=== PATIENT | female | born 1935 | race Caucasian/White ===

== ENCOUNTER 2023-06-21 09:20 | Day surgery (SDC) | payer MEDICARE, SELFPAY ==
[2023-06-21] MEDS: LACTATED RINGERS 1000 ML 1,000 ML 100 ML IV (09:20)
[2023-06-21 09:43] VITALS: BP 99/66; PULSE 61; RESP 18; TEMP 36.8; O2SAT 97; BMI 27.3
[2023-06-21] MEDS: SODIUM CHLORIDE 0.9 % (FLUSH) 10 ML SYRINGE IVF (09:50)
--- NOTE | 2023-06-21 11:53 | W.ANESCHARGE ---
Anesthesia Charges Start Date/Time Anesthesia Start Date: 06/21/23 Anesthesia Start Time: 11:38 Stop Date/Time Anesthesia Stop Date: 06/21/23 Anesthesia Stop Time: 12:18 Summary Extremes of Age - Over 70 or under 1: MDA
[2023-06-21] MEDS: CEFAZOLIN 2 GM INJ IVP (12:00)
[2023-06-21] MEDS: BACITRACIN OINTMENT BULK TUBE 1 APPLIC TOPICAL (12:05)
[2023-06-21] MEDS: LIDOCAINE 1 % PF 30 ML INJECTION (12:05)
[2023-06-21 12:15] VITALS: BP 113/71; PULSE 66; RESP 16; TEMP 37; O2SAT 96
[2023-06-21 12:30] VITALS: BP 110/70; PULSE 67; RESP 16; O2SAT 97
--- NOTE | 2023-06-21 12:45 | P.ANES_ITS ---
Anesthesia Charges Start Date/Time Anesthesia Start Date: 06/21/23 Anesthesia Start Time: 11:38 Stop Date/Time Anesthesia Stop Date: 06/21/23 Anesthesia Stop Time: 12:18 Summary Extremes of Age - Over 70 or under 1: [employer]
--- NOTE | 2023-06-21 16:18 | W.PM.GYNPROC ---
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 Clitoral ortiz is swollen and thickened. Once released, there were two - three small keratin pearls released. No pus. The skin surrounding the clitoral ortiz, which had previously been diffusely erythematous, was normal in color. Normal perineum and anus. Vagina atrophic in appearance. Procedure Description: Patient was taken to OR with IV running. She received cefazolin in pre-op prophylaxis. Monitored anesthesia care was administered. She was prepped and draped in the usual sterile fashion in dorsal lithotomy position. Exam under anesthesia was performed for the above-noted findings. She was initially poorly tolerant of the exam; this improved with injection of small amount of lidocaine into the superficial clitoral ortiz and increase in propofol. Thereafter, the phimosis was opened bluntly with mosquito hemostat in the midline. A small amount of keratinaceous debris was released with presure. The hemostat was used to probe beneath the clitoral ortiz and around the glans, and no further debris or adhesions were encountered. Antibacterial ointment was applied to the glans.
== END 2023-06-21 12:51 | disposition home or self-care (01) ==
PROVIDERS: Visit Provider Obstetrics & Gynecology
PROC: 0UQG0ZZ Repair Vagina, Open Approach (ICD-10-PCS; CPT 56441; principal; 2023-06-21 11:00)
DX: N90.89 Other specified noninflammatory disorders of vulva and perineum (principal); L90.0 Lichen sclerosus et atrophicus
CPT/HCPCS: 56441; 00400; 00940; 36415; 86850; 86900; 86901; 87070; 87075; 87076; 87181; 87186; 87205; 99100; J0690; J2001; J2405; J2704; J3010; J7120

== ENCOUNTER 2024-01-29 13:21 | Outpatient (CLI) | payer MEDICARE, SELFPAY ==
--- OUTSIDE RECORDS SUMMARY | 2024-01-29 13:26 | XMS_ITS | Clinical Summary ---
Author Organization [facility] Address [address] [place] [address] Care Team Providers Care Laborer Vineyard Name Role Phone Ty Elizabeth MD Unavailable [phone] Shu Mayfield MD Unavailable Raeann MaldonadoC Unavailable Shannan Byrne [facility] Unavailable [phone] Shannan Byrne [facility] Unavailable [phone] Shannan Byrne Unavailable Unavailable Mihaela Sylvester MD Unavailable Huong Soto [employer] Unavailable [phone] Karma Donnelly [employer] Unavailable Macrina KhanC Primary Care Provider Sharon Huang DNP Unavailable [phone] Venus Abrams PA-C Unavailable [phone] Mana MelgarSW Unavailable Allergies Active Allergy Reactions Criticality Noted Date Comments Rodney Inhibitors 11/27/2011 Cough Bupropion 03/08/2022 Nausea, constipation Codeine Sulfate Nausea High 08/18/2023 Penicillins Nausea 08/18/2010 Shrimp Itching,Difficulty breathing 08/18/2010 Sulfa Antibiotics Nausea,Nausea and Vomiting,GI Disturbance 04/26/2016 1 hour after taking medication started vomiting, chills, runny nose, diarrhea and stomach upset Medications losartan (COZAAR) 100 MG tablet Take 1 tablet (100 mg) by mouth daily 90 tablet 3 12/22/19 23 Active levothyroxine (SYNTHROID/LEVOTHR OID) 112 MCG tabletIndications: Acquired hypothyroidism TAKE ONE TABLET BY MOUTH ONCE DAILY 90 tablet 1 05/01/19 24 Active sodium chloride (CATHY 128) 5 % ophthalmic solution Place 1 drop into both eyes nightly as needed for dry eyes Active amLODIPine (NORVASC) 5 MG tabletIndications: Essential hypertension, benign Take 1 tablet (5 mg) by mouth daily 90 tablet 1 06/11/19 24 Active apixaban ANTICOAGULANT (ELIQUIS) 5 MG tabletIndications: Afib-non valvular Take 1 tablet (5 mg) by mouth 2 times daily 180 tablet 1 06/28/19 24 Active ondansetron (ZOFRAN) 4 MG tabletIndications: Nausea Take 1 tablet (4 mg) by mouth every 8 hours as needed for nausea 30 tablet 2 07/19/19 24 Active Nebulizers (VIOS AEROSOL DELIVERY SYSTEM) [facility] [place] Inst[place] 08/18/19 24 Active amiodarone (PACERONE) 200 MG tabletIndications: PAF (paroxysmal atrial fibrillation) (H) Take 1 tablet (200 mg) by mouth daily 90 tablet 3 09/21/19 24 Active melatonin 5 MG tablet Take 5-10 mg by mouth nightly as needed for sleep Active VITAMIN D PO Take 1 tablet by mouth daily Active lurasidone (LATUDA) 20 MG TABS tabletIndications: Bipolar 2 disorder (H) Take 1 tablet (20 mg) by mouth daily (with dinner) 90 tablet 10/02/19 24 Active divalproex sodium extended-release (DEPAKOTE ER) 250 MG 24 hr tabletIndications: Bipolar 2 disorder (H) Take 1 tablet (250 mg) by mouth 2 times daily. Managed by PCP 60 tablet 11/08/19 Active LORazepam (ATIVAN) 0.5 MG tabletIndications: Anxiety Take 1 tablet (0.5 mg) by mouth every 8 hours as needed for anxiety. 10 tablet 12/25/19 Active Active Problems Problem Noted Date Diagnosed Date Bipolar 2 disorder 09/03/2023 Major depressive disorder wi th current active episode, unspecified depression episode severity, unspecified whether recurrent 09/03/2023 Prediabetes 08/28/2023 UTI symptoms 08/27/2023 Altered mental status, unspe cified altered mental status type 08/27/2023 Assessment & Plan (08/27/2023 12:48 PM CDT): Son (with whom we are given permission to speak no CTC ) reports that the family is concerned about the possibility of dementia. Formal testing can be done by [facility] or psychiatry. Serologic review at this time. Observe changes with increased Depakote Elevated glucose 08/27/2023 Assessment & Plan (08/27/2023 12:48 PM CDT): Broaden database Paroxysmal atrial fibrillation 05/07/2023 Assessment & Plan (08/27/2023 12:49 PM CDT): She continues on amiodarone with interactions of concern with neuroleptics. She may eventually have EP interventions Assessment & Plan (07/20/2023 7:01 AM CDT): New onset. She has been cardioverted unsuccessfully. Flecainide was started. Changed to amiodarone, strong interaction with Seroquel-prolonged QT.. We will stop Seroquel. Last QTc .411. She has been referred to EP Assessment & Plan (06/06/2023 9:04 AM CDT): She has been cardioverted now a few times. Clinically in sinus rhythm now. Discussed upcoming cardiology potential interventions. Symptom is dyspnea. Defer to cardiology Sebaceous cyst 04/24/2023 Assessment & Plan (04/24/2023 9:44 PM SENIOR SOFTWARE ARCHITECT): Lesion that her right flank posterior axillary line and slightly medial this is a sebaceous cyst with a pore quite superficial. This bothers her. 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 Continue current regimen. Monitor Assessment & Plan (04/24/2023 9:45 PM SENIOR SOFTWARE ARCHITECT): She awakens and cannot fall back asleep. She is tossing and turning in bed discussed sleep over a lifetime into the geriatric population. Recommended sleep hygiene. Sleep referral offered declined Nocturia 12/28/2022 Assessment & Plan (12/31/2022 11:08 AM CDT): Multiple. Discussed options. She will consider, no interventions now. Xerostomia 08/09/2022 Assessment & Plan (08/10/2022 9:03 AM CDT): Attributed to hydrochlorothiazide, no change with cessation Using artificial saliva. Reduce hs seroquel dose to 50. Anserine bursitis 05/22/2022 Assessment & Plan (05/22/2022 8:39 PM CDT): Informed consent discussed, signed. Time out taken. After the verification of the absence of allergies, with betadine prep, in sterile fashion MARCAINE without epinepherine and 2 mg Dexamethasone was instilled into the L anserine bursa with 0 blood loss . Response over time with ambulation to be observed. Arthralgia of left lower leg 05/22/2022 Overview (05/22/2022): Pain Knee Assessment & Plan (05/22/2022 8:38 PM CDT): Pain with walking left leg, resolves with sitting. Starts below knee radiates towards pelvis. Exam shows negative straight leg raise pain at the anserine bursa. Anserine bursa injection. Observe if unresponsive refer for PT Dysgeusia 05/18/2022 Assessment & Plan (08/10/2022 9:04 AM CDT): Since COVID, improved slightly. Discussed lack of therapeutic options, change in taste with aging. Assessment & Plan (05/18/2022 9:28 PM CDT): The appearance of food makes her have anorexia, which she blames on respite all. We will reduce Risperdal, she needs more investigation Sciatica, unspecified laterality 05/18/2022 Assessment & Plan (05/18/2022 9:28 PM CDT): She reports a history of multiple spinal surgeries, left leg discomfort radiating to her foot with ambulation. Investigate in person in the meantime, diclofenac gel, Tylenol Nausea 03/08/2022 Assessment & Plan (07/20/2023 7:03 AM CDT): Prominent anxiety has been recurring since the of her spouse. She is having nausea diarrhea lightheadedness and hot flashes after missing 1 dose of Seroquel. If this is a withdrawal effect, she will have to tolerate it. Symptomatic treatment Assessment & Plan (03/08/2022 11:24 AM SENIOR SOFTWARE ARCHITECT): Dependable nausea following bupropion all morning. We will discontinue Weight loss 01/23/2022 Assessment & Plan (05/22/2022 8:42 PM CDT): Perceived, but not objectively. Discussed reassuring measures today actual caloric needs at this age Assessment & Plan (05/18/2022 9:30 PM CDT): She reports weight loss, of uncertain amount. She describes stuttering weight loss. I recommend evaluation, she believes Risperdal Assessment & Plan (01/23/2022 2:18 PM SENIOR SOFTWARE ARCHITECT): Anorexia, 20 pounds weight loss since the passing of her . No heartburn no dysphagia. Broaden database obtained last spring as part of evaluation for her [facility]. Update a few studies today Atypical chest pain 01/23/2022 Assessment & Plan (01/23/2022 2:17 PM SENIOR SOFTWARE ARCHITECT): Patient awoke with palpitations nausea and diaphoresis. This faded by morning, but a.m. nausea since. She blamed her SSRI and stopped it. EKG today shows development of first-degree AV block since last EKG, otherwise stable with increased baseline wander. On daily famotidine. Broaden database Ascending aorta dilatation 01/23/2022 Assessment & Plan (04/24/2023 9:46 PM SENIOR SOFTWARE ARCHITECT): Periodic echo Assessment & Plan (03/08/2022 11:28 AM SENIOR SOFTWARE ARCHITECT): Borderline. Control blood pressure, repeat echo 2022 Assessment & Plan (01/23/2022 2:16 PM SENIOR SOFTWARE ARCHITECT): Borderline, on last echo. Follow-up cardiology visit was not completed. Assess information from currently ordered cardiac studies Grieving 01/23/2022 Assessment & Plan (05/22/2022 8:41 PM CDT): Risperdal started for panic attacks, effective. Dysgeusia ensued, dose reduced last week. Patient notes more loneliness with Risperdal dose, objective data suggests dysgeusia may be observed. Discussed complications of long-term therapy. Plan 90 days at this homeopathic dose and trial of cessation. Her social support reviewed. She has found the grieving class at her [employer]ism very effective, considers her social support good. She is seeing a counselor, but is not engendering rapport. I suggest that she request a change in counselors but continue for a few months at minimum Assessment & Plan (05/18/2022 9:29 PM CDT): She reports she is doing okay. This is grieving after the loss of her of many decades. Discussed Assessment & Plan (03/22/2022 10:31 AM SENIOR SOFTWARE ARCHITECT): Panic attacks and resolved on Risperdal with cessation of other agents. She is already entering acceptance. She spent many months with her in hospice Assessment & Plan (03/08/2022 11:25 AM SENIOR SOFTWARE ARCHITECT): Associated anxiety improved but incompletely with bupropion. Effect of buspirone unclear. Stop bupropion, increase dose and schedule buspirone. She has an appointment with counseling in a few weeks Assessment & Plan (02/25/2022 3:16 PM SENIOR SOFTWARE ARCHITECT): Patient continues to grieve with panic attacks sometimes waking her at night. Database adequate recent. Paroxetine prescribed earlier was not tolerated with brief exposure discussed counseling trial of Wellbutrin, previously caused hot flashes. May benefit from genetic testing Assessment & Plan (01/23/2022 2:21 PM SENIOR SOFTWARE ARCHITECT): of 65 years is passed. She belongs to a grieving support group. She finds it most of her compatriots has had divorces and remarried and she does not feel that her decades long marriage is a good fit. However she declines additional medicines or referral for counseling today. She does vigorously denies suicidality Papule 04/22/2021 Assessment & Plan (12/31/2022 11:07 AM CDT): Painful induration L labium minus periurethral. She reports History of previous excision of lesion. Rx doxycycline empirically, refer Assessment & Plan (04/22/2021 10:25 AM SENIOR SOFTWARE ARCHITECT): Rapidly growing, no pruritis, occ bleeding (scratched?) unresponsive to Vasoline. Erythematous papule 1X .6 approx.. L forearm refer Peripheral vascular disease 03/21/2021 Assessment & Plan (03/21/2021 10:35 AM SENIOR SOFTWARE ARCHITECT): Patient reports that her insurance sent a nurse out for home visit who did an CLIFFORD. She reports a mild abnormality. She has no symptoms. 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 Progressive over years. No current therapies. Recommend topical diclofenac Tinea cruris 08/12/2020 Assessment & Plan (08/12/2020 12:53 PM CDT): Affected skin occasionally feels scalded. She blames variable toilet papers.. Currently resolving. Discussed future care OTC products Other irritable bowel syndrome 05/12/2020 Assessment & Plan (03/08/2022 11:29 AM SENIOR SOFTWARE ARCHITECT): Bupropion has generated constipation. She has used an enema and digital extraction once. We will stop bupropion, recommend mineral oil enema, brief course of Dulcolax. Anticipate return to baseline Assessment & Plan (04/22/2021 10:26 AM SENIOR SOFTWARE ARCHITECT): Controlled on 20, controlled on 40. Reduce to 20 Assessment & Plan (03/21/2021 10:35 AM SENIOR SOFTWARE ARCHITECT): Better with paroxetine. We will be increasing the dose. Monitor Assessment & Plan (02/07/2021 5:58 PM SENIOR SOFTWARE ARCHITECT): Abdominal discomfort predefecation. Antispasmodics previously poorly tolerated. Trial of therapy Assessment & Plan (08/12/2020 12:52 PM CDT): No current therapies. High Cosamin poorly tolerated. Regardless, almost completely asymptomatic. Discussed additional therapeutic options Assessment & Plan (05/12/2020 5:05 PM SENIOR SOFTWARE ARCHITECT): We have not had this diagnosis before. She reports her sister has this and Levsin is effective. She has fecal frequency without diarrhea or constipation. Colonoscopy is up-to-date. Trial of Levsin Cervical radiculopathy 05/12/2020 Assessment & Plan (05/12/2020 5:04 PM SENIOR SOFTWARE ARCHITECT): Symptoms suggest nerve compression. Only 1 month duration, to short for EMG. Discussed evaluation PT surgery injections. She will pursue her hand first Dysuria 03/09/2020 Trigger finger, acquired 03/09/2020 Assessment & Plan (01/23/2022 2:19 PM SENIOR SOFTWARE ARCHITECT): Left fourth ray. She has had other trigger fingers released, does not want to pursue injections or surgery now. Discussed for her demonstrated directed massage Assessment & Plan (05/12/2020 5:05 PM SENIOR SOFTWARE ARCHITECT): Middle finger. She has been doing directional massage which was effective for a while but not in the last 6 weeks discussed options including surgery and injection. She has had surgery on her thumb before for similar problem. She would like to pursue injection first Assessment & Plan (03/09/2020 3:57 PM SENIOR SOFTWARE ARCHITECT): Right third. She has had a trigger thumb release. Discussed directional massage natural history therapeutic options Skin macule 03/09/2020 Assessment & Plan (03/09/2020 3:59 PM SENIOR SOFTWARE ARCHITECT): She thought this might be an abscess. She warmed packed it. It may have been slightly uncomfortable no drainage exam now reveals a macule with discrete edges no induration. At this juncture monitor until abdominal evaluation is completed Monoclonal gammopathy 02/22/2020 Assessment & Plan (12/31/2022 11:10 AM CDT): Her oncologist has moved on. Broaden data base Assessment & Plan (01/23/2022 2:19 PM SENIOR SOFTWARE ARCHITECT): Future lab as well as last spring's lab reviewed. She reports that her oncologist has moved on Assessment & Plan (02/07/2021 5:59 PM SENIOR SOFTWARE ARCHITECT): Evaluation less than 1 year ago with recommendations to follow yearly otherwise reassuring Assessment & Plan (08/12/2020 12:51 PM CDT): Oncology yearly Assessment & Plan (05/12/2020 5:06 PM SENIOR SOFTWARE ARCHITECT): Oncology evaluation was reassuring. 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 She has been referred to oncology. Discussed Onychomycosis 12/29/2019 Assessment & Plan (12/29/2019 9:38 PM CDT): Left third nail only. Discussed options. Treat Atrophic vaginitis 04/25/2019 Assessment & Plan (02/16/2020 3:43 PM SENIOR SOFTWARE ARCHITECT): Friend of hers was given betamethasone for as needed usage and she would like to try this. Assessment & Plan (08/15/2019 8:02 PM CDT): Alternate topical estrogen due to cost Assessment & Plan (04/25/2019 8:56 PM SENIOR SOFTWARE ARCHITECT): She describes cysts and creams exam today shows atrophic vaginitis with erythema at interlabial margins. Recommend local hormonal therapy. Because of cost, she will try [id number] Vagisil Bilateral ovarian cysts 04/05/2019 Overview (04/05/2019): Repeat 06/2019 Assessment & Plan (04/05/2019 4:35 PM SENIOR SOFTWARE ARCHITECT): Simple, in [place]. They recommend repeating an ultrasound for stability Dyspnea on exertion 04/05/2019 Assessment & Plan (04/25/2019 8:54 PM SENIOR SOFTWARE ARCHITECT): Cardiac evaluation about 1 week hence no change in symptoms Assessment & Plan (04/05/2019 4:34 PM SENIOR SOFTWARE ARCHITECT): Perhaps a few months. No cough no edema. She attributes this to stress Night sweats 04/05/2019 Assessment & Plan (12/31/2022 11:10 AM CDT): Remote evaluation reassuring, attributed to anxiety. Faded, has returned. (Not menopausal). Update data base. Address Grieving/anxiety. Reduce seroquel dose Assessment & Plan (02/07/2021 5:59 PM SENIOR SOFTWARE ARCHITECT): No longer sweats, but hot flashes. Prompted an evaluation previously. Reevaluate slightly. Otherwise, attributed to stress trial of therapy Assessment & Plan (02/22/2020 7:06 AM SENIOR SOFTWARE ARCHITECT): This is a complaint that led to her evaluation. Assessment & Plan (02/16/2020 3:45 PM SENIOR SOFTWARE ARCHITECT): Uncertain duration certainly a few months. Must occasionally change her bed clothes. She attributes this to the menopause decades ago. Discussed differential. Exam unrevealing. [employer] database Assessment & Plan (04/25/2019 8:54 PM SENIOR SOFTWARE ARCHITECT): Son had night sweats which eventually led to cancer. She is worried. Episodes of brief diaphoresis sometimes in bed need not change her sheets. Broaden database Assessment & Plan (04/05/2019 4:35 PM SENIOR SOFTWARE ARCHITECT): Episodes of diaphoresis in her upper chest. One episode prompted her to consider going to the emergency room but it resolved and she decided not to. Frequency, palliative's, provocative is unknown. Lumbar radiculopathy 01/15/2017 Assessment & Plan (05/22/2022 8:42 PM CDT): Longstanding diagnosis, recurrent. Her left leg symptoms may be radicular, although atypical. PT if injection today's inadequate Essential hypertension, benign 01/14/2015 Assessment & Plan (08/02/2023 1:18 PM CDT): Labile. She has an appointment in about a month for recheck. Assessment & Plan (06/06/2023 8:59 AM CDT): Borderline control. Amlodipine was increased at first cardioversion. Anticipate possible adjustment of other medications by cardiology. No changes today Assessment & Plan (01/24/2023 10:06 PM SENIOR SOFTWARE ARCHITECT): Elevated, similar on repeat. Add calcium channel blockade Assessment & Plan (12/31/2022 11:13 AM CDT): Elevated increase beta blockade Assessment & Plan (08/10/2022 9:04 AM CDT): Borderline off hydrochlorothiazide. Observe further Assessment & Plan (05/22/2022 8:42 PM CDT): Controlled. No changes Assessment & Plan (02/07/2021 5:59 PM SENIOR SOFTWARE ARCHITECT): Elevated upon intake, improved upon recheck. Adequate. Monitor Assessment & Plan (08/12/2020 12:51 PM CDT): Controlled continue Assessment & Plan (02/16/2020 3:43 PM SENIOR SOFTWARE ARCHITECT): Controlled. Continue Assessment & Plan (08/15/2019 8:02 PM CDT): High today. BP Readings from Last 6 Encounters: 08/15/19 (!) 162/81 06/08/19 (!) 180/83 04/30/19 126/70 04/25/19 (!) 144/82 04/05/19 (!) 162/83 01/07/19 132/68 Discussed. She blames stress with 's cancer. Do not want diastolics below 60. We shall observe a bit more Assessment & Plan (04/05/2019 4:38 PM SENIOR SOFTWARE ARCHITECT): Elevated today. 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 Update database Assessment & Plan (12/31/2022 11:12 AM CDT): TSH Date Value Ref Range Status 12/28/2022 2.63 0.30 - 4.20 uIU/mL Final 02/07/2021 2.22 0.40 - 4.00 mU/L Final 02/12/2020 4.36 (H) 0.40 - 4.00 mU/L Final Assessment anew euthyroid Assessment & Plan (01/23/2022 2:15 PM SENIOR SOFTWARE ARCHITECT): Yearly TSH due Assessment & Plan (02/07/2021 5:57 PM SENIOR SOFTWARE ARCHITECT): TSH yearly. On repletion Assessment & Plan (11/18/2019 6:53 AM CDT): Periodic TSH Assessment & Plan (08/15/2019 8:03 PM CDT): Periodic TSH GERD (gastroesophageal reflux disease) 1 Assessment & Plan (08/12/2020 12:52 PM CDT): Well-controlled with daily Pepcid Assessment & Plan (04/25/2019 8:53 PM SENIOR SOFTWARE ARCHITECT): Pepcid more effective than ranitidine switch TMJ (temporomandibular joint syndrome) 1 Assessment & Plan (04/22/2021 10:26 AM SENIOR SOFTWARE ARCHITECT): No improvement with increased selective serotonin reuptake inhibitor. Minimal Sx. Reduce to 20 Assessment & Plan (03/21/2021 10:34 AM SENIOR SOFTWARE ARCHITECT): Symptoms have resolved. Attribute this to paroxetine Assessment & Plan (02/07/2021 5:57 PM SENIOR SOFTWARE ARCHITECT): She attributes her facial pain to this older diagnosis Assessment & Plan (02/16/2020 3:43 PM SENIOR SOFTWARE ARCHITECT): Stable, aggravating. Discussed options. Trial of therapy Assessment & Plan (12/29/2019 9:35 PM CDT): Bupropion not tolerated. She is opposed to physical therapy or appliances. Trial of alternate treatment Assessment & Plan (11/18/2019 6:53 AM CDT): Longstanding. Now worse. Previous dental approach not tolerated. SNRI Assessment & Plan (04/25/2019 8:53 PM SENIOR SOFTWARE ARCHITECT): Bothers her nightly. Discussed differential, therapeutic options. She elects to try nonsteroidals at bedtime Resolved Problems Problem Noted Date Diagnosed Date Resolved Date Need for RSV vaccination 01/24/202305/2023 Assessment & Plan (01/24/2023 10:07 PM SENIOR SOFTWARE ARCHITECT): Discussions about the rationale and safety of this vaccine. Discussed. I recommended strongly at the pharmacy Encounter for immunization 12/31/2022 0 06/06/2023 Assessment & Plan (12/31/2022 11:13 AM CDT): Discussed recommended Need for second booster dose of COVID-19 vaccine 08/10/2022 06/20/2023 Assessment & Plan (08/10/2022 9:02 AM CDT): Offered discussed accepted Encounter for Medicare annual wellness exam 08/10/2022 06/06/2023 Bipolar II disorder, severe, depressed, with anxious distress 03/22/2022 11/14/2023 Overview (08/10/2022): Pt does not fulfill criteria for this Dx by DSM , However Adverse response to antidepressants is suggestive. This Dx will remain on Problem list to avoid administration of relatively contraindicated therapies Assessment & Plan (08/27/2023 12:46 PM CDT): Son and patient both agree that Seroquel was the most effective treatment. She is now having insomnia calling her family in the middle of the night. She is disparaging of Depakote, and has only been taking half the prescribed dosage. I recommend we increase Seroquel to 1000 twice daily. She is already seeing [facility]. I recommend that she see psychiatry to help manage and optimize her medications Assessment & Plan (08/02/2023 1:17 PM CDT): Medications have been discontinued and changed because of potential interactions with amiodarone required for cardiac condition. Urgent care increased BuSpar. Medications reconciled Depakote added yesterday. Patient reports that she feels better today and finally got some sleep. Discussed diagnosis medications safety triage. She is frustrated that we cannot address her symptoms while her cardiac meds were being changed. Discussed that cardiac illness tends to be treated first. Discussed Depakote and serologic monitoring. Continue both BuSpar as prescribed at urgent care and Depakote. Consider tapering off of BuSpar in a month or so. Continue Depakote adjust to therapeutic levels Assessment & Plan (07/20/2023 6:55 AM CDT): Patient is skeptical of Seroquel benefit. She has insomnia. Observe as Seroquel is discontinued Assessment & Plan (06/06/2023 9:01 AM CDT): No panic attacks in spite of current medical changes. Continue low-dose quetiapine Assessment & Plan (04/24/2023 9:44 PM SENIOR SOFTWARE ARCHITECT): Current regimen has yielded stable mood no further panic attacks anxiety reduced mood elevated she has had a number of recent losses her more remotely and reports that she feels empty and social isolated. She also feels tired. Discussed additional interventions, which she is not interested in. Her sleep is disturbed. After discussion we elected to reduce nocturnal symptoms, now 25 Assessment & Plan (01/24/2023 10:05 PM SENIOR SOFTWARE ARCHITECT): Now on Seroquel, off SSRI, she feels well. She is sleeping well she no longer has anxiety. Discussed continue. She is scheduled to see psychiatry virtually in the near future. Upon stabilization, she can return to primary care management discussed eventual reduction and possible elimination of Seroquel as the time from her grieving fades. Discussed risk and geriatric population Assessment & Plan (12/31/2022 11:15 AM CDT): I recommend formal Psychiatric assessment. Grieving/ anxiety Sx improved, not euthymic. Decrease seroquel in interim Assessment & Plan (08/10/2022 10:55 AM CDT): On high dose seroquel, MTM/ BHC involved.Pt does not fulfill criteria for this Dx by DSM , However Adverse response to antidepressants is suggestive. This Dx will remain on Problem list to avoid administration of relatively contraindicated therapies Assessment & Plan (05/18/2022 9:29 PM CDT): Respite all has eliminated panic attacks her mood is good. She has concerns about appetite changes, otherwise medicine is tolerated. Diagnosis based upon adverse response to other therapies. Reduce to 1 tablet in the evening Assessment & Plan (03/22/2022 10:30 AM SENIOR SOFTWARE ARCHITECT): Recurrent adverse panic attacks to various antidepressants. Quite suggestive. Excellent response to Risperdal. Continue low-dose. Discussed Encounter for screening mamm ogram for malignant neoplasm of breast 03/22/2022 06/06/2023 Assessment & Plan (03/22/2022 10:29 AM SENIOR SOFTWARE ARCHITECT): She has questions about this test at her age. Discussed current thoughts. She elects to proceed Drug-induced constipation 03/08/2022 Assessment & Plan (03/08/2022 11:29 AM SENIOR SOFTWARE ARCHITECT): Monitor as bupropion is ended. Discussed enema use, discussed fecal impaction Palpitations 01/23/2022 06/06/2023 Assessment & Plan (01/23/2022 2:17 PM SENIOR SOFTWARE ARCHITECT): Patient awoke with palpitations nausea and diaphoresis. This faded by morning, but a.m. nausea since. She blamed her SSRI and stopped it. EKG today shows development of first-degree AV block since last EKG, otherwise stable with increased baseline wander. Broaden database Facial pain 02/07/2021 03/21/2021 Assessment & Plan (02/07/2021 5:58 PM SENIOR SOFTWARE ARCHITECT): Lancinating pain from anterior of the left ear radiates cephalad or distally sometimes last seconds sometimes as long as 20 minutes. Occurs once or twice a month. No findings today. Assess for temporal arteritis Infection due to 2019 novel coronavirus 02/07/2021 03/21/2021 Assessment & Plan (02/07/2021 6:00 PM SENIOR SOFTWARE ARCHITECT): November, well resolved except for residual fatigue. Lost 11 pounds. was hospitalized. Discussed. Immunized Post-menopausal bleeding 08/12/202010/2022 Assessment & Plan (08/12/2020 12:53 PM CDT): She describes blood as well as yellow staining. Urinary incontinence also possible. Broaden database Need for shingles vaccine 05/12/2020 Assessment & Plan (05/12/2020 5:08 PM SENIOR SOFTWARE ARCHITECT): She will pursue after Covid shots Urinary urgency 03/09/2020 06/20/2023 Assessment & Plan (03/09/2020 3:57 PM SENIOR SOFTWARE ARCHITECT): Last night 5 times without dysuria. Improved this morning pyuria present Abdominal pain, generalized 03/09/2020 08/12/2020 Assessment & Plan (03/09/2020 3:57 PM SENIOR SOFTWARE ARCHITECT): Diffuse, no guarding. History of IBS. Broaden database. Treat as diverticulitis in the interim. Warned about avoiding alcohol hold her calcium on this antibiotic regimen Rosacea 11/17/2019 06/20/2023 Assessment & Plan (12/29/2019 9:36 PM CDT): Metronidazole expensive. She is trying local skin measures Assessment & Plan (11/18/2019 6:53 AM CDT): Nasolabial folds, longstanding. Specific therapy Hot flashes 08/15/2019 01/23/2022 Assessment & Plan (04/22/2021 10:26 AM SENIOR SOFTWARE ARCHITECT): No improvement with increased selective serotonin reuptake inhibitor. Minimal Sx. Reduce to 20 Assessment & Plan (03/21/2021 10:36 AM SENIOR SOFTWARE ARCHITECT): Unchanged. Paroxetine tolerated. Increase dose. Assessment & Plan (12/29/2019 9:36 PM CDT): Increase with bupropion to reduce with cessation. Monitor monitor Assessment & Plan (08/15/2019 8:03 PM CDT): Evaluation reassuring. Discussed differential. She blames her 's cancer, which is doing well. Observe Fe deficiency anemia 04/05/2019 024 Assessment & Plan (02/07/2021 5:59 PM SENIOR SOFTWARE ARCHITECT): Reassess iron stores Assessment & Plan (02/16/2020 3:43 PM SENIOR SOFTWARE ARCHITECT): Hemoglobin Date Value Ref Range Status 02/12/2020 13.0 11.7 - 15.7 g/dL Final ] Discussed dietary iron sources Assessment & Plan (08/15/2019 8:01 PM CDT): Evaluated a few years ago, she has been on low-dose iron repletion which she dislikes. Last hemoglobin showed recurrent anemia. Reevaluate Assessment & Plan (04/05/2019 4:33 PM SENIOR SOFTWARE ARCHITECT): Diagnosed in [place]. Upper and lower endoscopy with gastritis but otherwise unrevealing. She does not like taking iron Right knee pain, unspecified chronicity 06/11/2017 06/20/2023 Chronic bilateral low back p ain with bilateral sciatica 10/25/2016 11/27/2016 Trochanteric bursitis of both hips 01/14/2015 06/20/2023 HTN (hypertension) 07/02/2014 5 Hand joint pain 06/09/2014 08/26/2014 Osteoarthritis 06/09/2014 08/26/2014 Left hip pain 03/20/2014 06/20/2023 Advanced directives, counseling/discussion 10/17/2012 04/04/2022 Overview (10/17/2012): Advance Care Planning: Seasonal allergic rhinitis 07/23/2012 0 06/20/2023 Neck pain 05/20/2012 04/25/2019 Assessment & Plan (04/05/2019 4:34 PM SENIOR SOFTWARE ARCHITECT): Both sides of her neck TMJ. She blames stress. Evaluate cardiac first Hypertension goal BP (blood pressure) < 140/90 07/20/2011 02/16/2020 Assessment & Plan (12/29/2019 9:36 PM CDT): Too high today BP Readings from Last 6 Encounters: 12/29/19 (!) 158/80 11/17/19 136/70 11/13/19 115/78 10/13/19 (!) 148/78 08/15/19 (!) 162/81 06/08/19 (!) 180/83 Discussed therapeutic options benefits. At this time, monitor Assessment & Plan (04/25/2019 8:53 PM SENIOR SOFTWARE ARCHITECT): Variable blood pressure. Discussed blood pressure control in the elderly. Current measures are adequate Chronic bronchitis, unspecif ied chronic bronchitis type 03/29/2011 02/23/2022 Assessment & Plan (03/21/2021 10:34 AM SENIOR SOFTWARE ARCHITECT): Asymptomatic no therapies. No change Assessment & Plan (03/09/2020 3:56 PM SENIOR SOFTWARE ARCHITECT): Completely symptom-free Assessment & Plan (04/05/2019 4:36 PM SENIOR SOFTWARE ARCHITECT): Spirometry reassuring today Cervicalgia 08/19/2010 06/20/2023 Assessment & Plan (04/25/2019 8:54 PM SENIOR SOFTWARE ARCHITECT): Pain at the nuchal ridge when she puts her head back. Noted, no radicular symptoms. No further evaluation today Hyperlipidemia LDL goal <130 08/19/2010 02/16/2020 Encounters Date Type Department Care Team Description 01/29/2024 [facility] [address] [place] [address] Sharon Huang DNP Medication Refill 12/20/2023 Ev Medical Advice [facility] [address] [place] [phone] Sharon Huang DNP 12/14/2023 Refill [facility] [address] [place] [phone] Sharon Huang DNP Refill Request (Lorazepam 0.5mg) 12/13/2023 Medical Correspondence [facility] Information Management [address] [facility] [address] [place] [address] Scan, Non-Provider [facility] 12/13/2023 Ev Medical Advice [facility] [address] [place] [place] [phone] Sharon Huang DNP 12/07/2023 Telephone [facility] [address] [place] [phone] Sharon Huang DNP Medication Request 12/06/2023 4:30 PM CDT Virtual Visit [facility] [address] [place] [phone] Sharon Huang DNP Bipolar 2 disorder (H) (Primary Dx) 12/06/2023 4:00 PM CDT Virtual Visit [facility] [address] [place] [phone] Mana Melgar LICSW Cyclothymic disorder (Primary Dx); Generalized anxiety disorder 11/21/2023 [facility] Medical Advice [facility] [address] [place] [phone] Sharon Huang DNP Patient/info Update 11/12/2023 [facility] Medical Advice [facility] [address] [facility] [address] [place] [phone] Yarely Rosenthal 11/08/2023 8:30 AM CDT Virtual Visit [facility] [address] [phone] Ty Elizabeth MD Perry, Rochelle Denise, DNP Bipolar 2 disorder (H) 11/08/2023 8:00 AM CDT Virtual Visit [facility] [address] [place] [phone] Mana Melgar LICSW Cyclothymic disorder (Primary Dx); Generalized anxiety disorder 11/07/2023 MyC Medical Advice [facility] [address] [phone] Mana Melgar LICSW 11/01/2023 12:30 PM CDT Office Visit [facility] [address] [phone] Amanda Yang LICSW Cyclothymic disorder (Primary Dx); Generalized anxiety disorder 11/01/2023 Travel 10/30/2023 3:10 PM CDT Office Visit [facility] [address] [facility] [address] [place] [phone] Mihaela Gill PA-C Stebbing, Haley, PA-C PAF (paroxysmal atrial fibrillation) (H); Essential hypertension, benign 10/30/2023 Travel from Last 3 Months Immunizations Name Administration Dates Next Due COVID-19 12+ (Pfizer) 12/28/2022 COVID-19 Bivalent 12+ (Pfizer) 08/09/2022,2021 COVID-19 MONOVALENT 12+ (Pfizer) 01/28/2021,05/03,04/27/2020 COVID-19 Monovalent 12+ (Pfizer 2021) 07/05/2021 Influenza (High Dose) Trival ent,PF (Fluzone) 11/19/2018,12/04/2016,12/28/2015,2014 Influenza (IIV3) PF 12/07/2011, 1,11/18/2009,2008 Influenza (prior to 2023) 12/07/2011,12/07/2010 Influenza Vaccine 65+ (Fluzone HD) 12/07,01/03/2022,12/24/2020,2019 Influenza Vaccine >6 months,quad, PF 12/08/2013, 12/16/2012 Pneumo Conj 13-V (2010&after) 01/11/2018, 015 Pneumococcal 23 valent 07/29/2008 RSV Vaccine (Abrysvo) 01/26/2023 TD,PF 7+ (Tenivac) 07/29/2008 TDAP (Adacel,Boostrix) 12/20/2022,08/02/2011 TDAP Vaccine (Adacel) 08/07/2011 Tdap (Adult) Unspecified Formulation 08/02/2011 Varicella 03/05/2008 Zoster vaccine, live 10/26/2008,07/29/2008 Family History Medical History Relation Comments Cardiovascular Father Cerebrovascular Disease Mother Diabetes Mother Hypertension Sister 1 Hypertension Sister 2 Unknown/Adopted Sister 3 Cancer Son 2 hodgkins lymphom a Relation Status Comments Father Mother Sister 1 Alive Sister 2 Alive Sister 3 Son 1 Alive Son 2 Alive Son 3 Alive Son 4 Alive Social History Tobacco Use Types Packs/Day Years Used Date Smoking Tobacco: Never Passive Smoke Exposure: Never Smokeless Tobacco: Never Tobacco Cessation:Counseling Given: Not Answered Alcohol Use Standard Drinks/Week Comments Not Currently 0 (1 standard drink = 0.6 oz pur e alcohol) rarely Social Connection and Isolat ion Panel [NHANES] Answer Date Recorded In a typical week, how many times do you talk on the phone with family, friends, or neighbors? More than three times a week 08/17/2023 How often do you get togethe r with friends or relatives? More than three times a week 08/17/2023 How often do you attend chur or rastafari services? More than 4 times per year 08/17/2023 Do you belong to any clubs o r organizations such as mormonism groups, unions, fraternal or athletic groups, or school groups? Yes 08/17/2023 How often do you attend meet ings of the clubs or organizations you belong to? More than 4 times per year 08/17/2023 Are you , , di vorced, , never , or living with a partner? 08/17/2023 AUDIT-C Answer Date Recorded Q1: How often do you have a drink containing alcohol? Never 06/20/2023 Q2: How many drinks containi ng alcohol do you have on a typical day when you are drinking? Patient does not drink Q3: How often do you have si x or more drinks on one occasion? Never 06/20/2023 PHQ-2 Answer Date Recorded PHQ-2 Score 1 12/06/2023 [facility] - Occupational Stress Questionnaire Answer Date Recorded Do you feel stress - tense, restless, nervous, or anxious, or unable to sleep at night because your mind is troubled all the time - these days? Very much 08/17/2023 Exercise Vital Sign Answer Date Recorde d On average, how many days pe r week do you engage in moderate to strenuous exercise (like a brisk walk)? 0 days 08/17/2023 On average, how many minutes do you engage in exercise at this level? 0 min 08/17/2023 Adolescent Education Answer Date Record ed Getting School Help Needed Not on file 11/24 Food Insecurity Answer Date Recorded Within the past 12 months, d id you worry that your food would run out before you got money to buy more? No 08/17/2023 Within the past 12 months, d id the food you bought just not last and you didn t have money to get more? No 08/17/2023 Housing Stability Answer Date Recorded Do you have housing? (Housin g is defined as stable permanent housing and does not include staying ouside in a car, in a tent, in an abandoned building, in an overnight alf, or couch-surfing.) Yes 08/17/2023 Are you worried about losing your housing? No 08/17/2023 Financial Resource Strain Answer Date R ecorded Within the past 12 months, h ave you or your family members you live with been unable to get utilities (heat, electricity) when it was really needed? No 08/17/2023 Transportation Needs Answer Date Record ed Within the past 12 months, h as lack of transportation kept you from medical appointments, getting your medicines, non-medical meetings or appointments, work, or from getting things that you need? No 08/17/2023 Interpersonal Safety Answer Date Record ed Do you feel physically and e motionally safe where you currently live? Yes 08/27/2023 Within the past 12 months, h ave you been hit, slapped, kicked or otherwise physically hurt by someone? No 08/27/2023 Within the past 12 months, h ave you been humiliated or emotionally abused in other ways by your partner or ex-partner? No 08/27/2023 Comments No Sex and Gender Information Value Date Recorded Sex Assigned at Female 04/20/2020 9:52 AM SENIOR SOFTWARE ARCHITECT Legal Sex Female 5:13 AM SENIOR SOFTWARE ARCHITECT Gender Identity Female 04/20/2020 9:52 AM SENIOR SOFTWARE ARCHITECT Sexual Orientation Not on file Last Filed Vital Signs Vital Sign Reading Time Taken Comments Blood Pressure 134/64 10/30/2023 3:20 PM CDT Pulse 63 10/30/2023 3:20 PM CDT Temperature 36.6 C (97.9 F) 09/27/2023 9:03 AM CDT Respiratory Rate 16 10/18/2023 2:40 PM CDT Oxygen Saturation 98% 10/30/2023 3:20 PM CDT Inhaled Oxygen Concentration - - Weight 63.5 kg (140 lb) 11/08/2023 7:42 AM CDT Height 162.6 cm (5' 4) 11/08/2023 7:42 AM CDT Body Mass Index 24.03 11/08/2023 7:42 AM CDT Plan of Treatment Upcoming Encounters Date Type Department Care Team (Late st Contact Info) Description 02/06/2024 3:20 PM SENIOR SOFTWARE ARCHITECT Office Visit [facility] [id number] [place] [address] [address] [place] [address] Venus Abrams PA-C [address] [place] [id number] Health Maintenance Due Date Last Done Comments COVID-19 Vaccine ( season) 2023 12/28/2022, 08/09/2022, 12/14/2021, Additional history exists INFLUENZA VACCINE (#1) 2023 , 01/03/2022, 12/24/2020, Additional history exists BMP 03/05/2024 09/03/2023, 08/04, 06/03/2023, Additional history exists MAMMO SCREENING 03/30/2024 03/30/2022, 080 09/2019, 06/28/2017, Additional history exists ANNUAL REVIEW OF HM ORDERS 07/18/202407/18, 08/09/2022, 01/23/2022, Additional history exists FALL RISK ASSESSMENT 08/19/2024 08/20/2023, 08/09/2022, 12/23/2021, Additional history exists MEDICARE ANNUAL WELLNESS VISIT 08/19/2024 08/20/2023, 08/09/2022, 08/12/2020, Additional history exists A1C 08/26/2024 08/27/2023 TSH W/FREE T4 REFLEX 11/07/2024 11/08/2023, 09/03/2023, 08/27/2023, Additional history exists ADVANCE CARE PLANNING 09/30/2028 10/01/2023 , 09/27/2023, 08/20/2023, Additional history exists DEXA 10/01/2029 10/01/2014, 120 09/2009, 12/09/2007, Additional history exists DTAP/TDAP/TD IMMUNIZATION (5 - Td or Tdap) 12/20/2032 12/20/2022, 08/07/2011, 08/02/2011, Additional history exists Pneumococcal Vaccine: 65+ Years Completed 01/11/2018, 01/05/2015, 07/29/2008 ZOSTER IMMUNIZATION Discontinued 11/18/2019, 10/26/2008, 07/29/2008 RSV VACCINE Completed 01/26/2023 HPV IMMUNIZATION Aged Out No longer e ligible based on patient's age to complete this topic MENINGITIS IMMUNIZATION Aged Out No l onger eligible based on patient's age to complete this topic RSV MONOCLONAL ANTIBODY Aged Out No l onger eligible based on patient's age to complete this topic Medical Devices Implanted Type Area Electronic Equipment Set Up Operator Device Identifier Shelf Expiration Date Model / Serial / Lot Imp Scr Arthrex Bio-Compression 3.0x18mm Ar-5025b-18 Implanted:Qty: 1 on 08/07/2013 by Sukhwinder Moore DPM at [facility] [employer] 07/03/2015 AR-5025B- 18 / / [id number] Imp Scr Arthrex Bio-Compression 3.0x16mm Ar-5025b-16 Implanted:Qty: 1 on 08/07/2013 by Sukhwinder Moore DPM at [facility] Right: Foot [employer] 05/02/2014 AR-5025B-16 / / [id number] 3mm Can Screw [id number] Implanted:Qty: 1 on 08/07/2013 by Sukhwinder Moore DPM at [facility] Right: Foot [employer] AR-8730-22P T / / [id number] 14 2.4mm Lp Titanium Straight Plate 4 Hole Implanted:Qty: 1 on 08/07/2013 by Sukhwinder Moore DPM at [facility] Right: Foot AR-8952-04 / / [id number] 14 2.4mm Nonlocking Screw Implanted:Qty: 4 on 08/07/2013 by Sukhwinder Moore DPM at [facility] Right: Foot [employer] AR-8724-12 / / [id number] 14 Wire Laura 0.045x4 Implanted:Qty: 1 on 08/07/2013 by Sukhwinder Moore DPM at [facility] Right: Foot G SOURCE 78.2020 / / [id number] 2013 Explanted Type Area Electronic Equipment Set Up Operator Device Identifier Shelf Expiration Date Model / Serial / Lot 3mm Can Screw [id number] Explanted:Qty: 1 on 08/07/2013 by Sukhwinder Moore DPM at [facility] Right: Foot [employer] AR-8730-20P T / / [id number] 14 Procedures Procedure Name Priority Date/Time Associated Diagnosis Comments CBC WITH PLATELETS & DIFFERENTIAL Routine 11/08/2023 11:26 AM CDT Hypothyroidism, unspecified Anemia, unspecified Essential (primary) hypertension BASIC METABOLIC PANEL (OUTREACH) Routine 11/08/2023 11:26 AM CDT Hypothyroidism, unspecified Anemia, unspecified Essential (primary) hypertension TRIP CHARGE - LAB ONLY Routine 11/08/2023 11:26 AM CDT Hypothyroidism, unspecified Anemia, unspecified Essential (primary) hypertension CBC WITH PLATELETS AND DIFFERENTIAL Routine 11/08/2023 11:26 AM CDT Hypothyroidism, unspecified Anemia, unspecified Essential (primary) hypertension BASIC METABOLIC PANEL NO GLUCOSE (OUTREACH) Routine 11/08/2023 11:26 AM CDT Hypothyroidism, unspecified Anemia, unspecified Essential (primary) hypertension GLUCOSE (OUTREACH) Routine 11/08/2023 11 :26 AM CDT Hypothyroidism, unspecified Anemia, unspecified Essential (primary) hypertension TSH WITH FREE T4 REFLEX Routine 11/08/2023 11:26 AM CDT Hypothyroidism, unspecified Anemia, unspecified Essential (primary) hypertension N TERMINAL PRO BNP OUTPATIENT Routine 11/08/2023 11:26 AM CDT Hypothyroidism, unspecified Anemia, unspecified Essential (primary) hypertension EKG 12-LEAD COMPLETE W/READ - CLINICS Routine 10/30/2023 Atrial flutter, unspecified type (H) COMPREHENSIVE METABOLIC PANEL STAT 09/03/2023 11:55 PM CDT HEMOGLOBIN A1C Routine 08/27/2023 12:13 PM CDT Elevated glucose MA SCREENING BILATERAL W/ STUART Routine 03/30/2022 11:37 AM SENIOR SOFTWARE ARCHITECT Encounter for screening mammogram for malignant neoplasm of breast DEXA - HIM SCAN 10/01/2014 12:00 AM CDT from Last 3 Months or Most Recently Relevant to Health Maintenance Results * Trip Charge - LAB ONLY (11/08/2023 11:26 AM CDT) Other TOPOGRAPHY UNKNOWN / Unknown Billing only / Unknown 11/08/2023 11:26 AM CDT 11/08/2023 2:12 PM CDT Liudmila Carrier RUG CUTTER HELPER COMMERCIAL ROOFER LAB CHARGE PERFORMABLE S Final Result Performing Organization Address City/State/[facility] Co de Phone Number [facility] [address] [place] [address] * (ABNORMAL) Basic Metabolic Panel No Glucose (OUTREACH) (11/08/2023 11:26 AM CDT) Sodium 141 135 - 145 mmol/L 11/08/2023 7:32 PM CDT [facility] Potassium 4.3 3.4 - 5.3 mmol/L 11/08/2023 7:32 PM CDT [facility] Chloride 104 98 - 107 mmol/L 11/08/2023 7:32 PM CDT [facility] Carbon Dioxide (CO2) 26 22 - 29 mmol/L 11/08/2023 7:32 PM CDT [facility] Anion Gap 11 7 - 15 mmol/L 11/08/2023 7:32 PM CDT [facility] Urea Nitrogen 16.4 8.0 - 23.0 mg/dL 11/08/2023 7:32 PM CDT [facility] Creatinine 1.00(H) 0.51 - 0.95 mg/dL 11/08/2023 7:32 PM CDT [facility] GFR Estimate 55(L) >60 mL/min/1.7 3m2 11/08/2023 7:32 PM CDT [facility] Calcium 9.2 8.8 - 10.4 mg/dL 11/08/2023 7:32 PM CDT [facility] Comment:Reference intervals for this test were updated on 09/18/2023 to reflect our healthy population more accurately. There may be differences in the flagging of prior results with similar values performed with this method. Those prior results can be interpreted in the context of the updated reference intervals. Blood STRUCTURE OF LEFT UPPER LIMB / Unknown Venipuncture / Unknown 11/08/2023 11:26 AM CDT 11/08/2023 2:12 PM CDT Liudmila Carrier RUG CUTTER HELPER COMMERCIAL ROOFER LAB - BLOOD ORDERABLES Final Result [facility] [address] [facility], [address] * Glucose (OUTREACH) (11/08/2023 11:26 AM CDT) Pathologist [facility] Glucose 86 70 - 99 mg/dL 11/08/2023 7:24 PM CDT [facility] Blood STRUCTURE OF LEFT UPPER LIMB / Unknown Venipuncture / Unknown 11/08/2023 11:26 AM CDT 11/08/2023 2:12 PM CDT us Liudmila Zhang RUG CUTTER HELPER COMMERCIAL ROOFER LAB - BLOOD ORDERABLES Final Result Performing Organization Address [facility] Co de Phone Number [facility] [address] [facility], [address] * (ABNORMAL) CBC with platelets and differential (11/08/2023 11:26 AM CDT) [facility] WBC Count 8.9 4.0 - 11.0 10e3/uL 11/08/2023 5:41 PM CDT [facility] RBC Count 4.20 3.80 - 5.20 10e6/uL 11/08/2023 5:41 PM CDT [facility] Hemoglobin 13.3 11.7 - 15.7 g/dL 11/08/2023 5:41 PM CDT [facility] Hematocrit 41.1 35.0 - 47.0 % 11/08/2023 5:41 PM CDT [facility] MCV 98 78 - 100 fL 11/08/2023 5:41 PM CDT [facility] MCH 31.7 26.5 - 33.0 pg 11/08/2023 5:41 PM CDT [facility] MCHC 32.4 31.5 - 36.5 g/dL 11/08/2023 5:41 PM CDT [facility] RDW 17.0(H) 10.0 - 15.0 % 11/08/2023 5:41 PM CDT [facility] Platelet Count 208 150 - 450 10e3/uL 11/08/2023 5:41 PM CDT [facility] % Neutrophils 67 % 11/08/2023 5:41 PM CDT [facility] % Lymphocytes 16 % 11/08/2023 5:41 PM CDT [facility] % Monocytes 16 % 11/08/2023 5:41 PM CDT [facility] % Eosinophils 0 % 11/08/2023 5:41 PM CDT [facility] % Basophils 0 % 11/08/2023 5:41 PM CDT [facility] % Immature Granulocytes 1 % 11/08/2023 5:41 PM CDT [facility] NRBCs per 100 WBC 0 <1 /100 024 5:41 PM CDT [facility] Absolute Neutrophils 6.0 1.6 - 8.3 10e3/uL 11/08/2023 5:41 PM CDT [facility] Absolute Lymphocytes 1.5 0.8 - 5.3 10e3/uL 11/08/2023 5:41 PM CDT [facility] Absolute Monocytes 1.4(H) 0.0 - 1.3 10e3/uL 11/08/2023 5:41 PM CDT [facility] Absolute Eosinophils 0.0 0.0 - 0.7 10e3/uL 11/08/2023 5:41 PM CDT [facility] Absolute Basophils 0.0 0.0 - 0.2 10e3/uL 11/08/2023 5:41 PM CDT [facility] Absolute Immature Granulocytes 0.0 <=0.4 10e3/uL 11/08/2023 5:41 PM CDT [facility] Absolute NRBCs 0.0 10e3/uL 11/08/2023 5:41 PM CDT [facility] Blood STRUCTURE OF LEFT UPPER LIMB / Unknown Venipuncture / Unknown 11/08/2023 11:26 AM CDT 11/08/2023 2:12 PM CDT us Liudmila Carrier RUG CUTTER HELPER COMMERCIAL ROOFER LAB - BLOOD ORDERABLES Final Result [facility] [address] [facility], [address] [place] [address], [facility] * TSH with free T4 reflex (11/08/2023 11:26 AM CDT) TSH 1.17 0.30 - 4.20 uIU/mL 11/08/2023 7:32 PM CDT [facility] Blood STRUCTURE OF LEFT UPPER LIMB / Unknown Venipuncture / Unknown 11/08/2023 11:26 AM CDT 11/08/2023 2:12 PM CDT Liudmila Carrier RUG CUTTER HELPER COMMERCIAL ROOFER LAB - BLOOD ORDERABLES Final Result U [facility] Lab [address] [facility], [address] [id number] * N terminal pro BNP outpatient (11/08/2023 11:26 AM CDT) N Terminal Pro BNP Outpatient 735 0 - 1,800 pg/mL 11/08/2023 7:32 PM CDT [facility] Comment: Reference range shown and results flagged as abnormal are for the outpatient, non acute settings. Establishing a baseline value for each individual patient is useful for follow-up. Suggested inpatient cut points for confirming diagnosis of CHF in an acute setting are: >450 pg/mL (age 18 to less than 50) >900 pg/mL (age 50 to less than 75) >1800 pg/mL (75 yrs and older) An inpatient or emergency department NT-proPBNP <300 pg/mL effectively rules out acute CHF, with 99% negative predictive value. Blood STRUCTURE OF LEFT UPPER LIMB / Unknown Venipuncture / Unknown 11/08/2023 11:26 AM CDT 11/08/2023 2:12 PM CDT Liudmila Carrier RUG CUTTER HELPER COMMERCIAL ROOFER LAB - BLOOD ORDERABLES Final Result [facility] Core Lab [address] [facility], [address] [phone] * EKG 12-lead complete w/read - Clinics (10/30/2023) Faustina Trujillo MD ECG ORDERABLES Ed ited Result - Final * (ABNORMAL) Comprehensive metabolic panel (09/03/2023 11:[address] [facility]) Sodium 139 135 - 145 mmol/L 09/04/2023 12:54 AM [facility] Potassium 4.5 3.4 - 5.3 mmol/L 09/04/2023 12:54 AM [facility] Carbon Dioxide (CO2) 27 22 - 29 mmol/L 09/04/2023 12:54 AM [facility] Anion Gap 8 7 - 15 mmol/L 09/04/2023 12:54 AM [facility] Urea Nitrogen 21.1 8.0 - 23.0 mg/dL 09/04/2023 12:54 AM [facility] Creatinine 0.99(H) 0.51 - 0.95 mg/dL 09/04/2023 12:54 AM [facility] GFR Estimate 56(L) >60 mL/min/1. 73m2 09/04/2023 12:54 AM [facility] Comment:eGFR calculated usin 2020 CKD-EPI equation. Calcium 9.0 8.8 - 10.2 mg/dL 09/04/2023 12:54 AM [facility] Chloride 104 98 - 107 mmol/L 09/04/2023 12:54 AM [facility] Glucose 119(H) 70 - 99 mg/dL 09/04/2023 12:54 AM [facility] Alkaline Phosphatase 46 40 - 150 U/L 09/04/2023 12:54 AM [facility] AST 23 0 - 45 U/L 09/04/2023 12:54 AM [facility] Comment: Specimen is hemolyzed which can falsely elevate AST. Analysis of a non-hemolyzed specimen may result in a lower value. Reference intervals for this test were updated on 08/14/2022 to more accurately reflect our healthy population. There may be differences in the flagging of prior results with similar values performed with this method. Interpretation of those prior results can be made in the context of the updated reference intervals. ALT 17 0 - 50 U/L 09/04/2023 12:54 AM [facility] Comment:Reference intervals for this test were updated on 08/14/2022 to more accurately reflect our healthy population. There may be differences in the flagging of prior results with similar values performed with this method. Interpretation of those prior results can be made in the context of the updated reference intervals. Protein Total 6.3(L) 6.4 - 8.3 g/dL 09/04/2023 12:54 AM [facility]T LABORATORY Albumin 3.8 3.5 - 5.2 g/dL 09/04/2023 12:54 AM CDT LABORATORY Bilirubin Total 0.2 <=1.2 mg/dL 09/04/2023 12:54 AM CDT LABORATORY Blood STRUCTURE OF RIGHT UPPER LIMB / Unknown Venipuncture / Unknown 09/03/2023 11:55 PM CDT 09/04/2023 12:18 AM CDT us Teresa Comer APRN, CNP LAB - BLOOD ORDERABLES Fi nal Result SH LABORATORY [facility] [address] 1[address] floor, [address] [place] [address], [place] [phone] * (ABNORMAL) Hemoglobin A1c (08/27/2023 12:13 PM CDT) [facility] Hemoglobin A1C 6.3(H) 0.0 - 5.6 % 08/27/2023 12:20 PM CDT [facility] Comment: Normal <5.7% Prediabetes 5.7-6.4% Diabetes 6.5% or higher Note: Adopted from ADA consensus guidelines. Blood BLOOD SPECIMEN / Unknown Venipuncture / Unknown 08/27/2023 12:13 PM CDT 08/27/2023 12:15 PM CDT us Ty Elizabeth MD LAB - BLOOD ORDERABLES Final Re sult CR [facility] [address] [facility] [address] [facility] (no room number, 1st floor of clinic) [place] [address], [place] [phone] * [place] Screen Bilateral w/Stuart (03/30/2022 11:37 AM SENIOR SOFTWARE ARCHITECT) Anatomical Region Laterality Modality Breast Bilateral Mammography Impressions 03/31/2022 8:33 AM SENIOR SOFTWARE ARCHITECT IMPRESSION: ACR BI-RADS Category 1: Negative RECOMMENDED FOLLOW-UP: Annual routine screening mammogram The results and recommendations of this examination will be communicated to the patient. Dejah Flanagan MD Narrative 03/31/2022 8:33 AM SENIOR SOFTWARE ARCHITECT BILATERAL FULL FIELD DIGITAL SCREENING MAMMOGRAM WITH TOMOSYNTHESIS Performed on: 03/30/22 Compared to: 10/10/2019, 06/28/2017, and 06/10/2015 Technique: This study was evaluated with the assistance of Computer-Aided Detection. Breast Tomosynthesis was used in interpretation. Findings: The breasts have scattered areas of fibroglandular density. There is no radiographic evidence of malignancy. Ty Elizabeth MD IMG MAMMOGRAPHY ORDERABLES Chiny[place] l Result * DEXA - HIM SCAN (10/01/2014 12:00 AM CDT) Anatomical Region Laterality Modality Other 10/01/2014 Smiley Raymnudo MD IMG DEXA ORDERABLES Fin al Result from Last 3 Months or Most Recently Relevant to Health Maintenance Insurance [facility] MEDICARE ADVANTAGE [facility] MEDICARE ADVANTAGE * Guarantor: Jessica Hannah Account Type Relation to Patient Date of Phone Billing Address Medication Therapy Self [id number] [place] [address] [facility] MEDICARE ADVANTAGE [facility] MEDICARE ADVANTAGE Advance Directives For more information, please contact: [phone] Documents on File Type Date Recorded Patient Die Casting Machine Setter Expl anation Advance Directives and Living Will 10/01/2023 POLST 09-27-2023 Advance Directives and Living Will 05/26/2022 Health Care Directiv e 04/29/2022 * Full Code (Latest Code Status on File) Date Activated Date Inactivated Comments 05/07/2023 3:01 PM 05/08/2023 8:10 PM All basic and advanced life-sustaining interventions are performed as appropriate Question Answer Comments Code status determined by: Discussion with patie nt/ legal decision maker Healthcare Agents on File Name Relationship Healthcare Agent Relationshi p Communication Efren Hannah Son Second Alternate Health Care Agent Jono Hannah Son Third Alternate Health Care Agent Souleymane Hannah Son Health Care Agent Jayjay Hannah Son First Alternate Health Care Agent Care Teams Laborer Vineyard Relationship Specialty Start Date End Date Macrina Khan PA-C [address] [place] [phone] PCP - General Family Medicine 09/13/23 [place] [address] [place], [place] [phone] Assigned PCP 07/14/18 [place] [address] [place], [place] [phone] Medical Oncology 02/19/20 Raeann Maldonado PA-C [address] [place] [address] Physician Digital Technician Dermatology 04/27/21 Shannan Byrne [facility] [place] [address] Pharmacist Pharmacist 06/08/22 Shannan Byrne [facility] [address] [place] [address] Assigned MTM Pharmacist 06/17/22 Shannan Byrne Medical Student 12/27/22 Mihaela Sylvester MD [address] [address] sack sewer 01/01/23 Huong Soto RUG CUTTER HELPER COMMERCIAL ROOFER [address] [phone] Nurse Practitioner Psychiatry 01/08/23 Karma Donnelly, SELINA COMMERCIAL ROOFER [address] [place] [address] Nurse Practitioner Cardiovascular Disease 05/14/23 Sharon Huang DNP [address] [place], [place] [phone] Assigned Neuroscience Provider 11/26/23 Venus Abrams PA-C [address] [place] [address] Assigned Heart and Vascular Provider 11/26/23 Mana Melgar LICSW [facility] [address] [place] [address], [address] [place] [address] Assigned Behavioral Health Provider 01/26/24
--- OUTSIDE RECORDS SUMMARY | 2024-01-29 13:26 | XMS_ITS | Encounter Summary ---
Author Organization [place] Address [address] [place] [address] Care Team Providers Care Plant Operations Vice President Name Role Phone Ty Elizabeth MD Unavailable [phone] Shu [place] MD Unavailable Raeann Maldonado PA-C Unavailable Shannan Byrne [facility] Unavailable Shannan Byrne [facility] Unavailable Shannan Byrne Unavailable Unavailable Mihaela Sylvester MD Unavailable Huong Soto PLANT OPERATIONS VICE PRESIDENT FOOT SETTER Unavailable [phone] Karma Donnelly PLANT OPERATIONS VICE PRESIDENT FOOT SETTER Unavailable Amanda Yang RETORT LOADER Unavailable [phone] Macrina Khan PA-C Primary Care Provider [phone] Sharon Huang DNP Unavailable Venus Abrams PA-C Unavailable Reason for Visit * Reason Onset Date Comments Refill Request 12/14/2023 Lorazepam 0.5mg Encounter Details Date Type Department Care Team (Late st Contact Info) Description 12/14/[address] [facility] Mental Health & Addiction [facility] [address] [place] [address] Sharon Huang, [facility] [address] [place] [address] Refill Request (Lorazepam 0.5mg) Social History Tobacco Use Types Packs/Day Years Used Date Smoking Tobacco: Never Passive Smoke Exposure: Never Smokeless Tobacco: Never Alcohol Use Standard Drinks/Week Comments Not Currently [...] 08/17/2023 How often do you attend chur ch or moravian services? More than 4 times per year 08/17/2023 Do you belong to any clubs o r organizations such as pentecostal groups, unions, fraternal or athletic groups, or [...] Answer Date Recorded PHQ-2 Score 1 12/06/2023 [facility] of Occupat ional Health - Occupational Stress [...] Answer Date Recorded Do you have housing? (Eze g is defined as stable permanent housing and does not include staying ouside in a car, in a tent, in an abandoned building, in an overnight senior care, or couch-surfing.) Yes 08/17/2023 Are you worried [...] Sex Assigned at Female 04/20/2020 9:52 AM ADVERTISING SALES MANAGER Legal Sex Female 5:13 AM ADVERTISING SALES MANAGER Gender Identity Female 04/20/2020 9:52 AM ADVERTISING SALES MANAGER Sexual Orientation Not on file documented as of this encounter Miscellaneous Notes * Telephone Encounter - Nayana Infante RN - 12/14/2023 10:17 AM CDT Received a telephone call from [facility] [place], [place] - [address] The patient needs a refill of Lorazepam 0.5mg Date of Last Office Visit: 12/06/23 Date of Next Office Visit: 01/10/24 No shows since last visit: No More than one patient-initiated cancellation (with reschedule) since last seen in clinic? No []Medication refilled per ???Medication Refill in French Instructor?? policy. [x]Medication unable to be refilled by RN due to criteria not met as indicated below: []Eligibility: has not had a provider visit within last 6 months []Supervision: no future appointment; < 7 days before next appointment []Compliance: no shows; cancellations; lapse in therapy []Verification: order discrepancy; may need modification... [] > 30-day supply request []Advanced refill request: > 7 days before refill date [x]Controlled medication []Medication not included in policy []Review: new med; med adjusted <= 30 days; safety alert; requires lab monitoring... []Scope of Practice: refill request processed by POST HOLE DIGGER/SHASHI []Other: Medication(s) requested: - LORazepam (ATIVAN) 0.5 MG tablet Date last ordered: 08/20/23 Qty: 10 Refills: 0 Any Controlled Substance(s)? Yes [place] MANAGER POWER checked? No. Last prescribed by Macrina Khan PA-C Requested medication(s) verified as identical to current order? Yes Any lapse in adherence to medication(s) greater than 5 days? N/A Additional action taken? routed encounter to provider for review. Last visit treatment plan: Plan is not signed at this time Any medication(s) require lab monitoring? No documented in this encounter Plan of Treatment Upcoming Encounters Date Type Department Care Team (Late st Contact Info) Description 02/06/2024 3:20 PM ADVERTISING SALES MANAGER Office Visit [facility] [address] [address] [place] [phone] Venus Abrams PA-C [address] [place] [address] documented as of this encounter Visit Diagnoses Diagnosis Anxiety Anxiety state, unspecified documented in this encounter Additional Health Concerns Assessment Noted Time PHQ-9 Depression Total Score: 2 11/07/19 24 10:06 AM CDT documented as of this encounter Care Teams Plant Operations Vice President Relationship Specialty Start Date End Date Macrina Khan PA-C [address] [place] [phone] PCP - General Family Medicine 09/13/23 [place] [address] [place], [place] [phone] Assigned PCP 07/14/18 [place] [address] [place], [place] [phone] Medical Oncology 02/19/20 Raeann Maldonado PA-C [address] [place] [address] Physician Newspaper Inserter Dermatology 04/27/21 Shannan Byrne [facility] [address] [place] [address] Pharmacist Pharmacist 06/08/22 hSannan Byrne [facility] [address] [place] [address] Assigned MTM Pharmacist 06/17/22 Shannan Byrne Medical Student 12/27/22 Mihaela Sylvester MD [address] [address] operations manager assistant 01/01/23 Huong Soto, PLANT OPERATIONS VICE PRESIDENT FOOT SETTER [address] [place] [phone] Nurse Practitioner Psychiatry 01/08/23 Karma Donnelly, SELINA FOOT SETTER [address] [place] [address] Nurse Practitioner Cardiovascular Disease 05/14/23 Amanda Yang, [facility] [address] [place] [address] Assigned Behavioral Health Provider 06/26/23 01/25/24 Sharon Huang DNP [address] [place], [place] [address] Assigned Neuroscience Provider 11/26/23 Venus Abrams PA-C [address] [place] [address] Assigned Heart and Vascular Provider 11/26/23 documented as of this encounter
--- OUTSIDE RECORDS SUMMARY | 2024-01-29 13:26 | XMS_ITS | Referral Summary ---
Author Organization [facility] Address [address] [place] [address] Care Team Providers Care Delivery Sales Worker Name Role Phone Ty Elizabeth MD Unavailable [phone] Shu Mayfield MD Unavailable Raeann MaldonadoC Unavailable Shannan Byrne [facility] Unavailable [phone] Shannan Byrne [facility] Unavailable [phone] Shannan Byrne Unavailable Unavailable Mihaela Sylvester MD Unavailable Huong Soto [facility] [employer] Unavailable [phone] Karma Donnelly [employer] [employer] Unavailable Macrina Khan PA-C Primary Care Provider [phone] Sharon Huang DNP Unavailable Venus AbramsC Unavailable Mana MelgarSW Unavailable [phone] Encounters Date Type Department Care Team Description 01/29/2024 Refill [facility] [address] [place] [phone] Sharon Huang DNP Medication Refill 12/20/2023 MyC Medical Advice [facility] & [facility] [address] [place] [address] [address] [place] [phone] Sharon Huang DNP 12/14/2023 Refill [facility] [address] [place] [address] [address] [place] [phone] Sharon Huang DNP Refill Request (Lorazepam 0.5mg) 12/13/2023 Medical Correspondence [facility] Information Management [address] [facility] [address] [place] [address] Scan, Non-Provider [facility] 12/13/2023 MyC Medical Advice [facility] [address] [place] [phone] Sharon Huang DNP 12/07/2023 Telephone [facility] [address] [place] [phone] Sharon Huang DNP Medication Request 12/06/2023 4:30 PM CDT Virtual Visit [facility] [address] [place] [address] [address] [place] [phone] Sharon Huang DNP Bipolar 2 disorder (H) (Primary Dx) 12/06/2023 4:00 PM CDT Virtual Visit [facility] [address] [place] [phone] Mana Melgar LICSW Cyclothymic disorder (Primary Dx); Generalized anxiety disorder 11/21/2023 MyC Medical Advice [facility] [address] [place] [address] [address] [place] [phone] Sharon Huang DNP Patient/info Update 11/12/2023 MyC Medical Advice [facility] [address] [facility] [address] [place] [phone] Yarely Rosenthal 11/08/2023 8:00 AM CDT Virtual Visit [facility] [address] [place] [address] Mana Melgar LICSW Cyclothymic disorder (Primary Dx); Generalized anxiety disorder 11/08/2023 8:30 AM CDT Virtual Visit [facility] [address] [place] [address] Ty Elizabeth MD Perry, Rochelle Denise, THOMAS Bipolar 2 disorder (H) 11/07/2023 MyC Medical Advice [facility] [address] [place] [address] Mana Melgar LICSW 11/01/2023 Travel 11/01/2023 12:30 PM CDT Office Visit [facility] [address] [phone] Amanda Yang LICSW Cyclothymic disorder (Primary Dx); Generalized anxiety disorder 10/30/2023 Travel 10/30/2023 3:10 PM CDT Office Visit [facility] [address] [facility] [address] [place] [phone] Mihaela Gill PA-C Stebbing, Haley, PA-C PAF (paroxysmal atrial fibrillation) (H); Essential hypertension, benign from Last 3 Months Allergies Active Allergy Reactions Criticality Noted Date [...] 24 Active Nebulizers (VIOS AEROSOL DELIVERY SYSTEM) [facility] See Admin Instructions 08/18/19 24 Active amiodarone [...] daily. Managed by PCP 60 tablet 11/08/19 24 Active LORazepam (ATIVAN) 0.5 MG tabletIndications: Anxiety Take 1 tablet (0.5 mg) by mouth every 8 hours as needed for anxiety. 10 tablet 12/25/19 24 Active Active Problems Problem Noted Date Diagnosed [...] dementia. Formal testing can be done by [facility] or psychiatry. Serologic review at this time. [...] 04/24/2023 Assessment & Plan (04/24/2023 9:44 PM IGNITION EXPERT): Lesion that her right flank posterior axillary line and slightly medial this is a sebaceous cyst with a pore quite superficial. This bothers her. Refer for excision to her pharmaceutical salesperson Primary insomnia 04/24/2023 Assessment & Plan (06/06/2023 9:05 AM CDT): Sleep disturbance with new medical issues. Continue current regimen. Monitor Assessment & Plan (04/24/2023 9:45 PM IGNITION EXPERT): She awakens and cannot fall back asleep. [...] treatment Assessment & Plan (03/08/2022 11:24 AM IGNITION EXPERT): Dependable nausea following bupropion all morning. We [...] Risperdal Assessment & Plan (01/23/2022 2:18 PM IGNITION EXPERT): Anorexia, 20 pounds weight loss since the passing of her . No heartburn no dysphagia. Broaden database obtained last spring as part of evaluation for her MGUS. Update a few studies today Atypical chest pain 01/23/2022 Assessment & Plan (01/23/2022 2:17 PM IGNITION EXPERT): Patient awoke with palpitations nausea and diaphoresis. This faded by morning, but a.m. nausea since. She blamed her SSRI and stopped it. EKG today shows development of first-degree AV block since last EKG, otherwise stable with increased baseline wander. On daily famotidine. Broaden database Ascending aorta dilatation 01/23/2022 Assessment & Plan (04/24/2023 9:46 PM IGNITION EXPERT): Periodic echo Assessment & Plan (03/08/2022 11:28 AM IGNITION EXPERT): Borderline. Control blood pressure, repeat echo 2022 Assessment & Plan (01/23/2022 2:16 PM IGNITION EXPERT): Borderline, on last echo. Follow-up cardiology visit [...] has found the grieving class at her latter day very effective, considers her social support good. [...] Discussed Assessment & Plan (03/22/2022 10:31 AM IGNITION EXPERT): Panic attacks and resolved on Risperdal with cessation of other agents. She is already entering acceptance. She spent many months with her in hospice Assessment & Plan (03/08/2022 11:25 AM IGNITION EXPERT): Associated anxiety improved but incompletely with bupropion. Effect of buspirone unclear. Stop bupropion, increase dose and schedule buspirone. She has an appointment with counseling in a few weeks Assessment & Plan (02/25/2022 3:16 PM IGNITION EXPERT): Patient continues to grieve with panic attacks sometimes waking her at night. Database adequate recent. Paroxetine prescribed earlier was not tolerated with brief exposure discussed counseling trial of Wellbutrin, previously caused hot flashes. May benefit from genetic testing Assessment & Plan (01/23/2022 2:21 PM IGNITION EXPERT): of 65 years is passed. She belongs [...] refer Assessment & Plan (04/22/2021 10:25 AM IGNITION EXPERT): Rapidly growing, no pruritis, occ bleeding (scratched?) unresponsive to Vasoline. Erythematous papule 1X .6 approx.. L forearm refer Peripheral vascular disease 03/21/2021 Assessment & Plan (03/21/2021 10:35 AM IGNITION EXPERT): Patient reports that her insurance sent a nurse out for home visit who did an CLIFFORD. She reports a mild abnormality. She has no symptoms. 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 No current therapies. Recommend topical diclofenac Tinea cruris 08/12/2020 Assessment & Plan (08/12/2020 12:53 PM CDT): Affected skin occasionally feels scalded. She blames variable toilet papers.. Currently resolving. Discussed future care OTC products Other irritable bowel syndrome 05/12/2020 Assessment & Plan (03/08/2022 11:29 AM IGNITION EXPERT): Bupropion has generated constipation. She has used an enema and digital extraction once. We will stop bupropion, recommend mineral oil enema, brief course of Dulcolax. Anticipate return to baseline Assessment & Plan (04/22/2021 10:26 AM IGNITION EXPERT): Controlled on 20, controlled on 40. Reduce to 20 Assessment & Plan (03/21/2021 10:35 AM IGNITION EXPERT): Better with paroxetine. We will be increasing the dose. Monitor Assessment & Plan (02/07/2021 5:58 PM IGNITION EXPERT): Abdominal discomfort predefecation. Antispasmodics previously poorly tolerated. Trial of therapy Assessment & Plan (08/12/2020 12:52 PM CDT): No current therapies. High Cosamin poorly tolerated. Regardless, almost completely asymptomatic. Discussed additional therapeutic options Assessment & Plan (05/12/2020 5:05 PM IGNITION EXPERT): We have not had this diagnosis before. She reports her sister has this and Levsin is effective. She has fecal frequency without diarrhea or constipation. Colonoscopy is up-to-date. Trial of Levsin Cervical radiculopathy 05/12/2020 Assessment & Plan (05/12/2020 5:04 PM IGNITION EXPERT): Symptoms suggest nerve compression. Only 1 month duration, to short for EMG. Discussed evaluation PT surgery injections. She will pursue her hand first Dysuria 03/09/2020 Trigger finger, acquired 03/09/2020 Assessment & Plan (01/23/2022 2:19 PM IGNITION EXPERT): Left fourth ray. She has had other trigger fingers released, does not want to pursue injections or surgery now. Discussed for her demonstrated directed massage Assessment & Plan (05/12/2020 5:05 PM IGNITION EXPERT): Middle finger. She has been doing directional massage which was effective for a while but not in the last 6 weeks discussed options including surgery and injection. She has had surgery on her thumb before for similar problem. She would like to pursue injection first Assessment & Plan (03/09/2020 3:57 PM IGNITION EXPERT): Right third. She has had a trigger thumb release. Discussed directional massage natural history therapeutic options Skin macule 03/09/2020 Assessment & Plan (03/09/2020 3:59 PM IGNITION EXPERT): She thought this might be an abscess. She warmed packed it. It may have been slightly uncomfortable no drainage exam now reveals a macule with discrete edges no induration. At this juncture monitor until abdominal evaluation is completed Monoclonal gammopathy 02/22/2020 Assessment & Plan (12/31/2022 11:10 AM CDT): Her oncologist has moved on. Broaden data base Assessment & Plan (01/23/2022 2:19 PM IGNITION EXPERT): Future lab as well as last spring's lab reviewed. She reports that her oncologist has moved on Assessment & Plan (02/07/2021 5:59 PM IGNITION EXPERT): Evaluation less than 1 year ago with recommendations to follow yearly otherwise reassuring Assessment & Plan (08/12/2020 12:51 PM CDT): Oncology yearly Assessment & Plan (05/12/2020 5:06 PM IGNITION EXPERT): Oncology evaluation was reassuring. Discussed natural history potential deterioration Assessment & Plan (02/22/2020 7:06 AM IGNITION EXPERT): Possible monoclonal free immunoglobulin light chain of kappa chain type. She has been referred to oncology. Discussed Onychomycosis 12/29/2019 Assessment & Plan (12/29/2019 9:38 PM CDT): Left third nail only. Discussed options. Treat Atrophic vaginitis 04/25/2019 Assessment & Plan (02/16/2020 3:43 PM IGNITION EXPERT): Friend of hers was given betamethasone for as needed usage and she would like to try this. Assessment & Plan (08/15/2019 8:02 PM CDT): Alternate topical estrogen due to cost Assessment & Plan (04/25/2019 8:56 PM IGNITION EXPERT): She describes cysts and creams exam today shows atrophic vaginitis with erythema at interlabial margins. Recommend local hormonal therapy. Because of cost, she will try [id number] Vagisil Bilateral ovarian cysts 04/05/2019 Overview (04/05/2019): Repeat US 06/2019 Assessment & Plan (04/05/2019 4:35 PM IGNITION EXPERT): Simple, in [place]. They recommend repeating an ultrasound for stability Dyspnea on exertion 04/05/2019 Assessment & Plan (04/25/2019 8:54 PM IGNITION EXPERT): Cardiac evaluation about 1 week hence no change in symptoms Assessment & Plan (04/05/2019 4:34 PM IGNITION EXPERT): Perhaps a few months. No cough no edema. She attributes this to stress Night sweats 04/05/2019 Assessment & Plan (12/31/2022 11:10 AM CDT): Remote evaluation reassuring, attributed to anxiety. Faded, has returned. (Not menopausal). Update data base. Address Grieving/anxiety. Reduce seroquel dose Assessment & Plan (02/07/2021 5:59 PM IGNITION EXPERT): No longer sweats, but hot flashes. Prompted an evaluation previously. Reevaluate slightly. Otherwise, attributed to stress trial of therapy Assessment & Plan (02/22/2020 7:06 AM IGNITION EXPERT): This is a complaint that led to her evaluation. Assessment & Plan (02/16/2020 3:45 PM IGNITION EXPERT): Uncertain duration certainly a few months. Must occasionally change her bed clothes. She attributes this to the menopause decades ago. Discussed differential. Exam unrevealing. [facility] database Assessment & Plan (04/25/2019 8:54 PM IGNITION EXPERT): Son had night sweats which eventually led to cancer. She is worried. Episodes of brief diaphoresis sometimes in bed need not change her sheets. QPID [facility] database Assessment & Plan (04/05/2019 4:35 PM IGNITION EXPERT): Episodes of diaphoresis in her upper chest. [...] today Assessment & Plan (01/24/2023 10:06 PM IGNITION EXPERT): Elevated, similar on repeat. Add calcium channel blockade Assessment & Plan (12/31/2022 11:13 AM CDT): Elevated increase beta blockade Assessment & Plan (08/10/2022 9:04 AM CDT): Borderline off hydrochlorothiazide. Observe further Assessment & Plan (05/22/2022 8:42 PM CDT): Controlled. No changes Assessment & Plan (02/07/2021 5:59 PM IGNITION EXPERT): Elevated upon intake, improved upon recheck. Adequate. Monitor Assessment & Plan (08/12/2020 12:51 PM CDT): Controlled continue Assessment & Plan (02/16/2020 3:43 PM IGNITION EXPERT): Controlled. Continue Assessment & Plan (08/15/2019 8:02 PM CDT): High today. BP Readings from Last 6 Encounters: 08/15/19 (!) 162/81 06/08/19 (!) 180/83 04/30/19 126/70 04/25/19 (!) 144/82 04/05/19 (!) 162/83 01/07/19 132/68 Discussed. She blames stress with 's cancer. Do not want diastolics below 60. We shall observe a bit more Assessment & Plan (04/05/2019 4:38 PM IGNITION EXPERT): Elevated today. No changes pending evaluation Swelling [...] euthyroid Assessment & Plan (01/23/2022 2:15 PM IGNITION EXPERT): Yearly TSH due Assessment & Plan (02/07/2021 5:57 PM IGNITION EXPERT): TSH yearly. On repletion Assessment & Plan (11/18/2019 6:53 AM CDT): Periodic TSH Assessment & Plan (08/15/2019 8:03 PM CDT): Periodic TSH GERD (gastroesophageal reflux disease) 1 Assessment & Plan (08/12/2020 12:52 PM CDT): Well-controlled with daily Pepcid Assessment & Plan (04/25/2019 8:53 PM IGNITION EXPERT): Pepcid more effective than ranitidine switch TMJ (temporomandibular joint syndrome) 1 Assessment & Plan (04/22/2021 10:26 AM IGNITION EXPERT): No improvement with increased selective serotonin reuptake inhibitor. Minimal Sx. Reduce to 20 Assessment & Plan (03/21/2021 10:34 AM IGNITION EXPERT): Symptoms have resolved. Attribute this to paroxetine Assessment & Plan (02/07/2021 5:57 PM IGNITION EXPERT): She attributes her facial pain to this older diagnosis Assessment & Plan (02/16/2020 3:43 PM IGNITION EXPERT): Stable, aggravating. Discussed options. Trial of therapy Assessment & Plan (12/29/2019 9:35 PM CDT): Bupropion not tolerated. She is opposed to physical therapy or appliances. Trial of alternate treatment Assessment & Plan (11/18/2019 6:53 AM CDT): Longstanding. Now worse. Previous dental approach not tolerated. SNRI Assessment & Plan (04/25/2019 8:53 PM IGNITION EXPERT): Bothers her nightly. Discussed differential, therapeutic options. She elects to try nonsteroidals at bedtime Resolved Problems Problem Noted Date Diagnosed Date Resolved Date Need for RSV vaccination 01/24/202305/2023 Assessment & Plan (01/24/2023 10:07 PM IGNITION EXPERT): Discussions about the rationale and safety of [...] 1000 twice daily. She is already seeing [facility]. I recommend that she see psychiatry to [...] quetiapine Assessment & Plan (04/24/2023 9:44 PM IGNITION EXPERT): Current regimen has yielded stable mood no [...] 25 Assessment & Plan (01/24/2023 10:05 PM IGNITION EXPERT): Now on Seroquel, off SSRI, she feels [...] evening Assessment & Plan (03/22/2022 10:30 AM IGNITION EXPERT): Recurrent adverse panic attacks to various antidepressants. Quite suggestive. Excellent response to Risperdal. Continue low-dose. Discussed Encounter for screening mamm ogram for malignant neoplasm of breast 03/22/2022 06/06/2023 Assessment & Plan (03/22/2022 10:29 AM IGNITION EXPERT): She has questions about this test at her age. Discussed current thoughts. She elects to proceed Drug-induced constipation 03/08/2022 Assessment & Plan (03/08/2022 11:29 AM IGNITION EXPERT): Monitor as bupropion is ended. Discussed enema use, discussed fecal impaction Palpitations 01/23/2022 06/06/2023 Assessment & Plan (01/23/2022 2:17 PM IGNITION EXPERT): Patient awoke with palpitations nausea and diaphoresis. This faded by morning, but a.m. nausea since. She blamed her SSRI and stopped it. EKG today shows development of first-degree AV block since last EKG, otherwise stable with increased baseline wander. Broaden database Facial pain 02/07/2021 03/21/2021 Assessment & Plan (02/07/2021 5:58 PM IGNITION EXPERT): Lancinating pain from anterior of the left ear radiates cephalad or distally sometimes last seconds sometimes as long as 20 minutes. Occurs once or twice a month. No findings today. Assess for temporal arteritis Infection due to 2019 novel coronavirus 02/07/2021 03/21/2021 Assessment & Plan (02/07/2021 6:00 PM IGNITION EXPERT): November, well resolved except for residual fatigue. Lost 11 pounds. was hospitalized. Discussed. Immunized Post-menopausal bleeding 08/12/202010/2022 Assessment & Plan (08/12/2020 12:53 PM CDT): She describes blood as well as yellow staining. Urinary incontinence also possible. [facility] database Need for shingles vaccine 05/12/2020 Assessment & Plan (05/12/2020 5:08 PM IGNITION EXPERT): She will pursue after Covid shots Urinary urgency 03/09/2020 06/20/2023 Assessment & Plan (03/09/2020 3:57 PM IGNITION EXPERT): Last night 5 times without dysuria. Improved this morning pyuria present Abdominal pain, generalized 03/09/2020 08/12/2020 Assessment & Plan (03/09/2020 3:57 PM IGNITION EXPERT): Diffuse, no guarding. History of IBS. [facility] database. Treat as diverticulitis in the interim. Warned about avoiding alcohol hold her calcium on this antibiotic regimen Rosacea 11/17/2019 06/20/2023 Assessment & Plan (12/29/2019 9:36 PM CDT): Metronidazole expensive. She is trying local skin measures Assessment & Plan (11/18/2019 6:53 AM CDT): Nasolabial folds, longstanding. Specific therapy Hot flashes 08/15/2019 01/23/2022 Assessment & Plan (04/22/2021 10:26 AM IGNITION EXPERT): No improvement with increased selective serotonin reuptake inhibitor. Minimal Sx. Reduce to 20 Assessment & Plan (03/21/2021 10:36 AM IGNITION EXPERT): Unchanged. Paroxetine tolerated. Increase dose. Assessment & Plan (12/29/2019 9:36 PM CDT): Increase with bupropion to reduce with cessation. Monitor monitor Assessment & Plan (08/15/2019 8:03 PM CDT): Evaluation reassuring. Discussed differential. She blames her 's cancer, which is doing well. Observe Fe deficiency anemia 04/05/2019 024 Assessment & Plan (02/07/2021 5:59 PM IGNITION EXPERT): Reassess iron stores Assessment & Plan (02/16/2020 3:43 PM IGNITION EXPERT): Hemoglobin Date Value Ref Range Status 02/12/2020 13.0 11.7 - 15.7 g/dL Final ] Discussed dietary iron sources Assessment & Plan (08/15/2019 8:01 PM CDT): Evaluated a few years ago, she has been on low-dose iron repletion which she dislikes. Last hemoglobin showed recurrent anemia. Reevaluate Assessment & Plan (04/05/2019 4:33 PM IGNITION EXPERT): Diagnosed in [place]. Upper and lower endoscopy with gastritis but [...] 04/25/2019 Assessment & Plan (04/05/2019 4:34 PM IGNITION EXPERT): Both sides of her neck TMJ. She [...] monitor Assessment & Plan (04/25/2019 8:53 PM IGNITION EXPERT): Variable blood pressure. Discussed blood pressure control in the elderly. Current measures are adequate Chronic bronchitis, unspecif ied chronic bronchitis type 03/29/2011 02/23/2022 Assessment & Plan (03/21/2021 10:34 AM IGNITION EXPERT): Asymptomatic no therapies. No change Assessment & Plan (03/09/2020 3:56 PM IGNITION EXPERT): Completely symptom-free Assessment & Plan (04/05/2019 4:36 PM IGNITION EXPERT): Spirometry reassuring today Cervicalgia 08/19/2010 06/20/2023 Assessment & Plan (04/25/2019 8:54 PM IGNITION EXPERT): Pain at the nuchal ridge when she puts her head back. Noted, no radicular symptoms. No further evaluation today Hyperlipidemia LDL goal <130 08/19/2010 02/16/2020 Immunizations Name Administration Dates Next Due COVID-19 [...] 08/02/2011 Varicella 03/05/2008 Zoster vaccine, live 10/26/2008,07/29/2008 Social History Tobacco Use Types Packs/Day Years [...] How often do you attend chur or moravian services? More than 4 times per year 08/17/2023 Do you belong to any clubs o r organizations such as latter day groups, unions, fraternal or athletic groups, or [...] Answer Date Recorded PHQ-2 Score 1 12/06/2023 [facility] - Occupational Stress Questionnaire Answer Date Recorded [...] in an abandoned building, in an overnight retirement, or couch-surfing.) Yes 08/17/2023 Are you worried [...] Sex Assigned at Female 04/20/2020 9:52 AM IGNITION EXPERT Legal Sex Female 5:13 AM IGNITION EXPERT Gender Identity Female 04/20/2020 9:52 AM IGNITION EXPERT Sexual Orientation Not on file Last Filed [...] st Contact Info) Description 02/06/2024 3:20 PM IGNITION EXPERT Office Visit [address] [place] [address] Venus Abrams PA-C [address] [place] [id number] Medical Devices Implanted Type Area Newspaper Subscription Solicitor Device Identifier Shelf Expiration Date Model / Serial / Lot Imp Scr Arthrex Bio-Compression 3.0x18mm Ar-5025b-18 Implanted:Qty: 1 on 08/07/2013 by Sukhwinder Moore DPM at [facility] AR[employer] 07/03/2015 AR-5025B- 18 / / [id number] Imp Scr Arthrex Bio-Compression 3.0x16mm Ar-5025b-16 Implanted:Qty: 1 on 08/07/2013 by Sukhwinder Moore DPM at [facility] Right: Foot [employer] 05/02/2014 AR-5025B-16 / / [id number] 3mm Can Screw [id number] Implanted:Qty: 1 on 08/07/2013 by Sukhwinder Moore DPM at [facility] Right: Foot [employer] AR-8730-22P T / / [id number] 14 2.4mm Lp Titanium Straight Plate 4 Hole Implanted:Qty: 1 on 08/07/2013 by Sukhwinder Moore DPM at [facility] Right: Foot AR-8952-04 / / [id number] 14 2.4mm Nonlocking Screw Implanted:Qty: 4 on 08/07/2013 by Sukhwinder Moore DPM at [facility] Right: Foot [employer] AR-8724-12 / / [id number] Wire Laura 0.045x4 Implanted:Qty: 1 on 08/07/2013 by Sukhwinder Moore DPM at [facility] Right: Foot G SOURCE 78.2020 / / [id number] 2013 Explanted Type Area Newspaper Subscription Solicitor Device Identifier Shelf Expiration Date Model / Serial / Lot 3mm Can Screw [id number] Explanted:Qty: 1 on 08/07/2013 by Sukhwinder Moore DPM at [facility] Right: Foot [employer] AR-8730-20P T / / [id number] Procedures Procedure Name Priority Date/Time Associated [...] BILATERAL W/ STUART Routine 03/30/2022 11:37 AM IGNITION EXPERT Encounter for screening mammogram for malignant neoplasm of breast DEXA - HIM SCAN 10/01/2014 12:00 AM CDT from Last 3 Months or Most Recently Relevant to Health Maintenance Results * Trip Charge - LAB ONLY (11/08/2023 11:26 AM CDT) Other TOPOGRAPHY UNKNOWN / Unknown Billing only / Unknown 11/08/2023 11:26 AM CDT 11/08/2023 2:12 PM CDT us Liudmila Carrier CENTRAL AISLE CASHIER SINGE MACHINE OPERATOR LAB CHARGE PERFORMABLE S Final Result [facility] [address] * (ABNORMAL) Basic Metabolic Panel No Glucose [...] 11/08/2023 2:12 PM CDT us Liudmila Carrier CENTRAL AISLE CASHIER SINGE MACHINE OPERATOR LAB - BLOOD ORDERABLES Final Result [facility] 500 [facility], [address] [place] [address], [facility] * Glucose (OUTREACH) (11/08/2023 11:26 AM CDT) Glucose 86 70 - 99 mg/dL 11/08/2023 7:24 PM CDT [facility] Blood STRUCTURE OF LEFT UPPER LIMB / Unknown Venipuncture / Unknown 11/08/2023 11:26 AM CDT 11/08/2023 2:12 PM CDT us Liudmila Carrier CENTRAL AISLE CASHIER SINGE MACHINE OPERATOR LAB - BLOOD ORDERABLES Final Result [facility] 500 [facility], [address] [place] [address] * (ABNORMAL) CBC with platelets and differential (11/08/2023 11:26 AM CDT) WBC Count 8.9 4.0 - 11.0 10e3/uL [...] 11/08/2023 2:12 PM CDT us Liudmila Carrier CENTRAL AISLE CASHIER SINGE MACHINE OPERATOR LAB - BLOOD ORDERABLES Final Result [facility] 500 [facility], [address] [place] [address], [facility] * TSH with free T4 reflex (11/08/2023 11:26 AM CDT) TSH 1.17 0.30 - 4.20 uIU/mL 11/08/2023 7:32 PM CDT [facility] Blood STRUCTURE OF LEFT UPPER LIMB / Unknown Venipuncture / Unknown 11/08/2023 11:26 AM CDT 11/08/2023 2:12 PM CDT Liudmila Zhang APRN, CNP LAB - BLOOD ORDERABLES Final Result Performing Organization Address City/[facility]/ZIP Co de Phone Number LABORATORY [facility] 500 [facility], Room [address] [place] [phone] * N terminal pro BNP outpatient (11/08/2023 11:26 AM CDT) N Terminal Pro BNP Outpatient 735 0 - 1,800 pg/mL 11/08/2023 7:32 PM CDT LABORATORY Comment: Reference range shown and results [...] 11/08/2023 2:12 PM CDT us Liudmila Zhang APRN, CNP LAB - BLOOD ORDERABLES Final Result Performing Organization Address City/[facility]/ZIP Co de Phone Number LABORATORY [facility] 500 [facility], [address] [phone] * EKG 12-lead complete w/read - Clinics (10/30/2023) us Faustina Trujillo MD ECG ORDERABLES Ed ited Result - Final * (ABNORMAL) Comprehensive metabolic panel (09/03/2023 11:55 PM CDT) Sodium 139 135 - 145 mmol/L 09/04/2023 12:54 AM CDT LABORATORY Potassium 4.5 3.4 - 5.3 mmol/L 09/04/2023 12:[address] [facility] Carbon Dioxide (CO2) 27 22 - 29 mmol/L 09/04/2023 12:[address] [facility] Anion Gap 8 7 - 15 mmol/L 09/04/2023 12:[address] [facility] Urea Nitrogen 21.1 8.0 - 23.0 mg/dL 09/04/2023 12:[address] [facility] Creatinine 0.99(H) 0.51 - 0.95 mg/dL 09/04/2023 12:[address] [facility] GFR Estimate 56(L) >60 mL/min/1. 73m2 09/04/2023 12:[address] [facility] Comment:eGFR calculated usco 2020 CKD-EPI equation. Calcium 9.0 8.8 - 10.2 mg/dL 09/04/2023 12:[address] [facility] Chloride 104 98 - 107 mmol/L 09/04/2023 12:[address] [facility] Glucose 119(H) 70 - 99 mg/dL 09/04/2023 12:[address] [facility] Alkaline Phosphatase 46 40 - 150 U/L 09/04/2023 12:[address] [facility] AST 23 0 - 45 U/L 09/04/2023 12:[address] [facility] Comment: Specimen is hemolyzed which [...] 0 - 50 U/L 09/04/2023 12:[address] [facility] Comment:Reference intervals for this test [...] 09/04/2023 12:18 AM CDT us Teresa Comer APRN SINGE MACHINE OPERATOR LAB - BLOOD ORDERABLES Fi nal Result SH [facility]AT[facility] [address] 1[address] floor, [address] [place] [address], [place] [phone] * (ABNORMAL) Hemoglobin A1c (08/27/2023 12:13 PM CDT) Hemoglobin A1C 6.3(H) 0.0 - 5.6 % 08/27/2023 12:20 PM CDT CR LABORATORY Comment: Normal <5.7% Prediabetes 5.7-6.4% Diabetes 6.5% or higher Note: Adopted from ADA consensus guidelines. Blood BLOOD SPECIMEN / Unknown Venipuncture / Unknown 08/27/2023 12:13 PM CDT 08/27/2023 12:15 PM CDT us Ty Elizabeth MD LAB - BLOOD ORDERABLES Final Re sult CR LABORATORY [facility] [address] [facility] (no room number, 1st floor of clinic) [place] [address], [place] [phone] * MA Screen Bilateral w/Stuart (03/30/2022 11:37 AM IGNITION EXPERT) Anatomical Region Laterality Modality Breast Bilateral Mammography Impressions 03/31/2022 8:33 AM IGNITION EXPERT IMPRESSION: ACR BI-RADS Category 1: Negative RECOMMENDED FOLLOW-UP: Annual routine screening mammogram The results and recommendations of this examination will be communicated to the patient. Dejah Flanagan MD Narrative 03/31/2022 8:33 AM IGNITION EXPERT BILATERAL FULL FIELD DIGITAL SCREENING MAMMOGRAM WITH [...] Anatomical Region Laterality Modality Other 10/01/2014 Smiley Raymundo MD IMG DEXA ORDERABLES Fin al Result from Last 3 Months or Most Recently Relevant to Health Maintenance Insurance [facility] MEDICARE ADVANTAGE BCBS MEDICARE ADVANTAGE * Guarantor: Jessica Hannah Account Type Relation to Patient Date of Phone Billing Address Medication Therapy Self [id number] [place] [address] [facility] MEDICARE ADVANTAGE [facility] MEDICARE ADVANTAGE Advance Directives For more information, please contact: [phone] Documents on File Type Date Recorded Patient Guard Supervisor Expl anation Advance Directives and Living Will 10/01/2023 [facility] 09-27-2023 Advance Directives and Living Will 05/26/2022 Health Care Directiv e 04/29/2022 * Full Code (Latest Code Status on File) Date Activated Date Inactivated Comments 05/07/2023 3:01 PM 05/08/2023 8:10 PM All basic and advanced life-sustaining interventions are performed as appropriate Question Answer Comments Code status determined by: Discussion with [place] nt/ legal decision maker Healthcare Agents on File Name Relationship Healthcare Agent Relationshi p Communication Efren Hannah Son Second Alternate Health Care Agent Jono Hannah Son Third Alternate Health Care Agent Souleymane Hannah Son Health Care Agent Jayjay Hannah Son First Alternate Health Care Agent Care Teams Delivery Sales Worker Relationship Specialty Start Date End Date Macrina Khan PA-C [address] [place] [address] PCP - General Family Medicine 09/13/23 [place] [address] [place] [address] Assigned PCP 07/14/18 [place] [address] [place] [address] Medical Oncology 02/19/20 Raeann Maldonado PA-C [address] [place] [address] Physician Liberal Arts Teacher Dermatology 04/27/21 Shannan Byrne [facility] [address] [id number] Pharmacist Pharmacist 06/08/22 Shannan Byrne [facility] [address] [id number] Assigned MTM Pharmacist 06/17/22 Shannan Byrne Medical Student 12/27/22 Mihaela Sylvester MD [address] [place] [address] network support manager 01/01/23 Huong Soto, CENTRAL AISLE CASHIER SINGE MACHINE OPERATOR [facility] [address] [place] [address] [address] [place] [phone] Nurse Practitioner Psychiatry 01/08/23 Karma Donnelly APRN SINGE MACHINE OPERATOR [address] [facility] [address] [place] [address] Nurse Practitioner Cardiovascular Disease 05/14/23 Sharon Huang DNP [address] [place], [place] [phone] Assigned Neuroscience Provider 11/26/23 Venus Abrams PA-C [address] [place] [address] Assigned Heart and Vascular Provider 11/26/23 Mana Melgar ALCOHOLIC COUNSELOR [facility] [address] [place] [address], [address] [place], [place] [address] Assigned Behavioral Health Provider 01/26/24
--- OUTSIDE RECORDS SUMMARY | 2024-01-29 13:26 | XMS_ITS | Encounter Summary ---
Author Organization [facility] Address [address] [place] [address] Care Team Providers Care Package Yarns Drying Machine Operator Name Role Phone Ty Elizabeth MD Unavailable Shu [place] MD Unavailable Raeann MaldonadoC Unavailable Shannan Byrne [facility] Unavailable [phone] Shannan Byrne [facility] Unavailable [phone] Shannan Byrne Unavailable Unavailable Mihaela Sylvester MD Unavailable Houng Soto INSTRUCTOR WARPER MUSEUM EXHIBIT DESIGNER Unavailable [phone] Karma Donnelly INSTRUCTOR WARPER MUSEUM EXHIBIT DESIGNER Unavailable Macrina KhanC Primary Care Provider [phone] Sharon Huang DNP Unavailable Venus Abrams [facility] Unavailable Mana MelgarSW Unavailable Reason for Visit * Reason Comments Medication Refill Encounter Details Date Type Department Care Team (Late st Contact Info) Description 01/29/2024 Refill [facility] Mental Health & Addiction [facility] [address] [place] [address] Sharon Huang, [facility] [address] [place] [address] Medication Refill Social History Tobacco Use Types Packs/Day Years [...] often do you attend chur ch or buddhist services? More than 4 times per year 08/17/2023 Do you belong to any clubs o r organizations such as orthodox groups, unions, fraternal or athletic groups, or [...] Answer Date Recorded PHQ-2 Score 1 12/06/2023 [facility] - [...] in an abandoned building, in an overnight residential, or couch-surfing.) Yes 08/17/2023 Are you worried [...] Sex Assigned at Female 04/20/2020 9:52 AM CAUSTIC ROOM OPERATOR Legal Sex Female 5:13 AM CAUSTIC ROOM OPERATOR Gender Identity Female 04/20/2020 9:52 AM CAUSTIC ROOM OPERATOR Sexual Orientation Not on file documented as of this encounter Plan of Treatment Upcoming Encounters Date Type Department Care Team (Late st Contact Info) Description 02/06/2024 3:20 PM CAUSTIC ROOM OPERATOR Office Visit [facility] [address] [facility] [address] [place] [address] Venus Abrams PA-C [address] [facility] [place] [address] documented as of this encounter Visit Diagnoses Diagnosis Anxiety Anxiety state, unspecified documented in this encounter Additional Health Concerns Assessment Noted Time PHQ-9 Depression Total Score: 2 11/07/19 24 10:06 AM CDT documented as of this encounter Care Teams Package Yarns Drying Machine Operator Relationship Specialty Start Date End Date Macrina Khan PA-C [address] [place] [address] PCP - General Family Medicine 09/13/23 [place] [address] [place] [address] Assigned PCP 07/14/18 [place] [address] [place] [address] Medical Oncology 02/19/20 Raeann Maldonado PA-C [address] [place] [address] Physician Sales Property Manager Dermatology 04/27/21 Shannan Byrne [facility] [address] [id number] Pharmacist Pharmacist 06/08/22 Shannan Byrne [facility] [address] [id number] Assigned MTM Pharmacist 06/17/22 Shannan Byrne Medical Student 12/27/22 Mihaela Sylvester MD [address] [address] big data lead 01/01/23 Huong Soto, INSTRUCTOR WARPER MUSEUM EXHIBIT DESIGNER [facility] [address] [facility] [address] [place] [phone] Nurse Practitioner Psychiatry 01/08/23 Karma Donnelly APRN MUSEUM EXHIBIT DESIGNER [address] [facility] [address] [place] [address] Nurse Practitioner Cardiovascular Disease 05/14/23 Sharon Huang DNP [address] [place], [place] [address] Assigned Neuroscience Provider 11/26/23 Venus Abrams PA-C [address] [place] [address] Assigned Heart and Vascular Provider 11/26/23 Mana Melgar LICSW [facility] [address] [place] [address], [address] [place] [address] Assigned Behavioral Health Provider 01/26/24 documented as of this encounter
--- OUTSIDE RECORDS SUMMARY | 2024-01-29 13:26 | XMS_ITS | Encounter Summary ---
Author Organization [facility] Address [address] [place] [address] Care Team Providers Care Automotive Design Layout Drafter Name Role Phone Ty Elizabeth MD Unavailable [phone] Shu [place] MD Unavailable [phone] Raeann Maldonado PA-C Unavailable Shannan Byrne [facility] Unavailable [phone] Shannan Byrne [facility] Unavailable Shannan Byrne Unavailable Unavailable Mihaela Sylvester MD Unavailable [phone] Huong Soto LAUNDRY WASHER STRAW HAT PLUNGER OPERATOR Unavailable [phone] Karma Donnelly LAUNDRY WASHER STRAW HAT PLUNGER OPERATOR Unavailable Amanda Yang PLUMBING DESIGNER Unavailable Macrina Khan PA-C Primary Care Provider Sharon Huang DNP Unavailable Venus Abrams PA-C Unavailable [phone] Encounter Details Date Type Department Care Team (Late st Contact Info) Description 12/20/2023 MyC Medical Advice [facility] Mental Health & Addiction [facility] [address] [place] [address] Sharon Huang, [facility] [address] [place] [address] Social History Tobacco Use Types Packs/Day Years [...] week 08/17/2023 How often do you attend [facility] or hinduism services? More than 4 times per year 08/17/2023 Do you belong to any clubs o r organizations such as moravian groups, unions, fraternal or athletic groups, or [...] Answer Date Recorded PHQ-2 Score 1 12/06/2023 [facility] Occupat ional Health - Occupational Stress [...] in an abandoned building, in an overnight nursing home, or couch-surfing.) Yes 08/17/2023 Are you worried [...] Sex Assigned at Female 04/20/2020 9:52 AM FELT CHECKER Legal Sex Female 5:13 AM FELT CHECKER Gender Identity Female 04/20/2020 9:52 AM FELT CHECKER Sexual Orientation Not on file documented as of this encounter Miscellaneous Notes * Telephone Encounter - Radha Ngo RN - 12/21/2023 10:56 AM CDT Patient was having some shaking/akathisia. Depakote decreased from 500 mg twice a day to 250 mg twice a day. She is still experiencing the shaking/twitching and is getting discouraged. They want to know how long to give it until they see some improvement? Last visit: In looking at the trajectory of the medications, the Depakote or the Latuda may be causing shaking/akathisia. Will decrease the depakote to 250 mg twice a day and continue the Latuda and reassess. She will monitor her mood and if the decrease in Depakote evolves into reemergence of significant symptoms. Will consider looking at the Latuda to taper off. Follow-up in six weeks Radha Ngo RN on 12/21/2023 at 11:02 AM documented in this encounter Plan of Treatment Upcoming Encounters Date Type Department Care Team (Late st Contact Info) Description 02/06/2024 3:20 PM FELT CHECKER Office Visit [facility] [address] [facility] [address] [place] [phone] Venus Abrams PA-C [address] [facility] [place] [address] documented as of this encounter Visit Diagnoses Not on filedocumented in this encounter Additional Health Concerns Assessment Noted Time PHQ-9 Depression Total Score: 2 11/07/19 24 10:06 AM CDT documented as of this encounter Care Teams Automotive Design Layout Drafter Relationship Specialty Start Date End Date Macrina Khan PA-C [address] [place] [phone] PCP - General Family Medicine 09/13/23 [place] [address] [place] [address] Assigned PCP 07/14/18 [place] [address] [place], [place] [phone] Medical Oncology 02/19/20 Raeann Maldonado PA-C [address] [employer], [place] [phone] Physician Data Entry Analyst Dermatology 04/27/21 Shannan Byrne, [facility] [address] [place] [phone] Pharmacist Pharmacist 06/08/22 Shannan Byrne, [facility] [address] [place] [phone] Assigned MTM Pharmacist 06/17/22 Shannan Byrne Medical Student 12/27/22 Mihaela Sylvester MD [address] [place] [address] oil dipper 01/01/23 Huong Soto, LAUNDRY WASHER STRAW HAT PLUNGER OPERATOR [address] [place] [phone] Nurse Practitioner Psychiatry 01/08/23 Karma Donnelly, LAUNDRY WASHER STRAW HAT PLUNGER OPERATOR [address] [place] [address] Nurse Practitioner Cardiovascular Disease 05/14/23 Amanda Yang, PLUMBING DESIGNER [address] [place] [address] Assigned Behavioral Health Provider 06/26/23 01/25/24 Sharon Huang DNP [address] [place] [address] Assigned Neuroscience Provider 11/26/23 Venus Abrams PA-C [address] [place] [address] Assigned Heart and Vascular Provider 11/26/23 documented as of this encounter
--- OUTSIDE RECORDS SUMMARY | 2024-01-29 13:27 | XMS_ITS | Encounter Summary ---
Author Organization [place] Address [address] [place] [address] Care Team Providers Care Private Eye Name Role Phone Ty Elizabeth MD Unavailable [phone] Shu Mayfield MD Unavailable Raeann Maldonado PA-C Unavailable Shannan Byrne [facility] Unavailable Shannan Byrne [facility] Unavailable Shannan Byrne Unavailable Unavailable Mihaela Sylvester MD Unavailable Huong Soto FUR BLOWING MACHINE ATTENDANT DESIGN MANAGER Unavailable [phone] Karma Donnelly FUR BLOWING MACHINE ATTENDANT DESIGN MANAGER Unavailable Amanda Yang SEAT PACK INSPECTOR Unavailable Macrina Khan PA-C Primary Care Provider [phone] Sharon Huang DNP Unavailable Venus Abrams PA-C Unavailable Encounter Details Date Type Department Care Team (Late st Contact Info) Description 12/06/2023 4:00 PM CDT Virtual Visit [facility] Mental Health & Addiction [facility] [address] [place] [address] [facility] [address], [address] [place] [address] Cyclothymic disorder (Primary Dx); Generalized anxiety disorder Social History Tobacco Use Types Packs/Day Years [...] How often do you attend chur or jain services? More than 4 times per year 08/17/2023 Do you belong to any clubs o r organizations such as pentecostalism groups, unions, fraternal or athletic groups, or [...] Answer Date Recorded PHQ-2 Score 1 12/06/2023 [facility] [place] of Occupat ional Health - Occupational Stress [...] Date Recorded Do you have housing? (Eze jama is defined as stable permanent housing and [...] Sex Assigned at Female 04/20/2020 9:52 AM FARM EQUIPMENT TECHNICIAN Legal Sex Female 5:13 AM FARM EQUIPMENT TECHNICIAN Gender Identity Female 04/20/2020 9:52 AM FARM EQUIPMENT TECHNICIAN Sexual Orientation Not on file documented as of this encounter Progress Notes * Mana Melgar, [facility] - 12/06/2023 4:00 PM CDT [facility] Psychiatry Services [facility] Dec 06, 2023 Behavioral Health Clinician Progress Note Patient Name: Jessica Hannah Service Type: Individual Service Location: [facility] / Email (patient reached) Session Start Time: 400 pm Session End Time: 411 pm Session Length: 11 min Attendees: Patient Service Modality: Video Visit: Provider verified identity through the following two step process. Patient provided: Patient photo and Patient Telemedicine Visit: The patient's condition can be safely assessed and treated via synchronous audio and visual telemedicine encounter. Reason for Telemedicine Visit: Patient convenience (e.g. access to timely appointments / distance to available provider) Originating Site (Patient Location): Patient's home Distant Site (Provider Location): Provider Remote Setting- Home Office Consent: The patient/guardian has verbally consented to: the potential risks and benefits of telemedicine (video visit) versus in person care; bill my insurance or make self-payment for services provided; and responsibility for payment of non-covered services. Patient would like the video invitation sent by: My Chart Mode of Communication: Video Conference via Amwell Distant Location (Provider): Off-site As the provider I attest to compliance with applicable laws and regulations related to telemedicine. Visit Activities (Refresh list every visit): [facility] Only Diagnostic Assessment Date: 09/13/2023 by Amanda Yang [facility] Treatment Plan Review Date: 02/07/2024 See Flowsheets for today's PHQ-9 and MESFIN-7 results Previous PHQ-9: 09/26/2023 11:39 AM 11/01/2023 11:13 AM 11/07/2023 10:06 AM PHQ-9 SCORE PHQ-9 Total Score MyChart 4 (Minimal depression) 5 (Mild depression) 2 (Minimal depression) PHQ-9 Total Score 4 5 2 2 Previous MESFIN-7: 08/27/2023 11:10 AM 08/31/2023 12:34 PM 09/26/2023 11:37 AM MESFIN-7 SCORE Total Score 19 (severe anxiety) 6 (mild anxiety) Total Score 12 19 6 DANITZA LEVEL: 03/15/2011 2:00 PM 04/05/2019 10:11 AM DANITZA Score (Last Two) DANITZA Raw Score 49 32 Activation Score 82.8 62.6 DANITZA Level 4 3 DATA Extended Session (60+ minutes): No Interactive Complexity: No Crisis: No [facility] Patient: No Treatment Objective(s) Addressed in This Session: Target Behavior(s): improve adjustment to new living environment Depressed Mood: Increase interest, engagement, and pleasure in doing things Current Stressors / Issues: MH update: Pt reports little change since our last appointment. [facility] explored how she's adjusting toliving in assisted living. She's trying to accept it. She has found some benefits. She's more social (bingo, exercise classes, crafts, coffee times), she doesn't have to cook as much, assistance withgetting her medication. [facility] empathized with challenges and reinforced the importance of making the most of her situation. [facility] provided pscyho-education on the effects of socialization for good mental, and cognitive health. She is making some new friends. She has a car but realizes that she will have to sell it soon because she doesn't feel she can safely drive. The facility offers some transportation to stores etc. Stresses: adjusting to living in assisted living Appetite: unremarkable Sleep: waking up around 4AM with anxiety Therapy: No [place]: No Preg: NA Interventions: [facility] provided psycho-education on the importance of socialization on cognitive and mental health Most important: medication update, her pulse has been low, been using lorazepam for her anxiety, annurse at the facility has suggested she take it at night for sleep. Progress on Treatment Objective(s) / Homework: Satisfactory progress - ACTION (Actively working towards change); Intervened by reinforcing change plan / affirming steps taken Motivational Interviewing [place] Intervention: Co-Developed Goal: improve adjustment to new living environment, Expressed Empathy/Understanding, Open-ended questions, Reflections: simple and complex, Change talk (evoked), and Reframe Change Talk Expressed by the Patient: Desire to change Ability to change Reasons to change Need to change Committment to change Activation Taking steps Provider Response to Change Talk: E - Evoked more info from patient about behavior change, A - Affirmed patient's thoughts, decisions, or attempts at behavior change, R - Reflected patient's change talk, and S - Summarized patient's change talk statements Also provided psychoeducation about behavioral health condition, symptoms, and treatment options Assessments completed prior to visit: The following assessments were completed by patient for this visit: PROMIS 10-Global Health (all questions and answers displayed): 08/02/2022 12:53 PM 08/31/2023 12:35 PM 11/07/2023 10:07 AM 12/06/2023 3:45 PM PROMIS 10 In general, would you say your health is: Good Poor Fair Good In general, would you say your quality of life is: Very good Fair Good Very good In general, how would you rate your physical health? Very good Fair Good Very good In general, how would you rate your mental health, including your mood and your ability to think? Good Poor Fair Fair In general, how would you rate your satisfaction with your social activities and relationships? Good Poor Good Very good In general, please rate how well you carry out your usual social activities and roles Very good Fair Very good Very good To what extent are you able to carry out your everyday physical activities such as walking, climbing stairs, carrying groceries, or moving a chair? Mostly Moderately Moderately Moderately In the past 7 days, how often have you been bothered by emotional problems such as feeling anxious,depressed, or irritable? Sometimes Always Rarely Sometimes In the past 7 days, how would you rate your fatigue on average? Mild Very severe Moderate Moderate In the past 7 days, how would you rate your pain on average, where 0 means no pain, and 10 means worst imaginable pain? 1 8 1 1 In general, would you say your health is: 3 1 2 3 In general, would you say your quality of life is: 4 2 3 4 In general, how would you rate your physical health? 4 2 3 4 In general, how would you rate your mental health, including your mood and your ability to think? 31 2 2 In general, how would you rate your satisfaction with your social activities and relationships? 3 13 4 In general, please rate how well you carry out your usual social activities and roles. (This includes activities at home, at work and in your community, and responsibilities as a parent, child, spouse, employee, friend, etc.) 4 2 4 4 To what extent are you able to carry out your everyday physical activities such as walking, climbing stairs, carrying groceries, or moving a chair? 4 3 3 3 In the past 7 days, how often have you been bothered by emotional problems such as feeling anxious,depressed, or irritable? 3 5 2 3 In the past 7 days, how would you rate your fatigue on average? 2 5 3 3 In the past 7 days, how would you rate your pain on average, where 0 means no pain, and 10 means worst imaginable pain? 1 8 1 1 Global Mental Health Score 13 5 12 12 13 Global Physical Health Score 16 8 13 13 14 PROMIS TOTAL - SUBSCORES 29 13 25 25 27 PROMIS 10-Global Health (only subscores and total score): 08/02/2022 12:53 PM 08/31/2023 12:35 PM 11/07/2023 10:07 AM 12/06/2023 3:45 PM PROMIS-10 Scores Only Global Mental Health Score 13 5 12 12 13 Global Physical Health Score 16 8 13 13 14 PROMIS TOTAL - SUBSCORES 29 13 25 25 27 Care Plan review completed: Yes Medication Review: No changes to current psychiatric medication(s) Medication Compliance: Yes Changes in Health Issues: None reported Chemical Use Review: Substance Use: Chemical use reviewed, no active concerns identified Tobacco Use: No current tobacco use. Assessment: Current Emotional / Mental Status (status of significant symptoms): Risk status (Self / Other harm or suicidal ideation) Patient denies a history of suicidal ideation, suicide attempts, self-injurious behavior, homicidalideation, homicidal behavior, and and other safety concerns Patient denies current fears or concerns for personal safety. Patient denies current or recent suicidal ideation or behaviors. Patient denies current or recent homicidal ideation or behaviors. Patient denies current or recent self injurious behavior or ideation. Patient denies other safety concerns. A safety and risk management plan has not been developed at this time, however patient was encouraged to call [facility] should there be a change in any of these risk factors. Appearance: Appropriate Eye Contact: Good Psychomotor Behavior: Normal Attitude: Cooperative Orientation: All Speech Rate / Production: Normal Volume: Normal Mood: Normal Affect: Appropriate Thought Content: Clear Thought Form: Coherent Logical Insight: Good Diagnoses: 1. Cyclothymic disorder 2. Generalized anxiety disorder Collateral Reports Completed: Collaborated with [facility] team Plan: (Homework, other): Patient was given information about behavioral services and encouraged to schedule a follow up appointment with the clinic [facility] in 1 month. She was also given information about mental health symptoms and treatment options . CD Recommendations: No indications of CD issues. 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 Very good Fair Good Very good In general, how would you rate your mental health, including your mood and your ability to think? Good Poor Fair Fair In general, how would you rate your satisfaction with your social activities and relationships? Good Poor Good Very good In general, please rate how well you carry out your usual social activities and roles Very good Fair Very good Very good To what extent are you able to carry out your everyday physical activities such as walking, climbing stairs, carrying groceries, or moving a chair? Mostly Moderately Moderately Moderately In the past 7 days, how often have you been bothered by emotional problems such as feeling anxious,depressed, or irritable? Sometimes Always Rarely Sometimes In the past 7 days, how would you rate your fatigue on average? Mild Very severe Moderate Moderate In the past 7 days, how would you rate your pain on average, where 0 means no pain, and 10 means worst imaginable pain? 1 8 1 1 In general, would you say your health is: 3 1 2 3 In general, would you say your quality of life is: 4 2 3 4 In general, how would you rate your physical health? 4 2 3 4 In general, how would you rate your mental health, including your mood and your ability to think? 31 2 2 In general, how would you rate your satisfaction with your social activities and relationships? 3 13 4 In general, please rate how well you carry out your usual social activities and roles. (This includes activities at home, at work and in your community, and responsibilities as a parent, child, spouse, employee, friend, etc.) 4 2 4 4 To what extent are you able to carry out your everyday physical activities such as walking, climbing stairs, carrying groceries, or moving a chair? 4 3 3 3 In the past 7 days, how often have you been bothered by emotional problems such as feeling anxious,depressed, or irritable? 3 5 2 3 In the past 7 days, how would you rate your fatigue on average? 2 5 3 3 In the past 7 days, how would you rate your pain on average, where 0 means no pain, and 10 means worst imaginable pain? 1 8 1 1 Global Mental Health Score 13 5 12 12 13 Global Physical Health Score 16 8 13 13 14 PROMIS TOTAL - SUBSCORES 29 13 25 25 27 PROMIS 10-Global Health (only subscores and total score): 08/02/2022 12:53 PM 08/31/2023 12:35 PM 11/07/2023 10:07 AM 12/06/2023 3:45 PM PROMIS-10 Scores Only Global Mental Health Score 13 5 12 12 13 Global Physical Health Score 16 8 13 13 14 PROMIS TOTAL - SUBSCORES 29 13 25 25 27 Referral / Collaboration: Collaborated with [facility] team . Anticipated number of session for this episode of care: 6-9 sessions Anticipation frequency of session: Monthly Anticipated Duration of each session: 16-37 minutes Treatment plan will be reviewed in 90 days or when goals have been changed. MeasurableTreatment Goal(s) related to diagnosis / functional impairment(s) Goal 1: Patient will experience improved depression Pt will have met her goal when she spends more time socializing Objective #A (Patient Action) Patient will Increase interest, engagement, and pleasure in doing things Status: New - Date: 11/08/2023 Intervention(s) [facility] provided psycho-education for symptom management including the following: [facility] provided psycho-education on DBT skills -mindfulness -mood regulation techniques -5 things exercise -somatic regulation skills (taste of something sweet or sour, notice smells, touch/feel of things in the environment, physical activity such as dancing, walking) [facility] provided psycho-education of CBT skills including the following: -challenging destructive thinking -re-framing -behavioral activation -journaling -mood/behavioral tracking -exposure response -mood regulation (deep breathing, somatic skills) Solution focused skills: -[facility] assisted pt with creating a plan to reduce isolation Patient has reviewed and agreed to the above plan. Written by CHAD Aaron [facility] documented in this encounter Plan of Treatment Upcoming Encounters Date Type Department Care Team (Late st Contact Info) Description 02/06/2024 3:20 PM FARM EQUIPMENT TECHNICIAN Office Visit [address] [place] [phone] Venus Abrams PA-C [address] [place] [address] documented as of this encounter Visit Diagnoses Diagnosis Cyclothymic disorder- Primary Generalized anxiety disorder documented in this encounter Additional Health Concerns Assessment Noted Time PHQ-9 Depression Total Score: 2 11/07/19 24 10:06 AM CDT documented as of this encounter Care Teams Private Eye Relationship Specialty Start Date End Date Macrina Khan PA-C [address] [place] [phone] PCP - General Family Medicine 09/13/23 [place] [address] [place] [address] Assigned PCP 07/14/18 [place] [address] [place] [address] Medical Oncology 02/19/20 Raeann Maldonado PA-C [address] [place] [address] Physician Baby Stroller Rental Clerk Dermatology 04/27/21 Shannan Byrne [facility] [address] [place] [address] Pharmacist Pharmacist 06/08/22 Shannan Byrne [facility] [address] [place] [address] Assigned MTM Pharmacist 06/17/22 Shannan Byrne Medical Student 12/27/22 Mihaela Sylvester MD [address] [place] [address] varnisher apprentice 01/01/23 Huong Soto, FUR BLOWING MACHINE ATTENDANT DESIGN MANAGER [facility], [facility] [address] [facility] [address] [place] [phone] Nurse Practitioner Psychiatry 01/08/23 Karma Donnelly, SELINA DESIGN MANAGER [address] [facility] [address] [place], [place] [address] Nurse Practitioner Cardiovascular Disease 05/14/23 Amanda Yang, [facility] [address] [place] [address] Assigned Behavioral Health Provider 06/26/23 01/25/24 Sharon Huang, THOMAS [address] [place] [address] Assigned Neuroscience Provider 11/26/23 Venus Abrams PA-C [address] [address] Assigned Heart and Vascular Provider 11/26/23 documented as of this encounter
--- OUTSIDE RECORDS SUMMARY | 2024-01-29 13:27 | XMS_ITS | Encounter Summary ---
Author Organization [place] Address [address] [place] [address] Care Team Providers Care Sales Representative Jewelry Name Role Phone Ty Elizabeth MD Unavailable [phone] Shu Mayfield MD Unavailable [phone] Raeann Maldonado PA-C Unavailable Shannan Byrne [facility] Unavailable Shannan Byrne [facility] Unavailable Shannan Byrne Unavailable Unavailable Mihaela Sylvester MD Unavailable Huong Soto GEOGRAPHIC INFORMATION SYSTEMS ANALYST OPHTHALMIC LENS INSPECTOR Unavailable [phone] Karma Donnelly GEOGRAPHIC INFORMATION SYSTEMS ANALYST OPHTHALMIC LENS INSPECTOR Unavailable Amanda Yang WOOD ROUTER HAND Unavailable Macrina Khan PA-C Primary Care Provider Sharon Huang DNP Unavailable Venus Abrams PA-C Unavailable Encounter Details Date Type Department Care Team (Latest Contact Info) Description 12/13/2023 Medical Correspondence [facility] Information Management [address] [facility] [address] [place] [address] Scan, Non-Provider [facility] Social History Tobacco Use Types Packs/Day Years [...] often do you attend chur ch or yarsani services? More than 4 times per year 08/17/2023 Do you belong to any clubs o r organizations such as temple groups, unions, fraternal or athletic groups, or [...] Answer Date Recorded PHQ-2 Score 1 12/06/2023 [facility] of Occupat ional Health - Occupational Stress [...] in an abandoned building, in an overnight [place] [facility] [place], or couch-surfing.) Yes 08/17/2023 Are you worried [...] Sex Assigned at Female 04/20/2020 9:52 AM PARCEL POST WEIGHER Legal Sex Female 5:13 AM PARCEL POST WEIGHER Gender Identity Female 04/20/2020 9:52 AM PARCEL POST WEIGHER Sexual Orientation Not on file documented as of this encounter Plan of Treatment Upcoming Encounters Date Type Department Care Team (Late st Contact Info) Description 02/06/2024 3:20 PM PARCEL POST WEIGHER Office Visit [address] [phone] Venus Abrams PA-C [address] [place] [address] documented as of this encounter Visit Diagnoses Not on filedocumented in this encounter Additional Health Concerns Assessment Noted Time PHQ-9 Depression Total Score: 2 11/07/19 24 10:06 AM CDT documented as of this encounter Care Teams Sales Representative Jewelry Relationship Specialty Start Date End Date Macrina Khan PA-C [address] [place] [phone] PCP - General Family Medicine 09/13/23 [place] [address] [place] [address] Assigned PCP 07/14/18 [place] [address] [place] [address] Medical Oncology 02/19/20 Raeann Maldonado PA-C [address] [place] [address] Physician Fitness Centre Manager Dermatology 04/27/21 Shannan Byrne [facility] [address] [id number] Pharmacist Pharmacist 06/08/22 Shannan Byrne [facility] [address] [place] [address] Assigned MTM Pharmacist 06/17/22 Shannan Byrne Medical Student 12/27/22 Mihaela Sylvester MD [address] [place] [address] [place] [address] bottling machine operator 01/01/23 Huong Soto, GEOGRAPHIC INFORMATION SYSTEMS ANALYST OPHTHALMIC LENS INSPECTOR [facility] [address] [facility] [address] [place] [phone] Nurse Practitioner Psychiatry 01/08/23 Karma Donnelly, GEOGRAPHIC INFORMATION SYSTEMS ANALYST OPHTHALMIC LENS INSPECTOR [address] [place] [address] Nurse Practitioner Cardiovascular Disease 05/14/23 Amanda Yang, [facility] [address] [place] [address] Assigned Behavioral Health Provider 06/26/23 01/25/24 Sharon Huang DNP [address] [place] [address] Assigned Neuroscience Provider 11/26/23 Venus Abrams PA-C [address] [place] [address] Assigned Heart and Vascular Provider 11/26/23 documented as of this encounter
--- OUTSIDE RECORDS SUMMARY | 2024-01-29 13:27 | XMS_ITS | Encounter Summary ---
Author Organization [facility] Address [address] [place] [place] [address] Care Team Providers Care Busher Helper Name Role Phone Ty Elizabeth MD Unavailable [phone] Shu Mayfield MD Unavailable Raeann Maldonado PA-C Unavailable Shannan Byrne [facility] Unavailable Shannan Byrne [facility] Unavailable [phone] Shannan Byrne Unavailable Unavailable Mihaela Sylvester MD Unavailable [phone] Huong Soto [employer] Unavailable [phone] Karma Donnelly [employer] Unavailable Amanda Yang GROUNDS KEEPER Unavailable Macrina Khan PA-C Primary Care Provider [phone] Sharon Huang DNP Unavailable Venus Abrams PA-C Unavailable [phone] Reason for Visit * Reason Comments RECHECK Encounter Details Date Type Department Care Team (Late st Contact Info) Description 12/06/2023 4:30 PM CDT Virtual Visit [facility] Mental Health & Addiction [facility] [address] [place] [address] Sharon Huang, DNP [address], [place] [address] Bipolar 2 disorder (H) (Primary Dx) Social History Tobacco Use Types Packs/Day Years [...] often do you attend chur ch or jainism services? More than 4 times per year 08/17/2023 Do you belong to any clubs o r organizations such as confucianist groups, unions, fraternal or athletic groups, or [...] Answer Date Recorded PHQ-2 Score 1 12/06/2023 [facility] - Occupational Stress [...] in an abandoned building, in an overnight group home, or couch-surfing.) Yes 08/17/2023 Are you [...] Sex Assigned at Female 04/20/2020 9:52 AM DIETETIC TECH Legal Sex Female 5:13 AM DIETETIC TECH Gender Identity Female 04/20/2020 9:52 AM DIETETIC TECH Sexual Orientation Not on file documented as of this encounter Patient Instructions * Patient Instructions* Sharon Huang, DNP - 12/06/2023 4:30 PM CDT For crisis resources, please see the information at the end of this document Thank you for coming to the [facility]. TREATMENT PLAN: MEDICATIONS: - Stop the AM dose of Depakote and continue the evening dose for one week. Then discontinue the evening dose of Depakote. Continue Latuda 20 mg Can continue the lorazepam as needed, ok to give at bedtime to evaluate if helps with sleep. Monitor for increase in anxiety with the discontinuation of the Depakote Follow-up January 10, 2024 at 0900 to reevaluate -PSYCHOEDUCATION: The [place] [employer] has updated the Beers Criteria list based on evidence-based recommendations. The updated report was published in the Journal of the [place] [employer]. CONSULTS/REFERRALS: None at this time LABS/PROCEDURES: Please call your [facility] clinic and ask for a lab only appointment at your earliest convenience. If your results are reassuring or normal they will be mailed to you or sent through [employer] within 7 days. If the lab tests need quick action we will call you with the results. The phone number we willcall with results is # [phone]. FOLLOW UP: Schedule an appointment with me in four weeks or sooner as needed. The intake team should be calling you to schedule. If you dont hear from them, or they were unable to reach you, please call [phone] to schedule. Follow up with primary care provider as planned or for acute medical concerns. Call the psychiatric nurse line with medication questions or concerns at [phone]. Medication Refills: If you need any refills please call your pharmacy and they will contact us. Our fax number for refills is [phone]. Please allow three business for refill processing. If you need to cone picker your refill at a new pharmacy, please contact the new pharmacy directly. The new pharmacy will help you get your medications transferred. [employer] Assistance Financial Assistance [phone] [facility] Billing [phone] Central Billing Office, [facility]: [phone] [facility]illing [phone] Medical Records [phone] [facility] Patient Bill of Rights [email or web address] MENTAL HEALTH CRISIS RESOURCES: For a emergency help, please call 911 or go to the nearest Emergency Department. Emergency Walk-In Options: EmPATH Unit @ [facility] ([place]): [phone] - Specialized mental health emergency area designed to be calming [facility] ([place]): [phone] [facility] Acute Psychiatry Services ([place]): [phone] [facility]): [phone] National Crisis Information: Call 988 Suicide and Crisis Lifeline Crisis Text Line (free 25/09): call CRISIS (427427) Crisis or use the texting option by texting 942373. National Suicide Prevention Lifeline: Call 988 Poison Control Center: Trans Lifeline: - Hotline for transgender people of all ages The Wes Project: - Hotline for LGBT youth List of all [facility] resources: https://mt.gov/dhs/eimzyl-bq-qsfah/adults/health-care/mental-health/resources/cr herman-contacts.jsp For Non-Emergency Support: Fast Tracker: Mental Health & Substance Use Disorder Resources - https://www.fasttrackermn.org/ Again thank you for choosing [facility] and please let us know how we can best partner with you to improve you and your family's health. You may be receiving a survey regarding this appointment. We would love to have your feedback, bothpositive and negative. The survey is done by an external company, so your answers are anonymous. Patient Education Collaborative Care Psychiatry Service What to Expect Here's what to expect from your Collaborative Care Psychiatry Service (CCPS). About CCPS CCPS means 2 people work together to help you get better. You'll meet with a behavioral health clinician and a psychiatric doctor. A behavioral health clinician helps people with mental health problems by talking with them. A psychiatric doctor helps people by giving them medicine. How it works At every visit, you'll see the behavioral health clinician (BHC) first. They'll talk with you abouthow you're doing and teach you how to feel better. Then you'll see the psychiatric doctor. This doctor can help you deal with troubling thoughts and feelings by giving you medicine. They'll make sure you know the plan for your care. CCPS usually takes 3 to 6 visits. If you need more visits, we may have you start seeing a differentpsychiatric doctor for ongoing care. If you have any questions or concerns, we'll be glad to talk with you. About visits Be open At your visits, please talk openly about your problems. It may feel hard, but it's the best way forus to help you. Cancelling visits If you can't come to your visit, please call us right away at . If you don't cancel at least 24 hours (1 full day) before your visit, that's late cancellation. Being late to visits Being very late is the same as not showing up. You will be a no show if: Your appointment starts with a BHC, and you're more than 15 minutes late for a 30-minute (half hour) visit. This will also cancel your appointment with the psychiatric doctor. Your appointment is with a psychiatric doctor only, and you're more than 15 minutes late for a 30-minute (half hour) visit. Your appointment is with a psychiatric doctor only, and you're more than 30 minutes late for a 60-minute (full hour) visit. If you cancel late or don't show up 2 times within 6 months, we may end your care. Getting help between visits If you need help between visits, you can call us Sunday to Sunday from 8 a.m. to 4:30 p.m. at . Emergency care Call 911 or go to the nearest emergency department if your life or someone else's life is in danger. Call 948 anytime to reach the national Suicide and Crisis hotline. Medicine refills To refill your medicine, call your pharmacy. You can also call [facility]'s Behavioral Access at , Sunday to Sunday, 8 a.m. to 4:30 p.m. It can take 1 to 3 business days to get arefill. Forms, letters, and tests You may have papers to fill out, like FMLA, short-term disability, and workability. We can help youwith these forms at your visits, but you must have an appointment. You may need more than 1 visit for this, to be in an intensive therapy program, or both. Before we can give you medicine for ADHD, we may refer you to get tested for it or confirm it another way. We may not be able to give you an emotional support animal letter. We don't do mental health checks ordered by the court. We don't do mental health testing, but we can refer you to get tested. Thank you for choosing us for your care. For informational purposes only. Not to replace the advice of your health care provider. Copyright ?? 2021 [facility]. All rights reserved. [employer] [id number] - 02/23. documented in this encounter Progress Notes * Sharon Huang DNP - 12/06/2023 4:30 PM CDT Images from the original note were not included. Virtual Visit Details Type of service: Video Visit Video Start Time: 1623 Video End Time: 1647 Originating Location (pt. Location): Home Distant Location (provider location): Off-site Platform used for Video Visit: [employer] PSYCHIATRIC MEDICATION FOLLOW UP APPT Name: Jessica Hannah : 1935 Referred by: Patient Care Team: Macrina Khan PA-C as PCP - General (Family Medicine) Ty Elizabeth MD as Assigned PCP Shu Mayfield MD as MD (Medical Oncology) Raeann Maldonado PA-C as Physician [employer] (Dermatology) Shannan Byrne RP as Pharmacist (Pharmacist) Shannan Byrne RPH as Assigned MTM Pharmacist Shannan Byrne as Medical Student Mihaela Sylvester MD as MD (motor vehicle parts interpreter) Huong Soto APRN CNP as Nurse Practitioner (Psychiatry) Karma Donnelly APRN CNP as Nurse Practitioner (Cardiovascular Disease) Amanda Yang, [facility] as Assigned Behavioral Health Provider Shu Pratt PA-C as Assigned Heart and Vascular Provider Therapist: Amanda Yang, the [facility] in [place] Patient attended the phone/video session with son Jayjay . Last seen for outpatient psychiatry Consultation on 11/08/2023. FOLLOWING PLAN PUT INTO PLACE: In looking at the trajectory of the medications, the Depakote or theLatuda may be causing shaking/akathisia. Will decrease the depakote to 250 mg twice a day and continue the Latuda and reassess. She will monitor her mood and if the decrease in Depakote evolves into reemergence of significant symptoms. Will consider looking at the Latuda to taper off. Follow- up in six weeks INTERIM HISTORY COMMUNICATIONS FROM PATIENT VIA: see message from son regarding ongoing tremors. Had attempted to return call on multiple occasions. RECORDS AVAILABLE FOR REVIEW: EHR records through [facility] and previous psychiatric progress note. HISTORY OF PRESENT ILLNESS CCPS referral for psychiatric medication consult in November 2023. Reports history of depression and mood instability. Denies prior psychiatric hospitalizations. No history of suicidal thoughts or attempts. No history of self-injurious behaviors. No identified genetic load for psychiatric illnesses. Grew up in an essentially intact home with all basic needs being met. FAMILY, MEDICAL, SURGICAL HISTORY REVIEWED. MEDICATION HAVE BEEN REVIEWED AND ARE CURRENT TO THE BEST OF MY KNOWLEDGE AND ABILITY. Retired. Living in assisted living MEDICATIONS Current Outpatient Medications Medication Sig Dispense Refill amiodarone (PACERONE) 200 MG tablet Take 1 tablet (200 mg) by mouth daily 90 tablet 3 amLODIPine (NORVASC) 5 MG tablet Take 1 tablet (5 mg) by mouth daily 90 tablet 1 apixaban ANTICOAGULANT (ELIQUIS) 5 MG tablet Take 1 tablet (5 mg) by mouth 2 times daily 180 tablet1 divalproex sodium extended-release (DEPAKOTE ER) 250 MG 24 hr tablet Take 1 tablet (250 mg) by mouth 2 times daily. Managed by PCP 60 tablet 0 levothyroxine (SYNTHROID/LEVOTHROID) 112 MCG tablet TAKE ONE TABLET BY MOUTH ONCE DAILY 90 tablet 1 LORazepam (ATIVAN) 0.5 MG tablet Take 1 tablet (0.5 mg) by mouth every 8 hours as needed for anxiety 10 tablet 0 losartan (COZAAR) 100 MG tablet Take 1 tablet (100 mg) by mouth daily 90 tablet 3 lurasidone (LATUDA) 20 MG TABS tablet Take 1 tablet (20 mg) by mouth daily (with dinner) 90 tablet 0 melatonin 5 MG tablet Take 5-10 mg by mouth nightly as needed for sleep Nebulizers (VIOS AEROSOL DELIVERY SYSTEM) MISC See Admin Instructions ondansetron (ZOFRAN) 4 MG tablet Take 1 tablet (4 mg) by mouth every 8 hours as needed for nausea 30 tablet 2 sodium chloride (CATHY 128) 5 % ophthalmic solution Place 1 drop into both eyes nightly as needed for dry eyes VITAMIN D PO Take 1 tablet by mouth daily No current facility-administered medications for this visit. NOTES ABOUT CURRENT PSYCHOTROPIC MEDICATIONS: Latuda 20 mg since early September 2023, possible increase in shaking. Now getting better. Depakote 250 mg twice a day was on 500 mg twice a day Lorazepam 0.5 mg as needed anxiety, not needing for awhile. melatonin PAST PSYCHOTROPIC MEDICATIONS: Quetiapine TODAY PATIENT REPORTS THE FOLLOWING PSYCHIATRIC ROS: Per [facility], Mana Melgar, during today's team-based visit: MH update: Pt reports little change since our last appointment. [facility] explored how she's adjusting to living in assisted living. She's trying to accept it. She has found some benefits. She's more social (bingo, exercise classes, crafts, coffee times), she doesn't have to cook as much, assistance with getting her medication. [facility] empathized with challenges and reinforced the importance of making themost of her situation. [facility] provided pscyho-education on the effects of socialization [...] Therapy: No [place]: No Preg: NA Interventions: [facility] provided psycho-education on the importance of socialization on cognitive and mental health Most important: medication update, her pulse has been low, been using lorazepam for her anxiety, annurse at the facility has suggested she take it at night for sleep. EXERCISE: Minimal exercise SIDE EFFECTS: see above COMPLIANCE: states Adherent to medication regimen REPORTS THE FOLLOWING NEW MEDICAL ISSUES: none PROBLEM: DEPRESSION: Stable 11/07/2023 10:06 AM Last PHQ-9 1. Little interest or pleasure in doing things 0 2. Feeling down, depressed, or hopeless 0 3. Trouble falling or staying asleep, or sleeping too much 1 4. Feeling tired or having little energy 1 5. Poor appetite or overeating 0 6. Feeling bad about yourself 0 7. Trouble concentrating 0 8. Moving slowly or restless 0 Q9: Thoughts of better off /self-harm past 2 weeks 0 PHQ-9 Total Score 2 2 09/26/2023 11:39 AM 11/01/2023 11:13 AM 11/07/2023 10:06 AM PHQ-9 SCORE PHQ-9 Total Score MyChart 4 (Minimal depression) 5 (Mild depression) 2 (Minimal depression) PHQ-9 Total Score 4 5 2 2 PHQ9 score is 2 indicating minimal depression. Suicidal ideation: No PROBLEM: ANXIETY: Improving. But continues with tremors/ mouth tremors GAD7 score is Not completed today 08/27/2023 11:10 AM 08/31/2023 12:34 PM 09/26/2023 11:37 AM MESFIN-7 SCORE Total Score 19 (severe anxiety) 6 (mild anxiety) Total Score 12 19 6 PERTINENT PAST MEDICAL AND SURGICAL HISTORY Past Medical History: Diagnosis Date AK (actinic keratosis) 10/16/2012 Ascending aorta dilatation (H) 01/23/2022 BCC (basal cell carcinoma of skin) 10/16/2012 R leg. 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 Osteoarthritis Other irritable bowel syndrome 05/12/2020 Palpitations 01/23/2022 Paroxysmal atrial fibrillation (H) 05/07/2023 Peripheral vascular disease (H) 03/21/2021 Post-nasal drip Prediabetes 08/28/2023 Right knee pain, unspecified chronicity 06/11/2017 Rosacea 11/17/2019 Sciatica, unspecified laterality 05/18/2022 Seasonal allergic rhinitis 07/23/2012 Skin macule 03/09/2020 Tinea cruris 08/12/2020 TMJ (temporomandibular joint syndrome) 08/19/2010 Trigger finger, acquired 03/09/2020 Xerostomia 08/09/2022 VITALS BP Readings from Last 1 Encounters: 10/30/23 134/64 Pulse Readings from Last 1 Encounters: 10/30/23 63 Wt Readings from Last 1 Encounters: 11/08/23 63.5 kg (140 lb) Ht Readings from Last 1 Encounters: 11/08/23 1.626 m (5' 4) Estimated body mass index is 24.03 kg/m?? as calculated from the following: Height as of 11/08/23: 1.626 m (5' 4). Weight as of 11/08/23: 63.5 kg (140 lb). LABS & IMAGING Recent Labs Lab Test 11/08/23 1126 04/27/21 1021 04/27/20 1203 WBC 8.9 < > 6.8 HGB 13.3 < > 12.9 HCT 41.1 < > 41.7 MCV 98 < > 99 PLT 208 < > 274 ANEU -- -- 4.5 < > = values in this interval not displayed. Recent Labs Lab Test 11/08/23 1126 10/18/23 1240 09/03/23 2355 NA 141 -- 139 POTASSIUM 4.3 3.8 4.5 CHLORIDE 104 -- 104 CO2 26 -- 27 GLC 86 -- 119* ADAM 9.2 -- 9.0 MAG -- 1.9 -- BUN 16.4 -- 21.1 CR 1.00* -- 0.99* GFRESTIMATED 55* -- 56* ALBUMIN -- -- 3.8 PROTTOTAL -- -- 6.3* AST -- -- 23 ALT -- -- 17 ALKPHOS -- -- 46 BILITOTAL -- -- 0.2 Recent Labs Lab Test 08/27/23 1213 05/08/23 0746 CHOL -- 177 LDL -- 106* HDL -- 57 TRIG -- 72 A1C 6.3* -- Recent Labs Lab Test 11/08/23 1126 05/07/23 1144 05/07/23 0945 TSH 1.17 < > 4.46* T4 -- -- 1.37 < > = values in this interval not displayed. ALLERGY & IMMUNIZATIONS Allergies Allergen Reactions Codeine Sulfate Nausea Rodney Inhibitors Cough Bupropion Nausea, constipation Pcn [Penicillins] Nausea Shrimp Itching and Difficulty breathing Sulfa Antibiotics Nausea, Nausea and Vomiting and GI Disturbance 1 hour after taking medication started vomiting, chills, runny nose, diarrhea and stomach upset MEDICAL REVIEW OF SYSTEMS: Ten system review was completed with pertinent positives noted MENTAL STATUS EXAM: General/Constitutional: Appearance: awake, alert, adequately groomed, appeared stated age and no apparent distress Attitude: cooperative Eye Contact: good Musculoskeletal: Psychomotor Behavior: no evidence of tardive dyskinesia, dystonia, or tics from the head up Psychiatric: Speech: clear, coherent, regular rate, rhythm, and volume, No pressure speech noted. Associations: no loose associations Thought Process: logical, linear and goal oriented Thought Content: No evidence of suicidal ideation or homicidal ideation, no evidence of psychotic thought, no auditory hallucinations present and no visual hallucinations present Mood: anxious Affect: full range/stable (normal variation of emotions during exam) and was congruent to speech content. Insight: fair Judgment: intact, adequate for safety Impulse Control: intact Neurological: Oriented to: person, place, time, and situation Attention Span and Concentration: Able to attend to the interview Language: intact Recent and Remote Memory: Intact to interview. Not formally assessed. No amnesia. Fund of Knowledge: appropriate SAFETY Feels safe in home: YES Suicidal ideation: Denies and No SI currently History of suicide attempts: No Hx of impulsivity: No Hope for the future: present Hx of Command hallucinations or current psychosis: None endorsed History of Self-injurious behaviors: denies Family member by suicide: not discussed SAFETY ASSESSMENT: Based on all available evidence including the factors cited above, overall Risk for harm is low andis appropriate for outpatient level of care. Recommended that patient call 911 or go to the local ED should there be a change in any of these risk factors. DSM 5 DIAGNOSIS: 296.89 Bipolar II Disorder moderate MEDICAL COMORBIDITY IMPACTING CLINICAL PICTURE: The [place] [employer] has updated the Beers Criteria list based on evidence-based recommendations. The updated report was published in the Journal of the [place] [employer]. Known issue that I take into account for their medical decisions ASSESSMENT AND PLAN Problem List as of 12/06/2023 Reviewed: 11/15/2023 11:42 AM by Sharon Huang DNP None CONSULTS/REFERRALS: None at this time Coordinate care with therapist as needed MEDICAL: None at this time Coordinate care with PCP (Macrina Khan) as needed Follow up with primary care provider as planned or for acute medical concerns. PSYCHOEDUCATION: Medication side effects and alternatives reviewed. Health promotion activities recommended and reviewed today. All questions addressed. Education and counseling completed regarding risks and benefitsof medications and psychotherapy options. Consent provided by patient/guardian Call the psychiatric nurse line with medication questions or concerns at [phone]. [employer] may be used to communicate with your provider, but this is not intended to be used for emergencies. MedlineEnvironmentIQ.gov is information for patients. It is run by the National Library of Medicine and it contains information about all disorders, diseases and all medications. COMMUNITY RESOURCES: CRISIS NUMBERS: Provided in AVS 11/08/2023 National Suicide Prevention Lifeline: 9-579-130-TALK (076-416-4942) Retellity/resources for a list of additional resources (SOS) [facility] - [phone] Urgent Care Adult Mental Fatcgp-[phone] mobile unit/ 25/09 crisis line [facility] -[phone] COPE 25/09 [place] Mobile Team -[phone] (adults)/ [phone] (child) Poison Control Center - OR 911 OR go to nearest ER Crisis Text Line for any crisis 25/09 send this- To: 675693 [facility] ([facility] [phone] National Suicide Prevention Lifeline: 840.478.1631 (TTY: 892.570.2703). Call anytime for help. (www.suicidepreventionlifeline.org) National [place] on Mental Illness (www.billie.org): 969.151.1313 or 685-756-1001. Mental Health Association (www.mentalhealth.org): 438.278.2337 or 561-177-3886. [place] Crisis Text Line: Text [place] to 689122 Suicide LifeLine Chat: suicideAccuSilicon.org/chat ADMINISTRATIVE BILLING: Level of Medical Decision Making: - At least 1 chronic problem that is not stable - Engaged in prescription drug management during visit (discussed any medication benefits, side effects, alternatives, etc.) The longitudinal plan of care for the diagnosis(es)/condition(s) as documented were addressed during this visit. Due to the added complexity in care, I will continue to support Jessica in the subsequent management and with ongoing continuity of care. Patient Status: Patient will continue to be seen for ongoing consultation and stabilization. Signed: Sharon Huang, MSN, ESCROW MANAGER, FMHNP-[facility] Collaborative Care Psychiatry Service (CCPS) Chart documentation done in part with [employer] Voice Recognition software. Although reviewed after completion, some word and grammatical errors may remain. documented in this encounter Nursing Notes * EDWIGE FOWLER - 12/06/2023 4:30 PM CDT Is the patient currently in the state of [place]? YES Current patient location: [address] [place] [phone] Visit mode:VIDEO If the visit is dropped, the patient can be reconnected by: VIDEO VISIT: Text to cell phone: Telephone Information: Will anyone else be joining the visit? No (If patient encounters technical issues they should call [phone]) Are changes needed to the allergy or medication list? No Are refills needed on medications prescribed by this physician? No Rooming Documentation: Questionnaire(s) completed. Reason for visit: RECHECK TEJA Cruz documented in this encounter Miscellaneous Notes * Assessment & Plan Note - Sharon Huang DNP - 12/06/2023 5:02 PM CDT Associated Problem(s): Behavioral Stop the AM dose of Depakote and continue the evening dose for one week. Then discontinue the evening dose of Depakote. Continue Latuda 20 mg Can continue the lorazepam as needed, ok to give at bedtime to evaluate if helps with sleep. Monitor for increase in anxiety with the discontinuation of the Depakote Follow-up January 10, 2024 at 0900 to reevaluate documented in this encounter Plan of Treatment Upcoming Encounters Date Type Department Care Team (Late st Contact Info) Description 02/06/2024 3:20 PM DIETETIC TECH Office Visit [facility] [id number] [place] [address] [address] [place] [phone] Venus Abrams PA-C [address] [place] [address] documented as of this encounter Visit Diagnoses Diagnosis Bipolar 2 disorder (H)- Primary Other bipolar disorders documented in this encounter Additional Health Concerns Assessment Noted Time PHQ-9 Depression Total Score: 2 11/07/19 24 10:06 AM CDT documented as of this encounter Care Teams Busher Helper Relationship Specialty Start Date End Date Macrina Khan PA-C [address] [place] [id number] PCP - General Family Medicine 09/13/23 [place] [address] [place], [place] [id number] Assigned PCP 07/14/18 [place] [address] [place] [address] Medical Oncology 02/19/20 Raeann Maldonado PA-C [address] [place] [address] Physician Human Intelligence Dermatology 04/27/21 Shannan Byrne, [facility] [address] [place] [id number] Pharmacist Pharmacist 06/08/22 Shannan Byrne, [facility] [address] [place] [id number] Assigned MTM Pharmacist 06/17/22 Shannan Byrne Medical Student 12/27/22 Mihaela Sylvester MD [address] [place] [phone] motor vehicle parts interpreter 01/01/23 Huong Soto APRN [employer] [facility] [address] [place] [address] [address] [place] [phone] Nurse Practitioner Psychiatry 01/08/23 Karma Donnelly, SELINA [employer] [address] [facility] [address] [place] [address] Nurse Practitioner Cardiovascular Disease 05/14/23 Amanda Yang, [facility] [address] [place] [address] Assigned Behavioral Health Provider 06/26/23 01/25/24 Sharon Huang DNP [address] [place] [address] Assigned Neuroscience Provider 11/26/23 Venus Abrams PA-C [address] [address] Assigned Heart and Vascular Provider 11/26/23 documented as of this encounter
--- OUTSIDE RECORDS SUMMARY | 2024-01-29 13:27 | XMS_ITS | Encounter Summary ---
Author Organization [place] Address [address] [place] [address] Care Team Providers Care Retaining Room Cutter Name Role Phone Ty Elizabeth MD Unavailable [phone] Shu Mayfield MD Unavailable Raeann Maldonado PA-C Unavailable Shannan Byrne [facility] Unavailable Shannan Byrne [facility] Unavailable Shannan Byrne Unavailable Unavailable Mihaela Sylvester MD Unavailable Huong Soto [employer] LEAD PIPE FITTER HELPER Unavailable [phone] Karma Donnelly [employer] LEAD PIPE FITTER HELPER Unavailable Amanda Yang AWNING ASSEMBLER Unavailable Macrina Khan PA-C Primary Care Provider Shu Pratt PA-C Unavailable [phone] Encounter Details Date Type Department Care Team (Late st Contact Info) Description 11/08/2023 8:00 AM CDT Virtual Visit [facility] Mental Health & Addiction [facility] [address] [place] [address] Mana Melgar LICSW [facility] [address], [address] [place] [address] Cyclothymic disorder (Primary Dx); Generalized anxiety disorder [...] week 08/17/2023 How often do you attend [facility] or anabaptist services? More than 4 times per year 08/17/2023 Do you belong to any clubs o r organizations such as muslim groups, unions, fraternal or athletic groups, or [...] 06/20/2023 PHQ-2 Answer Date Recorded PHQ-2 Score 0 11/08/2023 [facility] of Occupat ional Health - Occupational Stress [...] Answer Date Recorded Do you have housing? (Yolandein g is defined as stable permanent housing [...] Sex Assigned at Female 04/20/2020 9:52 AM PUTTY TINTER MAKER Legal Sex Female 5:13 AM PUTTY TINTER MAKER Gender Identity Female 04/20/2020 9:52 AM PUTTY TINTER MAKER Sexual Orientation Not on file documented as of this encounter Progress Notes * Mana Melgar, [facility] - 11/08/2023 8:00 AM CDT [facility] Psychiatry [facility] November 08, 2023 Behavioral Health Clinician Progress Note Patient Name: Jessica Hannah Service Type: Individual Service Location: [facility] / Email (patient reached) Session Start Time: 800 am Session End Time: 817 am Session Length: 16 - 37 Attendees: Patient Service Modality: Video Visit: Provider [...] Chart Mode of Communication: Video Conference via [facility] Distant Location (Provider): Off-site As the provider I attest to compliance with applicable laws and regulations related to telemedicine. Visit Activities (Refresh list every visit): [facility] Only Diagnostic Assessment Date: 09/13/2023 by Amanda Yang [facility] Treatment Plan Review Date: 02/07/2024 See Flowsheets for today's PHQ-9 and MESFIN-7 results Previous PHQ-9: 08/27/2023 11:10 AM 09/26/2023 11:39 AM 11/01/2023 11:13 AM PHQ-9 SCORE PHQ-9 Total Score MyChart 4 (Minimal depression) 5 (Mild depression) PHQ-9 Total Score 20 4 5 Previous MESFIN-7: 08/27/2023 11:10 AM 08/31/2023 12:34 PM 09/26/2023 11:37 AM MESFIN-7 SCORE Total Score 19 (severe anxiety) 6 (mild anxiety) Total Score 12 19 6 DANITZA LEVEL: 03/15/2011 2:00 PM 04/05/2019 10:11 AM DANITZA Score (Last Two) DANITZA Raw Score 49 32 Activation Score 82.8 62.6 DANITZA Level 4 3 DATA Extended Session (60+ minutes): No Interactive Complexity: No Crisis: No [facility] Patient: No Treatment Objective(s) Addressed in This Session: Target Behavior(s): improve adjustment to new living environment Depressed Mood: Increase interest, engagement, and pleasure in doing things Current Stressors / Issues: update: [facility] reviewed current stress. She recently moved to a assisted living. Her sons helped with the move. Pt reports that she's struggling with adjustment, meeting new people, new routine. [facility] explored ways to enhance her adjustment. She enjoys the cafeteria style eating because it offers an o pportunity for socialization and proper nutrition, she participates some wellness activities, 500, pub night. [facility] positively encouraged. She's reasonably good at making new friends. She reports that her mood is better during the day but tends to worsen in the evening. [facility] normalized. She uses distraction such as reading or TV. [facility] explored grief around husbands 2 years ago. [facility] empathized and provided support. The nursing staff is helping with medication, monitoring O2, she's on fall precautions (alarm button). Stresses: of 2 years ago, just moved in to assisted living, recent tx of a-fib, had been in 40's for heart rate Appetite: unremarkable Sleep: trouble staying asleep Therapy: Amanda Yang [facility] [place]: No Preg: NA Interventions: [facility] provided psycho-education on importance of socialization, grief, updated emergency contact to samm Schwartz at [phone] Most important: medication consult, pt has been having tremors (ASE from depakote)? Progress on Treatment Objective(s) / Homework: Unable to assess-first appointment Motivational Interviewing [place] Intervention: Co-Developed Goal: improve adjustment to new [...] displayed): 08/02/2022 12:53 PM 08/31/2023 12:35 PM PROMIS 10 In general, would you say your health is: Good Poor In general, would you say your quality of life is: Very good Fair In general, how would you rate your physical health? Very good Fair In general, how would you rate your mental health, including your mood and your ability to think? Good Poor In general, how would you rate your satisfaction with your social activities and relationships? Good Poor In general, please rate how well you carry out your usual social activities and roles Very good Fair To what extent are you able to carry out your everyday physical activities such as walking, climbing stairs, carrying groceries, or moving a chair? Mostly Moderately In the past 7 days, how often have you been bothered by emotional problems such as feeling anxious,depressed, or irritable? Sometimes Always In the past 7 days, how would you rate your fatigue on average? Mild Very severe In the past 7 days, how would you rate your pain on average, where 0 means no pain, and 10 means worst imaginable pain? 1 8 In general, would you say your health is: 3 1 In general, would you say your quality of life is: 4 2 In general, how would you rate your physical health? 4 2 In general, how would you rate your mental health, including your mood and your ability to think? 31 In general, how would you rate your satisfaction with your social activities and relationships? 3 1 In general, please rate how well you carry out your usual social activities and roles. (This includes activities at home, at work and in your community, and responsibilities as a parent, child, spouse, employee, friend, etc.) 4 2 To what extent are you able to carry out your everyday physical activities such as walking, climbing stairs, carrying groceries, or moving a chair? 4 3 In the past 7 days, how often have you been bothered by emotional problems such as feeling anxious,depressed, or irritable? 3 5 In the past 7 days, how would you rate your fatigue on average? 2 5 In the past 7 days, how would you rate your pain on average, where 0 means no pain, and 10 means worst imaginable pain? 1 8 Global Mental Health Score 13 5 Global Physical Health Score 16 8 PROMIS TOTAL - SUBSCORES 29 13 PROMIS 10-Global Health (only subscores and total score): 08/02/2022 12:53 PM 08/31/2023 12:35 PM PROMIS-10 Scores Only Global Mental Health Score 13 5 Global Physical Health Score 16 8 PROMIS TOTAL - SUBSCORES 29 13 Care Plan review completed: Yes Medication Review: [...] time, however patient was encouraged to call [place] [address] should there be a change in any of these risk factors. Appearance: Appropriate Eye Contact: Good Psychomotor Behavior: Normal Attitude: Cooperative Orientation: All Speech Rate / Production: Normal Volume: Normal Mood: Depressed Affect: Appropriate Thought Content: Clear Thought Form: Coherent Logical Insight: Good Diagnoses: No diagnosis found. Collateral Reports Completed: Collaborated with [facility] team Plan: (Homework, other): Patient was given information about behavioral services and encouraged to schedule a follow up appointment with the clinic [facility] in 1 month. She was also given information about mental health symptoms and treatment options . CD Recommendations: No indications of CD issues. [facility] Treatment Plan [...] displayed): 08/02/2022 12:53 PM 08/31/2023 12:35 PM PROMIS 10 In general, would you say your health is: Good Poor In general, would you say your quality of life is: Very good Fair In general, how would you rate your physical health? Very good Fair In general, how would you rate your mental health, including your mood and your ability to think? Good Poor In general, how would you rate your satisfaction with your social activities and relationships? Good Poor In general, please rate how well you carry out your usual social activities and roles Very good Fair To what extent are you able to carry out your everyday physical activities such as walking, climbing stairs, carrying groceries, or moving a chair? Mostly Moderately In the past 7 days, how often have you been bothered by emotional problems such as feeling anxious,depressed, or irritable? Sometimes Always In the past 7 days, how would you rate your fatigue on average? Mild Very severe In the past 7 days, how would you rate your pain on average, where 0 means no pain, and 10 means worst imaginable pain? 1 8 In general, would you say your health is: 3 1 In general, would you say your quality of life is: 4 2 In general, how would you rate your physical health? 4 2 In general, how would you rate your mental health, including your mood and your ability to think? 31 In general, how would you rate your satisfaction with your social activities and relationships? 3 1 In general, please rate how well you carry out your usual social activities and roles. (This includes activities at home, at work and in your community, and responsibilities as a parent, child, spouse, employee, friend, etc.) 4 2 To what extent are you able to carry out your everyday physical activities such as walking, climbing stairs, carrying groceries, or moving a chair? 4 3 In the past 7 days, how often have you been bothered by emotional problems such as feeling anxious,depressed, or irritable? 3 5 In the past 7 days, how would you rate your fatigue on average? 2 5 In the past 7 days, how would you rate your pain on average, where 0 means no pain, and 10 means worst imaginable pain? 1 8 Global Mental Health Score 13 5 Global Physical Health Score 16 8 PROMIS TOTAL - SUBSCORES 29 13 PROMIS 10-Global Health (only subscores and total score): 08/02/2022 12:53 PM 08/31/2023 12:35 PM PROMIS-10 Scores Only Global Mental Health Score 13 5 Global Physical Health Score 16 8 PROMIS TOTAL - SUBSCORES 29 13 Referral / Collaboration: Collaborated with [facility] team [...] things Status: New - Date: 11/08/2023 Intervention(s) [facility] provided psycho-education for symptom management including the following: https://www.OpenTextube.com/watch?v=Lb2glRxWjR1 https://www.OpenTextube.com/watch?v=7-9A4CvLmsD https://[facility]/for-community/mindfulness-programs/uqutmkhfmnn-cpmgy-itsfmk- reduction Slow breathing. When you're anxious, your breathing becomes faster and shallower. Try deliberately slowing down your breathing. Count to three as you breathe in slowly - then count to three as you breathe out slowly. Progressive muscle relaxation. Find a quiet location. Close your eyes and slowly tense and then relax each of your muscle groups from your toes to your head. Hold the tension for three seconds and then release quickly. This can help reduce the feelings of muscle tension that often comes with anxiety. Stay in the present moment. Anxiety can make your thoughts live in a terrible future that hasn't happened yet. Try to bring yourself back to where you are. Practising meditation can help. Healthy lifestyle. Keeping active, eating well, going out into nature, spending time with family and friends, reducing stress and doing the activities you enjoy are all effective in reducing anxiety and improving your wellbeing. Take small acts of bravery. Avoiding what makes you anxious provides some relief in the short term,but can make you more anxious in the terminologist. Try approaching something that makes you anxious - even in a small way. The way through anxiety is by learning that what you fear isn't likely to happen - and if it does, you'll be able to cope with it. Challenge your self-talk. How you think affects how you feel. Anxiety can make you overestimate thedanger in a situation and underestimate your ability to handle it. Try to think of different interpretations to a situation that's making you anxious, rather than jumping to the worst-case scenario. Look at the facts for and against your thought being true. Plan worry time. It's hard to stop worrying entirely so set aside some time to indulge your worries. Even 10 minutes each evening to write them down or go over them in your head can help stop your worries from taking over at other times. Get to know your anxiety. Keep a diary of when it's at it's best - and worst. Find the patterns andplan your week - or day - to proactively manage your anxiety. Learn from others. Talking with others who also experience anxiety - or are going through somethingsimilar - can help you feel less alone. Visit our Online Forums to connect with others. Be kind to yourself. Remember that you are not your anxiety. You are not weak. You are not inferior. You have a mental health condition. It's called anxiety. Body based skills: Change body temperature by holding ice cube, running hands under cold water, drinking cold water. Eat an altoid mint or other strongly flavored mint candy or sour candy like Warheads or lemon drops. The sour taste will quickly distract from the anxiety and the sweet flavor at theend is rewarding to the brain. Box Breathing: Step 1: Breathe in, counting to four slowly. Feel the air enter your lungs. Step 2: Hold your breath for 4 seconds. Try to avoid inhaling or exhaling for 4 seconds. Step 3: Slowly exhale through your mouth for 4 seconds. Step 4: Repeat steps 1 to 3 until you feel re-centered. 5 Things exercise: find 5 things in the environment that are the same color, 4 that are a same shape, 3 that are the same size, 2 smells, 1 sound [facility] provided psycho-education on Acceptance and Commitment skills including: -values clarification -behavioral activation planning including overcoming barriers -mindfulness -cognitive diffusion skill -facilitate self acceptance [facility] provided psycho-education on sleep skills including: -sleep hygiene -tracking sleep schedule -creating sleep routine [facility] provided psycho-education on DBT skills -mindfulness -mood regulation techniques -5 things exercise -somatic regulation skills (taste of something sweet or sour, notice smells, touch/feel of things in the environment, physical activity such as dancing, walking) [facility] provided psycho-education of CBT skills including the following: -challenging destructive thinking -re-framing -behavioral activation -journaling -mood/behavioral tracking -exposure response -mood regulation (deep breathing, somatic skills) Solution focused skills: -[facility] assisted pt with creating a plan to reduce isolation Patient has reviewed and agreed to the above plan. Written by CHAD Aaron, [facility] documented in this encounter Plan of Treatment Upcoming Encounters Date Type Department Care Team (Late st Contact Info) Description 02/06/2024 3:20 PM PUTTY TINTER MAKER Office Visit [facility] [id number] [place] [address] [address] [place] [phone] Venus Abrams PA-C [address] [place] [id number] documented as of this encounter Visit Diagnoses Diagnosis Cyclothymic disorder- Primary Generalized anxiety disorder documented in this encounter Additional Health Concerns Assessment Noted Time PHQ-9 Depression Total Score: 2 11/07/19 24 10:06 AM CDT documented as of this encounter Care Teams Retaining Room Cutter Relationship Specialty Start Date End Date Macrina Khan PA-C [address] [place] [phone] PCP - General Family Medicine 09/13/23 [place] [address] [place] [address] Assigned PCP 07/14/18 [place] [address] [place] [address] Medical Oncology 02/19/20 Raeann Maldonado PA-C [address] [place] [address] Physician Chemistry Teacher Dermatology 04/27/21 Shannan Byrne [facility] [address] [place] [id number] Pharmacist Pharmacist 06/08/22 Shannan Byrne [facility] [address] [place] [address] Assigned MTM Pharmacist 06/17/22 Shannan Byrne Medical Student 12/27/22 Mihaela Sylvester MD [address] [facility] [address] [facility] [address] [place] [address] outside sales 01/01/23 Huong Soto APRN PIPE FITTER HELPER [facility] [address] [facility] [address] [place] [phone] Nurse Practitioner Psychiatry 01/08/23 Karma Donnelly APRN PIPE FITTER HELPER [address] [place] [place] [address] Nurse Practitioner Cardiovascular Disease 05/14/23 Amanda Yang, [facility] [address] [place] [address] Assigned Behavioral Health Provider 06/26/23 01/25/24 Shu Pratt PA-C [address] [place] [address] Assigned Heart and Vascular Provider 10/26/23 11/25/23 documented as of this encounter
--- OUTSIDE RECORDS SUMMARY | 2024-01-29 13:27 | XMS_ITS | Encounter Summary ---
Author Organization [place] Address [address] [place] [address] Care Team Providers Care Side Gluer Name Role Phone Ty Elizabeth MD Unavailable [phone] Shu Mayfield MD Unavailable Raeann MaldonadoC Unavailable Shannan Byrne [facility] Unavailable [phone] Shannan Byrne [facility] Unavailable [phone] Shannan Byrne Unavailable Unavailable Mihaela Sylvester MD Unavailable Huong Soto CAGER OPERATOR SWITCHING CLERK Unavailable [phone] Karma Donnelly CAGER OPERATOR SWITCHING CLERK Unavailable Amanda Yang AUTOMATIC DEVELOPER Unavailable [phone] Macrina Khan PA-C Primary Care Provider [phone] Shu PrattC Unavailable [phone] Reason for Referral * Consultation (Routine: Next available opening) - Pending Review Specialty Diagnoses / Procedures Referred By Contac t Referred To Contact Cardiovascular Disease Diagnoses PAF (paroxysmal atrial fibrillation) (H) Venus Abrams PA-C [address] [address] Phone: tel: fax: Referral ID Status Reason Start Date Expiration Date V isits Requested Visits Authorized [id number] Pending Review 10/30/2023 10/29/2024 1 1 Question Answer Follow-up with: Self Reason for follow-up: EP Scheduling Instructions: [facility] will call you to coordinate your care as prescribed by your provider. If you have concerns about scheduling, please call [phone]. Comments [facility] will call you to coordinate your care as prescribed by your provider. If you have concerns about scheduling, please call [phone]. Reason for Visit * Reason Comments Heart Problem S/p DCCV * Consultation (Routine) - Pending Review Specialty Diagnoses / Procedures Referred By Contac t Referred To Contact Cardiovascular Disease Diagnoses PAF (paroxysmal atrial fibrillation) (H) Mihaela Gill PA-C [address] [place] [address] Phone: tel: fax: Referral ID Status Reason Start Date Expiration Date V isits Requested Visits Authorized [id number] Pending Review 10/04/2023 10/03/2024 1 1 Encounter Details Date Type Department Care Team (Late st Contact Info) Description 10/30/2023 3:10 PM CDT Office Visit [facility] [place] [id number] [place] [address] [address] [place] [phone] Mihaela Gill PA-C [address] [id number] Venus Abrams PA-C [address] [address] PAF (paroxysmal atrial fibrillation) (H); Essential hypertension, benign Social History Tobacco Use Types Packs/Day Years [...] How often do you attend chur or restorationism services? More than 4 times per year 08/17/2023 Do you belong to any clubs o r organizations such as samaritan groups, unions, fraternal or athletic groups, or [...] PHQ-2 Answer Date Recorded PHQ-2 Score 1 09/27/2023 [facility] - Occupational [...] in an abandoned building, in an overnight longterm, or couch-surfing.) Yes 08/17/2023 Are you worried [...] Sex Assigned at Female 04/20/2020 9:52 AM GUILLOTINE OPERATOR Legal Sex Female 5:13 AM GUILLOTINE OPERATOR Gender Identity Female 04/20/2020 9:52 AM GUILLOTINE OPERATOR Sexual Orientation Not on file documented as of this encounter Last Filed Vital Signs Vital Sign Reading Time Taken Comments Blood Pressure 134/64 10/30/2023 3:20 PM CDT Pulse 63 10/30/2023 3:20 PM CDT Temperature - - Respiratory Rate - - Oxygen Saturation 98% 10/30/2023 3:20 PM CDT Inhaled Oxygen Concentration - - Weight 67.2 kg (148 lb 3.2 oz) 10/30/2023 3:20 P M CDT Height 162.6 cm (5' 4) 10/30/2023 3:20 PM CDT Body Mass Index 25.44 10/30/2023 3:20 PM CDT documented in this encounter Patient Instructions * Patient Instructions* Venus Abrams PA-C - 10/30/2023 3:10 PM CDT Call the nurse for any questions or concerns at [phone]. Plan: 1. Medication changes: Decrease atenolol to 25 mg once daily. 2. Follow up in 3 months, sooner if needed -Scheduling phone number: [phone] It was great seeing you today! Venus Abrams PA-C Physician Health Education Teacher [facility] documented in this encounter Progress Notes * Venus Abrams PA-C - 10/30/2023 3:10 PM CDT Cardiology Clinic Progress Note Jessica Hannah Date of : 1935 Age: [age] year old Primary Pension Agent: Dr. Nino, Dr. Trujillo () Reason for visit: post cardioversion follow-up Assessment and Plan: Jessica Hannah is a very pleasant 87 year old female who is here today for post cardioversion follow-up. 1. Persistent atrial fibrillation, diagnosed 05/2023. Symptomatic with palpitations and chest discomfort. Required cardioversion 05/08/2023, 06/03/2023, and most recently 10/18/2023. Initially on flecainide for rhythm control, did not tolerate. Now on amiodarone 200 mg once daily. On Eliquis 5 mg twice daily for cardioembolic risk reduction in the setting of elevated [id number] score of 4 (female, age x 2, HTN) 2. Resting tremor of bilateral hands, new since up titration of Depakote and amiodarone. 3. Hypertension, BP well-controlled on current regimen 4. Hyperlipidemia 5. Hypothyroidism 6. Generalized anxiety disorder, on Depakote, lorazepam, and Latuda. Follows with psychiatry. Changes today: Decrease atenolol to 25 mg once daily. ECG completed in clinic today reveals sinus bradycardia with first-degree AV block; VR 59, AK 232, QRS 92, QT/QTc 433 ms. Decrease atenolol to 25 mg once daily to allow her HR to increase. Hopefully this will help with her fatigue. By review of medication side effects, resting tremor could be secondary to increased dose of Depakote versus amiodarone. After discussing with patient and her family, they prefer to continue amiodarone at current dose and trial a decrease in Depakote which they will discuss with her primary care pro vider/psychiatry team. If resting tremor does not resolve after decrease or discontinuation of Depakote, we discussed the potential need for amiodarone cessation. Follow-up in 3 months, sooner if needed. Amiodarone testing: CXR - 05/2023 LFT's - 09/2023 TSH - 09/2023 PFT's - 2019 Venus Abrams PA-C [facility] Pager: [phone] History of Presenting Illness: Jessica Hannah is a very pleasant 87 year old female with a history of hypertension, hyperlipidemia, hypothyroidism, and atrial fibrillation. Patient presented to [facility] 05/07/2023 with palpitations and chest discomfort. ECG was interpreted as atrial flutter but in fact reveals atrial fibrillation. Patient was admitted to the hospital, started on chronic anticoagulation and underwent successful BENY guided cardioversion during her admission. She returned to the ED 06/03/2023 with palpitations, nausea and diaphoresis. ECG at that time revealed atrial fibrillation with controlled ventricular rate. She was cardioverted anddischarged home. She was seen in consultation 06/11/[address] Trujillo at which time she was started on flecainide for rhythm control. Unfortunately, due to side effects, this was transition to amiodarone 07/2023. She presented to the ED 09/04/2023 under the direction of her outpatient therapist for evaluation of depressed mood and heightened anxiety. She was determined to be medically stable and then transferred to the emPATH unit for psychiatric assessment. During this visit, she was found to be in asymptomatic atrial fibrillation with SVR despite amiodarone 100 mg once daily. She was seen a few weeks later in EP clinic at which time her amiodarone was increased from 100 mg to 200 mg once daily with planfor repeat cardioversion should she remain in atrial fibrillation on follow-up ECG. Additionally, given complaints of intermittent chest discomfort, nuclear stress test was arranged (this has not yetbeen completed). Ms. Hannah underwent cardioversion 10/18/2023 with successful moravian of normal sinus rhythm. She presents to clinic today for routine postprocedure follow-up. Her son is with her. She has overall been feeling well since her procedure. Denies chest pain, palpitations, lightheadedness, dizziness, near-syncope or syncope. No shortness of breath, orthopnea or PND. No bleeding concerns. She will at times feel fatigued and tired, with weak legs. Additionally, she notes a new resting tremor of both of her hands. This started around the time her Depakote was increased from 500 mg once daily to 500 mg twice daily. Additionally, amiodarone was increased around this time from 100 mg once daily to 200 mg once daily. Recently moved into an [facility]. Social History Social History Socioeconomic History Marital status: Spouse name: Not on file Number of children: Not on file Years of education: Not on file Highest education level: Not on file Occupational History Not on file Tobacco Use Smoking status: Never Passive exposure: Never Smokeless tobacco: Never Vaping Use Vaping status: Never Used Substance and Sexual Activity Alcohol use: Not Currently Comment: rarely Drug use: No Sexual activity: Not Currently Partners: Male Other Topics Concern Parent/sibling w/ CABG, [place] or angioplasty before 65F 55M? No Social History Narrative Not on file Social Determinants of Health Financial Resource Strain: Low Risk (08/17/2023) Financial Resource Strain Within the past 12 months, have you or your family members you live with been unable to get utilities (heat, electricity) when it was really needed?: No Food Insecurity: Low Risk (08/17/2023) Food Insecurity Within the past 12 months, did you worry that your food would run out before you got money to buy more?: No Within the past 12 months, did the food you bought just not last and you didn???t have money to getmore?: No Transportation Needs: Low Risk (08/17/2023) Transportation Needs Within the past 12 months, has lack of transportation kept you from medical appointments, getting your medicines, non-medical meetings or appointments, work, or from getting things that you need?: No Physical Activity: Inactive (08/17/2023) Exercise Vital Sign Days of Exercise per Week: 0 days Minutes of Exercise per Session: 0 min Stress: Stress Concern Present (08/17/2023) [employer] [facility] - Occupational Stress Questionnaire Feeling of Stress : Very much Social Connections: Moderately Integrated (08/17/2023) Social Connection and Isolation Panel [NHANES] Frequency of Communication with Friends and Family: More than three times a week Frequency of Social Gatherings with Friends and Family: More than three times a week Attends Sikh Services: More than 4 times per year Active Member of Clubs or Organizations: Yes Attends Club or Organization Meetings: More than 4 times per year Marital Status: Interpersonal Safety: Low Risk (08/27/2023) Interpersonal Safety Do you feel physically and emotionally safe where you currently live?: Yes Within the past 12 months, have you been hit, slapped, kicked or otherwise physically hurt by someone?: No Within the past 12 months, have you been humiliated or emotionally abused in other ways by your partner or ex-partner?: No Housing Stability: Low Risk (08/17/2023) Housing Stability Do you have housing? : Yes Are you worried about losing your housing?: No Review of Systems: Please see HPI Physical Exam: Vitals: BP 134/64 (BP Location: Right arm, Patient Position: Sitting, Cuff Size: Adult Regular) Pulse 63 Ht 1.626 m (5' 4) Wt 67.2 kg (148 lb 3.2 oz) SpO2 98% BMI 25.44 kg/m?? Wt Readings from Last 4 Encounters: 10/18/23 67.6 kg (149 lb 1.6 oz) 10/11/23 68 kg (150 lb) 09/27/23 69.8 kg (153 lb 14.4 oz) 09/21/23 69.6 kg (153 lb 8 oz) GEN: well nourished, in no acute distress. HEENT: Pupils equal, round. Sclerae nonicteric. NECK: Supple, no masses appreciated. No JVD C/V: Regular rhythm, bradycardic. No murmur appreciated RESP: Respirations are unlabored. Clear to auscultation bilaterally without wheezing, rales, or rhonchi. GI: Abdomen soft, nontender. EXTREM: Trace bilateral LE edema. Resting tremor of bilateral hands noted NEURO: Alert and oriented, cooperative. SKIN: Warm and dry. Data: LIPID RESULTS: Lab Results Component Value Date CHOL 177 05/08/2023 CHOL 218 (H) 07/25/2018 HDL 57 05/08/2023 HDL 69 07/25/2018 LDL 106 (H) 05/08/2023 LDL 128 (H) 07/25/2018 TRIG 72 05/08/2023 TRIG 107 07/25/2018 CHOLHDLRATIO 3.3 07/23/2012 LIVER ENZYME RESULTS: Lab Results Component Value Date AST 23 09/03/2023 AST 12 04/27/2020 ALT 17 09/03/2023 ALT 17 04/27/2020 CBC RESULTS: Lab Results Component Value Date WBC 6.4 09/03/2023 WBC 6.8 04/27/2020 RBC 4.35 09/03/2023 RBC 4.23 04/27/2020 HGB 13.6 09/03/2023 HGB 12.9 04/27/2020 HCT 40.9 09/03/2023 HCT 41.7 04/27/2020 MCV 94 09/03/2023 MCV 99 04/27/2020 MCH 31.3 09/03/2023 MCH 30.5 04/27/2020 MCHC 33.3 09/03/2023 MCHC 30.9 (L) 04/27/2020 RDW 14.6 09/03/2023 RDW 13.0 04/27/2020 PLT 231 09/03/2023 PLT 274 04/27/2020 BMP RESULTS: Lab Results Component Value Date NA 139 09/03/2023 NA 141 04/27/2020 POTASSIUM 3.8 10/18/2023 POTASSIUM 4.2 04/27/2021 POTASSIUM 3.5 04/27/2020 CHLORIDE 104 09/03/2023 CHLORIDE 107 04/27/2021 CHLORIDE 107 04/27/2020 CO2 27 09/03/2023 CO2 26 04/27/2021 CO2 30 04/27/2020 ANIONGAP 8 09/03/2023 ANIONGAP 7 04/27/2021 ANIONGAP 4 04/27/2020 GLC 119 (H) 09/03/2023 GLC 98 04/27/2021 GLC 92 04/27/2020 BUN 21.1 09/03/2023 BUN 13 04/27/2021 BUN 14 04/27/2020 CR 0.99 (H) 09/03/2023 CR 0.68 04/27/2020 GFRESTIMATED 56 (L) 09/03/2023 GFRESTIMATED 81 04/27/2020 GFRESTBLACK >90 04/27/2020 ADAM 9.0 09/03/2023 ADAM 9.4 04/27/2020 A1C RESULTS: Lab Results Component Value Date A1C 6.3 (H) 08/27/2023 INR RESULTS: Lab Results Component Value Date INR 1.19 (H) 05/08/2023 INR 1.11 05/07/2023 Medications Current Outpatient Medications Medication Sig Dispense Refill amiodarone (PACERONE) 200 MG tablet Take 1 tablet (200 mg) by mouth daily 90 tablet 3 amLODIPine (NORVASC) 5 MG tablet Take 1 tablet (5 mg) by mouth daily 90 tablet 1 apixaban ANTICOAGULANT (ELIQUIS) 5 MG tablet Take 1 tablet (5 mg) by mouth 2 times daily 180 tablet1 atenolol (TENORMIN) 50 MG tablet Take 1 tablet (50 mg) by mouth daily 90 tablet 2 divalproex sodium extended-release (DEPAKOTE ER) 500 MG 24 hr tablet Take 1 tablet (500 mg) by mouth 2 times daily levothyroxine (SYNTHROID/LEVOTHROID) 112 MCG tablet TAKE ONE [...] PO Take 1 tablet by mouth daily Past Medical History Past Medical History: Diagnosis Date AK (actinic keratosis) 10/16/2012 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 BCC (basal cell carcinoma of skin) [...] atrial fibrillation (H) 05/07/2023 Peripheral vascular disease (H24) 03/21/2021 Post-nasal drip Prediabetes 08/28/2023 Right knee pain, unspecified chronicity 06/11/2017 Rosacea 11/17/2019 Sciatica, unspecified laterality 05/18/2022 Seasonal allergic rhinitis 07/23/2012 Skin macule 03/09/2020 Tinea cruris 08/12/2020 TMJ (temporomandibular joint syndrome) 08/19/2010 Trigger finger, acquired 03/09/2020 Xerostomia 08/09/2022 Past Surgical History: Procedure Laterality Date ANESTHESIA CARDIOVERSION N/A 05/08/2023 Procedure: Anesthesia cardioversion; Surgeon: GENERIC ANESTHESIA PROVIDER; Location: OR ANESTHESIA CARDIOVERSION N/A 10/18/2023 Procedure: cardioversion; Surgeon: GENERIC ANESTHESIA PROVIDER; Location: [facility] OR BACK SURGERY 75,80,90 two low lumbar, one in neck BUNIONECTOMY 08/07/2013 Procedure: BUNIONECTOMY; Surgeon: Sukhwinder Moore DPM; Location: [facility] OR ESOPHAGOSCOPY, GASTROSCOPY, DUODENOSCOPY (EGD), COMBINED 03/27/2012 Procedure: COMBINED ESOPHAGOSCOPY, GASTROSCOPY, DUODENOSCOPY (EGD); ESOPHAGOSCOPY, GASTROSCOPY, DUODENOSCOPY (EGD) ; Surgeon: Jono Dunn DO; Location: [facility] GI EXTRACAPSULAR CATARACT EXTRATION WITH INTRAOCULAR LENS IMPLANT EYE SURGERY retinal ORTHOPEDIC SURGERY shoulders RELEASE CARPAL TUNNEL Right RELEASE TRIGGER FINGER Right RELEASE TRIGGER FINGER Right 06/02/2020 Right long finger trigger finger release, Dr. Dmitriy Tavarez, [facility] REPAIR HAMMER TOE 08/07/2013 Procedure: REPAIR HAMMER TOE; Surgeon: Sukhwinder Moore DPM; Location: [facility] OR Family History Problem Relation Age of Onset Diabetes Mother Cerebrovascular Disease Mother Cardiovascular Father Hypertension Sister Hypertension Sister Unknown/Adopted Sister Cancer Son hodgkins lymphoma Allergies Codeine sulfate, Rodney inhibitors, Bupropion, Pcn [penicillins], Shrimp, and Sulfa antibiotics The longitudinal plan of care for the diagnosis(es)/condition(s) as documented were addressed during this visit. Due to the added complexity in care, I will continue to support Jessica in the subsequent management and with ongoing continuity of care. 30 minutes spent on the date of the encounter doing chart review, history and exam, documentation and further activities as noted above Venus Abrams PA-C [facility] Pager: [phone] documented in this encounter Plan of Treatment Upcoming Encounters Date Type Department Care Team (Late st Contact Info) Description 02/06/2024 3:20 PM GUILLOTINE OPERATOR Office Visit [facility] [id number] [place] [address] [address] [place] [address] Venus Abrams PA-C [address] [place] [address] Scheduled Referrals Name Type Priority Associated Diagnoses Orde r Schedule Follow-Up with Cardiology [facility] Referral Routine: Next available opening PAF (paroxysmal atrial fibrillation) (H) Expected: 01/30/2024 (Approximate), Expires: 10/29/2024 documented as of this encounter Visit Diagnoses Diagnosis PAF (paroxysmal atrial fibrillation) (H) Atrial fibrillation Essential hypertension, benign documented in this encounter Additional Health Concerns Assessment Noted Time PHQ-9 Depression Total Score: 4 09/26/19 24 11:39 AM CDT documented as of this encounter Care Teams Side Gluer Relationship Specialty Start Date End Date Macrina [place] [address] [place] [address] PCP - General Family Medicine 09/13/23 [place] [address] [place] [address] Assigned PCP 07/14/18 [place] [address] [place] [address] Medical Oncology 02/19/20 Raeann Maldonado PA-C [address] [place] [address] Physician Health Education Teacher Dermatology 04/27/21 Shannan Byrne [facility] [address] [place] [address] Pharmacist Pharmacist 06/08/22 Shannan Byrne [facility] [address] [place] [address] Assigned MTM Pharmacist 06/17/22 Shannan Byrne Medical Student 12/27/22 Mihaela Sylvester MD [address] [place] [address] supervisor industrial garment 01/01/23 Huong Soto, CAGER OPERATOR SWITCHING CLERK [address] [place] [address] Nurse Practitioner Psychiatry 01/08/23 Karma Donnelly APRN SWITCHING CLERK [address] [place] [address] Nurse Practitioner Cardiovascular Disease 05/14/23 Amanda Yang, [facility] [address] [place] [address] Assigned Behavioral Health Provider 06/26/23 01/25/24 Shu Pratt PA-C [address] [place] [address] Assigned Heart and Vascular Provider 10/26/23 11/25/23 documented as of this encounter
--- OUTSIDE RECORDS SUMMARY | 2024-01-29 13:27 | XMS_ITS | Encounter Summary ---
Author Organization [facility] Address [address] [place] [address] Care Team Providers Care Bread Distributor Name Role Phone Ty Elizabeth MD Unavailable [phone] Shu Mayfield MD Unavailable Raeann Maldonado-C Unavailable Shannan Byrne [facility] Unavailable [phone] Shannan Byrne [facility] Unavailable [phone] Shannan Byrne Unavailable Unavailable Mihaela Sylvester MD Unavailable Huong Soto SECRETARY SPECIALIST REGRINDER OPERATOR Unavailable [phone] Karma Donnelly SECRETARY SPECIALIST REGRINDER OPERATOR Unavailable Amanda Yang ASSISTANT PRODUCT MANAGER Unavailable Macrina KhanC Primary Care Provider [phone] Shu PrattC Unavailable [phone] Sharon Huang [facility] Unavailable Venus Abrams PA-C Unavailable Talia Mana [facility] Unavailable [phone] Reason for Visit * Reason Onset Date Comments Patient/info Update 11/21/2023 Encounter Details Date Type Department Care Team (Late st Contact Info) Description 11/21/[address] [facility] Mental Health & Addiction [facility] [address] [place] [address] Sharon Huang, [facility] [address] [place], [place] [address] Patient/info Update Social History Tobacco Use Types Packs/Day Years [...] often do you attend chur ch or baptism services? More than 4 times per year 08/17/2023 Do you belong to any clubs o r organizations such as mosque groups, unions, fraternal or athletic groups, or [...] Answer Date Recorded PHQ-2 Score 0 11/08/2023 [facility] of Occupat ional Health - [...] Sex Assigned at Female 04/20/2020 9:52 AM AGILE JAVA DEVELOPER Legal Sex Female 5:13 AM AGILE JAVA DEVELOPER Gender Identity Female 04/20/2020 9:52 AM AGILE JAVA DEVELOPER Sexual Orientation Not on file documented as of this encounter Miscellaneous Notes * Telephone Encounter - Sharon Huang DNP - 11/23/2023 3:44 PM CDT Called patient who directed me to call son Jono. Called x2 and left message Last plan discussed discontinue the latuda versus decrease the depakote and ultimately decreased the depakote to 250 mg twice a day Will try calling again Sharon Huang DNP, SECRETARY SPECIALIST, FMHNP-BC, * Telephone Encounter - Chuyita Lugo RN - 11/21/2023 8:30 AM CDT 11/08/2023 treatment plan - NOTES ABOUT CURRENT PSYCHOTROPIC MEDICATIONS: Latuda 20 mg since early September 2023, possible increase in shaking. Now getting better. Depakote 500 mg twice a day Lorazepam 0.5 mg as needed anxiety, not needing for awhile. Supplements: None endorsed PAST PSYCHOTROPIC MEDICATIONS: Quetiapine ASSESSMENT AND PLAN Jessica Hannah is a 88 year old White Not or female presenting for psychiatric evaluation and medication management through the [facility]. Information isobtained from patient and available records. Reports history of depression and mood instability. Denies prior psychiatric hospitalizations. No history of suicidal thoughts or attempts. No history of self-injurious behaviors. No identified genetic load for psychiatric illnesses. Grew up in an essentially intact home with all basic needs being met. Problem List Items Addressed This Visit Behavioral In looking at the trajectory of the medications, Latuda may be causing akathisia. Will discontinue and reassess. Continue valproic acid at current dosing. She will monitor her mood and if the discontinuation of the Latuda evolves into reemergence of significant symptoms. Will consider other options. Follow-up in six weeks Bipolar 2 disorder (H) Relevant Medications divalproex sodium extended-release (DEPAKOTE ER) 250 MG 24 hr tablet documented in this encounter Plan of Treatment Upcoming Encounters Date Type Department Care Team (Late st Contact Info) Description 02/06/2024 3:20 PM AGILE JAVA DEVELOPER Office Visit [facility] [address] [facility] [address] [place] [phone] Venus Abrams PA-C [address] [place] [address] documented as of this encounter Visit Diagnoses Not on filedocumented in this encounter Additional Health Concerns Assessment Noted Time PHQ-9 Depression Total Score: 2 11/07/19 24 10:06 AM CDT documented as of this encounter Care Teams Bread Distributor Relationship Specialty Start Date End Date Macrina Khan PA-C [address] [place] [address] PCP - General Family Medicine 09/13/23 [place] [address] [place], [place] [phone] Assigned PCP 07/14/18 [place] [address] [place], [place] [phone] Medical Oncology 02/19/20 Raeann Maldonado PA-C [address] [place] [address] Physician Retail Management Trainee Dermatology 04/27/21 Shannan Byrne [facility] [address] [place] [address] Pharmacist Pharmacist 06/08/22 Shannan Byrne [facility] [address] [place] [address] Assigned MTM Pharmacist 06/17/22 Shannan Byrne Medical Student 12/27/22 Mihaela Sylvester MD [address] [address] plastics production machine operator 01/01/23 Huong Soto, SECRETARY SPECIALIST REGRINDER OPERATOR [address] [phone] Nurse Practitioner Psychiatry 01/08/23 Karma Donnelly, SECRETARY SPECIALIST REGRINDER OPERATOR [address] [facility] [address] [place] [address] Nurse Practitioner Cardiovascular Disease 05/14/23 Amanda Yang, [facility] [address] [place], [place] [phone] Assigned Behavioral Health Provider 06/26/23 01/25/24 Shu Pratt PA-C [address] [place] [address] Assigned Heart and Vascular Provider 10/26/23 11/25/23 Sharon Huang, THOM[facility] [address] [place], [place] [address] Assigned Neuroscience Provider 11/26/23 Venus Abrams PA-C [address] [place] [address] Assigned Heart and Vascular Provider 11/26/23 Mana Melgar, ASSISTANT PRODUCT MANAGER [address], [address] [place], [place] [address] Assigned Behavioral Health Provider 01/26/24 documented as of this encounter
--- OUTSIDE RECORDS SUMMARY | 2024-01-29 13:27 | XMS_ITS | Encounter Summary ---
Author Organization [facility] Address [address] [place] [address] Care Team Providers Care Dam Worker Name Role Phone Ty Elizabeth MD Unavailable [phone] Shu Mayfield MD Unavailable Raeann Maldonado-C Unavailable Shannan Byrne [facility] Unavailable [phone] Shannan Byrne [facility] Unavailable [phone] Shannan Byrne Unavailable Unavailable Mihaela Sylvester MD Unavailable [phone] Huong Soto FIBER OPTICS TECHNICIAN EMG TECHNICIAN Unavailable [phone] Karma Donnelly FIBER OPTICS TECHNICIAN EMG TECHNICIAN Unavailable Amanda Yang LAMINATING MACHINE TENDER Unavailable Macrina KhanC Primary Care Provider [phone] Shu PrattC Unavailable [phone] Sharon Huang [facility] Unavailable Venus Abrams PA-C Unavailable [phone] Mana Melgar Unavailable [phone] Encounter Details Date Type Department Care Team (Late st Contact Info) Description 11/07/2023 MyC Medical Advice [facility] Mental Health & Addiction [facility] [address] [place] [address] Mana Melgar LICSW [facility] [address] [place] [address] [address] [place] [address] Social History Tobacco Use Types Packs/Day Years [...] often do you attend chur ch or mandaeism services? More than 4 times per year [...] Answer Date Recorded PHQ-2 Score 0 11/08/2023 [facility] [place] of Occupat ional Health - Occupational Stress [...] in an abandoned building, in an overnight halfway, or couch-surfing.) Yes 08/17/2023 Are you worried [...] Sex Assigned at Female 04/20/2020 9:52 AM CLINICAL NURSE SPECIALIST Legal Sex Female 5:13 AM CLINICAL NURSE SPECIALIST Gender Identity Female 04/20/2020 9:52 AM CLINICAL NURSE SPECIALIST Sexual Orientation Not on file documented as of this encounter Plan of Treatment Upcoming Encounters Date Type Department Care Team (Late st Contact Info) Description 02/06/2024 3:20 PM CLINICAL NURSE SPECIALIST Office Visit [facility] [address] [facility] [address] [place] [phone] Venus Abrams PA-C [address] [facility] [place] [address] documented as of this encounter Visit Diagnoses Not on filedocumented in this encounter Additional Health Concerns Assessment Noted Time PHQ-9 Depression Total Score: 2 11/07/19 24 10:06 AM CDT documented as of this encounter Care Teams Dam Worker Relationship Specialty Start Date End Date Macrina Khan PA-C [address] [place] [phone] PCP - General Family Medicine 09/13/23 [place] [address] [place], [place] [phone] Assigned PCP 07/14/18 [place] [address] [place], [place] [phone] Medical Oncology 02/19/20 Raeann Maldonado PA-C [address] [place] [address] Physician Yeast Supervisor Dermatology 04/27/21 Shannan Byrne [facility] [address] [place] [address] Pharmacist Pharmacist 06/08/22 Shannan Byrne [facility] [address] [place] [address] Assigned MTM Pharmacist 06/17/22 Shannan Byrne Medical Student 12/27/22 Mihaela Sylvester MD [address] [address] outsole tacker 01/01/23 Huong Soto, FIBER OPTICS TECHNICIAN EMG TECHNICIAN [address] [phone] Nurse Practitioner Psychiatry 01/08/23 Karma Donnelly, FIBER OPTICS TECHNICIAN EMG TECHNICIAN [address] [facility] [address] [place], [place] [address] Nurse Practitioner Cardiovascular Disease 05/14/23 Amanda Yang, [facility] [address] [place], [place] [phone] Assigned Behavioral Health Provider 06/26/23 01/25/24 Shu Pratt PA-C [address] [place] [address] Assigned Heart and Vascular Provider 10/26/23 11/25/23 Sharon Huang, [facility] [address] [place], [place] [address] Assigned Neuroscience Provider 11/26/23 Venus Abrams PA-C [address] [place] [address] Assigned Heart and Vascular Provider 11/26/23 Mana Melgar, LAMINATING MACHINE TENDER [address], [address] [place] [address] Assigned Behavioral Health Provider 01/26/24 documented as of this encounter
--- OUTSIDE RECORDS SUMMARY | 2024-01-29 13:27 | XMS_ITS | Encounter Summary ---
Author Organization [facility] Address [address] [place] [address] Care Team Providers Care Area Manager Name Role Phone Ty Elizabeth MD Unavailable [phone] Shu Mayfield MD Unavailable Raeann Maldonado PA-C Unavailable Shannan Byrne [facility] Unavailable Shannan Byrne [facility] Unavailable Shannan Byrne Unavailable Unavailable Mihaela Sylvester MD Unavailable [phone] Huong Soto ASSEMBLER WATCH TRAIN TRUCK DRIVER FLATBED Unavailable [phone] Karma Donnelly ASSEMBLER WATCH TRAIN TRUCK DRIVER FLATBED Unavailable Amanda Yang MEDICAL DOCTOR NUCLEAR MEDICINE Unavailable Macrina Khan PA-C Primary Care Provider Sharon Huang DNP Unavailable Venus Abrams PA-C Unavailable Reason for Visit * Reason Onset Date Comments Medication Request 12/07/2023 Encounter Details Date Type Department Care Team (Late st Contact Info) Description 12/07/2023 Telephone [facility] Mental Health & Addiction [facility] [address] [place] [address] Sharon Huang, DNP [address] [place], [place] [address] Medication Request Social History Tobacco Use Types Packs/Day Years [...] often do you attend chur ch or religion services? More than 4 times per year [...] Answer Date Recorded PHQ-2 Score 1 12/06/2023 [facility] [place] of Occupat ional Health - Occupational Stress [...] in an abandoned building, in an overnight snf, or couch-surfing.) Yes 08/17/2023 Are you worried [...] Sex Assigned at Female 04/20/2020 9:52 AM CAMPUS INTERVIEWS INTERN Legal Sex Female 5:13 AM CAMPUS INTERVIEWS INTERN Gender Identity Female 04/20/2020 9:52 AM CAMPUS INTERVIEWS INTERN Sexual Orientation Not on file documented as of this encounter Miscellaneous Notes * Telephone Encounter - Ashley Ren - 12/07/2023 4:40 PM CDT 12/07/23: Reason for call: Medication If this is a refill request, has the caller requested the refill from the pharmacy already? N/A Will the patient be using a [facility]? [place] of the pharmacy and phone number for the current request: [facility], Name of the medication requested: LORazepam (ATIVAN) Other request: Pharmacist stated that Sharon Perry sent over Lorazepam rx without a written quantity. Legally they require this to dispense. She requested new, signed rx that includes quantity information. Phone number to reach patient: Other phone number: See above for pharmacy phone. Best Time: N/A Can we leave a detailed message on this number? Not Applicable Travel screening: Not Applicable documented in this encounter Plan of Treatment Upcoming Encounters Date Type Department Care Team (Late st Contact Info) Description 02/06/2024 3:20 PM CAMPUS INTERVIEWS INTERN Office Visit [facility] [address] [place] [address] [address] [place] [phone] Venus Abrams PA-C [address] [place] [address] documented as of this encounter Visit Diagnoses Not on filedocumented in this encounter Additional Health Concerns Assessment Noted Time PHQ-9 Depression Total Score: 2 11/07/19 24 10:06 AM CDT documented as of this encounter Care Teams Area Manager Relationship Specialty Start Date End Date Macrina Khan PA-C [address] [place] [address] PCP - General Family Medicine 09/13/23 [place] [address] [place] [address] Assigned PCP 07/14/18 [place] [address] [place], [place] [phone] Medical Oncology 02/19/20 Raeann Maldonado PA-C [address] [place], [place] [address] Physician Top Stop Attacher Dermatology 04/27/21 Shannan Byrne, [facility] [address] [place] [place] [id number] Pharmacist Pharmacist 06/08/22 Shannan Byrne, [facility] [address] [place] [address] Assigned MTM Pharmacist 06/17/22 Shannan Byrne Medical Student 12/27/22 Mihaela Sylvester MD [address] [place] [address] tv host 01/01/23 Huong Soto, ASSEMBLER WATCH TRAIN TRUCK DRIVER FLATBED [address] [place] [phone] Nurse Practitioner Psychiatry 01/08/23 Karma Donnelly, ASSEMBLER WATCH TRAIN TRUCK DRIVER FLATBED [address] [place] [address] Nurse Practitioner Cardiovascular Disease 05/14/23 Amanda Yang, MEDICAL DOCTOR NUCLEAR MEDICINE [address] [place] [address] Assigned Behavioral Health Provider 06/26/23 01/25/24 Sharon Huang DNP [address] [place], [place] [address] Assigned Neuroscience Provider 11/26/23 Venus Abrams PA-C [address] [place] [address] Assigned Heart and Vascular Provider 11/26/23 documented as of this encounter
--- OUTSIDE RECORDS SUMMARY | 2024-01-29 13:27 | XMS_ITS | Encounter Summary ---
Author Organization [facility] Address [address] [place] [address] Care Team Providers Care Sounding Device Operator Name Role Phone Ty Elizabeth MD Unavailable [phone] Shu Mayfield MD Unavailable Raeann Maldonado-C Unavailable Shannan Byrne [facility] Unavailable [phone] Shannan Byrne [facility] Unavailable [phone] Shannan Byrne Unavailable Unavailable Mihaela Sylvester MD Unavailable Huong Soto SPECIAL EDUCATION PROFESSIONAL GROUNDWATER CONSULTANT Unavailable [phone] Karma Donnelly SPECIAL EDUCATION PROFESSIONAL GROUNDWATER CONSULTANT Unavailable Amanda Yang BULLET SLUG CASTING MACHINE OPERATOR Unavailable Macrina KhanC Primary Care Provider [phone] Shu PrattC Unavailable [phone] Sharon Huang [facility] Unavailable Venus Abrams PA-C Unavailable TaliaSurjitMana [facility] Unavailable Encounter Details Date Type Department Care Team (Late st Contact Info) Description 11/12/2023 MyC Medical Advice [facility] [address] [facility] [address] [place] [address] Yarely Rosenthal Social History Tobacco Use Types Packs/Day Years [...] How often do you attend chur or sabianism services? More than 4 times per year 08/17/2023 Do you belong to any clubs o r organizations such as mu-ism groups, unions, fraternal or athletic groups, or [...] Answer Date Recorded PHQ-2 Score 0 11/08/2023 [facility] of Occupat ional Health - [...] in an abandoned building, in an overnight prison, or couch-surfing.) Yes 08/17/2023 Are you worried [...] Sex Assigned at Female 04/20/2020 9:52 AM MOVING WORKER Legal Sex Female 5:13 AM MOVING WORKER Gender Identity Female 04/20/2020 9:52 AM MOVING WORKER Sexual Orientation Not on file documented as of this encounter Plan of Treatment Upcoming Encounters Date Type Department Care Team (Late st Contact Info) Description 02/06/2024 3:20 PM MOVING WORKER Office Visit [facility] [address] [facility] [address] [place] [address] Venus Abrams PA-C [address] [place] [address] documented as of this encounter Visit Diagnoses Not on filedocumented in this encounter Additional Health Concerns Assessment Noted Time PHQ-9 Depression Total Score: 2 11/07/19 24 10:06 AM CDT documented as of this encounter Care Teams Sounding Device Operator Relationship Specialty Start Date End Date Macrina Khan PA-C [address] [place] [address] PCP - General Family Medicine 09/13/23 [place] [address] [place] [address] Assigned PCP 07/14/18 [place] [address] [place] [address] Medical Oncology 02/19/20 Raeann Maldonado PA-C [address] [place] [address] Physician Manager Transportation Planning Dermatology 04/27/21 Shannan Byrne [facility] [address] [id number] Pharmacist Pharmacist 06/08/22 Shannan Byrne [facility] [address] [place] [place] [id number] Assigned MTM Pharmacist 06/17/22 Chavez Shannan Medical Student 12/27/22 Mihaela Sylvester MD [address] [facility] [address] [address] senior resident care director 01/01/23 Huong Soto, SPECIAL EDUCATION PROFESSIONAL GROUNDWATER CONSULTANT [address] [phone] Nurse Practitioner Psychiatry 01/08/23 Karma Donnelly, SELINA GROUNDWATER CONSULTANT [address] [address] Nurse Practitioner Cardiovascular Disease 05/14/23 Amanda Yang [facility] [address] [place] [address] Assigned Behavioral Health Provider 06/26/23 01/25/24 Shu Pratt PA-C [address] [address] Assigned Heart and Vascular Provider 10/26/23 11/25/23 Sharon Huang DNP [address] [place] [address] Assigned Neuroscience Provider 11/26/23 Venus Abrams PA-C [address] [place] [address] Assigned Heart and Vascular Provider 11/26/23 Mana Melgar [facility] [place] [address] [place] [address] Assigned Behavioral Health Provider 01/26/24 documented as of this encounter
--- OUTSIDE RECORDS SUMMARY | 2024-01-29 13:27 | XMS_ITS | Encounter Summary ---
Author Organization [facility] Address [address] [place] [address] Care Team Providers Care Sql Ssrs Developer Name Role Phone Ty Elizabeth MD Unavailable [phone] Shu Mayfield MD Unavailable Raeann MaldonadoC Unavailable Shannan Byrne [facility] Unavailable [phone] Shannan Byrne [facility] Unavailable [phone] Shannan Byrne Unavailable Unavailable Mihaela Sylvester MD Unavailable Huong Soto COUNTER CLERK TRACTOR PARTS MAINTENANCE MECHANIC Unavailable [phone] Karma Donnelly COUNTER CLERK TRACTOR PARTS MAINTENANCE MECHANIC Unavailable [phone] Amanda Yang ROLLER PNEUMATIC Unavailable [phone] Macrina Khan PA-C Primary Care Provider Mihaela Gill PA-C Unavailable Shu Pratt PA-C Unavailable [phone] Encounter Details Date Type Department Care Team (Late st Contact Info) Description 10/11/[address] [facility] Information Management [address] [facility] [address] [place] [address] Scan, Non-Provider Social History Tobacco Use Types Packs/Day Years [...] often do you attend chur ch or hinduism services? More than 4 times [...] Answer Date Recorded PHQ-2 Score 0 11/08/2023 [facility] of Occupat ional Health - Occupational Stress [...] in an abandoned building, in an overnight half-way, or couch-surfing.) Yes 08/17/2023 Are you worried [...] Sex Assigned at Female 04/20/2020 9:52 AM ENGINE LATHE SET UP OPERATOR Legal Sex Female 5:13 AM ENGINE LATHE SET UP OPERATOR Gender Identity Female 04/20/2020 9:52 AM ENGINE LATHE SET UP OPERATOR Sexual Orientation Not on file documented as of this encounter Plan of Treatment Upcoming Encounters Date Type Department Care Team (Late st Contact Info) Description 02/06/2024 3:20 PM ENGINE LATHE SET UP OPERATOR Office Visit [address] [address] Venus Abrams PA-C [address] [place] [address] documented as of this encounter Visit Diagnoses Not on filedocumented in this encounter Additional Health Concerns Assessment Noted Time PHQ-9 Depression Total Score: 4 09/26/19 24 11:39 AM CDT documented as of this encounter Care Teams Sql Ssrs Developer Relationship Specialty Start Date End Date Macrina Khan PA-C [address] [place] [address] PCP - General Family Medicine 09/13/23 [place] [address] [place] [address] Assigned PCP 07/14/18 [place] [address] [place] [address] Medical Oncology 02/19/20 Raeann Maldonado PA-C [address] [place] [address] Physician Hog Feeder Dermatology 04/27/21 Shannan Byrne [facility] [address] [place] [address] Pharmacist Pharmacist 06/08/22 Shannan Byrne [facility] [address] [place] [address] Assigned MTM Pharmacist 06/17/22 Shannan Byrne Medical Student 12/27/22 Mihaela Sylvester MD [address] [place] [address] MD block trader 01/01/23 Huong Soto, COUNTER CLERK TRACTOR PARTS MAINTENANCE MECHANIC [facility] [address] [facility] [address] [place] [phone] Nurse Practitioner Psychiatry 01/08/23 Karma Donnelly, COUNTER CLERK TRACTOR PARTS MAINTENANCE MECHANIC [address] [place] [address] Nurse Practitioner Cardiovascular Disease 05/14/23 Amanda Yang, [facility] [address] [place] [address] Assigned Behavioral Health Provider 06/26/23 01/25/24 Mihaela Gill PA-C [address] [facility] [address] [place] [address] Assigned Heart and Vascular Provider 09/25/23 10/25/23 Shu Pratt PA-C [address] [place] [address] Assigned Heart and Vascular Provider 10/26/23 11/25/23 documented as of this encounter
--- OUTSIDE RECORDS SUMMARY | 2024-01-29 13:27 | XMS_ITS | Encounter Summary ---
Author Organization [place] Address [address] [place] [address] Care Team Providers Care Custom Clothier Name Role Phone Ty Elizabeth MD Unavailable [phone] Shu Mayfield MD Unavailable [phone] Raeann MaldonadoC Unavailable hSannan Byrne [facility] Unavailable [phone] Shannan Byrne [facility] Unavailable Shannan Byrne Unavailable Unavailable Mihaela Sylvester MD Unavailable Huong Soto DIGITAL ACCOUNT COORDINATOR MANAGER PACKAGE Unavailable [phone] Karma Donnelly DIGITAL ACCOUNT COORDINATOR MANAGER PACKAGE Unavailable Amanda Yang RELATIONS DIRECTOR Unavailable Macrina Khan PA-C Primary Care Provider [phone] Shu Pratt PA-C Unavailable [phone] Reason for Visit * Reason Comments Consult * Mental Health Outpatient (Priority: 1-2 Weeks) - Pending Review Specialty Diagnoses / Procedures Referred By Behzad chávez Referred To Contact Behavioral Health Diagnoses Bipolar 2 disorder (H[place] [address] [place] [address] Phone: tel: fax: Sharon Huang DNP [address] [place] [address] Phone: tel: fax: Referral ID Status Reason Start Date Expiration Date V isits Requested Visits Authorized [id number] Pending Review 08/27/2023 08/26/2024 1 1 Encounter Details Date Type Department Care Team (Late st Contact Info) Description 11/08/2023 8:30 AM CDT Virtual Visit [facility] [address] [place] [address] [place] [address] [place], [place] [id number] Sharon Huang DNP [address] [place] [address] Bipolar 2 disorder (H) Social History Tobacco Use Types Packs/Day Years [...] any clubs o r organizations such as yarsani groups, unions, fraternal or athletic groups, or [...] Answer Date Recorded PHQ-2 Score 0 11/08/2023 [facility] - [...] Sex Assigned at Female 04/20/2020 9:52 AM EAR NOSE THROAT SURGEON Legal Sex Female 5:13 AM EAR NOSE THROAT SURGEON Gender Identity Female 04/20/2020 9:52 AM EAR NOSE THROAT SURGEON Sexual Orientation Not on file documented as of this encounter Last Filed Vital Signs Vital Sign Reading Time Taken Comments Blood Pressure - - Pulse - - Temperature - - Respiratory Rate - - Oxygen Saturation - - Inhaled Oxygen Concentration - - Weight 63.5 kg (140 lb) 11/08/2023 7:42 AM CDT Height 162.6 cm (5' 4) 11/08/2023 7:42 AM CDT Body Mass Index 24.03 11/08/2023 7:42 AM CDT documented in this encounter Patient Instructions * Patient Instructions* Sharon Huang, THOMAS - 11/08/2023 8:30 AM CDT For crisis resources, please see the information at the end of this document Thank you for coming to the [facility]. TREATMENT PLAN: MEDICATIONS: - discontinue the Latuda. Monitor mood and if akathisia resolves. Continue remaining medications atcurrent dosages -PSYCHOEDUCATION: CONSULTS/REFERRALS: Continue therapy LABS/PROCEDURES: Please call your [place] clinic and ask for a lab only appointment at your earliest convenience. If your results are reassuring or normal they will be mailed to you or sent through [employer] within 7 days. If the lab tests need quick action we will call you with the results. The phone number we willcall with results is # [phone]. FOLLOW UP: Schedule an appointment with me in six weeks or sooner as needed. The intake team shouldbe calling you to schedule. If you dont hear from them, or they were unable to reach you, please call [phone] to schedule. Follow up with primary care provider as planned or for acute medical concerns. Call the psychiatric nurse line with medication questions or concerns at [phone]. Medication Refills: If you need any refills please call your pharmacy and they will contact us. Our fax number for refills is [phone]. Please allow three business for refill processing. If you need to hand picker your refill at a new pharmacy, please contact the new pharmacy directly. The new pharmacy will help you get your medications transferred. [employer] Assistance Financial Assistance [phone] [facility] Billing [phone] Central Billing Office, [facility]: [phone] [facility] [phone] Medical Records [phone] [facility] Patient Bill of Rights [email or web address] MENTAL HEALTH CRISIS RESOURCES: For a emergency help, please call 911 or go to the nearest Emergency Department. Emergency Walk-In Options: EmPATH Unit @ [facility] ([place]): [phone] - Specialized mental health emergency area designed to [facility] ([place]): [phone] [facility] Acute Psychiatry Services ([place]): [phone] [facility]): [phone] National Crisis Information: Call 988 Suicide and Crisis Lifeline Crisis Text Line (free 25/09): call CRISIS (347279) Crisis or use the texting option by texting 893101. National Suicide Prevention Lifeline: Call 988 Poison Control Center: Trans Lifeline: - Hotline for transgender people of all ages The Wes Project: - Hotline for LGBT youth List of all [facility] resources: https://nm.gov/dhs/conjpp-ly-tjakz/adults/health-care/mental-health/resources/cr herman-contacts.jsp For Non-Emergency Support: Fast Tracker: Mental Health & Substance Use Disorder Resources - https://www.Shineontrackermn.org/ Again thank you for choosing [facility] and please let us know how we [...] someone else's life is in danger. Call 978 anytime to reach the national Suicide and Crisis hotline. Medicine refills To refill your medicine, call your pharmacy. You can also call [facility]'s [employer] at , Sunday to Sunday, 8 a.m. [...] your health care provider. Copyright ?? 2021 [facility]. All rights reserved. [employer] (Chapter 11) [id number] - 02/23. documented in this encounter Progress Notes * Sharon Huang, DNP - 11/08/2023 8:30 AM CDT Images from the original note were not included. Virtual Visit Details Type of service: Video Visit Video Start Time: 8:20 AM Video End Time: 921 Originating Location (pt. Location): Home Distant Location (provider location): Off-site Platform used for Video Visit: [facility] PSYCHIATRIC DIAGNOSTIC ASSESSMENT Name: Jessica Hannah : 1935 Referred by: Patient Care Team: Macrina Khan PA-C as PCP - General (Family Medicine) Ty Elizabeth MD as Assigned PCP Shu Mayfield MD as MD (Medical Oncology) Raeann Maldonado PA-C as Physician Nurses Director (Dermatology) Shannan Byrne [facility] as Pharmacist (Pharmacist) Shannan Byrne [facility] as Assigned [facility] Pharmacist Shannan Byrne as Medical Student Mihaela Sylvester MD as MD (sap developer) Huong Soto APRN MANAGER PACKAGE as Nurse Practitioner (Psychiatry) Karma Donnelly APRN CNP as Nurse Practitioner (Cardiovascular Disease) Amanda Yang LICSW as Assigned Behavioral Health Provider Shu Pratt PA-C as Assigned Heart and Vascular Provider Therapist: Amanda Yang, the [facility] in [place] History was provided by patient who were good historian(s). Patient attended the session alone RECORDS AVAILABLE FOR REVIEW: EHR records through [employer] . In addition, reviewed the assessment todaycompleted by CHAD Aaron, Behavioral Health Manager Lvn 2 CHIEF COMPLAINT Patient is a 87 year old, White Not or female who presents for initial psychiatric evaluation. Referred by their Primary Care Provider: Macrina Khan PA-C to the [facility] ([facility]) for evaluation of bipolar disorder. Our psychiatry providers act as aspecialty service for Primary Care Providers in the [facility] who seek to optimize medications for unstable patients. Once medications have been optimized, our providers discharge the patient back to the referring Primary Care Provider for ongoing medication management. This type of system allows our providers to serve a high volume of patients. Note by PCP day of referral: History notable for bipolar disorder HISTORY OF PRESENT ILLNESS Per [facility], Mana Melgar, during today's team-based visit: The reason for seeking services at this time is: PCP had reached out to scientific writer that patient needs psychiatry/medication change and also possibly some testing to ascertain whether she is suffering from neurodegenerative disorder in addition to mental illness. Son, Efren, joins visit; sons are all very concerned about pt whose mental wellness apparently in decline over the past months. Pt gets confused but also very lonely and isolated. Patient has attempted to resolve these concerns in the past through medications. MH update: [facility] reviewed current stress. She recently moved to a assisted living. Her sons helped with the move. Pt reports that she's struggling with adjustment, meeting new people, new routine. [facility] explored ways to enhance her adjustment. She enjoys the cafeteria style eating because it offers an o pportunity for socialization and proper nutrition, she participates some wellness activities, 500, pub night. [facility] positively encouraged. She's reasonably good at making new friends. She reports that her mood is better during the day but tends to worsen in the evening. [facility] normalized. She uses distraction such as reading or TV. [facility] explored grief around husbands 2 years ago. [facility] empathized and provided support. The nursing staff is helping with medication, monitoring O2, she's on fall precautions (alarm button). Stresses: of 2 years ago, just moved in to assisted living, recent tx of a-fib, had been in 40's for heart rate Appetite: unremarkable Sleep: trouble staying asleep Therapy: Amanda Yang [facility]: No Preg: NA Interventions: [facility] provided psycho-education on importance of socialization, grief, updated emergency contact to son Efren at [phone] Most important: medication consult, pt has been having tremors (ASE from depakote)? PSYCHIATRIC HISTORY: Previous psychiatry: denies Previous therapist: denies History of Psychiatric Hospitalizations: - Inpatient: denies - IOP/PHP/Day treatment: denies History of Suicidal Ideation: denies History of Suicide Attempts: denies History of Self-injurious Behavior: denies History of Violence/Aggression: denies History of Commitment? Denies Electroconvulsive Therapy (ECT) or Transcranial Magnetic Stimulation (TMS): denies PharmacogenomicTesting (such as GeneSight): denies PSYCHIATRIC REVIEW OF SYSTEMS: Review of Symptoms per patient report: Depression:No symptoms, Change in sleep, Lack of interest, Change in energy level, Psychomotor slowing or agitation, and Feeling sad, down, or depressed Mildred: Irritability, Racing thoughts, Pressured speech, Restlessness, and Distractibility Psychosis:No Symptoms Anxiety: Excessive worry, Nervousness, Physical complaints, such as headaches, stomachaches, muscletension, Sleep disturbance, Psychomotor agitation, Ruminations, and Irritability-- small parts of each day, but then Panic: No symptoms Post Traumatic Stress Disorder: No Symptoms Eating Disorder:No Symptoms ADD / ADHD: No symptoms Conduct Disorder:No symptoms Autism Spectrum Disorder:No symptoms Obsessive Compulsive Disorder:No Symptoms Patient reports the following compulsive behaviors and treatment history: none. ASSESSMENT SCALES: PHQ-9: 09/26/2023 11:39 AM 11/01/2023 11:13 AM 11/07/2023 10:06 AM PHQ-9 SCORE PHQ-9 Total Score MyChart 4 (Minimal depression) 5 (Mild depression) 2 (Minimal depression) PHQ-9 Total Score 4 5 2 2 PHQ9 score is Not completed today. Denies vegetative symptoms of depression. PHQ9 score is minimal. Suicidal ideation: Denies GAD7: 08/27/2023 11:10 AM 08/31/2023 12:34 PM 09/26/2023 11:37 AM MESFIN-7 SCORE Total Score 19 (severe anxiety) 6 (mild anxiety) Total Score 12 19 6 GAD7 score is Not completed today 08/17/2022 12:16 PM 01/26/2023 9:43 AM 04/22/2023 6:12 PM 07/31/2023 7:46 PM 08/27/2023 11:10 AM 08/31/2023 12:34 PM 09/26/2023 11:37 AM MESFIN-7 ??[employer], 2002; Used with Permission) 1. Feeling nervous, anxious, or on edge Not at all Not at all More than half the days Nearly every day Several days 2. Not being able to stop or control worrying Not at all Not at all Not at all Nearly every day Several days 3. Worrying too much about different things Several days Not at all Not at all Nearly every day Several days 4. Trouble relaxing Not at all Not at all Several days Nearly every day Several days 5. Being so restless that it is hard to sit still Not at all Not at all Not at all More than half the days Several days 6. Becoming easily annoyed or irritable Not at all Not at all Not at all More than half the days Not at all 7. Feeling afraid, as if something awful might happen Not at all Not at all Not at all Nearly everyday Several days MESFIN 7 TOTAL SCORE 1 (minimal anxiety) 0 (minimal anxiety) 3 (minimal anxiety) 19 (severe anxiety) 6(mild anxiety) 1. Feeling nervous, anxious, or on edge 0 1 0 2 3 3 1 2. Not being able to stop or control worrying 0 0 0 0 2 3 1 3. Worrying too much about different things 1 1 0 0 3 3 1 4. Trouble relaxing 0 0 0 1 1 3 1 5. Being so restless that it is hard to sit still 0 0 0 0 0 2 1 6. Becoming easily annoyed or irritable 0 0 0 0 2 2 0 7. Feeling afraid, as if something awful might happen 0 0 0 0 1 3 1 MESFIN-7 Total Score 1 2 0 3 12 19 6 If you checked any problems, how difficult have they made it for you to do your work, take care of things at home, or get along with other people? Not difficult at all Not difficult at all Not difficult at all Somewhat difficult Very difficult Extremely difficult Somewhat difficult 08/17/2022 12:16 PM 01/26/2023 9:43 AM 04/22/2023 6:12 PM 07/31/2023 7:46 PM 08/27/2023 11:10 AM 08/31/2023 12:34 PM 09/26/2023 11:37 AM MESFIN-7 ??[employer], 2002; Used with Permission) 1. Feeling nervous, anxious, or on edge Not at all Not at all More than half the days Nearly every day Several days 2. Not being able to stop or control worrying Not at all Not at all Not at all Nearly every day Several days 3. Worrying too much about different things Several days Not at all Not at all Nearly every day Several days 4. Trouble relaxing Not at all Not at all Several days Nearly every day Several days 5. Being so restless that it is hard to sit still Not at all Not at all Not at all More than half the days Several days 6. Becoming easily annoyed or irritable Not at all Not at all Not at all More than half the days Not at all 7. Feeling afraid, as if something awful might happen Not at all Not at all Not at all Nearly everyday Several days MESFIN 7 TOTAL SCORE 1 (minimal anxiety) 0 (minimal anxiety) 3 (minimal anxiety) 19 (severe anxiety) 6(mild anxiety) 1. Feeling nervous, anxious, or on edge 0 1 0 2 3 3 1 2. Not being able to stop or control worrying 0 0 0 0 2 3 1 3. Worrying too much about different things 1 1 0 0 3 3 1 4. Trouble relaxing 0 0 0 1 1 3 1 5. Being so restless that it is hard to sit still 0 0 0 0 0 2 1 6. Becoming easily annoyed or irritable 0 0 0 0 2 2 0 7. Feeling afraid, as if something awful might happen 0 0 0 0 1 3 1 MESFIN-7 Total Score 1 2 0 3 12 19 6 If you checked any problems, how difficult have they made it for you to do your work, take care of things at home, or get along with other people? Not difficult at all Not difficult at all Not difficult at all Somewhat difficult Very difficult Extremely difficult Somewhat difficult FAMILY, MEDICAL, SURGICAL HISTORY REVIEWED. MEDICATION HAVE BEEN REVIEWED AND ARE CURRENT TO THE BEST OF MY KNOWLEDGE AND ABILITY. Retired. Living in assisted living MEDICATIONS Current Outpatient Medications Medication Sig Dispense Refill divalproex sodium extended-release (DEPAKOTE ER) 250 MG 24 hr tablet Take 1 tablet (250 mg) by mouth 2 times daily. Managed by PCP 60 tablet 0 amiodarone (PACERONE) 200 MG tablet Take 1 tablet (200 mg) by mouth daily 90 tablet 3 amLODIPine (NORVASC) 5 MG tablet Take 1 tablet (5 mg) by mouth daily 90 tablet 1 apixaban ANTICOAGULANT (ELIQUIS) 5 MG tablet Take 1 tablet (5 mg) by mouth 2 times daily 180 tablet1 atenolol (TENORMIN) 25 MG tablet Take 1 tablet (25 mg) by mouth daily. 90 tablet 3 levothyroxine (SYNTHROID/LEVOTHROID) 112 MCG tablet TAKE ONE [...] for sleep Nebulizers (VIOS AEROSOL DELIVERY SYSTEM) [place] See Admin Instructions ondansetron (ZOFRAN) 4 MG tablet Take 1 tablet (4 mg) by mouth every 8 hours as needed for nausea 30 tablet 2 sodium chloride (CATHY 128) 5 % ophthalmic solution Place 1 drop into both eyes nightly as needed for dry eyes VITAMIN D PO Take 1 tablet by mouth daily No current facility-administered medications for this visit. [place] Prescription Monitoring Program evaluating controlled substances in the last year in [place]: NONE NOTED NOTES ABOUT CURRENT PSYCHOTROPIC MEDICATIONS: Latuda 20 mg since early September 2023, possible increase in shaking. Now getting better. Depakote 500 mg twice a day Lorazepam 0.5 mg as needed anxiety, not needing for awhile. Supplements: None endorsed PAST PSYCHOTROPIC MEDICATIONS: Quetiapine VITALS Ht 1.626 m (5' 4) Wt 63.5 kg (140 lb) BMI 24.03 kg/m?? BP Readings from Last 1 Encounters: 10/30/23 134/64 Pulse Readings from Last 1 Encounters: 10/30/23 63 Wt Readings from Last 1 Encounters: 11/08/23 63.5 kg (140 lb) Ht Readings from Last 1 Encounters: 11/08/23 1.626 m (5' 4) Estimated body mass index is 24.03 kg/m?? as calculated from the following: Height as of this encounter: 1.626 m (5' 4). Weight as of this encounter: 63.5 kg (140 lb). PERTINENT HISTORY Patient Active Problem List Diagnosis Hypothyroidism GERD (gastroesophageal reflux disease) TMJ (temporomandibular joint syndrome) Non-occlusive thrombus Swelling of joint of left knee Essential hypertension, benign Lumbar radiculopathy Bilateral ovarian cysts Dyspnea on exertion Night sweats Atrophic vaginitis Onychomycosis Monoclonal gammopathy Dysuria Trigger finger, acquired Skin macule Other irritable bowel syndrome Cervical radiculopathy Tinea cruris Left knee pain, unspecified chronicity Peripheral vascular disease (H24) Papule Weight loss Atypical chest pain Ascending aorta dilatation (H24) Grieving Nausea Dysgeusia Sciatica, unspecified laterality Anserine bursitis Arthralgia of left lower leg Xerostomia Nocturia Sebaceous cyst Primary insomnia Paroxysmal atrial fibrillation (H) UTI symptoms Altered mental status, unspecified altered mental status type Elevated glucose Prediabetes Bipolar 2 disorder (H) Major depressive disorder with current active episode, unspecified depression episode severity, unspecified whether recurrent Seizures or Head Injury: Denies history of head injury. Denies history of seizures. Past Surgical History: Procedure Laterality Date ANESTHESIA CARDIOVERSION N/A 05/08/2023 Procedure: Anesthesia cardioversion; Surgeon: GENERIC ANESTHESIA PROVIDER; Location: OR ANESTHESIA CARDIOVERSION N/A 10/18/2023 Procedure: cardioversion; Surgeon: GENERIC ANESTHESIA PROVIDER; Location: OR BACK SURGERY 75,80,90 two low lumbar, one in neck BUNIONECTOMY 08/07/2013 Procedure: BUNIONECTOMY; Surgeon: Sukhwinder Moore DPM; Location: OR ESOPHAGOSCOPY, GASTROSCOPY, DUODENOSCOPY (EGD), COMBINED 03/27/2012 Procedure: COMBINED ESOPHAGOSCOPY, GASTROSCOPY, DUODENOSCOPY (EGD); ESOPHAGOSCOPY, GASTROSCOPY, DUODENOSCOPY (EGD) ; Surgeon: Jono Dunn DO; Location: GI EXTRACAPSULAR CATARACT EXTRATION WITH INTRAOCULAR LENS IMPLANT EYE SURGERY retinal ORTHOPEDIC SURGERY shoulders RELEASE CARPAL TUNNEL Right RELEASE TRIGGER FINGER Right RELEASE TRIGGER FINGER Right 06/02/2020 Right long finger trigger finger release, Dr. Dmitriy Tavarez, [facility] REPAIR HAMMER TOE 08/07/2013 Procedure: REPAIR HAMMER TOE; Surgeon: Sukhwinder Moore DPM; Location: OR SOCIAL HISTORY Patient reported [place] [facility], [place] They were raised by biological parents. Parents were always together. Parents are both ; pt has three sisters, one who has also passed. Pt is third born. Anne-Marie's was difficult for pt; there was never a diagnosis, and sister when she was in her 60's. Patient reported that their childhood was good. Good friends, neighbors, cousins. Patient described their current relationships with family of origin as good. One lives in [place] so hardly sees her. growing up she was a brat but we do get along now. Other sister is 6 miles away from pt and they are very close. LEGAL: Denies SUBSTANCE USE HISTORY Social History Tobacco Use Smoking status: Never Passive exposure: Never Smokeless tobacco: Never Substance Use Topics Alcohol use: Not Currently Comment: rarely CAGE: 08/02/2022 12:54 PM CAGE-AID Flowsheet Have you ever felt you should Cut down on your drinking or drug use? 0 Have people Annoyed you by criticizing your drinking or drug use? 0 Have you ever felt bad or Guilty about your drinking or drug use? 0 Have you ever had a drink or used drugs first thing in the morning to steady your nerves or to get rid of a hangover? (Eye career developer) 0 CAGE-AID SCORE 0 Have you ever felt you should Cut down on your drinking or drug use? No Have people Annoyed you by criticizing your drinking or drug use? No Have you ever felt bad or Guilty about your drinking or drug use? No Have you ever had a drink or used drugs first thing in the morning to steady your nerves or to get rid of a hangover? (Eye career developer) No CAGE-AID SCORE 0 (A total score of 2 or greater is considered clinically significant) Caffeine: unremarkable Alcohol: denies Other substance use: denies Past use alcohol/substance use: denies Chemical dependency history: Patient has not received chemical dependency treatment in the past Family History Problem Relation Age of Onset Diabetes Mother Cerebrovascular Disease Mother Cardiovascular Father Hypertension Sister Hypertension Sister Unknown/Adopted Sister Cancer Son hodgkins lymphoma PERTINENT FAMILY PSYCHIATRIC HISTORY NOTES Negative family history of diagnosed psychiatric illness. Based on the clinical interview, there are not indications of risky substance use. LABS & IMAGING Recent Labs Lab Test [...] review was completed with pertinent positives noted above MENTAL STATUS EXAM: General/Constitutional: Appearance: awake, alert, [...] change in any of these risk factors. LANGUAGE OR COMMUNICATION BARRIERS Are there language or communication issues or need for modification in treatment? NO Are there ethnic, cultural or jain factors that may be relevant for therapy? NO Client identified their preferred language to be fluent Montserratian in conversational context Does the client need the assistance of an spanish interpreter or other support involved in therapy? NO DSM 5 DIAGNOSIS: 296.89 Bipolar II Disorder moderate MEDICAL COMORBIDITY IMPACTING CLINICAL PICTURE: The [place] [employer] has updated the Beers Criteria list based on evidence-based recommendations. The updated report was published in the Journal of the [place] [employer]. Known issue that I take into account for their medical decisions ASSESSMENT AND PLAN Jessica Hannah is a 88 year old White Not or female presenting for psychiatric evaluation and medication management through the [facility]. Information isobtained from patient and [...] to taper off. Follow-up in six weeks Bipolar 2 disorder (H) Relevant Medications divalproex sodium extended-release (DEPAKOTE ER) 250 MG 24 hr tablet CONSULTS/REFERRALS: None at this time Coordinate care [...] line with medication questions or concerns at [phone]. [employer] may be used to communicate with your provider, but this is not intended to be used for emergencies. ServiceTrade.gov is information for patients. It is run by the [employer] and it contains information about all disorders, diseases and all medications. COMMUNITY RESOURCES: CRISIS NUMBERS: Provided in AVS 11/08/2023 National Suicide Prevention Lifeline: 9-258-126-TALK (312-403-7395) Enevate/resources for a list of additional resources (SOS) [facility] - [phone] Urgent Care Adult Mental Bhqkvl-[phone] mobile unit/ 25/09 crisis line [facility] -[phone] COPE 25/09 [place] Mobile Team -[phone] (adults)/ [phone] (child) Poison Control Center - OR 576 OR go to nearest ER Crisis Text Line for any crisis 25/09 send this- To: [id number] [facility] ([facility] [phone] National Suicide Prevention Lifeline: 306.310.6811 (TTY: 657.483.4570). Call anytime for help. (www.suicidepreventionlifeline.org) National [place] on Mental Illness (www.billie.org): 155.618.6912 or 504-267-3336. Mental Health Association (www.mentalhealth.org): 521.732.5941 or 626-518-2030. [place] Crisis Text Line: Text [place] to 052563 Suicide LifeLine Chat: suicideReclutec.org/chat ADMINISTRATIVE BILLING: Level of Medical Decision Making: [...] with ongoing continuity of care. Patient Status: Our psychiatry providers act as a specialty service for Primary Care Providers in the [facility] that seek to optimize medications for unstable patients. Once medications have been optimized, our providers discharge the patient back to the referring Primary Care Provider for ongoing medication management. This type of system allows our providers to serve a high volume of patients. At this time Patient will continue to be seen for ongoing consultation and stabilization. Signed: Sharon Huang DNP, DIGITAL ACCOUNT COORDINATOR, FMHNP-[facility] Psychiatry Service ([facility]) Chart documentation done in part with Soonr Voice Recognition software. Although reviewed after completion, some word and grammatical errors may remain. documented in this encounter Nursing Notes * Sasha Deutsch - 11/08/2023 8:30 AM CDT Current patient location: [address] [place] [address] [address] [place] [phone] Is the patient currently in the state of [place]? YES Visit mode:VIDEO If the visit is dropped, the patient can be reconnected by: VIDEO VISIT: Text to cell phone: Telephone Information: Will anyone else be joining the visit? NO (If patient encounters technical issues they should call [phone] :[phone]) How would you like to obtain your AVS? MyChart Are changes needed to the allergy or medication list? NO Are refills needed on medications prescribed by this physician? NO Rooming Documentation: Questionnaire(s) completed Reason for visit: Consult Care team has reviewed attendance agreement with patient. Patient advised that two failed appointments within 6 months may lead to termination of current episode of care. Sasha Deutsch VVF documented in this encounter Miscellaneous Notes * Assessment & Plan Note - Sharon Huang DNP - 11/14/2023 8:04 PM CDT Associated Problem(s): Behavioral In looking at the trajectory of [...] to taper off. Follow-up in six weeks documented in this encounter Plan of Treatment Upcoming Encounters Date Type Department Care Team (Late st Contact Info) Description 02/06/2024 3:20 PM EAR NOSE THROAT SURGEON Office Visit [facility] [address] [place] [phone] Venus Abrams PA-C [address] [place] [address] documented as of this encounter Visit Diagnoses Diagnosis Bipolar 2 disorder (H) Other bipolar disorders documented in this encounter Additional Health Concerns Assessment Noted Time PHQ-9 Depression Total Score: 2 11/07/19 24 10:06 AM CDT documented as of this encounter Care Teams Custom Clothier Relationship Specialty Start Date End Date Macrina Khan PA-C [address] [place] [phone] PCP - General Family Medicine 09/13/23 [place] [address] [place] [address] Assigned PCP 07/14/18 [place] [address] [place], [place] [phone] Medical Oncology 02/19/20 Raeann Maldonado PA-C [address] [place] [address] Physician Nurses Director Dermatology 04/27/21 Shannan Byrne, [facility] [address] [place] [id number] Pharmacist Pharmacist 06/08/22 Shannan Byrne, [facility] [address] [place] [address] Assigned MTM Pharmacist 06/17/22 Shannan Byrne Medical Student 12/27/22 Mihaela Sylvester MD [address] [facility] [address] [place], [place] [address] sap developer 01/01/23 Huong Soto, DIGITAL ACCOUNT COORDINATOR MANA[employer] [address] [place] [phone] Nurse Practitioner Psychiatry 01/08/23 Karma Donnelly, SELINA MANAGER PACKAGE [address] [place], [place] [address] Nurse Practitioner Cardiovascular Disease 05/14/23 Amanda Yang, RELATIONS DIRECTOR [address] [place], [place] [phone] Assigned Behavioral Health Provider 06/26/23 01/25/24 Shu Pratt PA-C [address] [id number] Assigned Heart and Vascular Provider 10/26/23 11/25/23 documented as of this encounter
--- OUTSIDE RECORDS SUMMARY | 2024-01-29 13:27 | XMS_ITS | Encounter Summary ---
Author Organization [place] Address [address] [place] [address] Care Team Providers Care Senior Manufacturing Engineer Name Role Phone Ty Elizabeth MD Unavailable [phone] Shu Mayfield MD Unavailable Raeann Maldonado PA-C Unavailable Shannan Byrne [facility] Unavailable Shannan Byrne [facility] Unavailable Shannan Byrne Unavailable Unavailable Mihaela Sylvester MD Unavailable Huong Soto CLINIC SUPERVISOR MEDICAL RECORDS ANALYST Unavailable [phone] Karma Donnelly CLINIC SUPERVISOR MEDICAL RECORDS ANALYST Unavailable [phone] Amanda Yang CLOTH BOIL OFF MACHINE OPERATOR Unavailable [phone] Macrina Khan PA-C Primary Care Provider Shu Pratt PA-C Unavailable [phone] Encounter Details Date Type Department Care Team (Late st Contact Info) Description 11/01/2023 12:30 PM CDT Office Visit [facility] Mental Health & Addiction [facility] [address] [place] [address] [facility] [address] [place] [address] Cyclothymic disorder (Primary Dx); Generalized anxiety disorder [...] week 08/17/2023 How often do you attend [facility] or episcopalian services? More than 4 times per year [...] PHQ-2 Answer Date Recorded PHQ-2 Score 0 11/01/2023 [facility] [place] of Occupat ional Health - Occupational Stress [...] in an abandoned building, in an overnight detention, or couch-surfing.) Yes 08/17/2023 Are you worried [...] Sex Assigned at Female 04/20/2020 9:52 AM BREAKFAST HOST Legal Sex Female 5:13 AM BREAKFAST HOST Gender Identity Female 04/20/2020 9:52 AM BREAKFAST HOST Sexual Orientation Not on file documented as of this encounter Progress Notes * Amanda Yang, CLOTH BOIL OFF MACHINE OPERATOR - 11/01/2023 12:30 PM CDT [facility] Primary Care: Integrated Behavioral Health 09/27/2023 Behavioral Health Clinician Progress Note Patient Name: Jessica Hannah Service Type: Individual Service Location: Face to Face in Clinic Session Start Time: 10:31 a.m. Session End Time: 11:00 a.m. Session Length: 16 - 37 Attendees: Client Service Modality: In-person Visit Activities (Refresh list every visit): [facility] Only Diagnostic Assessment Date: 08/02/22 Treatment Plan Review Date: fourth visit See Flowsheets for today's PHQ-9 and MESFIN-7 [...] minutes): No Interactive Complexity: No Crisis: No [facility] Patient: No Treatment Objective(s) Addressed in This Session: Target Behavior(s): anxiety Depressed Mood: Increase interest, engagement, and pleasure in doing things Improve quantity and quality of night time sleep / decrease daytime naps Feel less tired and more energy during the day Anxiety: will experience a reduction in anxiety and will develop more effective coping skills to manage anxiety symptoms Current Stressors / Issues: Moved into [place] Oct.11. Getting adjusted. Anxiety decreased. Son, Souleymane, who lives in [place] is here in session with her. Pt is consuming Depakote and is shaking and [facility] PA has expressed concern thatthe Depakote is potentially causing her shakiness. Pt would like this reviewed, as cardiology doesn't want to adjust psychotropics. In reviewing [facility] notes, appears Depakote was to be discontinued-pt is now taking 500 mgs (half the dosage she had been on previous to [facility]). Pt does have [facility] appt in about one week and will discuss there with [facility] and Dr. Huang. Discussed one or two more visits with pt and then potentially obtain community therapist to work on coping skills for anxiety management. Progress on Treatment Objective(s) / Homework: Achieved / completed to satisfaction - ACTION (Actively working towards change); Intervened by reinforcing change plan / affirming steps taken Also provided psychoeducation about behavioral health condition, symptoms, and treatment options Care Plan review completed: No Medication Review: Changes to psychiatric medications, see updated Medication List in EPIC. Medication Compliance: Yes Changes in Health Issues: None reported Chemical Use Review: Substance Use: Chemical use reviewed, no active concerns identified Tobacco Use: No current tobacco use. Assessment: Current Emotional / Mental Status (status of significant symptoms): Risk status (Self / Other harm or suicidal ideation) Patient denies a history of suicidal ideation, suicide attempts, self-injurious behavior, homicidalideation, homicidal behavior and and other safety concerns Patient denies [...] time, however patient was encouraged to call [place] [address] should there be a change in any of these risk factors. Appearance: Appropriate Eye Contact: Good Psychomotor Behavior: Normal Attitude: Cooperative Interested Orientation: All Speech Rate / Production: Normal/ Responsive Volume: Normal Mood: Normal Affect: Appropriate Thought Content: Clear Thought Form: Coherent Goal Directed Logical Insight: Diagnoses: 1. Cyclothymic disorder 2. Generalized anxiety disorder Collateral Reports Completed: Communicated with: Mana Moran, PCP Plan: (Homework, other): Patient was given information about behavioral services and encouraged to schedule a follow up appointment with the clinic [facility] in 2 weeks She was also given information about mental health symptoms and treatment options . CD Recommendations: No indications of CD issues. WILD Guzman, CHAD Behavioral Health Clinician documented in this encounter Plan of Treatment Upcoming Encounters Date Type Department Care Team (Late st Contact Info) Description 02/06/2024 3:20 PM BREAKFAST HOST Office Visit [facility] [address] [facility] [address] [place] [phone] Venus Abrams PA-C [address] [place] [address] documented as of this encounter Visit Diagnoses Diagnosis Cyclothymic disorder- Primary Generalized anxiety disorder documented in this encounter Additional Health Concerns Assessment Noted Time PHQ-9 Depression Total Score: 5 11/01/19 24 11:13 AM CDT documented as of this encounter Care Teams Senior Manufacturing Engineer Relationship Specialty Start Date End Date Macrina Khan PA-C [address] [place] [address] PCP - General Family Medicine 09/13/23 [place] [address] [place] [address] Assigned PCP 07/14/18 [place] [address] [place] [address] Medical Oncology 02/19/20 Raeann Maldonado PA-C [address] [place] [address] Physician Pairer Substandard Dermatology 04/27/21 Shannan Byrne [facility] [address] [id number] Pharmacist Pharmacist 06/08/22 Shannan Byrne [facility] [address] [place] [id number] Assigned MTM Pharmacist 06/17/22 Shannan Byrne Medical Student 12/27/22 Mihaela Sylvester MD [address] [place] [address] steel fixer 01/01/23 Huong Soto, CLINIC SUPERVISOR MEDICAL RECORDS ANALYST [facility] [address] [facility] [address] [place] [phone] Nurse Practitioner Psychiatry 01/08/23 Karma Donnelly, CLINIC SUPERVISOR MEDICAL RECORDS ANALYST [address] [place] [address] Nurse Practitioner Cardiovascular Disease 05/14/23 Amanda Yang, [facility] [address] [place], [place] [phone] Assigned Behavioral Health Provider 06/26/23 01/25/24 Shu Pratt PA-C [address] [place] [address] Assigned Heart and Vascular Provider 10/26/23 11/25/23 documented as of this encounter
--- OUTSIDE RECORDS SUMMARY | 2024-01-29 13:27 | XMS_ITS | Encounter Summary ---
Author Organization [place] Address [address] [place] [address] Care Team Providers Care Front End Drupal Developer Name Role Phone Ty Elizabeth MD Unavailable [phone] Shu Mayfield MD Unavailable Raeann Maldonado PA-C Unavailable Shannan Byrne [facility] Unavailable Shannan Byrne [facility] Unavailable Shannan Byrne Unavailable Unavailable Mihaela Sylvester MD Unavailable Huong Soto SUPERINTENDENT TRANSMISSION LOAN INSPECTOR Unavailable [phone] Karma Donnelly SUPERINTENDENT TRANSMISSION LOAN INSPECTOR Unavailable Amanda Yang SILK WINDING MACHINE OPERATOR Unavailable Macrina Khan PA-C Primary Care Provider Sharon Huang DNP Unavailable Venus Abrams PA-C Unavailable [phone] Encounter Details Date Type Department Care Team (Late st Contact Info) Description 12/13/2023 MyC Medical Advice [facility] Mental Health & Addiction [facility] [address] [place] [address] Sharon Huang, [facility] [address] [place] [address] Social History Tobacco Use Types Packs/Day Years [...] week 08/17/2023 How often do you attend [facility] or rastafari services? More than 4 times per year 08/17/2023 Do you belong to any clubs o r organizations such as anglican groups, unions, fraternal or athletic groups, or [...] Answer Date Recorded PHQ-2 Score 1 12/06/2023 [facility] of Occupat ional Health - Occupational Stress [...] Sex Assigned at Female 04/20/2020 9:52 AM INSURANCE LOSS ASSESSOR Legal Sex Female 5:13 AM INSURANCE LOSS ASSESSOR Gender Identity Female 04/20/2020 9:52 AM INSURANCE LOSS ASSESSOR Sexual Orientation Not on file documented as of this encounter Miscellaneous Notes * Telephone Encounter - Radha Ngo RN - 12/13/2023 12:24 PM CDT Patient is wondering if she can take biotin with the other medications she is on. Radha Ngo RN on 12/13/2023 at 12:29 PM documented in this encounter Plan of Treatment Upcoming Encounters Date Type Department Care Team (Late st Contact Info) Description 02/06/2024 3:20 PM INSURANCE LOSS ASSESSOR Office Visit [facility] [address] [facility] [address] [place] [phone] Vneus Abrams PA-C [address] [place] [address] documented as of this encounter Visit Diagnoses Not on filedocumented in this encounter Additional Health Concerns Assessment Noted Time PHQ-9 Depression Total Score: 2 11/07/19 24 10:06 AM CDT documented as of this encounter Care Teams Front End Drupal Developer Relationship Specialty Start Date End Date Macrina Khan PA-C [address] [place] [address] PCP - General Family Medicine 09/13/23 [place] [address] [place], [place] [phone] Assigned PCP 07/14/18 [place] [address] [place], [place] [phone] Medical Oncology 02/19/20 Raeann Maldonado PA-C [address] [place] [address] Physician Salesforce Specialist Dermatology 2/23/22 Shannan Byrne, [facility] [address] [place] [id number] Pharmacist Pharmacist 06/08/22 [facility] [address] [place] [address] Assigned MTM Pharmacist 06/17/22 Shannan Byrne Medical Student 12/27/22 Mihaela Sylvester MD [address] [id number] burning supervisor 01/01/23 Huong Soto, SUPERINTENDENT TRANSMISSION LOAN INSPECTOR [address] [phone] Nurse Practitioner Psychiatry 01/08/23 Karma Donnelly, SELINA LOAN INSPECTOR [address] [place] [address] Nurse Practitioner Cardiovascular Disease 05/14/23 Amanda Yang, [facility] [address] [place] [address] Assigned Behavioral Health Provider 06/26/23 01/25/24 Sharon Huang, [facility] [address] [place] [address] Assigned Neuroscience Provider 11/26/23 Venus Abrams PA-C [address] [address] Assigned Heart and Vascular Provider 11/26/23 documented as of this encounter
--- OUTSIDE RECORDS SUMMARY | 2024-01-29 13:27 | XMS_ITS | Encounter Summary ---
Author Organization [place] Address [address] [place] [address] Care Team Providers Care Hassock Maker Name Role Phone Ty Elizabeth MD Unavailable [phone] Shu Mayfield MD Unavailable Raeann MaldonadoC Unavailable Shannan Byrne [facility] Unavailable [phone] Shannan Byrne [facility] Unavailable Shannan Byrne Unavailable Unavailable Mihaela Sylvester MD Unavailable Huong Soto HIGH LIFT MULE OPERATOR STERILE PREPARATION TECHNICIAN Unavailable [phone] Karma Donnelly HIGH LIFT MULE OPERATOR STERILE PREPARATION TECHNICIAN Unavailable Amanda Yang ICING AND GLAZE MAKER Unavailable Macrina Khan PA-C Primary Care Provider Shu Pratt PA-C Unavailable [phone] Encounter Details Date Type Department Care Team (Latest Contact Info) Description 10/30/2023 Travel Social History Tobacco Use Types Packs/Day Years [...] How often do you attend chur or mu-ism services? More than 4 times per year 08/17/2023 Do you belong to any clubs o r organizations such as restorationist groups, unions, fraternal or athletic groups, or [...] Answer Date Recorded PHQ-2 Score 1 09/27/2023 [facility] Answer Date Recorded [...] Sex Assigned at Female 04/20/2020 9:52 AM LIVESTOCK HANDLER Legal Sex Female 5:13 AM LIVESTOCK HANDLER Gender Identity Female 04/20/2020 9:52 AM LIVESTOCK HANDLER Sexual Orientation Not on file documented as of this encounter Plan of Treatment Upcoming Encounters Date Type Department Care Team (Late st Contact Info) Description 02/06/2024 3:20 PM LIVESTOCK HANDLER Office Visit [address] [place] [address] Venus Abrams PA-C [address] [address] documented as of this encounter Visit Diagnoses Not on filedocumented in this encounter Additional Health Concerns Assessment Noted Time PHQ-9 Depression Total Score: 4 09/26/19 24 11:39 AM CDT documented as of this encounter Care Teams Hassock Maker Relationship Specialty Start Date End Date Macrina Khan PA-C [address] [place] [address] PCP - General Family Medicine 09/13/23 [place] [address] [place] [address] Assigned PCP 07/14/18 [place] [address] [place], [place] [phone] Medical Oncology 02/19/20 Raeann Maldonado PA-C [address] [place] [address] Physician Liquor Establishment Manager Dermatology 04/27/21 Shannan Byrne [facility] [address] [place] [id number] Pharmacist Pharmacist 06/08/22 Shannan Byrne [facility] [address] [place] [address] Assigned MTM Pharmacist 06/17/22 Shannan Byrne Medical Student 12/27/22 Mihaela Sylvester MD [address] [address] security vehicle patrol officer 01/01/23 Huong Soto, HIGH LIFT MULE OPERATOR STERILE PREPARATION TECHNICIAN [facility] [address] [facility] [address] [place] [phone] Nurse Practitioner Psychiatry 01/08/23 Karma Donnelly APRN STERILE PREPARATION TECHNICIAN [address] [place] [address] Nurse Practitioner Cardiovascular Disease 05/14/23 Amanda Yang, [facility] [address] [place] [address] Assigned Behavioral Health Provider 06/26/23 01/25/24 Shu Pratt PA-C [address] [place] [address] Assigned Heart and Vascular Provider 10/26/23 11/25/23 documented as of this encounter
--- OUTSIDE RECORDS SUMMARY | 2024-01-29 13:27 | XMS_ITS | Encounter Summary ---
Author Organization [place] Address [address] [place] [address] Care Team Providers Care Cycle Consultant Name Role Phone Ty Elizabeth MD Unavailable [phone] Shu Mayfield MD Unavailable Raeann MaldonadoC Unavailable Shannan Byrne [facility] Unavailable Shannan Byrne [facility] Unavailable Shannan Byrne Unavailable Unavailable Mihaela Sylvester MD Unavailable Huong Soto BRIDGE WORKER APPRENTICE MACHINE WIPER Unavailable [phone] Karma Donnelly BRIDGE WORKER APPRENTICE MACHINE WIPER Unavailable Amanda aYng ROBOTICS ENGINEER Unavailable Macrina Khan PA-C Primary Care Provider Shu Pratt PA-C Unavailable [phone] Encounter Details Date Type Department Care Team (Latest Contact Info) Description 11/01/2023 Travel Social History Tobacco Use Types Packs/Day [...] How often do you attend chur or bahai services? More than 4 times per year 08/17/2023 Do you belong to any clubs o r organizations such as congregational groups, unions, fraternal or athletic groups, or [...] Answer Date Recorded PHQ-2 Score 0 11/01/2023 [facility] Questionnaire Answer Date [...] in an abandoned building, in an overnight fdc, or couch-surfing.) Yes 08/17/2023 Are you worried [...] Sex Assigned at Female 04/20/2020 9:52 AM HALFWAY HOUSE COUNSELOR Legal Sex Female 5:13 AM HALFWAY HOUSE COUNSELOR Gender Identity Female 04/20/2020 9:52 AM HALFWAY HOUSE COUNSELOR Sexual Orientation Not on file documented as of this encounter Plan of Treatment Upcoming Encounters Date Type Department Care Team (Late st Contact Info) Description 02/06/2024 3:20 PM HALFWAY HOUSE COUNSELOR Office Visit [address] [place] [address] Venus Abrams PA-C [address] [address] documented as of this encounter Visit Diagnoses Not on filedocumented in this encounter Additional Health Concerns Assessment Noted Time PHQ-9 Depression Total Score: 5 11/01/19 24 11:13 AM CDT documented as of this encounter Care Teams Cycle Consultant Relationship Specialty Start Date End Date Macrina Khan PA-C [address] [place] [phone] PCP - General Family Medicine 09/13/23 [place] [address] [place] [address] Assigned PCP 07/14/18 [place] [address] [place], [place] [phone] Medical Oncology 02/19/20 Raeann Maldonado PA-C [address] [place] [address] Physician Industrial Specialist Dermatology 04/27/21 Shannan Byrne [facility] [address] [place] [phone] Pharmacist Pharmacist 06/08/22 Shannan Byrne [facility] [address] [place] [address] Assigned MTM Pharmacist 06/17/22 Shannan Byrne Medical Student 12/27/22 Mihaela Sylvester MD [address] [address] ground operations crew member 01/01/23 Huong Soto APRN MACHINE WIPER [facility] [address] [facility] [address] [place] [phone] Nurse Practitioner Psychiatry 01/08/23 Karma Donnelly APRN MACHINE WIPER [address] [place] [address] Nurse Practitioner Cardiovascular Disease 05/14/23 Amanda Yang, [facility] [address] [place] [address] Assigned Behavioral Health Provider 06/26/23 01/25/24 Shu Pratt PA-C [address] [place] [address] Assigned Heart and Vascular Provider 10/26/23 11/25/23 documented as of this encounter
--- OUTSIDE RECORDS SUMMARY | 2024-01-29 13:28 | XMS_ITS | Encounter Summary ---
Author Organization [place] Address [address] [place] [address] Care Team Providers Care Orchestra Musician Name Role Phone Ty Elizabeth MD Unavailable [phone] Shu Mayfield MD Unavailable [phone] Raeann Maldonado PA-C Unavailable Shannan Byrne [facility] Unavailable Shannan Byrne [facility] Unavailable Shannan Byrne Unavailable Unavailable Mihaela Sylvester MD Unavailable [phone] Huong Soto SHIP ERECTOR PRIMARY EDUCATION PROFESSOR Unavailable [phone] Karma Donnelly SHIP ERECTOR PRIMARY EDUCATION PROFESSOR Unavailable Amanda Yang STAMP ANALYST Unavailable Macrina Khan PA-C Primary Care Provider Mihaela Gill PA-C Unavailable [phone] Encounter Details Date Type Department Care Team (Late st Contact Info) Description 10/05/2023 Medical Correspondence [facility] Info Mgmt Srv[facility] [address] [facility] [place] [address] Scan, Non-Provider Social History Tobacco Use Types [...] How often do you attend chur or judaism services? More than 4 times per year 08/17/2023 Do you belong to any clubs o r organizations such as hinduism groups, unions, fraternal or athletic groups, or [...] Answer Date Recorded PHQ-2 Score 1 09/27/2023 [facility] - Occupational [...] Sex Assigned at Female 04/20/2020 9:52 AM NUT PACKER Legal Sex Female 5:13 AM NUT PACKER Gender Identity Female 04/20/2020 9:52 AM NUT PACKER Sexual Orientation Not on file documented as of this encounter Plan of Treatment Upcoming Encounters Date Type Department Care Team (Late st Contact Info) Description 02/06/2024 3:20 PM NUT PACKER Office Visit [address] [address] Venus Abrams PA-C [address] [place] [address] documented as of this encounter Visit Diagnoses Not on filedocumented in this encounter Additional Health Concerns Assessment Noted Time PHQ-9 Depression Total Score: 4 09/26/19 24 11:39 AM CDT documented as of this encounter Care Teams Orchestra Musician Relationship Specialty Start Date End Date Macrina Khan PA-C [address] [place] [address] PCP - General Family Medicine 09/13/23 [place] [address] [place] [address] Assigned PCP 07/14/18 [place] [address] [place] [address] Medical Oncology 02/19/20 Raeann Maldonado PA-C [address] [place] [address] Physician Fountain Dispenser Dermatology 04/27/21 Shannan Byrne [facility] [address] [id number] Pharmacist Pharmacist 06/08/22 Shannan Byrne [facility] [address] [id number] Assigned MTM Pharmacist 06/17/22 Shannan Byrne Medical Student 12/27/22 Mihaela Sylvester MD [address] [place], [place] [address] [address] [address] industrial sewer 01/01/23 Huong Soto, SHIP ERECTOR PRIMARY EDUCATION PROFESSOR [address] [place] [address] Nurse Practitioner Psychiatry 01/08/23 Karma Donnelly, SELINA PRIMARY EDUCATION PROFESSOR [address] [place] [address] Nurse Practitioner Cardiovascular Disease 05/14/23 Amanda Yang, [facility] [address] [place] [address] Assigned Behavioral Health Provider 06/26/23 01/25/24 Mihaela Gill PA-C [address] [facility] [address] [place], [place] [address] Assigned Heart and Vascular Provider 09/25/23 10/25/23 documented as of this encounter
--- OUTSIDE RECORDS SUMMARY | 2024-01-29 13:28 | XMS_ITS | Encounter Summary ---
Author Organization [place] Address [address] [place] [address] Care Team Providers Care Chemist Steroids Name Role Phone Ty Elizabeth MD Primary Care Provider Ty Elizabeth MD Unavailable [phone] Shu Mayfield MD Unavailable Shu Mayfield MD Unavailable [phone] Raeann Maldonado PA-C Unavailable Aliya Winn DO Unavailable Lindy Barlow RN Unavailable Unavailable Shannan Byrne [facility] Unavailable [phone] Shannan Byrne [facility] Unavailable Shannan Byrne Unavailable Unavailable Mihaela Sylvester MD Unavailable Huong Soto TAILINGS DAM PUMPER CUTTER HOT KNIFE Unavailable [phone] Karma Donnelly TAILINGS DAM PUMPER CUTTER HOT KNIFE Unavailable Amanda Yang SEAM TAPER MACHINE Unavailable Faustina Trujillo MD Unavailable + Macrina Khan PA-C Primary Care Provider Mihaela Gill PA-C Unavailable Shu Pratt PA-C Unavailable [phone] Sal Sharonjose a Mack [facility] Unavailable Venus Abrams PA-C Unavailable TaliaMana SEAM TAPER MACHINE Unavailable [phone] Encounter Details Date Type Department Care Team (Late st Contact Info) Description 07/20/2022 [facility] [place] [address] [address] Shannan Byrne, [facility] [address] [facility] [place] [address] Social History Tobacco Use Types Packs/Day Years Used Date Smoking Tobacco: Never Smokeless Tobacco: Never Alcohol Use Standard Drinks/Week Comments Yes 0 (1 standard drink = 0.6 oz pur e alcohol) occas Social Connection and Isolation Panel [NHANES] A nswer Date Recorded Frequency of Communication with Friends and Fami ly Not on file 07/25/2018 Frequency of Social Gatherings with Friends and Family Twice a week 07/25/2018 Attends Taoist Services Not on file 07/25 Active Member of Clubs or Organizations Yes 07/25/2018 Attends Club or Organization Meetings Not on sukhi e 07/25/2018 Marital Status Not on file 07/25/2018 AUDIT-C Answer Date Recorded Frequency of Alcohol Consumption 2-4 times a mon 07/25/2018 Average Number of Drinks Not on file 019 Frequency of Binge Drinking Not on file 07/04 Overall Financial Resource Strain (CARDIA) Answe r Date Recorded Difficulty of Paying Living Expenses Somewhat charles rd 07/25/2018 PHQ-2 Answer Date Recorded PHQ-2 Score 4 05/18/2022 Exercise Vital Sign Answer Date Recorde d Days of Exercise per Week 1 day 2018 Minutes of Exercise per Session Not on file 07/25/2018 Hunger Vital Sign Answer Date Recorded Worried About Running Out of Food in the Last Ye ar Never true 07/25/2018 Ran Out of Food in the Last Year Not on file 07/25/2018 PRAPARE - Transportation Answer Date Re corded Lack of Transportation (Medical) No 07/25/2018 Lack of Transportation (Non-Medical) Not on file 07/25/2018 Comments No Sex and Gender Information Value Date Recorded Sex Assigned at Female 04/20/2020 9:52 AM FABRIC MACHINE OPERATOR Legal Sex Female 5:13 AM FABRIC MACHINE OPERATOR Gender Identity Female 04/20/2020 9:52 AM FABRIC MACHINE OPERATOR Sexual Orientation Not on file COVID-19 Exposure Response Date Recorded In the last 10 days, have yo u been in contact with someone who was confirmed or suspected to have Coronavirus/COVID-19? No / Unsure 07/12/2022 12:19 PM CDT documented as of this encounter Plan of Treatment Upcoming Encounters Date Type Department Care Team (Late st Contact Info) Description 02/06/2024 3:20 PM FABRIC MACHINE OPERATOR Office Visit [facility] [address] [place] [address] [address] [place] [address] Venus Abrams PA-C [address] [place] [address] documented as of this encounter Visit Diagnoses Not on filedocumented in this encounter Additional Health Concerns Assessment Noted Time PHQ-9 Depression Total Score: 10 023 11:40 AM CDT documented as of this encounter Care Teams Chemist Steroids Relationship Specialty [place] [address] [place] [address] PCP - General Family Practice 08/10/17 09/12/23 Macrina Khan PA-C [address] [place] [address] PCP - General Family Medicine 09/13/23 [place] [address] [place] [address] Assigned PCP 07/14/18 [place] [address] [place] [address] Medical Oncology 02/19/20 [place] [address] [facility] [address] [place] [address] Assigned Cancer Care Provider 04/04/20 11/03/22 Raeann Maldonado PA-C [address] [place] [address] Physician Examiner Rating Clerk Dermatology 04/27/21 Aliya Winn DO [address] [place], [place] [address] Assigned Heart and Vascular Provider 02/18/22 06/25/23 Lindy Barlow, RN Personal Advocate & Liaison (PAL) Family Medicine 06/05/22 07/04/23 Shannan Byrne [facility] [address] [place] [address] Pharmacist Pharmacist 06/08/22 Shannan Byrne [facility] [address] [place] [address] Assigned MTM Pharmacist 06/17/22 Shannan Byrne Medical Student 12/27/22 Mihaela Sylvester MD [address] [place] [address] hang gliding instructor 01/01/23 Huong Soto, TAILINGS DAM PUMPER CUTTER HOT KNIFE [facility] [address] [facility] [address] [place] [address] Nurse Practitioner Psychiatry 01/08/23 Karma Donnelly, TAILINGS DAM PUMPER CUTTER HOT KNIFE [address] [place], [place] [address] Nurse Practitioner Cardiovascular Disease 05/14/23 Amanda Yang, [facility] [address] [place] [address] Assigned Behavioral Health Provider 06/26/23 01/25/24 Faustina Trujillo MD [address] [place] [address] Assigned Heart and Vascular Provider 06/26/23 09/24/23 Mihaela Gill PA-C [address] [place], [place] [address] Assigned Heart and Vascular Provider 09/25/23 10/25/23 Shu Pratt PA-C [address] [place], [place] [address] Assigned Heart and Vascular Provider 10/26/23 11/25/23 Sharon Huang DNP [address] [place] [address] Assigned Neuroscience Provider 11/26/23 Venus Abrams PA-C [address] [address] Assigned Heart and Vascular Provider 11/26/23 Mana Melgar LICSW [address], [address] [place] [address] Assigned Behavioral Health Provider 01/26/24 documented as of this encounter
--- OUTSIDE RECORDS SUMMARY | 2024-01-29 13:28 | XMS_ITS | Encounter Summary ---
Author Organization [place] Address [address] [place] [address] Care Team Providers Care Chemical Process Operator Name Role Phone Ty Elizabeth MD Primary Care Provider Ty Elizabeth MD Unavailable Shu Mayfield MD Unavailable Shu Mayfield MD Unavailable [phone] Raeann Maldonado PA-C Unavailable Aliya Winn DO Unavailable Lindy Barlow RN Unavailable Unavailable Shannan Byrne [facility] Unavailable Shannan Byrne [facility] Unavailable Shannan Byrne Unavailable Unavailable Mihaela Sylvester MD Unavailable [phone] Huong Soto BOOK STORE ASSOCIATE RUBBER STAMP ASSEMBLER Unavailable [phone] Karma Donnelly BOOK STORE ASSOCIATE RUBBER STAMP ASSEMBLER Unavailable Amanda Yang SUPERVISOR SPEECH Unavailable [phone] Faustina Trujillo MD Unavailable + Macrina Khan PA-C Primary Care Provider Mihaela Gill PA-C Unavailable Shu Pratt PA-C Unavailable [phone] Sharon Huang [facility] Unavailable Venus Abrams PA-C Unavailable TaliaMana [facility] Unavailable [phone] Reason for Visit * Reason Onset Date Comments MyChart Communication 03/07/2022 Encounter Details Date Type Department Care Team (Latest Contact Info) Description 03/07/2022 MyC Medical Advice [facility] [address] [place] [address] [place] [id number] [place] [address] MyChart Communication Social History Tobacco Use Types Packs/Day Years [...] and Family Twice a week 07/25/2018 Attends Mormon Services Not on file 07/25 Active Member of Clubs or Organizations Yes 07/25/2018 Attends Club or Organization Meetings Not on sukhi e 07/25/2018 Marital Status Not on file 07/25/2018 AUDIT-C Answer Date Recorded Frequency of Alcohol Consumption 2-4 times a sun07/25/2018 Average Number of Drinks Not on file 019 Frequency of Binge Drinking Not on file 07/04 Overall Financial Resource Strain (CARDIA) Answe r Date Recorded Difficulty of Paying Living Expenses Somewhat charles rd 07/25/2018 PHQ-2 Answer Date Recorded PHQ-2 Score 1 02/23/2022 Exercise Vital Sign Answer Date Recorde d [...] Sex Assigned at Female 04/20/2020 9:52 AM RETAIL ADMINISTRATIVE ASSISTANT Legal Sex Female 5:13 AM RETAIL ADMINISTRATIVE ASSISTANT Gender Identity Female 04/20/2020 9:52 AM RETAIL ADMINISTRATIVE ASSISTANT Sexual Orientation Not on file COVID-19 Exposure Response Date Recorded In the last 10 days, have yo u been in contact with someone who was confirmed or suspected to have Coronavirus/COVID-19? No / Unsure 02/21/2022 11:00 AM RETAIL ADMINISTRATIVE ASSISTANT documented as of this encounter Miscellaneous Notes * Telephone Encounter - Mihaela Roblero RN - 03/07/2022 1:03 PM CST See pt's [employer] message. Dr. Elizabeth- Scheduled pt with a Virtual Visit on 03/08/22 to discuss tolerance to Bupropion. Called pt at [phone] for further clarification. Spoke to pt and recommended pt to schedule a virtual visit to discuss tolerance to Bupropion. Spoke to pt and she reports that anxiety has improved, however has been experiencing nausea, constipation, and some dizziness after taking the medication. She reports not feeling well until the afternoon. She is wondering if there are other alternatives. Recommended pt to schedule a virtual visit to discuss tolerance to Bupropion. Assisted pt to schedule a virtual visit f/u on 03/08/22 at 10:[address] Elizabeth. Mihaela Roblero RN PAL (Patient Advocate Liason) [facility] [place] ADMINISTRATIVE ASSISTANT documented in this encounter Plan of Treatment Upcoming Encounters Date Type Department Care Team (Late st Contact Info) Description 02/06/2024 3:20 PM RETAIL ADMINISTRATIVE ASSISTANT Office Visit [facility] [address] [facility] [address] [place] [address] Venus Abrams PA-C [address] [place] [address] documented as of this encounter Visit Diagnoses Not on filedocumented in this encounter Additional Health Concerns Assessment Noted Time PHQ-9 Depression Total Score: 3 02/24/20 22 1:56 PM RETAIL ADMINISTRATIVE ASSISTANT documented as of this encounter Care Teams Chemical Process Operator Relationship Specialty [place] [address] [place], [place] [id number] PCP - General Family Practice 08/10/17 09/12/23 Macrina Khan PA-C [address] [place] [address] PCP - General Family Medicine 09/13/23 [place] [address] [place], [place] [address] Assigned PCP 07/14/18 [place] [address] [place] [address] Medical Oncology 02/19/20 [place] [address] [address] Assigned Cancer Care Provider 04/04/20 11/03/22 Raeann Maldonado PA-C [address] [place] [address] Physician Otolaryngology Teacher Dermatology 04/27/21 Aliya Winn DO [address] [place] [address] Assigned Heart and Vascular Provider 02/18/22 06/25/23 Lindy Barlow, RN Personal Advocate & Liaison (PAL) Family Medicine 06/05/22 07/04/23 Shannan Byrne, [facility] [address] [place] [id number] Pharmacist Pharmacist 06/08/22 Shannan Byrne, [facility] [address] [place] [address] Assigned MTM Pharmacist 06/17/22 Shannan Byrne Medical Student 12/27/22 Mihaela Sylvester MD [address] [place] [address] ribbon blockmaker 01/01/23 Huong Soto, BOOK STORE ASSOCIATE RUBBER STAMP ASSEMBLER [place] [id number] [address] [phone] Nurse Practitioner Psychiatry 01/08/23 Karma Donnelly, BOOK STORE ASSOCIATE RUBBER STAMP ASSEMBLER [address] [place] [address] Nurse Practitioner Cardiovascular Disease 05/14/23 Amanda Yang, [facility] [address] [place] [address] Assigned Behavioral Health Provider 06/26/23 01/25/24 Faustina Trujillo MD [address] [place] [address] Assigned Heart and Vascular Provider 06/26/23 09/24/23 Mihaela Gill PA-C [address] [place] [address] Assigned Heart and Vascular Provider 09/25/23 10/25/23 Shu Pratt PA-C [address] [place] [address] Assigned Heart and Vascular Provider 10/26/23 11/25/23 Sharon Huang DNP [address] [place] [address] Assigned Neuroscience Provider 11/26/23 Venus Abrams PA-C [address] [place] [address] Assigned Heart and Vascular Provider 11/26/23 Mana Melgar LICSW [address], [address] [place] [address] Assigned Behavioral Health Provider 01/26/24 documented as of this encounter
--- OUTSIDE RECORDS SUMMARY | 2024-01-29 13:28 | XMS_ITS | Encounter Summary ---
Author Organization [place] Address [address] [place] [address] Care Team Providers Care Customer Service Officer Name Role Phone Ty Elizabeth MD Primary Care Provider Ty Elizabeth MD Unavailable [phone] Shu Mayfield MD Unavailable Shu Mayfield MD Unavailable [phone] Raeann Maldonado PA-C Unavailable Aliya Winn DO Unavailable Lindy Barlow RN Unavailable Unavailable Shannan Byrne [facility] Unavailable Shannan Byrne [facility] Unavailable Shannan Byrne Unavailable Unavailable Mihaela Sylvester MD Unavailable [phone] Huong Soto CRANKSHAFT STRAIGHTENER BLACK TOP SPREADER MACHINE OPERATOR Unavailable [phone] Karma Donnelly CRANKSHAFT STRAIGHTENER BLACK TOP SPREADER MACHINE OPERATOR Unavailable Amanda Yang MAIL MESSENGER CONTRACTOR Unavailable Faustina Trujillo MD Unavailable + Macrina Khan PA-C Primary Care Provider Mihaela Gill PA-C Unavailable [phone] Shu Pratt PA-C Unavailable Sal Sharonjose a Mack [facility] Unavailable [phone] Venus Abrams PA-C Unavailable Talia Mana MAIL MESSENGER CONTRACTOR Unavailable Encounter Details Date Type Department Care Team (Late st Contact Info) Description 07/12/2022 MyC Medical Advice [facility] Mental Health & Addiction [facility] [address] [place] [address] Amanda Yang, MAIL MESSENGER CONTRACTOR [id number] [place] [address] Social History Tobacco Use Types Packs/Day Years [...] and Family Twice a week 07/25/2018 Attends Scientology Services Not on file 07/25 Active Member of Clubs or Organizations Yes 07/25/2018 Attends Club or Organization Meetings Not on sukhi e 07/25/2018 Marital Status Not on file 07/25/2018 AUDIT-C Answer Date Recorded Frequency of Alcohol Consumption 2-4 times a mon th 07/25/2018 Average Number of Drinks Not on [...] Sex Assigned at Female 04/20/2020 9:52 AM ETIQUETTE TEACHER Legal Sex Female 5:13 AM ETIQUETTE TEACHER Gender Identity Female 04/20/2020 9:52 AM ETIQUETTE TEACHER Sexual Orientation Not on file COVID-19 Exposure Response Date Recorded In the last 10 days, have yo u been in contact with someone who was confirmed or suspected to have Coronavirus/COVID-19? No / Unsure 07/12/2022 12:19 PM CDT documented as of this encounter Plan of Treatment Upcoming Encounters Date Type Department Care Team (Late st Contact Info) Description 02/06/2024 3:20 PM ETIQUETTE TEACHER Office Visit [address] [phone] Venus Abrams PA-C [address] [place] [address] documented as of this encounter Visit Diagnoses Not on filedocumented in this encounter Additional Health Concerns Assessment Noted Time PHQ-9 Depression Total Score: 10 023 11:40 AM CDT documented as of this encounter Care Teams Customer Service Officer Relationship Specialty [place] [address] [place] [address] PCP - General Family Practice 08/10/17 09/12/23 Macrina Khan PA-C [address] [place] [address] PCP - General Family Medicine 09/13/23 [place] [address] [place] [address] Assigned PCP 07/14/18 [place] [address] [place] [address] Medical Oncology 02/19/20 [place] [address] [place] [address] [facility] [address]93 [place] [address] Assigned Cancer Care Provider 04/04/20 11/03/22 Raeann Maldonado PA-C [address] [place] [address] Physician Neurodiagnostic Technologist Dermatology 04/27/21 Aliya Winn DO [address] [facility] [address] [place], [place] [address] Assigned Heart and Vascular Provider 02/18/22 06/25/23 CainLindy dey, RN Personal Advocate & Liaison (PAL) Family Medicine 06/05/22 07/04/23 Shannan Byrne [facility] [address] [place] [address] Pharmacist Pharmacist 06/08/22 Shannan Byrne [facility] [address] [id number] Assigned MTM Pharmacist 06/17/22 Shannan Byrne Medical Student 12/27/22 Mihaela Sylvester MD [address] [facility] [address] [place] [address] lead driver 01/01/23 Huong Soto, CRANKSHAFT STRAIGHTENER BLACK TOP SPREADER MACHINE OPERATOR [facility] [address] [facility] [address] [place] [phone] Nurse Practitioner Psychiatry 01/08/23 Karma Donnelly, CRANKSHAFT STRAIGHTENER BLACK TOP SPREADER MACHINE OPERATOR [address] [place] [address] Nurse Practitioner Cardiovascular Disease 05/14/23 Amanda Yang, [facility] [address] [place] [address] Assigned Behavioral Health Provider 06/26/23 01/25/24 Faustina Trujillo MD [address] [place] [address] Assigned Heart and Vascular Provider 06/26/23 09/24/23 Mihaela Gill PA-C [address] [place] [address] Assigned Heart and Vascular Provider 09/25/23 10/25/23 Shu Pratt PA-C [address] [place], [place] [address] Assigned Heart and Vascular Provider 10/26/23 11/25/23 Sharon Huang, [address] [place] [address] Assigned Neuroscience Provider 11/26/23 Venus Abrams PA-C [address] [address] Assigned Heart and Vascular Provider 11/26/23 Mana Melgar LICSW [address], [address] [place] [address] Assigned Behavioral Health Provider 01/26/24 documented as of this encounter
--- OUTSIDE RECORDS SUMMARY | 2024-01-29 13:28 | XMS_ITS | Encounter Summary ---
Author Organization [facility] Address [address] [place] [address] Care Team Providers Care Is Analyst Name Role Phone Ty Elizabeth MD Primary Care Provider Ty Elizabeth MD Unavailable [phone] Shu Mayfield MD Unavailable Shu Mayfield MD Unavailable [phone] Raeann Maldonado PA-C Unavailable Aliya Winn DO Unavailable Lindy Barlow RN Unavailable Unavailable Shannan Byrne [facility] Unavailable [phone] Shannan Byrne [facility] Unavailable Shannan Byrne Unavailable Unavailable Mihaela Sylvester MD Unavailable Huong Soto RF DESIGN ENGINEER MERRY GO ROUND ATTENDANT Unavailable [phone] Karma Donnelly RF DESIGN ENGINEER MERRY GO ROUND ATTENDANT Unavailable Amanda Yang PEAT SHREDDER TENDER Unavailable Faustina Trujillo MD Unavailable + Macrina Khan PA-C Primary Care Provider [phone] Mihaela Gill PA-C Unavailable Shu Pratt PA-C Unavailable [phone] Sal Sharonjose a Mack [facility] Unavailable Venus Abrams PA-C Unavailable [phone] TaliaMana PEAT SHREDDER TENDER Unavailable Encounter Details Date Type Department Care Team (Late st Contact Info) Description 06/22/2022 [facility] [place] [address] [address] Shannan Byrne, [facility] [address] [place] [address] Social History Tobacco Use Types [...] and Family Twice a week 07/25/2018 Attends Yarsani Services Not on file 07/25 Active Member [...] Sex Assigned at Female 04/20/2020 9:52 AM HIDE CLEANER Legal Sex Female 5:13 AM HIDE CLEANER Gender Identity Female 04/20/2020 9:52 AM HIDE CLEANER Sexual Orientation Not on file COVID-19 Exposure Response Date Recorded In the last 10 days, have yo u been in contact with someone who was confirmed or suspected to have Coronavirus/COVID-19? Unable to assess 06/08/2022 10:03 AM CDT documented as of this encounter Plan of Treatment Upcoming Encounters Date Type Department Care Team (Late st Contact Info) Description 02/06/2024 3:20 PM HIDE CLEANER Office Visit [address] [place] [address] Venus Abrams PA-C [address] [place] [address] documented as of this encounter Visit Diagnoses Not on filedocumented in this encounter Additional Health Concerns Assessment Noted Time PHQ-9 Depression Total Score: 10 023 11:40 AM CDT documented as of this encounter Care Teams Is Analyst Relationship Specialty [place] [address] [place] [address] PCP - General Family Practice 08/10/17 09/12/23 Macrina Khan PA-C [address] [place] [address] PCP - General Family Medicine 09/13/23 [place] [address] [place] [address] Assigned PCP 07/14/18 [place] [address] [place] [address] Medical Oncology 02/19/20 [place] [address] [address] [facility] [address] [place] [address] Assigned Cancer Care Provider 04/04/20 11/03/22 Raeann Maldonado PA-C [address] [place] [address] Physician Cancer Researcher Dermatology 04/27/21 Aliya Winn DO [address] [facility] [address] [place] [address] Assigned Heart and Vascular Provider 02/18/22 06/25/23 Lindy Barlow, RN Personal Advocate & Liaison (PAL) Family Medicine 06/05/22 07/04/23 Shannan Byrne [facility] [address] [place] [address] Pharmacist Pharmacist 06/08/22 Shannan Byrne [facility] [address] [id number] Assigned MTM Pharmacist 06/17/22 Shannan Byrne Medical Student 12/27/22 Mihaela Sylvester MD [address] [place] [address] lie detector operator 01/01/23 Huong Soto, RF DESIGN ENGINEER MERRY GO ROUND ATTENDANT [facility] [address] [facility] [address] [place] [address] Nurse Practitioner Psychiatry 01/08/23 Karma Donnelly, RF DESIGN ENGINEER MERRY GO ROUND ATTENDANT [address] [place], [place] [address] Nurse Practitioner Cardiovascular Disease 05/14/23 Amanda Yang, [facility] [address] [place] [address] Assigned Behavioral Health Provider 06/26/23 01/25/24 Faustina Trujillo MD [address] [place] [address] Assigned Heart and Vascular Provider 06/26/23 09/24/23 Mihaela Gill PA-C [address] [place], [place] [address] Assigned Heart and Vascular Provider 09/25/23 10/25/23 Shu Pratt PA-C [address] [place], [place] [address] Assigned Heart and Vascular Provider 10/26/23 11/25/23 Sharon Huang, THOMAS [address] [place] [id number] Assigned Neuroscience Provider 11/26/23 Venus Abrams PA-C [address] [address] Assigned Heart and Vascular Provider 11/26/23 Mana Melgar LICSW [address], [address] [place] [address] Assigned Behavioral Health Provider 01/26/24 documented as of this encounter
--- OUTSIDE RECORDS SUMMARY | 2024-01-29 13:28 | XMS_ITS | Encounter Summary ---
Author Organization [facility] Address [address] [place] [address] Care Team Providers Care Soakers Supervisor Name Role Phone Ty Elizabeth MD Primary Care Provider Ty Elizabeth MD Unavailable [phone] Shu Mayfield MD Unavailable Shu Mayfield MD Unavailable [phone] Raeann Maldonado PA-C Unavailable Aliya Winn DO Unavailable Lindy Barlow RN Unavailable Unavailable Shannan Byrne [facility] Unavailable Shannan Byrne [facility] Unavailable Shannan Byrne Unavailable Unavailable Mihaela Sylvester MD Unavailable Huong Soto STATE SUPERINTENDENT OF SCHOOLS OUTDOOR ADVERTISING LEASING AGENT Unavailable [phone] Karma Donnelly STATE SUPERINTENDENT OF SCHOOLS OUTDOOR ADVERTISING LEASING AGENT Unavailable Amanda Yang HEAD OF MERCHANDISE BUYING Unavailable Faustina Trujillo MD Unavailable + Macrina Khan PA-C Primary Care Provider [phone] Mihaela iGll PA-C Unavailable Shu Pratt PA-C Unavailable [phone] Sharon Huang [facility] Unavailable Venus Abrams PA-C Unavailable TaliaMaan [facility] Unavailable Reason for Visit * Reason Onset Date Comments Refill Request 03/04/2022 Encounter Details Date Type Department Care Team (Late st Contact Info) Description 03/04/2022 MyC Refill [facility] [address] [place] [address] [place] [id number] [place] [id number] Refill Request Social History Tobacco Use Types Packs/Day [...] and Family Twice a week 07/25/2018 Attends Mandaeism Services Not on file 07/25 Active Member [...] Sex Assigned at Female 04/20/2020 9:52 AM CHAIN LINK FENCE INSTALLER Legal Sex Female 5:13 AM CHAIN LINK FENCE INSTALLER Gender Identity Female 04/20/2020 9:52 AM CHAIN LINK FENCE INSTALLER Sexual Orientation Not on file COVID-19 Exposure Response Date Recorded In the last 10 days, have yo u been in contact with someone who was confirmed or suspected to have Coronavirus/COVID-19? No / Unsure 02/21/2022 11:00 AM CHAIN LINK FENCE INSTALLER documented as of this encounter Miscellaneous Notes * Telephone Encounter - Hany Hill RN - 03/06/2022 2:35 PM CST Routing refill request to provider for review/approval because: Medication is reported/historical Hany Fu RN 03/06/2022 at 2:35 PM N LINK FENCE INSTALLER documented in this encounter Plan of Treatment Upcoming Encounters Date Type Department Care Team (Late st Contact Info) Description 02/06/2024 3:20 PM CHAIN LINK FENCE INSTALLER Office Visit [address] [place] [address] Venus Abrams PA-C [address] [place] [address] documented as of this encounter Visit Diagnoses Diagnosis Nausea- Primary Nausea alone documented in this encounter Additional Health Concerns Assessment Noted Time PHQ-9 Depression Total Score: 3 02/24/20 22 1:56 PM CHAIN LINK FENCE INSTALLER documented as of this encounter Care Teams Soakers Supervisor Relationship Specialty [place] [address] [place] [address] PCP - General Family Practice 08/10/17 09/12/23 Macrina Khan PA-C [address] [place] [address] PCP - General Family Medicine 09/13/23 [place] [address] [place] [address] Assigned PCP 07/14/18 [place] [address] [place], [place] [id number] Medical Oncology 02/19/20 [place] [address] [place] [id number] [place] [address] Assigned Cancer Care Provider 04/04/20 11/03/22 Raeann Maldonado PA-C [address] [place], [place] [address] Physician Regulatory Affairs Specialist Dermatology 04/27/21 Aliya Winn DO [address] [place] [address] Assigned Heart and Vascular Provider 02/18/22 06/25/23 Lindy Barlow, RN Personal Advocate & Liaison (PAL) Family Medicine 06/05/22 07/04/23 Shannan Byrne, [facility] [address] [place], [place] [phone] Pharmacist Pharmacist 06/08/22 Shannan Byrne [facility] [address] [place] [id number] Assigned MTM Pharmacist 06/17/22 Shannan Byrne Medical Student 12/27/22 Mihaela Sylvester MD [address] [place] [address] desizing machine back tender 01/01/23 Huong Soto, STATE SUPERINTENDENT OF SCHOOLS OUTDOOR ADVERTISING LEASING AGENT [address] [place] [address] Nurse Practitioner Psychiatry 01/08/23 Karma Donnelly, STATE SUPERINTENDENT OF SCHOOLS OUTDOOR ADVERTISING LEASING AGENT [address] [place], [place] [address] Nurse Practitioner Cardiovascular Disease 05/14/23 Amanda Yang, [facility] [address] [place] [address] Assigned Behavioral Health Provider 06/26/23 01/25/24 Faustina Trujillo MD [address] [place] [address] Assigned Heart and Vascular Provider 06/26/23 09/24/23 Mihaela Gill PA-C [address] [place], [place] [address] Assigned Heart and Vascular Provider 09/25/23 10/25/23 Shu Pratt PA-C [address] [place] [address] Assigned Heart and Vascular Provider 10/26/23 11/25/23 Sharon Huang DNP [address] [place], [place] [address] Assigned Neuroscience Provider 11/26/23 Venus Abrams PA-C [address] [address] Assigned Heart and Vascular Provider 11/26/23 Mana Melgar LICSW [address], [address] [place] [address] Assigned Behavioral Health Provider 01/26/24 documented as of this encounter
--- OUTSIDE RECORDS SUMMARY | 2024-01-29 13:28 | XMS_ITS | Encounter Summary ---
Author Organization [facility] Address [address] [place] [address] Care Team Providers Care Grades 7 And 8 Teacher Name Role Phone Ty Elizabeth MD Primary Care Provider Ty Elizabeth MD Unavailable [phone] Shu [place]field MD Unavailable [phone] Raeann Maldonado PA-C Unavailable Shannan Byrne [facility] Unavailable Shannan Byrne [facility] Unavailable Shannan Byrne Unavailable Unavailable Mihaela Sylvester MD Unavailable [phone] Huong Soto MASTER COASTWISE YACHT ONLINE ADVERTISING DIRECTOR Unavailable [phone] Karma Donnelly MASTER COASTWISE YACHT ONLINE ADVERTISING DIRECTOR Unavailable Amanda Yang CUPROUS CHLORIDE HELPER Unavailable Faustina Trujillo MD Unavailable + Macrina KhanC Primary Care Provider Mihaela Gill PA-C Unavailable [phone] Shu PrattC Unavailable [phone] Sharon Huang DNP Unavailable [phone] Renatecarmina Venusadam LOUISC Unavailable Mana Melgar CUPROUS CHLORIDE HELPER Unavailable Reason for Visit * Reason Onset Date Comments Anxiety 07/27/2023 Encounter Details Date Type Department Care Team (Late st Contact Info) Description 07/27/2023 MyC Medical Advice [facility] [address] [place] [address] [place] [id number] [place] [address] Anxiety Social History Tobacco Use Types Packs/Day Years [...] neighbors? More than three times a week 06/20/2023 How often do you get togethe r with friends or relatives? More than three times a week 06/20/2023 How often do you attend [facility] or adventist services? More than 4 times per year 06/20/2023 Do you belong to any clubs o r organizations such as advent groups, unions, fraternal or athletic groups, or school groups? Yes 06/20/2023 How often do you attend meet ings of the clubs or organizations you belong to? More than 4 times per year 06/20/2023 Are you , , di vorced, , never , or living with a partner? 06/20/2023 AUDIT-C Answer Date Recorded Q1: How often do you have a drink containing alcohol? Never 06/20/2023 Q2: How many drinks containi ng alcohol do you have on a typical day when you are drinking? Patient does not drink Q3: How often do you have si x or more drinks on one occasion? Never 06/20/2023 PHQ-2 Answer Date Recorded PHQ-2 Score 0 04/24/2023 [facility] - Occupational Stress Questionnaire Answer Date Recorded Do you feel stress - tense, restless, nervous, or anxious, or unable to sleep at night because your mind is troubled all the time - these days? Only a little 06/20/2023 Exercise Vital Sign Answer Date Recorde d On average, how many days pe r week do you engage in moderate to strenuous exercise (like a brisk walk)? 5 days 06/20/2023 On average, how many minutes do you engage in exercise at this level? 30 min 06/20/2023 Adolescent Education Answer Date Record ed Getting School Help Needed Not on file 11/24 Food Insecurity Answer Date Recorded Within the past 12 months, d id you worry that your food would run out before you got money to buy more? No 06/20/2023 Within the past 12 months, d id the food you bought just not last and you didn t have money to get more? No 06/20/2023 Housing Stability Answer Date Recorded Do you have housing? (Eze jama is defined as stable permanent housing and does not include staying ouside in a car, in a tent, in an abandoned building, in an overnight half-way, or couch-surfing.) Yes 06/20/2023 Are you worried about losing your housing? No 06/20/2023 Financial Resource Strain Answer Date R ecorded Within the past 12 months, h ave you or your family members you live with been unable to get utilities (heat, electricity) when it was really needed? No 06/20/2023 Transportation Needs Answer Date Record ed Within the past 12 months, h as lack of transportation kept you from medical appointments, getting your medicines, non-medical meetings or appointments, work, or from getting things that you need? No 06/20/2023 Interpersonal Safety Answer Date Record ed Do you feel physically and e motionally safe where you currently live? Yes 12/28/2022 Within the past 12 months, h ave you been hit, slapped, kicked or otherwise physically hurt by someone? No 12/28/2022 Within the past 12 months, h ave you been humiliated or emotionally abused in other ways by your partner or ex-partner? No 12/28/2022 Comments No Sex and Gender Information Value Date Recorded Sex Assigned at Female 04/20/2020 9:52 AM LARRY CAR OPERATOR Legal Sex Female 5:13 AM LARRY CAR OPERATOR Gender Identity Female 04/20/2020 9:52 AM LARRY CAR OPERATOR Sexual Orientation Not on file documented as of this encounter Miscellaneous Notes * Telephone Encounter - Shannan Byrne [facility] - 07/27/2023 12:22 PM CDT Addressed by Nayana Rodas PA-C in separat encounter. Patient has left voice message me 2 voice mails on [facility] line as well this morning at 8am and again at 10am. * Telephone Encounter - Lexi Hargrove RN - 07/27/2023 10:53 AM CDT See [employer]ance Appt message below. Routing to [facility] and provider to advise. Lexi Hargrove RN documented in this encounter Plan of Treatment Upcoming Encounters Date Type Department Care Team (Late st Contact Info) Description 02/06/2024 3:20 PM LARRY CAR OPERATOR Office Visit [address] [place] [address] Venus Abrams PA-C [address] [place] [address] documented as of this encounter Visit Diagnoses Not on filedocumented in this encounter Additional Health Concerns Assessment Noted Time PHQ-9 Depression Total Score: 5 01/27/20 23 9:44 AM LARRY CAR OPERATOR documented as of this encounter Care Teams Grades 7 And 8 Teacher Relationship Specialty [place] [address] [place] [address] PCP - General Family Practice 08/10/17 09/12/23 Macrina Khan PA-C [address] [place] [address] PCP - General Family Medicine 09/13/23 [place] [address] [place] [address] Assigned PCP 07/14/18 [place] [address] [place], [place] [id number] Medical Oncology 02/19/20 Raeann Maldonado PA-C [address] [place] [address] Physician Produce Laborer Dermatology 04/27/21 Shannan Byrne [facility] [address] [place] [id number] Pharmacist Pharmacist 06/08/22 Shannan Byrne [facility] [address] [place] [address] Assigned MTM Pharmacist 06/17/22 Shannan Byrne Medical Student 12/27/22 Mihaela Sylvester MD [address] [address] bolting machine operator 01/01/23 Huong Soto, MASTER COASTWISE YACHT ONLINE ADVERTISING DIRECTOR [facility] [address] [facility] [address] [place] [address] Nurse Practitioner Psychiatry 01/08/23 Karma Donnelly APRN ONLINE ADVERTISING DIRECTOR [address] [place] [address] Nurse Practitioner Cardiovascular Disease 05/14/23 Amanda Yang, [facility] [address] [place] [address] Assigned Behavioral Health Provider 06/26/23 01/25/24 Faustina Trujillo MD [address] [place] [address] Assigned Heart and Vascular Provider 06/26/23 09/24/23 Mihaela Gill PA-C [address] [place], [place] [address] Assigned Heart and Vascular Provider 09/25/23 10/25/23 Shu Pratt PA-C [address] [place] [address] Assigned Heart and Vascular Provider 10/26/23 11/25/23 Sharon Huang DNP [address] [place], [place] [address] Assigned Neuroscience Provider 11/26/23 Venus Abrams PA-C [address] [place] [address] Assigned Heart and Vascular Provider 11/26/23 Mana Melgar, CUPROUS CHLORIDE HELPER [facility] - [address], [address] [place], [place] [address] Assigned Behavioral Health Provider 01/26/24 documented as of this encounter
--- OUTSIDE RECORDS SUMMARY | 2024-01-29 13:28 | XMS_ITS | Encounter Summary ---
Author Organization [facility] Address [address] [place] [address] Care Team Providers Care Apple Sorter Name Role Phone Ty Elizabeth MD Primary Care Provider Ty Elizabeth MD Unavailable [phone] Shu Mayfield MD Unavailable Shu Mayfield MD Unavailable [phone] Raeann Maldonado PA-C Unavailable Aliya Winn DO Unavailable Lindy Barlow RN Unavailable Unavailable Shannan Byrne [facility] Unavailable Shannan Byrne [facility] Unavailable [phone] Shannan Byrne Unavailable Unavailable Mihaela Sylvester MD Unavailable Huong Soto ROLLER REPAIRER UNIT LEADER Unavailable [phone] Karma Donnelly ROLLER REPAIRER UNIT LEADER Unavailable [phone] Amanda Yang SLAT BASKET TOP MAKER Unavailable Faustina Trujillo MD Unavailable + Macrina Khan PA-C Primary Care Provider [phone] Mihaela Gill PA-C Unavailable [phone] Shu Pratt PA-C Unavailable [phone] Sal Sharonjose a Mack [facility] Unavailable [phone] Venus Abrams PA-C Unavailable TaliaMana SLAT BASKET TOP MAKER Unavailable [phone] Encounter Details Date Type Department Care Team (Late st Contact Info) Description 06/27/2022 [facility] Medical Advice [address] [address] Shannan Byrne, [facility] [address] [facility] [place] [address] Social History Tobacco Use Types [...] and Family Twice a week 07/25/2018 Attends Anabaptist Services Not on file 07/25 Active Member [...] Sex Assigned at Female 04/20/2020 9:52 AM NATIONAL SALES EXECUTIVE Legal Sex Female 5:13 AM NATIONAL SALES EXECUTIVE Gender Identity Female 04/20/2020 9:52 AM NATIONAL SALES EXECUTIVE Sexual Orientation Not on file COVID-19 Exposure Response Date Recorded In the last 10 days, have yo u been in contact with someone who was confirmed or suspected to have Coronavirus/COVID-19? Unable to assess 06/08/2022 10:03 AM CDT documented as of this encounter Plan of Treatment Upcoming Encounters Date Type Department Care Team (Late st Contact Info) Description 02/06/2024 3:20 PM NATIONAL SALES EXECUTIVE Office Visit [address] [place] [address] Venus Abrams PA-C [address] [place] [address] documented as of this encounter Visit Diagnoses Not on filedocumented in this encounter Additional Health Concerns Assessment Noted Time PHQ-9 Depression Total Score: 10 023 11:40 AM CDT documented as of this encounter Care Teams Apple Sorter Relationship Specialty [place] [address] [place] [address] PCP - General Family Practice 08/10/17 09/12/23 Macrina Khan PA-C [address] [place] [address] PCP - General Family Medicine 09/13/23 [place] [address] [place] [address] Assigned PCP 07/14/18 [place] [address] [place] [address] Medical Oncology 02/19/20 [place] [address] [address] [facility] [address] [place] [address] Assigned Cancer Care Provider 04/04/20 11/03/22 Raeann Maldonado PA-C [address] [place] [address] Physician Certified Diabetes Educator Dermatology 04/27/21 Aliya Winn DO [address] [facility] [address] [place] [address] Assigned Heart and Vascular Provider 02/18/22 06/25/23 Lindy Barlow, RN Personal Advocate & Liaison (PAL) Family Medicine 06/05/22 07/04/23 Shannan Byrne [facility] [address] [place] [address] Pharmacist Pharmacist 06/08/22 Shannan Byrne [facility] [address] [place] [id number] Assigned MTM Pharmacist 06/17/22 Shannan Byrne Medical Student 12/27/22 Mihaela Sylvester MD [address] [place] [address] associate professor of engineering 01/01/23 Huong Soto, ROLLER REPAIRER UNIT LEADER [facility] [address] [facility] [address] [place] [address] Nurse Practitioner Psychiatry 01/08/23 Karma Donnelly, ROLLER REPAIRER UNIT LEADER [address] [place], [place] [address] Nurse Practitioner Cardiovascular Disease 05/14/23 Amanda Yang, [facility] [address] [place] [address] Assigned Behavioral Health Provider 06/26/23 01/25/24 Faustina Trujillo MD [address] [place] [address] Assigned Heart and Vascular Provider 06/26/23 09/24/23 Mihaela Gill PA-C [address] [place], [place] [address] Assigned Heart and Vascular Provider 09/25/23 10/25/23 Shu Pratt PA-C [address] [place], [place] [address] Assigned Heart and Vascular Provider 10/26/23 11/25/23 Sharon Huang, THOMAS [address] [place] [address] Assigned Neuroscience Provider 11/26/23 Venus Abrams PA-C [address] [address] Assigned Heart and Vascular Provider 11/26/23 Mana Melgar LICSW [address], [address] [place] [address] Assigned Behavioral Health Provider 01/26/24 documented as of this encounter
--- OUTSIDE RECORDS SUMMARY | 2024-01-29 13:28 | XMS_ITS | Encounter Summary ---
Author Organization [facility] Address [address] [place] [address] Care Team Providers Care Paratransit Operator Name Role Phone Ty Elizabeth MD Primary Care Provider Ty Elizabeth MD Unavailable [phone] Shu Mayfield MD Unavailable Raeann MaldonadoC Unavailable Aliya Winn DO Unavailable Lindy Barlow RN Unavailable Unavailable Shannan Byrne [facility] Unavailable [phone] Shannan Byrne [facility] Unavailable Shannan Byrne Unavailable Unavailable Mihaela Sylvester MD Unavailable Huong Soto DEPUTY JAILER PLANE TENDER Unavailable Karma Donnelly DEPUTY JAILER PLANE TENDER Unavailable [phone] Amanda Yang RETAIL MERCHANDISER TECHNICIAN Unavailable Faustina Trujillo MD Unavailable + Macrina KhanC Primary Care Provider Mihaela GillC Unavailable [phone] Shu PrattC Unavailable + [phone] Sharon Huang DNP Unavailable [phone] Venus AbramsC Unavailable [phone] Talia Mana [facility] Unavailable [phone] Encounter Details Date Type Department Care Team (Late st Contact Info) Description 01/01/2023 [facility] [address] [place] [address] [place] [id number] [place] [address] Social History Tobacco Use Types Packs/Day Years Used Date Smoking Tobacco: Never Smokeless Tobacco: Never Alcohol Use Standard Drinks/Week Comments Yes 0 (1 standard drink = 0.6 oz pur e alcohol) occas Social Connection and Isolat ion Panel [NHANES] Answer Date Recorded In a typical week, how many times do you talk on the phone with family, friends, or neighbors? More than three times a week 08/09/2022 How often do you get togethe r with friends or relatives? Three times a week 08/09/2022 How often do you attend [facility] or hoahaoism services? More than 4 times per year 08/09/2022 Do you belong to any clubs o r organizations such as voodoo groups, unions, fraternal or athletic groups, or school groups? Yes 08/09/2022 Attends Club or Organization Meetings Not on sukhi e 08/09/2022 Are you , , di vorced, , never , or living with a partner? 08/09/2022 AUDIT-C Answer Date Recorded Q1: How often do you have a drink containing alcohol? Never 08/09/2022 Q2: How many drinks containi ng alcohol do you have on a typical day when you are drinking? Patient does not drink Q3: How often do you have si x or more drinks on one occasion? Never 08/09/2022 PHQ-2 Answer Date Recorded PHQ-2 Score 2 08/09/2022 [facility] - Occupational Stress Questionnaire Answer Date Recorded Do you feel stress - tense, restless, nervous, or anxious, or unable to sleep at night because your mind is troubled all the time - these days? Not at all 08/09/2022 Exercise Vital Sign Answer Date Recorde d On average, how many days pe r week do you engage in moderate to strenuous exercise (like a brisk walk)? 3 days 08/09/2022 On average, how many minutes do you engage in exercise at this level? 10 min 08/09/2022 Adolescent Education Answer Date Record ed Getting School Help Needed Not on file 11/24 Food Insecurity Answer Date Recorded Within the past 12 months, d id you worry that your food would run out before you got money to buy more? No 12/27/2022 Within the past 12 months, d id the food you bought just not last and you didn t have money to get more? No 12/27/2022 Housing Stability Answer Date Recorded Do you have housing? (Eze g is defined as stable permanent housing and does not include staying ouside in a car, in a tent, in an abandoned building, in an overnight chcf, or couch-surfing.) Yes 12/27/2022 Are you worried about losing your housing? No 12/27/2022 Financial Resource Strain Answer Date R ecorded Within the past 12 months, h ave you or your family members you live with been unable to get utilities (heat, electricity) when it was really needed? No 12/27/2022 Transportation Needs Answer Date Record ed Within the past 12 months, h as lack of transportation kept you from medical appointments, getting your medicines, non-medical meetings or appointments, work, or from getting things that you need? No 12/27/2022 Interpersonal Safety Answer Date Record ed Do [...] Sex Assigned at Female 04/20/2020 9:52 AM FIRER ELECTRIC LOCOMOTIVE Legal Sex Female 5:13 AM FIRER ELECTRIC LOCOMOTIVE Gender Identity Female 04/20/2020 9:52 AM FIRER ELECTRIC LOCOMOTIVE Sexual Orientation Not on file documented as of this encounter Miscellaneous Notes * Telephone Encounter - Nata Nicholson - 01/02/2023 11:15 AM CDT Faxed Nata Nicholson/Network Systems Administrator documented in this encounter Plan of Treatment Upcoming Encounters Date Type Department Care Team (Late st Contact Info) Description 02/06/2024 3:20 PM FIRER ELECTRIC LOCOMOTIVE Office Visit [facility] [address] [place] [address] [address] [place] [address] Venus Abrams PA-C [address] [place] [place] [address] documented as of this encounter Visit Diagnoses Not on filedocumented in this encounter Additional Health Concerns Assessment Noted Time PHQ-9 Depression Total Score: 5 08/03/19 23 12:13 PM CDT documented as of this encounter Care Teams Paratransit Operator Relationship Specialty [place] [address] [place] [address] PCP - General Family Practice 08/10/17 09/12/23 Macrina Khan PA-C [address] [place] [address] PCP - General Family Medicine 09/13/23 [place] [address] [place] [address] Assigned PCP 07/14/18 [place] [address] [place], [place] [id number] Medical Oncology 02/19/20 Raeann Maldonado [facility] [address] [place], [place] [address] Physician Budget Examiner Dermatology 04/27/21 Aliya Winn DO [address] [facility] [address] [place], [place] [address] Assigned Heart and Vascular Provider 02/18/22 06/25/23 CainLindy RN Personal Advocate & Liaison (PAL) Family Medicine 06/05/22 07/04/23 [facility] [address] [place] [address] Pharmacist Pharmacist 06/08/22 [facility] [address] [place] [address] Assigned MTM Pharmacist 06/17/22 Shannan Byrne Medical Student 12/27/22 Mihaela Sylvester MD [address] [place], [place] [address] supervisor cd area 01/01/23 Huong Soto, DEPUTY JAILER PLANE TENDER [facility] [address] [facility] [address] [place] [phone] Nurse Practitioner Psychiatry 01/08/23 Karma Donnelly, DEPUTY JAILER PLANE TENDER [address] [place] [address] Nurse Practitioner Cardiovascular Disease 05/14/23 Amanda Yang, [facility] [address] [place] [address] Assigned Behavioral Health Provider 06/26/23 01/25/24 Faustina Trujillo MD [address] [place] [address] Assigned Heart and Vascular Provider 06/26/23 09/24/23 Mihaela Gill PA-C [address] [place] [address] Assigned Heart and Vascular Provider 09/25/23 10/25/23 Shu Pratt PA-C [address] [place] [address] Assigned Heart and Vascular Provider 10/26/23 11/25/23 Sharon Huang DNP [address] [place] [address] Assigned Neuroscience Provider 11/26/23 Venus Abrams PA-C [address] [place] [address] Assigned Heart and Vascular Provider 11/26/23 Mana Melgar [facility] [address], [address] [place] [address] [phone] Assigned Behavioral Health Provider 01/26/24 documented as of this encounter
--- OUTSIDE RECORDS SUMMARY | 2024-01-29 13:28 | XMS_ITS | Encounter Summary ---
Author Organization [facility] Address [address] [place] [address] Care Team Providers Care Office Administrator Name Role Phone Ty Elizabeth MD Primary Care Provider Ty Elizabeth MD Unavailable [phone] Shu [place] MD Unavailable [phone] Raeann Maldonado PA-C Unavailable Shannan Byrne [facility] Unavailable Shannan Byrne [facility] Unavailable Shannan Byrne Unavailable Unavailable Mihaela Sylvester MD Unavailable Huong Soto SPUDDER TANK CHARGER Unavailable [phone] Karma Donnelly SPUDDER TANK CHARGER Unavailable Amanda Yang HIDE MILL WORKER Unavailable Faustina Trujillo MD Unavailable + Macrina KhanC Primary Care Provider Mihaela GillC Unavailable Shu PrattC Unavailable [phone] Sharon Huang DNP Unavailable DoeVenus brittC Unavailable Mana Melgar HIDE MILL WORKER Unavailable [phone] Encounter Details Date Type Department Care Team (Late st Contact Info) Description 08/16/2023 [facility] Medical Advice [address] [address] Shannan Byrne, [facility] [address] [address] Social History Tobacco Use Types Packs/Day [...] week 08/17/2023 How often do you attend [facility] or shinto services? More than 4 times per year 08/17/2023 Do you belong to any clubs o r organizations such as judaism groups, unions, fraternal or athletic groups, or [...] Answer Date Recorded PHQ-2 Score 0 04/24/2023 [facility] - Occupational Stress Questionnaire Answer Date [...] in an abandoned building, in an overnight fci, or couch-surfing.) Yes 08/17/2023 Are you worried [...] Sex Assigned at Female 04/20/2020 9:52 AM BAR HOST/HOSTESS Legal Sex Female 5:13 AM BAR HOST/HOSTESS Gender Identity Female 04/20/2020 9:52 AM BAR HOST/HOSTESS Sexual Orientation Not on file documented as of this encounter Plan of Treatment Upcoming Encounters Date Type Department Care Team (Late st Contact Info) Description 02/06/2024 3:20 PM BAR HOST/HOSTESS Office [facility] [address] [facility] [address] [place] [address] Venus Abrams PA-C [address] [place] [address] documented as of this encounter Visit Diagnoses Not on filedocumented in this encounter Additional Health Concerns Assessment Noted Time PHQ-9 Depression Total Score: 5 01/27/20 23 9:44 AM BAR HOST/HOSTESS documented as of this encounter Care Teams Office Administrator Relationship Specialty [place] [address] [place] [address] PCP - General Family Practice 08/10/17 09/12/23 Macrina Khan PA-C [address] [place] [address] PCP - General Family Medicine 09/13/23 [place] [address] [place] [address] Assigned PCP 07/14/18 [place] [address] [place] [address] Medical Oncology 02/19/20 Raeann Maldonado PA-C [address] [place] [address] Physician School Clerk Dermatology 04/27/21 Shannan Byrne, [facility] [address] [place] [address] Pharmacist Pharmacist 06/08/22 [facility] [address] [place] [address] Assigned MTM Pharmacist 06/17/22 Shannan Byrne Medical Student 12/27/22 Mihaela Sylvester MD [address] [place] [address] rn long term care 01/01/23 Huong Soto, SPUDDER TANK CHARGER [address] [place] [phone] Nurse Practitioner Psychiatry 01/08/23 Karma Donnelly, SELINA TANK CHARGER [address] [place] [address] Nurse Practitioner Cardiovascular Disease 05/14/23 Amanda Yang, [facility] [address] [place], [place] [phone] Assigned Behavioral Health Provider 06/26/23 01/25/24 Faustina Trujillo MD [address] [place] [address] Assigned Heart and Vascular Provider 06/26/23 09/24/23 Mihaela Gill PA-C [address] [place] [address] Assigned Heart and Vascular Provider 09/25/23 10/25/23 Shu Pratt PA-C [address] [place] [address] Assigned Heart and Vascular Provider 10/26/23 11/25/23 Sharon Huang DNP [address] [place] [address] Assigned Neuroscience Provider 11/26/23 Venus Abrams PA-C [address] [place] [address] Assigned Heart and Vascular Provider 11/26/23 Mana Melgar LICSW [address], [address] [place] [address] Assigned Behavioral Health Provider 01/26/24 documented as of this encounter
--- OUTSIDE RECORDS SUMMARY | 2024-01-29 13:28 | XMS_ITS | Encounter Summary ---
Author Organization [facility] Address [address] [place] [address] Care Team Providers Care Skates Operator Name Role Phone Ty Elizabeth MD Primary Care Provider Ty Elizabeth MD Unavailable [phone] Shu [place] MD Unavailable Shu [place] MD Unavailable [phone] Raeann Maldonado PA-C Unavailable Aliya Winn DO Unavailable Lindy Barlow RN Unavailable Unavailable Shannan Byrne [facility] Unavailable [phone] Shannan Byrne [facility] Unavailable Shannan Byrne Unavailable Unavailable Mihaela Sylvester MD Unavailable Huong Soto DISK OPERATOR MENTAL HEALTH TECH Unavailable [phone] Karma Donnelly DISK OPERATOR MENTAL HEALTH TECH Unavailable [phone] Amanda Yang LAUNDRY OR DRY CLEANERS COUNTER CLERK Unavailable Faustina Trujillo MD Unavailable + Macrina Khan PA-C Primary Care Provider [phone] Mihaela Gill PA-C Unavailable Shu Pratt PA-C Unavailable [phone] Sharon Huang [facility] Unavailable [phone] Venus Abrams PA-C Unavailable [phone] TaliaMana [facility] Unavailable Reason for Visit * Reason Comments Medication Refill Encounter Details Date Type Department Care Team (Late st Contact Info) Description 05/10/2022 Refill [facility] [address] [place] [address] [place] [address] [place] [address] Medication Refill Social History Tobacco Use Types [...] and Family Twice a week 07/25/2018 Attends Orthodox Services Not on file 07/25 Active Member [...] PHQ-2 Answer Date Recorded PHQ-2 Score 1 03/22/2022 Exercise Vital Sign Answer Date Recorde d [...] Sex Assigned at Female 04/20/2020 9:52 AM MOLDER BENCH Legal Sex Female 5:13 AM MOLDER BENCH Gender Identity Female 04/20/2020 9:52 AM MOLDER BENCH Sexual Orientation Not on file COVID-19 Exposure Response Date Recorded In the last 10 days, have yo u been in contact with someone who was confirmed or suspected to have Coronavirus/COVID-19? No / Unsure 05/01/2022 3:29 PM MOLDER BENCH documented as of this encounter Miscellaneous Notes * Telephone Encounter - La Pierson RN - 05/11/2022 11:50 AM MOLDER BENCH Routing refill request to provider for review/approval because: Labs out of range: TSH TSH Date Value Ref Range Status 02/21/2022 4.69 (H) 0.30 - 4.20 uIU/mL Final 02/07/2021 2.22 0.40 - 4.00 mU/L Final 02/12/2020 4.36 (H) 0.40 - 4.00 mU/L Final La Pierson RN ER BENCH documented in this encounter Plan of Treatment Upcoming Encounters Date Type Department Care Team (Late st Contact Info) Description 02/06/2024 3:20 PM MOLDER BENCH Office Visit [facility] [address] [place] [address] [address] [place] [address] Venus Abrams PA-C [address] [place] [address] documented as of this encounter Visit Diagnoses Diagnosis Acquired hypothyroidism Unspecified hypothyroidism documented in this encounter Additional Health Concerns Assessment Noted Time PHQ-9 Depression Total Score: 3 02/24/20 22 1:56 PM MOLDER BENCH documented as of this encounter Care Teams Skates Operator Relationship Specialty [place] [address] [place] [address] PCP - General Family Practice 08/10/17 09/12/23 Macrina Khan PA-C [address] [place] [address] PCP - General Family Medicine 09/13/23 [place] [address] [place] [address] Assigned PCP 07/14/18 [place] [address] [place] [address] Medical Oncology 02/19/20 [place] [address] [phone] [place] [address] Assigned Cancer Care Provider 04/04/20 11/03/22 Raeann Maldonado PA-C [address] [place] [address] Physician Tenter Dermatology 04/27/21 Aliya Winn DO [address] [place] [address] Assigned Heart and Vascular Provider 02/18/22 06/25/23 Lindy Barlow, RN Personal Advocate & Liaison (PAL) Family Medicine 06/05/22 07/04/23 Shannan Byrne, [facility] [address] [place], [place] [phone] Pharmacist Pharmacist 06/08/22 Shannan Byrne [facility] [address] [place], [place] [phone] Assigned MTM Pharmacist 06/17/22 Shannan Byrne Medical Student 12/27/22 Mihaela Sylvester MD [address] [facility] [address] [place] [address] supervisor tubing 01/01/23 Huong Soto, DISK OPERATOR MENTAL HEALTH TECH [address] [place] [phone] Nurse Practitioner Psychiatry 01/08/23 Karma Donnelly, DISK OPERATOR MENTAL HEALTH TECH [address] [place], [place] [address] Nurse Practitioner Cardiovascular Disease 05/14/23 Amanda Yang, [facility] [address] [place] [address] Assigned Behavioral Health Provider 06/26/23 01/25/24 Faustina Trujillo MD [address] [facility] [address] [facility] [address] [place] [address] Assigned Heart and Vascular Provider 06/26/23 09/24/23 Mihaela Gill PA-C [address] [place], [place] [address] Assigned Heart and Vascular Provider 09/25/23 10/25/23 Shu Pratt PA-C [address] [place] [address] Assigned Heart and Vascular Provider 10/26/23 11/25/23 Sharon Huang DNP [address] [place] [address]24925 Assigned Neuroscience Provider 11/26/23 Venus Abrams PA-C [address] [place] [address] Assigned Heart and Vascular Provider 11/26/23 Mana Melgar LICSW [facility] [address] [place] [address], [address] [place] [address] Assigned Behavioral Health Provider 01/26/24 documented as of this encounter
--- OUTSIDE RECORDS SUMMARY | 2024-01-29 13:28 | XMS_ITS | Encounter Summary ---
Author Organization [place] Address [address] [place] [address] Care Team Providers Care Autism Specialist Name Role Phone Ty Elizabeth MD Primary Care Provider Ty Elizabeth MD Unavailable [phone] Shu [place] MD Unavailable Shu [place]field MD Unavailable [phone] Raeann Maldonado PA-C Unavailable Aliya Winn DO Unavailable Lindy Barlow RN Unavailable Unavailable Shannan Byrne [facility] Unavailable [phone] Shannan Byrne [facility] Unavailable Shannan Byrne Unavailable Unavailable Mihaela Sylvester MD Unavailable Huong Soto COMMERCIAL DRIVER PHARMACY INFORMATICS SPECIALIST Unavailable [phone] Karma Donnelly COMMERCIAL DRIVER PHARMACY INFORMATICS SPECIALIST Unavailable Amanda Yang TRANSPORT DRIVER Unavailable Faustina Trujillo MD Unavailable + Macrina Khan PA-C Primary Care Provider Mihaela Gill PA-C Unavailable [phone] Shu Pratt PA-C Unavailable [phone] Sal Sharonjose a Mack [facility] Unavailable Venus Abrams PA-C Unavailable [phone] TaliaMana TRANSPORT DRIVER Unavailable Encounter Details Date Type Department Care Team (Late st Contact Info) Description 07/05/2022 [facility] Medical Advice [address] [address] Shannan Byrne, [facility] [address] [facility] [place] [address] Social History Tobacco Use Types [...] and Family Twice a week 07/25/2018 Attends Gnosticism Services Not on file 07/25 Active Member [...] Sex Assigned at Female 04/20/2020 9:52 AM MANAGER OF HOUSEKEEPING Legal Sex Female 5:13 AM MANAGER OF HOUSEKEEPING Gender Identity Female 04/20/2020 9:52 AM MANAGER OF HOUSEKEEPING Sexual Orientation Not on file COVID-19 Exposure Response Date Recorded In the last 10 days, have yo u been in contact with someone who was confirmed or suspected to have Coronavirus/COVID-19? Unable to assess 06/08/2022 10:03 AM CDT documented as of this encounter Plan of Treatment Upcoming Encounters Date Type Department Care Team (Late st Contact Info) Description 02/06/2024 3:20 PM MANAGER OF HOUSEKEEPING Office Visit [address] [place] [address] Venus Abrams PA-C [address] [place] [address] documented as of this encounter Visit Diagnoses Not on filedocumented in this encounter Additional Health Concerns Assessment Noted Time PHQ-9 Depression Total Score: 10 023 11:40 AM CDT documented as of this encounter Care Teams Autism Specialist Relationship Specialty [place] [address] [place] [address] PCP - General Family Practice 08/10/17 09/12/23 Macrina Khan PA-C [address] [place] [address] PCP - General Family Medicine 09/13/23 [place] [address] [place] [address] Assigned PCP 07/14/18 [place] [address] [place] [address] Medical Oncology 02/19/20 [place] [address] [address] [facility] [address] [place] [address] Assigned Cancer Care Provider 04/04/20 11/03/22 Raeann Maldonado PA-C [address]200 [place] [address] Physician Rig Site Engineer Dermatology 04/27/21 Aliya Winn DO [address] [facility] [address] [place] [address] Assigned Heart and Vascular Provider 02/18/22 06/25/23 Lindy Barlow, RN Personal Advocate & Liaison (PAL) Family Medicine 06/05/22 07/04/23 Shannan Byrne [facility] [address] [place] [address] Pharmacist Pharmacist 06/08/22 Shannan Byrne [facility] [address] [id number] Assigned MTM Pharmacist 06/17/22 Shannan Byrne Medical Student 12/27/22 Mihaela Sylvester MD [address] [place] [address] asset analyst 01/01/23 Huong Soto, COMMERCIAL DRIVER PHARMACY INFORMATICS SPECIALIST [facility] [address] [facility] [address] [place] [phone] Nurse Practitioner Psychiatry 01/08/23 Karma Donnelly, COMMERCIAL DRIVER PHARMACY INFORMATICS SPECIALIST [address] [place], [place] [address] Nurse Practitioner Cardiovascular Disease 05/14/23 Amanda Yang, [facility] [address] [place] [address] Assigned Behavioral Health Provider 06/26/23 01/25/24 Faustina Trujillo MD [address] [place] [address] Assigned Heart and Vascular Provider 06/26/23 09/24/23 Mihaela Gill PA-C [address] [place], [place] [address] Assigned Heart and Vascular Provider 09/25/23 10/25/23 Shu Pratt PA-C [address] [place], [place] [address] Assigned Heart and Vascular Provider 10/26/23 11/25/23 Sharon Huang, THOMAS [address] [place] [address] Assigned Neuroscience Provider 11/26/23 Venus Abrams PA-C [address] [address] Assigned Heart and Vascular Provider 11/26/23 Mana Melgar LICSW [address], [address] [place] [address] Assigned Behavioral Health Provider 01/26/24 documented as of this encounter
--- OUTSIDE RECORDS SUMMARY | 2024-01-29 13:28 | XMS_ITS | Encounter Summary ---
Author Organization [place] Address [address] [place] [address] Care Team Providers Care Metal Caster Name Role Phone Ty Elizabeth MD Primary Care Provider Ty Elizabeth MD Unavailable [phone] Shu Mayfield MD Unavailable Shu Mayfield MD Unavailable [phone] Raeann Maldonado PA-C Unavailable Aliya Winn DO Unavailable Lindy Barlow RN Unavailable Unavailable Shannan Byrne [facility] Unavailable Shannan Byrne [facility] Unavailable Shannan Byrne Unavailable Unavailable Mihaela Sylvester MD Unavailable Huong Soto LITHODUPLICATOR OPERATOR LENS MOLDING EQUIPMENT OPERATOR Unavailable [phone] Karma Donnelly LITHODUPLICATOR OPERATOR LENS MOLDING EQUIPMENT OPERATOR Unavailable Amanda Yang SOLAR PHOTOVOLTAIC INSTALLER Unavailable Faustina Trujillo MD Unavailable + Macrina Khan PA-C Primary Care Provider Mihaela Gill PA-C Unavailable Shu Pratt PA-C Unavailable [phone] Sal Sharon Crawfordise [facility] Unavailable Venus Abrams PA-C Unavailable TaliaMana SOLAR PHOTOVOLTAIC INSTALLER Unavailable [phone] Encounter Details Date Type Department Care Team (Late st Contact Info) Description 03/13/2022 MyC Medical Advice [facility] [address] [place] [address] Ty [place] [id number] [place] [address] Social History Tobacco Use Types Packs/Day [...] and Family Twice a week 07/25/2018 Attends Confucianism Services Not on file 07/25 Active Member [...] Sex Assigned at Female 04/20/2020 9:52 AM SCIENTIST IMMUNOLOGY Legal Sex Female 5:13 AM SCIENTIST IMMUNOLOGY Gender Identity Female 04/20/2020 9:52 AM SCIENTIST IMMUNOLOGY Sexual Orientation Not on file COVID-19 Exposure Response Date Recorded In the last 10 days, have yo u been in contact with someone who was confirmed or suspected to have Coronavirus/COVID-19? No / Unsure 02/21/2022 11:00 AM SCIENTIST IMMUNOLOGY documented as of this encounter Plan of Treatment Upcoming Encounters Date Type Department Care Team (Late st Contact Info) Description 02/06/2024 3:20 PM SCIENTIST IMMUNOLOGY Office Visit [facility] [address] [place] [address] [address] [place] [address] Venus Abrams PA-C [address] [place] [address] documented as of this encounter Visit Diagnoses Not on filedocumented in this encounter Additional Health Concerns Assessment Noted Time PHQ-9 Depression Total Score: 3 02/24/20 22 1:56 PM SCIENTIST IMMUNOLOGY documented as of this encounter Care Teams Metal Caster Relationship Specialty [place] [address] [place] [address] PCP - General Family Practice 08/10/17 09/12/23 Macrina Khan PA-C [address] [place] [address] PCP - General Family Medicine 09/13/23 [place] [address] [place] [address] Assigned PCP 07/14/18 [place] [address] [place] [address] Medical Oncology 02/19/20 [place] [address] [address] [facility] [address] [place] [address] Assigned Cancer Care Provider 04/04/20 11/03/22 Raeann Maldonado PA-C [address] [place] [address] Physician Senior Physical Therapist Dermatology 04/27/21 Aliya Winn DO [address] [facility] [address] [place] [address] Assigned Heart and Vascular Provider 02/18/22 06/25/23 Lindy Barlow, RN Personal Advocate & Liaison (PAL) Family Medicine 06/05/22 07/04/23 Shannan Byrne [facility] [address] [place] [address] Pharmacist Pharmacist 06/08/22 Shannan Byrne [facility] [address] [id number] Assigned MTM Pharmacist 06/17/22 Shannan Byrne Medical Student 12/27/22 Mihaela Sylvester MD [address] [place] [address] paragliding instructor 01/01/23 Huong Soto, LITHODUPLICATOR OPERATOR LENS MOLDING EQUIPMENT OPERATOR [facility] [address] [facility] [address] [place] [phone] Nurse Practitioner Psychiatry 01/08/23 Karma Donnelly, LITHODUPLICATOR OPERATOR LENS MOLDING EQUIPMENT OPERATOR [address] [place], [place] [address] Nurse Practitioner Cardiovascular Disease 05/14/23 Amanda Yang, [facility] [address] [place] [address] Assigned Behavioral Health Provider 06/26/23 01/25/24 Faustina Trujillo MD [address] [place] [address] Assigned Heart and Vascular Provider 06/26/23 09/24/23 Mihaela Gill PA-C [address] [place], [place] [address] Assigned Heart and Vascular Provider 09/25/23 10/25/23 Shu Pratt PA-C [address] [place], [place] [address] Assigned Heart and Vascular Provider 10/26/23 11/25/23 Sharon Huang, THOMAS [address] [place] [address] Assigned Neuroscience Provider 11/26/23 Venus Abrams PA-C [address] [address] Assigned Heart and Vascular Provider 11/26/23 Mana Melgar LICSW [address], [address] [place] [address] Assigned Behavioral Health Provider 01/26/24 documented as of this encounter
--- OUTSIDE RECORDS SUMMARY | 2024-01-29 13:28 | XMS_ITS | Encounter Summary ---
Author Organization [place] Address [address] [place] [address] Care Team Providers Care Power House Control Room Operator Name Role Phone Ty Elizabeth MD Primary Care Provider Ty Elizabeth MD Unavailable [phone] Shu Mayfield MD Unavailable Shu Mayfield MD Unavailable [phone] Raeann Maldonado PA-C Unavailable Aliya Winn DO Unavailable Lindy Barlow RN Unavailable Unavailable Shannan Byrne [facility] Unavailable [phone] Shannan Byrne [facility] Unavailable Shannan Byrne Unavailable Unavailable Mihaela Sylvester MD Unavailable Huong Soto METAL MODEL MAKER SKID ADZER Unavailable [phone] Karma Donnelly METAL MODEL MAKER SKID ADZER Unavailable Amanda Yang CHECKER STOCKER Unavailable [phone] Faustina Trujillo MD Unavailable + Macrina Khan PA-C Primary Care Provider Mihaela Gill PA-C Unavailable [phone] Shu Pratt PA-C Unavailable [phone] Sal Sharonjose a Mack [facility] Unavailable Venus Abrams PA-C Unavailable [phone] TaliaMana CHECKER STOCKER Unavailable [phone] Encounter Details Date Type Department Care Team (Late st Contact Info) Description 07/27/2022 [facility] Medical Advice [address] [address] Shannan Byrne, [facility] [address] [facility] [place] [address] Social History Tobacco Use Types [...] and Family Twice a week 07/25/2018 Attends Mormonism Services Not on file 07/25 Active Member [...] Sex Assigned at Female 04/20/2020 9:52 AM FINANCIAL ASSISTANCE ADVISOR Legal Sex Female 5:13 AM FINANCIAL ASSISTANCE ADVISOR Gender Identity Female 04/20/2020 9:52 AM FINANCIAL ASSISTANCE ADVISOR Sexual Orientation Not on file COVID-19 Exposure Response Date Recorded In the last 10 days, have yo u been in contact with someone who was confirmed or suspected to have Coronavirus/COVID-19? No / Unsure 07/12/2022 12:19 PM CDT documented as of this encounter Plan of Treatment Upcoming Encounters Date Type Department Care Team (Late st Contact Info) Description 02/06/2024 3:20 PM FINANCIAL ASSISTANCE ADVISOR Office Visit [facility] [address] [place] [address] [address] [place] [address] Venus Abrams PA-C [address] [place] [address] documented as of this encounter Visit Diagnoses Not on filedocumented in this encounter Additional Health Concerns Assessment Noted Time PHQ-9 Depression Total Score: 10 023 11:40 AM CDT documented as of this encounter Care Teams Power House Control Room Operator Relationship Specialty [place] [address] [place] [address] PCP - General Family Practice 08/10/17 09/12/23 Macrina Khan PA-C [address] [place] [address] PCP - General Family Medicine 09/13/23 [place] [address] [place] [address] Assigned PCP 07/14/18 [place] [address] [place] [address] Medical Oncology 02/19/20 [place] [address] [facility] 27[address]98 [place] [address] Assigned Cancer Care Provider 04/04/20 11/03/22 Raeann Maldonado PA-C [address] [place] [address] [address] Services Dermatology 04/27/21 Aliya Winn DO [address] [facility] [address] [place], [place] [address] Assigned Heart and Vascular Provider 02/18/22 06/25/23 Lindy Barlow, RN Personal Advocate & Liaison (PAL) Family Medicine 06/05/22 07/04/23 Shannan Byrne [facility] [address] [place] [address] Pharmacist Pharmacist 06/08/22 Shannan Byrne [facility] [address] [place] [address] Assigned MTM Pharmacist 06/17/22 Shannan Byrne Medical Student 12/27/22 Mihaela Sylvester MD [address] [place] [address] animal pathologist 01/01/23 Huong Soto, METAL MODEL MAKER SKID ADZER [facility] [address] [facility] [address] [place] [address] Nurse Practitioner Psychiatry 01/08/23 Karma Donnelly, METAL MODEL MAKER SKID ADZER [address] [place], [place] [address] Nurse Practitioner Cardiovascular Disease 05/14/23 Amanda Yang, [facility] [address] [place] [address] Assigned Behavioral Health Provider 06/26/23 01/25/24 Faustina Trujillo MD [address] [place] [address] Assigned Heart and Vascular Provider 06/26/23 09/24/23 Mihaela Gill PA-C [address] [place], [place] [address] Assigned Heart and Vascular Provider 09/25/23 10/25/23 Shu Pratt PA-C [address] [place], [place] [address] Assigned Heart and Vascular Provider 10/26/23 11/25/23 Sharon Huang DNP [address] [place] [address] Assigned Neuroscience Provider 11/26/23 Venus Abrams PA-C [address] [address] Assigned Heart and Vascular Provider 11/26/23 Mana Melgar LICSW [address], [address] [place] [address] Assigned Behavioral Health Provider 01/26/24 documented as of this encounter
--- OUTSIDE RECORDS SUMMARY | 2024-01-29 13:28 | XMS_ITS | Encounter Summary ---
Author Organization [place] Address [address] [place] [address] Care Team Providers Care Registered Nursing Professor Name Role Phone Ty Elizabeth MD Primary Care Provider Ty Elizabeth MD Unavailable [phone] Shu [place]field MD Unavailable [phone] Raeann Maldonado PA-C Unavailable Shannan Byrne [facility] Unavailable Shannan Byrne [facility] Unavailable Shannan Byrne Unavailable Unavailable Mihaela Sylvester MD Unavailable [phone] Huong Soto NOODLE CATALYST MAKER MEDICAL SOCIAL WORKER Unavailable [phone] Karma Donnelly NOODLE CATALYST MAKER MEDICAL SOCIAL WORKER Unavailable Amanda Yang CDL B DRIVER Unavailable Faustina Trujillo MD Unavailable + Macrina KhanC Primary Care Provider Mihaela Gill PA-C Unavailable Shu PrattC Unavailable [phone] Sharon Huang DNP Unavailable Venus AbramsC Unavailable Mana Melgar CDL B DRIVER Unavailable Reason for Visit * Reason Onset Date Comments Medication Question 07/27/2023 Encounter Details Date Type Department Care Team (Late st Contact Info) Description 07/27/2023 Telephone [facility] Heart [facility] [address] [facility] [address] [place] [address] Faustina Trujillo MD [address] [facility] [address] [place] [address] Medication Question Social History Tobacco Use Types Packs/Day Years [...] week 06/20/2023 How often do you attend chur or scientologist services? More than 4 times per year 06/20/2023 Do you belong to any clubs o r organizations such as yazidi groups, unions, fraternal or athletic groups, or [...] Answer Date Recorded PHQ-2 Score 0 04/24/2023 [facility] - Occupational Stress [...] in an abandoned building, in an overnight long-term, or couch-surfing.) Yes 06/20/2023 Are you worried [...] Sex Assigned at Female 04/20/2020 9:52 AM TNT POWDER WORKER Legal Sex Female 5:13 AM TNT POWDER WORKER Gender Identity Female 04/20/2020 9:52 AM TNT POWDER WORKER Sexual Orientation Not on file documented as of this encounter Miscellaneous Notes * Telephone Encounter - HueCarissa - 07/27/2023 7:44 AM CDT [facility] Call Center Phone Message May a detailed message be left on voicemail: yes Reason for Call: Other: pt's change of meds where she had to be off her antianxiety meds to go on the Amiodarone. Pt is having a lot of anxiety and spoke w/a pharmacy nurse on 07.25.23 who upped her Buspirone to 3 times a day, but pt is still having a tough time. Transferred pt to Triage Nurse Aranza. Action Taken: Message routed [facility] cardio Travel Screening: Not Applicable Thank you! [facility] documented in this encounter Plan of Treatment Upcoming Encounters Date Type Department Care Team (Late st Contact Info) Description 02/06/2024 3:20 PM TNT POWDER WORKER Office Visit [facility] Heart [facility] [address] [place] [address] [address] [place] [address] Venus Abrams PA-C [address] [address] documented as of this encounter Visit Diagnoses Not on filedocumented in this encounter Additional Health Concerns Assessment Noted Time PHQ-9 Depression Total Score: 5 01/27/20 9:44 AM TNT POWDER WORKER documented as of this encounter Care Teams Registered Nursing Professor Relationship Specialty [place] [address] [place] [address] PCP - General Family Practice 08/10/17 09/12/23 Macrina Khan PA-C [address] [place] [address] PCP - General Family Medicine 09/13/23 [place] [address] [place] [address] Assigned PCP 07/14/18 [place] [address] [place] [address] Medical Oncology 02/19/20 Raeann Maldonado PA-C [address] [place] [address] Physician Cleat Maker Dermatology 04/27/21 Shannan Byrne [facility] [address] [place] [place] [id number] Pharmacist Pharmacist 06/08/22 Shannan Byrne [facility] [address] [place] [address] Assigned MTM Pharmacist 06/17/22 Shannan Byrne Medical Student 12/27/22 Mihaela Sylvester MD [address] [facility] [address] [place] [address] military technician 01/01/23 Huong Soto, NOODLE CATALYST MAKER MEDICAL SOCIAL WORKER [facility] [address] [facility] [address] [place] [address] Nurse Practitioner Psychiatry 01/08/23 Karma Donnelly APRN MEDICAL SOCIAL WORKER [address] [place] [address] Nurse Practitioner Cardiovascular Disease 05/14/23 Amanda Yang, [facility] [address] [place] [address] Assigned Behavioral Health Provider 06/26/23 01/25/24 Faustina Trujillo MD [address] [place] [address] Assigned Heart and Vascular Provider 06/26/23 09/24/23 Mihaela Gill PA-C [address] [place], [place] [address] Assigned Heart and Vascular Provider 09/25/23 10/25/23 Shu Pratt PA-C [address] [place] [address] Assigned Heart and Vascular Provider 10/26/23 11/25/23 Sharon Huang DNP [address] [place] [address] Assigned Neuroscience Provider 11/26/23 Venus Abrams PA-C [address] [place] [address] Assigned Heart and Vascular Provider 11/26/23 Mana Melgar, CDL B DRIVER [address], [address] [place], [place] [address] Assigned Behavioral Health Provider 01/26/24 documented as of this encounter
--- OUTSIDE RECORDS SUMMARY | 2024-01-29 13:28 | XMS_ITS | Encounter Summary ---
Author Organization [place] Address [address] [place] [address] Care Team Providers Care Soil Science Technical Officer Name Role Phone Ty Elizabeth MD Primary Care Provider Ty Elizabeth MD Unavailable [phone] Shu Mayfield MD Unavailable Shu Mayfield MD Unavailable [phone] Raeann Maldonado PA-C Unavailable Aliya Winn DO Unavailable Lindy Barlow RN Unavailable Unavailable Shannan Byrne [facility] Unavailable [phone] Shannan Byrne [facility] Unavailable Shannan Byrne Unavailable Unavailable Mihaela Sylvester MD Unavailable Huong Soto SLOT SHIFT SUPERVISOR BRANCH LENDING OFFICER Unavailable [phone] Karma Donnelly SLOT SHIFT SUPERVISOR BRANCH LENDING OFFICER Unavailable Amanda Yang DYE LAB TECHNICIAN Unavailable Faustina Trujillo MD Unavailable + Macrina Khan PA-C Primary Care Provider [phone] Mihaela Gill PA-C Unavailable [phone] Suh Pratt PA-C Unavailable Sal Sharonjose a Mack [facility] Unavailable Venus Abrams PA-C Unavailable Talia Mana DYE LAB TECHNICIAN Unavailable Encounter Details Date Type Department Care Team (Late st Contact Info) Description 07/20/2022 MyC Medical Advice [facility] [address] [place] [address] Amanda Yang, DYE LAB TECHNICIAN [address] [place] [address] Social History Tobacco Use Types Packs/Day [...] and Family Twice a week 07/25/2018 Attends Holiness Services Not on file 07/25 Active Member [...] Sex Assigned at Female 04/20/2020 9:52 AM SIGNING AGENT Legal Sex Female 5:13 AM SIGNING AGENT Gender Identity Female 04/20/2020 9:52 AM SIGNING AGENT Sexual Orientation Not on file COVID-19 Exposure Response Date Recorded In the last 10 days, have yo u been in contact with someone who was confirmed or suspected to have Coronavirus/COVID-19? No / Unsure 07/12/2022 12:19 PM CDT documented as of this encounter Plan of Treatment Upcoming Encounters Date Type Department Care Team (Late st Contact Info) Description 02/06/2024 3:20 PM SIGNING AGENT Office Visit [address] [phone] Venus Abrams PA-C [address] [place] [address] documented as of this encounter Visit Diagnoses Not on filedocumented in this encounter Additional Health Concerns Assessment Noted Time PHQ-9 Depression Total Score: 10 023 11:40 AM CDT documented as of this encounter Care Teams Soil Science Technical Officer Relationship Specialty [place] [address] [place] [address] PCP - General Family Practice 08/10/17 09/12/23 Macrina Khan PA-C [address] [place] [address] PCP - General Family Medicine 09/13/23 [place] [address] [place] [address] Assigned PCP 07/14/18 [place] [address] [place] [address] Medical Oncology 02/19/20 [place] [address] [place] [address] [facility] [address]27 [place] [address] Assigned Cancer Care Provider 04/04/20 11/03/22 Raeann Maldonado PA-C [address] [place] [address] Physician Safety Manager Dermatology 04/27/21 Aliya Winn DO [address] [facility] [address] [place], [place] [address] Assigned Heart and Vascular Provider 02/18/22 06/25/23 CainLindy dey, RN Personal Advocate & Liaison (PAL) Family Medicine 06/05/22 07/04/23 Shannan Byrne [facility] [address] [place] [address] Pharmacist Pharmacist 06/08/22 Shannan Byrne [facility] [address] [id number] Assigned MTM Pharmacist 06/17/22 Shannan Byrne Medical Student 12/27/22 Mihaela Sylvester MD [address] [facility] [address] [place] [address] telephone sterilizer 01/01/23 Huong Soto, SLOT SHIFT SUPERVISOR BRANCH LENDING OFFICER [facility] [address] [facility] [address] [place] [address] Nurse Practitioner Psychiatry 01/08/23 Karma Donnelly, SLOT SHIFT SUPERVISOR BRANCH LENDING OFFICER [address] [place] [address] Nurse Practitioner Cardiovascular Disease 05/14/23 Amanda Yang, [facility] [address] [place] [address] Assigned Behavioral Health Provider 06/26/23 01/25/24 Faustina Trujillo MD [address] [place] [address] Assigned Heart and Vascular Provider 06/26/23 09/24/23 Mihaela Gill PA-C [address] [place] [address] Assigned Heart and Vascular Provider 09/25/23 10/25/23 Shu Prtat PA-C [address] [place], [place] [address] Assigned Heart and Vascular Provider 10/26/23 11/25/23 Sharon Huang, [address] [place] [address] Assigned Neuroscience Provider 11/26/23 Venus Abrams PA-C [address] [address] Assigned Heart and Vascular Provider 11/26/23 Mana Melgar LICSW [address], [address] [place] [address] Assigned Behavioral Health Provider 01/26/24 documented as of this encounter
--- OUTSIDE RECORDS SUMMARY | 2024-01-29 13:28 | XMS_ITS | Encounter Summary ---
Author Organization [facility] Address [address] [place] [address] Care Team Providers Care Machine Rigger Name Role Phone Ty Elizabeth MD Primary Care Provider Ty Elizabeth MD Unavailable [phone] Shu Mayfield MD Unavailable Shu Mayfield MD Unavailable [phone] Dmitriy Tavarez MD Unavailable [phone] Raeann Maldonado PA-C Unavailable Aliya Winn DO Unavailable Lindy Barlow RN Unavailable Unavailable Shannan Byrne [facility] Unavailable Shannan Byrne [facility] Unavailable Shannan Byrne Unavailable Unavailable Mihaela Sylvester MD Unavailable [phone] Huong Soto APRN DATE PULLER Unavailable Karma Donnelly DEVELOPMENT OFFICER DATE PULLER Unavailable [phone] Amanda Yang SPECIAL DEPUTY SHERIFF Unavailable Faustina Trujillo MD Unavailable + Macrina Khan PANupurC Primary Care Provider Mihaela Gill PAN[facility]C Unavailable Shu PrattC Unavailable [phone] Sal Sharonjose a Mack [facility] Unavailable Venus Abrams PA-C Unavailable Mana Melgar SPECIAL DEPUTY SHERIFF Unavailable [phone] Encounter Details Date Type Department Care Team (Late st Contact Info) Description 10/27/2021 [facility] Medical Advice [facility] [address] [place] [address] Ty Elizabeth [place] [id number] [place] [address] Social History Tobacco Use Types Packs/Day [...] and Family Twice a week 07/25/2018 Attends [employer] Not on file 07/25 Active Member [...] 07/25/2018 PHQ-2 Answer Date Recorded PHQ-2 Score 0 03/21/2021 Exercise Vital Sign Answer Date Recorde d [...] Sex Assigned at Female 04/20/2020 9:52 AM SERVICE PLANNER Legal Sex Female 5:13 AM SERVICE PLANNER Gender Identity Female 04/20/2020 9:52 AM SERVICE PLANNER Sexual Orientation Not on file COVID-19 Exposure Response Date Recorded In the last 10 days, have yo u been in contact with someone who was confirmed or suspected to have Coronavirus/COVID-19? Yes 10/29/2021 8:37 AM CDT documented as of this encounter Plan of Treatment Upcoming Encounters Date Type Department Care Team (Late st Contact Info) Description 02/06/2024 3:20 PM SERVICE PLANNER Office Visit [address] [place] [address] Venus Abrams PA-C [address] [place] [address] documented as of this encounter Visit Diagnoses Not on filedocumented in this encounter Additional Health Concerns Infection Onset Date Last Indicated Resolved Time COVID-19 10/22/2021 11/08/2021 11/08/2021 11:3 9 PM CDT Assessment Noted Time PHQ-9 Depression Total Score: 3 04/06/19 20 7:02 AM SERVICE PLANNER documented as of this encounter Care Teams Machine Rigger Relationship Specialty [place] [address] [place] [address] PCP - General Family Practice 08/10/17 09/12/23 Macrina Khan PA-C [address] [place] [phone] PCP - General Family Medicine 09/13/23 [place] [address] [place] [address] Assigned PCP 07/14/18 [place] [address] [place] [address] Medical Oncology 02/19/20 [place] [address] [place] [address] [address] [place] [address] Assigned Cancer Care Provider 04/04/20 11/03/22 [place] [address] [address] Assigned Musculoskeletal Provider 05/23/20 12/09/21 Raeann Maldonado PA-C [address] [place], [place] [id number] [facility] 04/27/21 Aliya Winn DO [address] [place] [address] Assigned Heart and Vascular Provider 02/18/22 06/25/23 Lindy Barlow, RN Personal Advocate & Liaison (PAL) Family Medicine 06/05/22 07/04/23 Shannan Byrne, [facility] [place] [address] Pharmacist Pharmacist 06/08/22 Shannan Byrne [facility] [address] [facility] [address] [place] [id number] Assigned MTM Pharmacist 06/17/22 Shannan Byrne Medical Student 12/27/22 Mihaela Sylvester MD [address] [place] [address] client finance analyst 01/01/23 Huong Soto, DEVELOPMENT OFFICER DATE PULLER [facility] [address] [place] [address] [address] [place] [phone] Nurse Practitioner Psychiatry 01/08/23 Karma Donnelly, DEVELOPMENT OFFICER DATE PULLER [address] [place], [place] [address] Nurse Practitioner Cardiovascular Disease 05/14/23 Amanda Yang, [facility] [address] [place], [place] [phone] Assigned Behavioral Health Provider 06/26/23 01/25/24 Faustina Trujillo MD [address] [place] [address] Assigned Heart and Vascular Provider 06/26/23 09/24/23 Mihaela Gill PA-C [address], [facility] [address] [place], [place] [address] Assigned Heart and Vascular Provider 09/25/23 10/25/23 Shu Pratt PA-C [address] [place] [address] Assigned Heart and Vascular Provider 10/26/23 11/25/23 Sharon Huang DNP [address] [place], [place] [address] Assigned Neuroscience Provider 11/26/23 Venus Abrams PA-C [address] [address] Assigned Heart and Vascular Provider 11/26/23 Mana Melgar LICSW [address], [address] [place] [address] Assigned Behavioral Health Provider 01/26/24 documented as of this encounter
--- OUTSIDE RECORDS SUMMARY | 2024-01-29 13:29 | XMS_ITS | Continuity of Care Document ---
Author Organization RYAN Padron [facility] Address [address] [place] [address] Care Team Providers Care Chief Chemist Name Role Phone [facility] PROVIDER VISIT NOTE OTTAWNY R LIUDMILA ZHANG Primary Care Provider BLAINE SHUKLA OTHER Unavailable Efren Hannah: Son/Blind Teacher Patient Designee Assessment Encounter Date Assessment Date Assessment LastModified by Organization Details LastModified Time 01/21/2024 01/21/2024 4Ms What Matters and Member Story: Jessica Hannah is an 88-year-old female residing at the [facility] since 10/12/2023 she previously [facility] She lived here with her spouse for 4 to 5 years, her spouse 2 years ago. She has noted some short-term deficits that have come on gradually, especially after her spouse's passing. She has 4 sons who participate in her health care and healthcare related decision making: Souleymane, Jayjay, Perez, and Jono. Souleymane lives in [place] but other sons are local. Medications: Polypharmacy concerns and plan to address high-risk medications: Multiple cardiac and psychotropic medication considerations Mobility: States increased weakness especially towards end of day Uses walker at times for long distances arcade No falls Mentation: Cognition: Cognitively intact, possibly some MCI Complex decision-making capacity: Has sons who assist Recent cognitive testing/scores: 11/27/23 SLUMS POLST: DNR/DNI selective Not available 01/21/2024 15:29:59 Plan of Treatment Reminders Order Date Submit Date Provider Last Modified By Organization Details Last Modified Time Details Appointments None record ed. Lab None record ed. Referral None record ed. Procedures None record ed. Surgeries None record ed. Imaging None record ed. Medication Orders None record ed. Patient TargetsNo targets recorded. Patient InstructionsNo instructions recorded. Reason for Referral None Reported. Problems Name Problem SNOMED Code Status Onset Date Resolution Date Notes Provider Name and Address Organization Details Recorded Time Gastroesoph ageal reflux disease without esophagitis 705745130 Active 2023 [address]os [address], [address], [place], [address], [place] - [facility] 4 11:53:17 Hypertensiv e heart disease without congestive heart failure 61869657 Active 2023 BIANKA Bustos [address], [address], [place], [address], [place] [facility] 4 11:53:27 Bradycardia 55051564 Active 2023 BIANKA Bustos [address] [place] [address], [address], [place], [address], [place] [facility] 4 11:53:01 Advance care planning Active 2023 BIANKA Bustos [address] [place] [address], [address], [place], [address], [place] [facility] 4 11:52:36 Recurrent major depressive episodes 872852294 Active 2023 BE ADVISED - this dx cannot be coded with bipolar disorder Tony carpio, [place] - [facility] 4 08:06:44 Generalized anxiety disorder 01979404 Active 2023 BIANKA Bustos [address], [address], [place], [address], [place] [facility] 4 11:53:34 Resting tremor 33986933 Active 2023 BIANKA Bustos [address], [address], [place], [address], [place] [facility] 4 11:54:29 Paroxysmal atrial fibrillatio n 273433381 Active 2023 BIANKA Bustos [address], [address], [place], [address], [place] [facility] 4 11:54:01 Muscle weakness 44769267 Active 2023 Gaviotalorena aHhnens, [facility] [address] [facility], [address], [place], [address], [place] [facility] 4 11:53:53 Bipolar II disorder 80522052 Active 2023 BE ADVISED - this dx cannot be coded with the MDD dx Tony carpio, [place] - [facility] 4 08:06:25 Minimal cognitive impairment 747804742 Active 2023 Gaviota Peralta, [facility] [address], [address], [place], [address], [place] [facility] 4 11:53:47 Hypothyroid ism 35043643 Active 2023 Gaviotalorena Hahnens, [facility] [address] [place] [address], [address], [place], [address], [place] [facility] 4 11:53:30 Loss of hair 209528577 Active 2023 Liudmila Carrier, [employer] [address] [place] [address], [address], [place], [address], [place] [facility] 4 14:00:18 Ascending aorta dilatation 195789611 Active 2023 Liudmila Carrier, [employer] [address] [place] [address], [address], [place], [address], [place] [facility] 4 15:30:40 Chronic kidney disease stage 3A 372291164 Active 2023 Liudmila Carrier, [employer] [address], [address], [place], [address], [place] [facility] 4 15:30:45 Lichen sclerosus of vulva 317672694 Active 2023 Liudmila Carrier, [employer] [address] [place] [address], [address], [place], [address], [place] [facility] 4 15:31:02 Problem Notes None recorded. Procedures Surgical History Date Name Laterality Status Provider Name and Address Organization Details Recorded Time 4 Medications Reviewed completed SIMEON Stern [facility], [address], [place], [address], [place] [facility] 12/30/2023 09:43:00 4 Medication List Present completed SIMEON Stern [address], [address], [place], [address], [place] [facility] 12/30/2023 09:43:00 4 Medications Reviewed completed SIMEON Stern [address], [address], [place], [address], [place] [facility] 12/02/2023 23:20:53 4 Medication List Present completed Liudmila Zhang CNP [address], [address], [place], [address], [place] [facility] 12/02/2023 23:20:53 4 Advanced Care Planning completed Liudmila Zhang CNP [address], [address], [place], [address], [place] [facility] 11/01/2023 13:56:33 4 Medications Reviewed completed Liudmila Zhang CNP [address] [place] [address], [address], [address], [place] [facility] 10/31/2023 16:28:35 4 Medication List Present bayron Zhang CNP [address], [address], [address], [place] [facility] 10/31/2023 16:28:35 Imaging Results None recorded. Procedure Notes None recorded. Medical Equipment None Reported. Allergies Allergen ID Allergen Name Allergen Category Reaction Reaction Severity Criticality Documentation Date Start Date Code Code System Note Provider Name and Address Organization Details Recorded Time 81086 Product containin g angiotens in-conver ting enzyme inhibitor (product) medicatio n cough Not available Not available 10/15/2023 97460 009 SNOMED Emanuel carpio, [place] - [facility] 4 16:32:29 [address]259 bupropion Not available nausea Not available Not available 10/15/2023 86271 RxNorm Emanuel carpio, [place] - [facility] 4 16:32:44 18008 codeine medicatio n nausea Not available Not available 10/15/2023 2670 RxNorm Emanuel carpio, [place] - [facility] 16:32:55 66618 Medicinal product containin g penicilli n and acting as antibacte rial agent (product) medicatio n nausea Not available Not available 10/15/2023 74834 05 SNOMED Emanuel carpio, [place] - [facility] 16:33:05 25594 shrimp allergeni c extract food itching Not available Not available 10/15/2023 79916 2 RxNorm diffi culty breat rene carpio, [place] - [facility] 16:33:33 Medications Name Sig Start Date Stop Date Status Note LastModified by Organization Details LastModified Time quetiapine 25 mg tablet 10/14 completed Not Available Not Available Not Available sodium chloride 5 % eye drops Instill 1 drop in both eyes daily at HS active Not Available Not Available No t Available buspirone 5 mg tablet 10/14 completed Not Available Not Available Not Available doxycycline hyclate 100 mg capsule 10/14 completed Not Available Not Available Not Available albuterol sulfate 2.5 mg/3 mL (0.083 %) solution for nebulizatio n INHALE 3 ML (2.5 MG) EVERY 4 TO 6 HOURS NEEDED FOR SHORTNESS OF BREATH OR FOR WHEEZE 10/14 completed Not Available Not Available Not Available amiodarone 200 mg tablet Take 1 tablet every day by oral route. active Not Available Not Available No t Available ondansetron HCl 4 mg tablet Take 1 tablet every 8 hours by oral route as needed. active Not Available Not Available No t Available atenolol 25 mg tablet Take 1 tab PO daily 12/25 completed Not Available Not Available Not Available clindamycin HCl 150 mg capsule 10/14 completed Not Available Not Available Not Available amlodipine 2.5 mg tablet 10/14 completed Not Available Not Available Not Available amlodipine 5 mg tablet Take 1 tablet every day by oral route. active Not Available Not Available No t Available ciprofloxac in 500 mg tablet 10/14 completed Not Available Not Available Not Available famotidine 20 mg tablet Take 1 tablet twice a day by oral route. active Not Available Not Available No t Available lorazepam 0.5 mg tablet Take 1 tab po every day at HS and 1 tab po every 8 hours PRN active Not Available Not Available No t Available benzonatate 100 mg capsule TAKE 1 CAP ORALLY THREE TIMES A DAY NEEDED FOR COUGH 10/14 completed Not Available Not Available Not Available divalproex ER 500 mg tablet,exte nded release 24 hr Take 1 tablet twice a day by oral route. 12/02 completed Not Available Not Available Not Available flecainide 50 mg tablet 10/14 completed Not Available Not Available Not Available clobetasol 0.05 % topical ointment 10/14 completed Not Available Not Available Not Available losartan 100 mg tablet Take 1 tablet every day by oral route. active Not Available Not Available No t Available atenolol 50 mg tablet Take 1 tablet every day by oral route. 10/31 completed Not Available Not Available Not Available levothyroxi ne 112 mcg tablet Take 1 tablet every day by oral route. active Not Available Not Available No t Available escitalopra m 10 mg tablet 10/14 completed Not Available Not Available Not Available divalproex ER 250 mg tablet,exte nded release 24 hr Take 1 tab PO BID 12/25 completed Not Available Not Available Not Available biotin Take 1 capsule PO daily active Not Available Not Available No t Available quetiapine 50 mg tablet 10/14 completed Not Available Not Available Not Available cholecalcif scarlett (vitamin D3) 25 mcg (1,000 unit) tablet Take 1 tablet every day by oral route. active Not Available Not Available No t Available melatonin 5 mg tablet Take 1-2 tabs po every HS PRN active Not Available Not Available No t Available Vios Aerosol Delivery System USE DIRECTED. 10/14 completed Not Available Not Available Not Available lurasidone 20 mg tablet Take 1 tablet every day by oral route in the evening. active Not Available Not Available No t Available Eliquis 5 mg tablet Take 1 tablet twice a day by oral route. active Not Available Not Available No t Available Vitals Date Recorded Body height Provider Name an d Address Organization Details Last Updated DateTime 01/21/2024 162.56 cm Liudmila Zhang CNP [address], [place], [address], [place] - [facility] 01/21/2024 15:27:46 Social History Question Answer Notes LastModified by Organizat ion Details LastModified Time Tobacco Smoking Status Never Smoker Liudmila Zhang CNP [address], [address], [place], [address], [place] - [facility] 12/31/2023 13:59:48 What Was The Date Of Your Most Recent Tobacco Screening? 12/31/2023 Information not available 12/31/2023 Do You Or Have You Ever Used Any Nicotine-free Cigarettes, Vape, Or Chewing Tobacco? No Information not available 12/31/2023 Do You Or Have You Ever Used Any Other Forms Of Tobacco Or Nicotine? No Information not available 12/31/2023 Sex: Unknown Functional Status None recorded. Mental Status None recorded. Family History Nothing Reported. Medical History No medical history recorded. Gynecological HistoryNo gynecological history recorded. Obstetrics History GPAL:G 0 P 0 0 0 0 Immunizations Vaccine Type Date Status Provider Name and Address Organization Details Recorded Time COVID-19, mRNA, LNP-S, PF, 30 mcg/0.3 mL dose 04/27/2020 completed Emanuel Rucker null, [place] - [facility] 10/15/2023 16:41:53 COVID-19, mRNA, LNP-S, PF, 30 mcg/0.3 mL dose 05/18/2020 completed Emanuel Rucker null, [place] - [facility] 10/15/2023 16:41:55 COVID-19, mRNA, LNP-S, PF, 30 mcg/0.3 mL dose 01/28/2021 completed Emanuel Rucker null, [place] - [facility] 10/15/2023 16:41:58 COVID-19, mRNA, LNP-S, PF, 30 mcg/0.3 mL dose 07/05/2021 completed Jackeline-Rhea [place] null, [place] - [facility] 10/15/2023 16:42:01 COVID-19, mRNA, LNP-S, PF, 30 mcg/0.3 mL dose 12/14/2021 completed Jackeline-Rhea [place] null, [place] - [facility] 10/15/2023 16:42:04 COVID-19, mRNA, LNP-S, PF, 30 mcg/0.3 mL dose 08/09/2022 completed Jackeline-Rhea [place] null, [place] [facility] 10/15/2023 16:42:08 COVID-19, mRNA, LNP-S, PF, ulises-sucrose, 30 mcg/0.3 mL 12/28/2022 completed Jackeline-Rhea [place], [place] [facility] 10/15/2023 16:42:15 Influenza, adjuvanted, quadrivalent, PF 12/07/2022 completed Jackeline-Rhea [place], [place] [facility] 10/15/2023 16:42:22 Pneumococcal conjugate PCV 13 01/05/2015 completed Jackeline-Rhea [place], [place] [facility] 10/15/2023 16:42:32 Pneumococcal conjugate PCV 13 01/11/2018 completed Jackeline-Rhea [place], [place] [facility] 10/15/2023 16:42:37 Past Encounters Encounter ID Performer Location Encounter Start Date Encounter Closed Date Diagnosis/Indication Diagnosis SNOMED-CT Code Diagnosis ICD10 Code [id number] Liudmila Carrier, DISTRICT [employer] [facility] [address] [facility] [place] [address] 12/31/2023 12:33:39 01/01/2024 08:44:16 Paroxysmal atrial fibrillation 202668848 I48.0 Bipolar II disorder 8322 5003 F31.81 Generalize d anxiety disorder 65491208 F41.1 Recurrent major depressive episodes 603987168 F33.9 Resting tremor 73362053 G25.2 Minimal co gnitive impairment 203988641 R41.89 Gastroesop hageal reflux disease without esophagitis 615612310 K21.9 Hypothyroidism 97310449 E03.9 Hypertensi ve heart disease without congestive heart failure 25676967 I11.9 Bradycardia 18295572 R00 .1 Ascending aorta dilatation 100117141 I77.810 Chronic ki dney disease stage 3A 360055247 N18.31 Loss of hair 903089724 L 65.9 [id number] Liudmila Zhang, [facility] [address] [place] [address] 01/21/2024 12:02:18 01/21/2024 15:40:31 Lichen sclerosus of vulva 401092360 N90.4 Health Concerns Section Related Observation LastModified by Organization Detai ls LastModified Time None Recorded Concern Status LastModified by Organization Details LastModified Time None Recorded Payers Encounter Date Sequence Insurance Name Policy Number Policy Gomez Covered Member ID Gomez Member ID Guarantor Name 01/21/2024 1 [place]) [id number] Jessica Hannah [id number] Jessica Hannah Notes Date Note Type Note Provider Name and Address Organization Details Recorded Time 01/21/2024 text/html Jessica Hannah is an 87-year-old female residing at the [facility] since 10/12/2023 with a PMH of atrial fibrillation, bipolar disorder, hypertension, anxiety, depression, lumbago with sciatica, peripheral vascular disease, insomnia. She is seen today for an scute PCP visit. She is seen in her apartment. Is pleasant, alert, and in NAD. Seen today due to nursing reporting rashy, itchy, pimple-like lesions to groin. She states that these have improved since last week. Member seen via {{Face to Face for an initial visit and assessment by a [facility] clinician.* Video and audio for an initial visit and assessment by a [facility] clinician. The Member verbally consented to the visit held via Video and audio. The Member understands the limitations of not being physically examined and that we may not be able to address all issues by video and audio.}}Member presents own story today with additional information provided by: nursing Clinician Located: {{Clinician Home [facility] Office Member's Home*}}Member physically located at: Member's Home. Time: I spent 25 minutes taking care of this patient with >50% of time spent in counseling and coordination of care. Disclaimer: Voice recognition software was utilized to assist with this documentation. There may be accidental typographical errors. Liudmila Zhang CNP [address] [place] [address], [address], [place], [address], [place] - [facility] 01/21/2024 15:38:35 OBGyn Episode No OBEpisode recorded.
--- OUTSIDE RECORDS SUMMARY | 2024-01-29 13:29 | XMS_ITS | Encounter Summary ---
Author Organization [place] Address [address] [facility] [place] [place] [address] Care Team Providers Care Imcu Nurse Name Role Phone Ty Elizabeth MD Primary Care Provider Ty Elizabeth MD Unavailable [phone] Laura Monroe RN Unavailable Unavailable Woody Francis MD Unavailable Shu Mayfield MD Unavailable Shu Mayfield MD Unavailable Latoya Brice RN Unavailable Unavaila Dmitriy Short MD Unavailable Laura Monroe RN Unavailable Unavailable Raeann Maldonado PA-C Unavailable Aliya Winn DO Unavailable [phone] Lindy Barlow RN Unavailable Unavailable Shannan Byrne [facility] Unavailable Shannan Byrne [facility] Unavailable Shannan Byrne Unavailable Unavailable Mihaela Sylvester MD Unavailable Brittany Huong Aj FILLING STATION EQUIPMENT MECHANIC INSIDE B2B SALES Unavailable Karma Donnelly FILLING STATION EQUIPMENT MECHANIC INSIDE B2B SALES Unavailable [phone] Amanda Yang INDUSTRIAL RELATIONS ANALYST Unavailable [phone] Faustina Trujillo MD Unavailable + Macrina Khan PA-C Primary Care Provider [phone] Mihaela Gill-C Unavailable Shu Pratt PA-C Unavailable [phone] Sharon Huang DNP Unavailable Venus Abrams PA-C Unavailable [phone] Mana Melgar INDUSTRIAL RELATIONS ANALYST Unavailable [phone] Encounter Details Date Type Department Care Team (Late st Contact Info) Description 08/12/[address] [facility] [id number] [place] [address] [place] [id number] [place] [address] Social History Tobacco Use Types Packs/Day [...] and Family Twice a week 07/25/2018 Attends Yarsanism Services Not on file 07/25 Active Member of Clubs or Organizations Yes 07/25/2018 Attends Club or Organization Meetings Not on sukih e 07/25/2018 Marital Status Not on file 07/25/2018 AUDIT-C Answer Date Recorded Frequency of Alcohol Consumption 2-4 times a sun07/25/2018 Average Number of Drinks Not on file 019 Frequency of Binge Drinking Not on file 07/04 Overall Financial Resource Strain (CARDIA) Answe r Date Recorded Difficulty of Paying Living Expenses Somewhat charles rd 07/25/2018 PHQ-2 Answer Date Recorded PHQ-2 Score 1 04/25/2019 Exercise Vital Sign Answer Date Recorde d [...] Sex Assigned at Female 04/20/2020 9:52 AM DIESEL AUTOMOTIVE TECHNICIAN Legal Sex Female 5:13 AM DIESEL AUTOMOTIVE TECHNICIAN Gender Identity Female 04/20/2020 9:52 AM DIESEL AUTOMOTIVE TECHNICIAN Sexual Orientation Not on file COVID-19 Exposure Response Date Recorded In the last month, have you been in contact with someone who was confirmed or suspected to have Coronavirus / COVID-19? No / Unsure 08/15/2019 9:43 AM CDT documented as of this encounter Miscellaneous Notes * Telephone Encounter - Hilaria Christine MA - 08/12/2019 3:07 PM CDT Pt scheduled appointments Hilaria OCHOA * Telephone Encounter - Ty Elizabeth MD - 08/12/2019 1:15 PM CDT Sure F2F OK She should have lab only sooner Urine lab futured Ty Elizabeth MD * Telephone Encounter - Gege Solares - 08/12/2019 10:45 AM CDT Pt called and wants to know if it's possible for her to make an appt with Dr. Elizabeth to talk about her results from her Echo and NUC from 05/13. Pt also stated that she feel like she may have a bladder infection. Pt does not want a virtual visit. Please advise [phone] THONY Solares Patient Pie Crust Mixer documented in this encounter Plan of Treatment Upcoming Encounters Date Type Department Care Team (Late st Contact Info) Description 02/06/2024 3:20 PM DIESEL AUTOMOTIVE TECHNICIAN Office Visit [facility] [address] [place] [address] Venus Abrams PA-C [address] [place], [place] [address] documented as of this encounter Results * Urine Culture Aerobic Bacterial (08/13/2019 1:37 PM CDT) Specimen Description Midstream Urine INFECTIOUS DISEASES [facility]ST[facility] LABORATORY Culture Micro >100,000 colonies/mL mixed urogenital juan pablo Susceptibility testing not routinely done 08/14/2019 2:41 PM CDT INFECTIOUS DISEASES [facility]AGNOSTIC LABORATORY Examination of midstream urine specimen (procedure) 08/13/2019 1:37 PM CDT 08/13/2019 1:38 PM CDT us Ty Elizabeth MD LAB - MICRO GENERAL ORDERABLES Final Result INFECTIOUS DISEASES DIAGNOSTIC LABORATORY [address] [place] [address], [facility] * (ABNORMAL) *UA reflex to Microscopic and Culture ([place] and [facility] (except [place] and [place]) (08/13/2019 1:37 PM CDT) Color Urine Yellow 08/13/2019 2:00 PM CDT [facility] Appearance Urine Clear 08/13/19 20 2:00 PM CDT [facility] Glucose Urine Negative NEG^Negat darwin mg/dL 08/13/2019 2:00 PM CDT [facility] Bilirubin Urine Negative NEG^Negat darwin 08/13/2019 2:[address] [facility] Ketones Urine Negative NEG^Negat darwin mg/dL 08/13/2019 2:[address] [facility] Specific [place] Urine 1.020 1.003 - 1.035 08/13/2019 2:[address] [facility] Blood Urine Negative NEG^Negat darwin 08/13/2019 2:[address] [facility] pH Urine 5.5 5.0 - 7.0 pH 08/13/2019 2:[address] [facility] Protein Albumin Urine Negative NEG^Negat darwin mg/dL 08/13/2019 2:[address] [facility] Urobilinogen Urine 0.2 0.2 - 1.0 EU/dL 08/13/2019 2:[address] [facility] Nitrite Urine Negative NEG^Negat darwin 08/13/2019 2:[address] [facility] Leukocyte Esterase Urine Small(A) NEG^Negat darwin 08/13/2019 2:[address] [facility] Source Midstream Urine 08/13/2019 1:[address] [facility] Examination of midstream urine specimen (procedure) 08/13/2019 1:37 PM CDT 08/13/2019 1:38 PM CDT us Ty Elizabeth MD LAB - URINE ORDERABLES Final Re sult Performing Organization Address City/State/[facility] Co de Phone Number [facility] [address] [address] documented in this encounter Visit Diagnoses Diagnosis Dysuria- Primary documented in this encounter Additional Health Concerns Infection Onset Date Last Indicated Resolved Time Rule Out COVID-19 11/19/2020 11/19/2020 11/20/2020 12:53 PM CDT COVID-19 11/19/2020 11/19/2020 12/10/2020 11:3 9 PM CDT COVID-19 10/22/2021 11/08/2021 11/08/2021 11:3 9 PM CDT Assessment Noted Time PHQ-9 Depression Total Score: 3 04/06/19 20 7:02 AM DIESEL AUTOMOTIVE TECHNICIAN documented as of this encounter Care Teams Imcu Nurse Relationship Specialty [place] [address] [place] [address] PCP - General Family Practice 08/10/17 09/12/23 Macrina Khan PA-C [address] [place] [address] PCP - General Family Medicine 09/13/23 [place] [address] [place] [address] Assigned PCP 07/14/18 Laura Monroe RN Personal Advocate & Liaison (PAL) 11/14/19 02/07/21 Woody Francis MD [address] [place] [address] Assigned Heart and Vascular Provider 12/26/19 10/30/20 Shu Mayfield MD [address] [place] [address] Medical Oncology 02/19/20 [place] [id number] [place] [address] Assigned Cancer Care Provider 04/04/20 11/03/22 Latoya Brice, RN Specialty Transcription Typist Oncology 05/06/20 07/19/21 [place] [address] 6[address] Assigned Musculoskeletal Provider 05/23/20 12/09/21 Laura Monroe, LETICIA Personal Advocate & Liaison (PAL) 02/08/21 04/07/21 Raeann Maldonado PA-C [address] [place] [address] Physician Gas Appliance Adjuster Dermatology 04/27/21 Aliya Winn DO [address] [place] [address] Assigned Heart and Vascular Provider 02/18/22 06/25/23 Lindy Barlow RN Personal Advocate & Liaison (PAL) Family Medicine 06/05/22 07/04/23 Shannan Byrne, [facility] [address] [place] [id number] Pharmacist Pharmacist 06/08/22 [facility] [address] [place] [id number] Assigned MTM Pharmacist 06/17/22 Shannan Byrne Medical Student 12/27/22 Mihaela Sylvester MD [address] [place] [address] rn homecare 01/01/23 Huong Soto APRN INSIDE B2B SALES [address] [place] [phone] Nurse Practitioner Psychiatry 01/08/23 Karma Donnelly, FILLING STATION EQUIPMENT MECHANIC INSIDE B2B SALES [address] [place] [id number] Nurse Practitioner Cardiovascular Disease 05/14/23 Amanda Yang [facility] [address] [place] [address] Assigned Behavioral Health Provider 06/26/23 01/25/24 Faustina Trujillo MD [address] [place] [address] Assigned Heart and Vascular Provider 06/26/23 09/24/23 Mihaela Gill PA-C [address] [place] [address] Assigned Heart and Vascular Provider 09/25/23 10/25/23 Shu Pratt PA-C [address] [place] [address] Assigned Heart and Vascular Provider 10/26/23 11/25/23 Sharon Huang DNP [address] [place] [address] Assigned Neuroscience Provider 11/26/23 Venus Abrams PA-C [address] [place] [address] Assigned Heart and Vascular Provider 11/26/23 Mana Melgar [facility] [address], [address] [place] [address] Assigned Behavioral Health Provider 01/26/24 documented as of this encounter
--- OUTSIDE RECORDS SUMMARY | 2024-01-29 13:29 | XMS_ITS | Encounter Summary ---
Author Organization [place] Address [address] [place] [address] Care Team Providers Care Change Agent Name Role Phone Smiley Raymundo MD Primary Care Provider Ty Elizabeth MD Primary Care Provider Ty Elizabeth MD Unavailable [phone] Ty Elizabeth MD Unavailable Raeann Donnelly MD Unavailable Ty Elizabeth MD Unavailable [phone] Laura Monroe RN Unavailable Unavailable Woody Francis MD Unavailable Shu Mayfield MD Unavailable [phone] Shu Mayfield MD Unavailable [phone] Latoya Brice RN Unavailable Unavaila Dmitriy Short MD Unavailable Laura Monroe RN Unavailable Unavailable Raeann Maldonado PA-C Unavailable Aliya Winn Unavailable [phone] Lindy Barlow RN Unavailable Unavailable Shannan Byrne [facility] Unavailable [phone] Shannan Byrne [facility] Unavailable [phone] Shannan Byrne Unavailable Unavailable Mihaela Sylvester MD Unavailable [phone] Huong Soto MECHANICAL INSPECTOR DESKIDDING MACHINE OPERATOR Unavailable [phone] Karma Donnelly MECHANICAL INSPECTOR DESKIDDING MACHINE OPERATOR Unavailable [phone] Amanda Yang ENGINE MECHANIC Unavailable [phone] Faustina Trujillo MD Unavailable + Macrina Khan PA-C Primary Care Provider [phone] Mihaela Gill PA-C Unavailable [phone] Shu Pratt PA-C Unavailable [phone] Sharon Huang [facility] Unavailable [phone] Venus Abrams PA-C Unavailable [phone] Mana Melgar ENGINE MECHANIC Unavailable [phone] Reason for Visit * Reason Onset Date Comments Medication Refill 06/25/2017 ranitidine (ZA NTAC) 150 MG tablet Encounter Details Date Type Department Care Team (Late st Contact Info) Description 06/25/[address], [address] [place] [address] Srinivas Pugh PA-C [address] [place] [address] Medication Refill (ranitidine (ZANTAC) 150 MG tablet) Social History Tobacco Use Types Packs/Day Years Used Date Smoking Tobacco: Never Smokeless Tobacco: Never Alcohol Use Standard Drinks/Week Comments Yes 0 (1 standard drink = 0.6 oz pur e alcohol) occas Comments No Sex and Gender Information Value Date Recorded Sex Assigned at Female 04/20/2020 9:52 AM SENIOR MEDIA BUYER Legal Sex Female 5:13 AM SENIOR MEDIA BUYER Gender Identity Female 04/20/2020 9:52 AM SENIOR MEDIA BUYER Sexual Orientation Not on file documented as of this encounter Miscellaneous Notes * Telephone Encounter - Myranda Hu RN - 06/25/2017 4:37 PM CDT Prescription approved per [facility] Refill Protocol. Myranda Hu RN * Telephone Encounter - Buffy Dunn - 06/25/2017 12:12 PM CDT Requested Prescriptions Pending Prescriptions Disp Refills ??? ranitidine (ZANTAC) 150 MG tablet [Pharmacy Med Name: RANITIDINE HCL 150MG TABS] 180 tablet 3 Last Written Prescription Date: 04/07/16 Last Fill Quantity: 180, # refills: 3 Last Office Visit: 06/11/2017 Future Office Visit: Sig: TAKE ONE TABLET BY MOUTH TWO TIMES A DAY H2 Blockers Protocol Passed 06/25/2017 11:15 AM Passed - Patient is age 12 or older Passed - Recent (12 mo) or future (30 days) visit within the authorizing provider's specialty Patient had office visit in the last 12 months or has a visit in the next 30 days with authorizing provider or within the authorizing provider's specialty. See Patient Info tab in inbasket, or Choose Columns in Meds & Orders section of the refill encounter. documented in this encounter Plan of Treatment Upcoming Encounters Date Type Department Care Team (Late st Contact Info) Description 02/06/2024 3:20 PM SENIOR MEDIA BUYER Office Visit [facility] [address] [facility] [address] [place] [address] Venus Abrams PA-C [address] [place] [address] documented as of this encounter Visit Diagnoses Diagnosis Gastroesophageal reflux disease without esophagitis Esophageal reflux documented in this encounter Additional Health Concerns Infection Onset Date Last Indicated Resolved Time Rule Out COVID-19 11/19/2020 11/19/2020 11/20/2020 12:53 PM CDT COVID-19 11/19/2020 11/19/2020 12/10/2020 11:3 9 PM CDT COVID-19 10/22/2021 11/08/2021 11/08/2021 11:3 9 PM CDT Assessment Noted Time PHQ-9 Depression Total Score: 7 12/05/19 11:31 AM CDT documented as of this encounter Care Teams Change Agent Relationship Specialty Start Date End Date Smiley Raymundo MD PCP - General Family Practice 05/31/15 08/09/17 [place] [address] [place] [address] PCP - General Family Practice 08/10/17 09/12/23 [place] [address] [place] [address] PCP - Assigned PCP 08/12/17 05/07/18 Macrina Khan PA-C [address] [place] [address] PCP - General Family Medicine 09/13/23 [place] [address] [place], [place] [phone] Assigned PCP 08/12/17 06/15/18 Raeann Donnelly MD [address] [address] Assigned PCP 06/16/18 07/13/18 [place] [address] [place] [address] Assigned PCP 07/14/18 Laura Monroe, RN Personal Advocate & Liaison (PAL) 11/14/19 02/07/21 Woody Francis MD [address] [place] [address] Assigned Heart and Vascular Provider 12/26/19 10/30/20 Shu Mayfield MD [address] [place] [address]64[address] Medical Oncology 02/19/20 [place] [address] [place] [id number] [place] [address] Assigned Cancer Care Provider 04/04/20 11/03/22 Latoya Brice, RN Specialty After School Program Director Oncology 05/06/20 07/19/21 [place] [address] [address] Assigned Musculoskeletal Provider 05/23/20 12/09/21 Laura Monroe, RN Personal Advocate & Liaison (PAL) 02/08/21 04/07/21 Raeann Maldonado PA-C [address] [place], [place] [phone] Physician Student Driving Instructor Dermatology 04/27/21 Aliya Winn DO [address] [place], [place] [address] Assigned Heart and Vascular Provider 02/18/22 06/25/23 CainLindy, RN Personal Advocate & Liaison (PAL) Family Medicine 06/05/22 07/04/23 Shannan Byrne, [facility] [address] [place] [address] Pharmacist Pharmacist 06/08/22 [facility] [address] [place] [address] Assigned MTM Pharmacist 06/17/22 Shannan Byrne Medical Student 12/27/22 Mihaela Sylvester MD [address] [place] [address] polysomnography technologist 01/01/23 Huong Soto, MECHANICAL INSPECTOR DESKIDDING MACHINE OPERATOR [address] [phone] Nurse Practitioner Psychiatry 01/08/23 Karma Donnelly, MECHANICAL INSPECTOR DESKIDDING MACHINE OPERATOR [address] [place] [address] Nurse Practitioner Cardiovascular Disease 05/14/23 Amanda Yang, [facility] [address] [place] [address] Assigned Behavioral Health Provider 06/26/23 01/25/24 Faustina Trujillo MD [address] [place] [address] Assigned Heart and Vascular Provider 06/26/23 09/24/23 Mihaela Gill PA-C [address] [place] [address] Assigned Heart and Vascular Provider 09/25/23 10/25/23 Shu Pratt PA-C [address] [place] [address] Assigned Heart and Vascular Provider 10/26/23 11/25/23 Sharon Huang DNP [address] [place] [address] Assigned Neuroscience Provider 11/26/23 Venus Abrams PA-C [address] [place] [address] Assigned Heart and Vascular Provider 11/26/23 Mana Melgar LICSW [address], [address] [place] [address] Assigned Behavioral Health Provider 01/26/24 documented as of this encounter
--- OUTSIDE RECORDS SUMMARY | 2024-01-29 13:29 | XMS_ITS | Encounter Summary ---
Author Organization [place] Address [address] [facility] [address] Care Team Providers Care Military Technology Manager Name Role Phone Ty Elizabeth MD Primary Care Provider Ty Elizabeth MD Unavailable [phone] Laura Monroe RN Unavailable Unavailable Woody Francis MD Unavailable Shu Mayfield MD Unavailable Shu Mayfield MD Unavailable Latoya Brice RN Unavailable Unavaila Dmitriy Short MD Unavailable Laura Monroe RN Unavailable Unavailable Raeann Maldonado PA-C Unavailable Aliya Winn DO Unavailable [phone] Lindy Barlow RN Unavailable Unavailable Shannan Byrne [facility] Unavailable Shannan Byrne [facility] Unavailable [phone] Shannan Byrne Unavailable Unavailable Mihaela Sylvester MD Unavailable Brittany Huong Aj SOLUTIONS CONSULTANT BOTTLE HOUSE QUALITY CONTROL TECHNICIAN Unavailable Karma Donnelly SOLUTIONS CONSULTANT BOTTLE HOUSE QUALITY CONTROL TECHNICIAN Unavailable [phone] Amanda Yang ROCK LOADER Unavailable Faustina Trujillo MD Unavailable + Macrina Khan PA-C Primary Care Provider Mihaela Gill-C Unavailable Shu Pratt PA-C Unavailable [phone] Sharon Huang [facility] Unavailable Venus Abrams PA-C Unavailable [phone] Mana Melgar ROCK LOADER Unavailable [phone] Reason for Visit * Reason Comments Medication Refill Encounter Details Date Type Department Care Team (Late st Contact Info) Description 02/04/2020 Refill [facility] [address] [place] [address] Ty Elizabeth [place] [address] [place] [address] Medication Refill Social History Tobacco Use [...] and Family Twice a week 07/25/2018 Attends [employer] Not on file 07/25 Active Member [...] PHQ-2 Answer Date Recorded PHQ-2 Score 0 12/29/2019 Exercise Vital Sign Answer Date Recorde d [...] Sex Assigned at Female 04/20/2020 9:52 AM COUNTER INTELLIGENCE TECHNICIAN Legal Sex Female 5:13 AM COUNTER INTELLIGENCE TECHNICIAN Gender Identity Female 04/20/2020 9:52 AM COUNTER INTELLIGENCE TECHNICIAN Sexual Orientation Not on file documented as of this encounter Miscellaneous Notes * Telephone Encounter - Skye Mott RN - 02/05/2020 12:08 PM COUNTER INTELLIGENCE TECHNICIAN BP Readings from Last 3 Encounters: 02/04/20 126/76 12/29/19 (!) 158/80 11/17/19 136/70 Prescription approved per [facility], [facility] or [facility] refill protocol. Skye Garcia - Registered Nurse [facility] Diagnostic Services TER INTELLIGENCE TECHNICIAN documented in this encounter Plan of Treatment Upcoming Encounters Date Type Department Care Team (Late st Contact Info) Description 02/06/2024 3:20 PM COUNTER INTELLIGENCE TECHNICIAN Office Visit [facility] [place] [address] [facility] [address] [place] [address] Venus Abrams PA-C [address] [place] [address] documented as of this encounter Visit Diagnoses Diagnosis Essential hypertension, benign documented in this encounter Additional Health Concerns Infection Onset Date Last Indicated Resolved Time Rule Out COVID-19 11/19/2020 11/19/2020 11/20/2020 12:53 PM CDT COVID-19 11/19/2020 11/19/2020 12/10/2020 11:3 9 PM CDT COVID-19 10/22/2021 11/08/2021 11/08/2021 11:3 9 PM CDT Assessment Noted Time PHQ-9 Depression Total Score: 3 04/06/19 7:02 AM COUNTER INTELLIGENCE TECHNICIAN documented as of this encounter Care Teams Military Technology Manager Relationship Specialty [place] [address] [place] [address] PCP - General Family Practice 08/10/17 09/12/23 Macrina Khan PA-C [address] [place] [address] PCP - General Family Medicine 09/13/23 [place] [address] [place] [address] Assigned PCP 07/14/18 Laura Monroe, RN Personal Advocate & Liaison (PAL) 11/14/19 02/07/21 Woody Francis MD [address] [place] [address] Assigned Heart and Vascular Provider 12/26/19 10/30/20 Shu Mayfield MD [address] [place] [id number] Medical Oncology 02/19/20 [place] [address] [address] [facility] [address] [place] [address] Assigned Cancer Care Provider 04/04/20 11/03/22 Latoya Brice, RN Specialty Family Development Extension Specialist Oncology 05/06/20 07/19/21 [place] [address] [facility] [address] [place] [address] Assigned Musculoskeletal Provider 05/23/20 12/09/21 Laura Monroe, LETICIA Personal Advocate & Liaison (PAL) 02/08/21 04/07/21 Raeann Maldonado, PANupurC [address] [place], [place] [id number] Physician Jigger Machine Operator Dermatology 04/27/21 Aliya Winn DO [address] [place], [place] [address] Assigned Heart and Vascular Provider 02/18/22 06/25/23 CainLindy dey RN Personal Advocate & Liaison (PAL) Family Medicine 06/05/22 07/04/23 Shannan Byrne [facility] [address] [place] [id number] Pharmacist Pharmacist 06/08/22 Shannan Byrne [facility] [address] [place] [id number] Assigned MTM Pharmacist 06/17/22 Shannan Byrne Medical Student 12/27/22 Mihaela Sylvester MD [address] [facility] [address] [place], [place] [address] financial processing clerk 01/01/23 Huong Soto, SOLUTIONS CONSULTANT BOTTLE HOUSE QUALITY CONTROL TECHNICIAN [facility] [address] [facility] [address] [place] [phone] Nurse Practitioner Psychiatry 01/08/23 Karma Donnelly, SOLUTIONS CONSULTANT BOTTLE HOUSE QUALITY CONTROL TECHNICIAN [address] [place] [address] Nurse Practitioner Cardiovascular Disease 05/14/23 Amanda Yang, [facility] [address] [place] [address] Assigned Behavioral Health Provider 06/26/23 01/25/24 Faustina Trujillo MD [address] [place] [address] Assigned Heart and Vascular Provider 06/26/23 09/24/23 Mihaela Gill PA-C [address] [place] [phone] Assigned Heart and Vascular Provider 09/25/23 10/25/23 Shu Pratt PA-C [address] [place] [address] Assigned Heart and Vascular Provider 10/26/23 11/25/23 Sharon Huang DNP [address] [place], [place] [address] Assigned Neuroscience Provider 11/26/23 Venus Abrams PA-C [address] [place] [address] Assigned Heart and Vascular Provider 11/26/23 Mana Melgar, ROCK LOADER [address], [address] [place], [place] [address] Assigned Behavioral Health Provider 01/26/24 documented as of this encounter
--- OUTSIDE RECORDS SUMMARY | 2024-01-29 13:29 | XMS_ITS | Encounter Summary ---
Author Organization [place] Address [address] [facility] [place] [address] Care Team Providers Care Local Area Network Administrator Name Role Phone Ty Elizabeth MD Primary Care Provider Ty Elizabeth MD Unavailable [phone] Laura Monroe RN Unavailable Unavailable Woody Francis MD Unavailable Shu Mayfield MD Unavailable Shu Mayfield MD Unavailable Latoya Brice RN Unavailable Unavaila Dmitriy Short MD Unavailable Laura Monroe RN Unavailable Unavailable Raeann Maldonado PA-C Unavailable Aliya Winn DO Unavailable [phone] Lindy Barlow RN Unavailable Unavailable Shannan Byrne [facility] Unavailable [phone] Shannan Byrne [facility] Unavailable [phone] Shannan Byrne Unavailable Unavailable Mihaela Sylvester MD Unavailable [phone] Brittany Huong Aj PLANT NURSERY WORKER SHEET MANAGER Unavailable + [phone] Karma Donnelly PLANT NURSERY WORKER SHEET MANAGER Unavailable [phone] Amanda Yang CUT ROLL MACHINE OPERATOR Unavailable [phone] Faustina Trujillo MD Unavailable + Macrina Khan PA-C Primary Care Provider Mihaela Gill PA-C Unavailable [phone] Shu Pratt PA-C Unavailable [phone] Sharon Huang DNP Unavailable [phone] Venus Abrams PA-C Unavailable [phone] Mana Melgar CUT ROLL MACHINE OPERATOR Unavailable [phone] Encounter Details Date Type Department Care Team (Late st Contact Info) Description 04/30/2020 [facility] [place] [address] [address] Rosamaria Olvera Social History Tobacco Use Types Packs/Day Years [...] and Family Twice a week 07/25/2018 Attends Judaism Services Not on file 07/25 Active Member [...] Sex Assigned at Female 04/20/2020 9:52 AM PERSONAL LINES ACCOUNT EXECUTIVE Legal Sex Female 5:13 AM PERSONAL LINES ACCOUNT EXECUTIVE Gender Identity Female 04/20/2020 9:52 AM PERSONAL LINES ACCOUNT EXECUTIVE Sexual Orientation Not on file COVID-19 Exposure Response Date Recorded In the last month, have you been in contact with someone who was confirmed or suspected to have Coronavirus / COVID-19? No / Unsure 04/27/2020 11:57 AM PERSONAL LINES ACCOUNT EXECUTIVE documented as of this encounter Plan of Treatment Upcoming Encounters Date Type Department Care Team (Late st Contact Info) Description 02/06/2024 3:20 PM PERSONAL LINES ACCOUNT EXECUTIVE Office Visit [facility] [id number] [place] [address] [address] [place] [address] Venus Abrams PA-C [address] [place] [address] documented as of this encounter Visit Diagnoses Not on filedocumented in this encounter Additional Health Concerns Infection Onset Date Last Indicated Resolved Time Rule Out COVID-19 11/19/2020 11/19/2020 11/20/2020 12:53 PM CDT COVID-19 11/19/2020 11/19/2020 12/10/2020 11:3 9 PM CDT COVID-19 10/22/2021 11/08/2021 11/08/2021 11:3 9 PM CDT Assessment Noted Time PHQ-9 Depression Total Score: 3 04/06/19 20 7:02 AM PERSONAL LINES ACCOUNT EXECUTIVE documented as of this encounter Care Teams Local Area Network Administrator Relationship Specialty [place] [address] [place] [address] PCP - General Family Practice 08/10/17 09/12/23 Macrina Khan PA-C [address] [place] [address] PCP - General Family Medicine 09/13/23 [place] [address] [place] [address] Assigned PCP 07/14/18 Laura Monroe RN Personal Advocate & Liaison (PAL) 11/14/19 02/07/21 Woody Francis MD [address] [place] [address] Assigned Heart and Vascular Provider 12/26/19 10/30/20 Shu Mayfield MD [address] [place] [address] Medical Oncology 02/19/20 [place] [address] [place] [address] [address] Assigned Cancer Care Provider 04/04/20 11/03/22 Latoya Brice RN Specialty Lobster Catcher Oncology 05/06/20 07/19/21 [place] [address] [id number] Assigned Musculoskeletal Provider 05/23/20 12/09/21 [place], Laura A, RN Personal Advocate & Liaison (PAL) 02/08/21 04/07/21 Raeann Maldonado PA-C [address] [place], [place] [address] Physician Battery Tester Field Dermatology 04/27/21 Aliya Winn DO [address] [place] [id number] Assigned Heart and Vascular Provider 02/18/22 06/25/23 Lindy Barlow RN Personal Advocate & Liaison (PAL) Family Medicine 06/05/22 07/04/23 Shannan Byrne, [facility] [address] [place] [address] Pharmacist Pharmacist 06/08/22 [facility] [address] [place] [address] Assigned MTM Pharmacist 06/17/22 Shannan Byrne Medical Student 12/27/22 Mihaela Sylvester MD [address] [place], [place] [address] teacher of gifted students 01/01/23 Huong Soto, PLANT NURSERY WORKER SHEET MANAGER [facility] [address] [facility] [address] [place] [phone] Nurse Practitioner Psychiatry 01/08/23 Karma Donnelly, SELINA SHEET MANAGER [address] [place] [address] Nurse Practitioner Cardiovascular Disease 05/14/23 Amanda Yang, [facility] [address] [place] [address] Assigned Behavioral Health Provider 06/26/23 01/25/24 Faustina Trujillo MD [address] [place] [address] Assigned Heart and Vascular Provider 06/26/23 09/24/23 Mihaela Gill PA-C [address] [place] [address] Assigned Heart and Vascular Provider 09/25/23 10/25/23 Shu Pratt PA-C [address] [place] [id number] Assigned Heart and Vascular Provider 10/26/23 11/25/23 Sharon Huang DNP [address] [place] [address] Assigned Neuroscience Provider 11/26/23 Venus Abrams PA-C [address] [place] [address] Assigned Heart and Vascular Provider 11/26/23 Mana Melgar [facility] [address], [address] [place] [address] Assigned Behavioral Health Provider 01/26/24 documented as of this encounter
--- OUTSIDE RECORDS SUMMARY | 2024-01-29 13:29 | XMS_ITS | Encounter Summary ---
Author Organization [place] Address [address] [facility] [place] [address] Care Team Providers Care Otc Clerk Name Role Phone Ty Elizabeth MD Primary Care Provider Ty Elizabeth MD Unavailable [phone] Laura Monroe RN Unavailable Unavailable Woody Francis MD Unavailable Shu Mayfield MD Unavailable Shu Mayfield MD Unavailable Latoya Brice RN Unavailable Unavaila Dmitriy Short MD Unavailable Laura Monroe RN Unavailable Unavailable Raeann Maldonado PA-C Unavailable Aliya Winn DO Unavailable [phone] Lindy Barlow RN Unavailable Unavailable Shannan Byrne [facility] Unavailable [phone] Shannan Byrne [facility] Unavailable Shannan Byrne Unavailable Unavailable Mihaela Sylvester MD Unavailable Brittany Huong Aj SENIOR LABEL SPECIALIST SANITARIAN AIDE Unavailable + [phone] Karma Donnelly SENIOR LABEL SPECIALIST SANITARIAN AIDE Unavailable [phone] Amanda Yang DRAFTING TEACHER Unavailable Faustina Trujillo MD Unavailable + Macrina Khan PA-C Primary Care Provider Mihaela Gill-C Unavailable Shu Pratt PA-C Unavailable [phone] Sharon Huang [facility] Unavailable [phone] Venus Abrams PA-C Unavailable [phone] Mana Melgar DRAFTING TEACHER Unavailable [phone] Reason for Visit * Reason Onset Date Comments Results 08/12/2020 Encounter Details Date Type Department Care Team (Late st Contact Info) Description 08/12/2020 [facility] [place] [facility] [address] [place] [address] [place] [id number] [place] [address] Results Social History Tobacco Use Types Packs/Day Years [...] PHQ-2 Answer Date Recorded PHQ-2 Score 0 05/12/2020 Exercise Vital Sign Answer Date Recorde d [...] Sex Assigned at Female 04/20/2020 9:52 AM GIN POLE OPERATOR Legal Sex Female 5:13 AM GIN POLE OPERATOR Gender Identity Female 04/20/2020 9:52 AM GIN POLE OPERATOR Sexual Orientation Not on file COVID-19 Exposure Response Date Recorded In the last month, have you been in contact with someone who was confirmed or suspected to have Coronavirus / COVID-19? No / Unsure 08/12/2020 11:04 AM CDT documented as of this encounter Miscellaneous Notes * Telephone Encounter - Lexi Hargrove RN - 08/13/2020 8:[address] Elizabeth- see [place]ett message below. Please advise. Lexi Hargrove RN documented in this encounter Plan of Treatment Upcoming Encounters Date Type Department Care Team (Late st Contact Info) Description 02/06/2024 3:20 PM GIN POLE OPERATOR Office Visit [facility] [address] [facility] [address] [place] [address] Venus Abrams PA-C [address] [place] [place] [address] documented as of this encounter Visit Diagnoses Not on filedocumented in this encounter Additional Health Concerns Infection Onset Date Last Indicated Resolved Time Rule Out COVID-19 11/19/2020 11/19/2020 11/20/2020 12:53 PM CDT COVID-19 11/19/2020 11/19/2020 12/10/2020 11:3 9 PM CDT COVID-19 10/22/2021 11/08/2021 11/08/2021 11:3 9 PM CDT Assessment Noted Time PHQ-9 Depression Total Score: 3 04/06/19 7:02 AM GIN POLE OPERATOR documented as of this encounter Care Teams Otc Clerk Relationship Specialty [place] [address] [place] [address] PCP - General Family Practice 08/10/17 09/12/23 Macrina Khan PA-C [address] [place] [address] PCP - General Family Medicine 09/13/23 [place] [address] [place] [address] Assigned PCP 07/14/18 Laura Monroe RN Personal Advocate & Liaison (PAL) 11/14/19 02/07/21 Woody Francis MD [address] [place] [address] Assigned Heart and Vascular Provider 12/26/19 10/30/20 Shu Mayfield MD [address] [place] [address] Medical Oncology 02/19/20 [place] [address] [place] [address] [facility] [address] [place] [address] Assigned Cancer Care Provider 04/04/20 11/03/22 Latoya Brice, RN Specialty Global Supply Chain Director Oncology 05/06/20 07/19/21 [place] [address] [facility] [address] [place], [place] [address] Assigned Musculoskeletal Provider 05/23/20 12/09/21 Laura Monroe, [place]ICIA Personal Advocate & Liaison (PAL) 02/08/21 04/07/21 Raeann Maldonado, PANupurC [address] [place], [place] 9[address] Physician Ldr Nurse Dermatology 04/27/21 Aliya Winn DO [address] [facility] [address] [place], [place] [address] Assigned Heart and Vascular Provider 02/18/22 06/25/23 Lindy Barlow RN Personal Advocate & Liaison (PAL) Family Medicine 06/05/22 07/04/23 Shannan Byrne [facility] [address] [place] [id number] Pharmacist Pharmacist 06/08/22 Shannan Byrne [facility] [address] [place] [id number] Assigned MTM Pharmacist 06/17/22 Shannan Byrne Medical Student 12/27/22 Mihaela Sylvester MD [address] [place], [place] [address] mobile security specialist 01/01/23 Huong Soto, SENIOR LABEL SPECIALIST SANITARIAN AIDE [address] [place] [address] Nurse Practitioner Psychiatry 01/08/23 Karma Donnelly, SENIOR LABEL SPECIALIST SANITARIAN AIDE [address] [place] [address] Nurse Practitioner Cardiovascular Disease 05/14/23 Amanda Yang, [facility] [address] [place] [address] Assigned Behavioral Health Provider 06/26/23 01/25/24 Faustina Trujillo MD [address] [place] [address] Assigned Heart and Vascular Provider 06/26/23 09/24/23 Mihaela Gill PA-C [address] [place] [address] Assigned Heart and Vascular Provider 09/25/23 10/25/23 Shu Pratt PA-C [address] [place], [place] [address] Assigned Heart and Vascular Provider 10/26/23 11/25/23 Sharon Huang DNP [address] [place] [address] Assigned Neuroscience Provider 11/26/23 Venus Abrams PA-C [address] [place] [place] [address] Assigned Heart and Vascular Provider 11/26/23 Mana Melgar DRAFTING TEACHER [address], [address] [place] [address] Assigned Behavioral Health Provider 01/26/24 documented as of this encounter
--- OUTSIDE RECORDS SUMMARY | 2024-01-29 13:29 | XMS_ITS | Encounter Summary ---
Author Organization [place] Address [address] [place] [place] [address] Care Team Providers Care Sheet Metal Shop Supervisor Name Role Phone Ty Elizabeth MD Primary Care Provider Ty Elizabeth MD Unavailable [phone] Laura Monroe RN Unavailable Unavailable Woody Francis MD Unavailable Shu Mayfield MD Unavailable Shu Mayfield MD Unavailable Latoya Brice RN Unavailable Unavaila Dmitriy Short MD Unavailable Laura Monroe RN Unavailable Unavailable Raeann Maldonado PA-C Unavailable Aliya Winn DO Unavailable [phone] Lindy Barlow RN Unavailable Unavailable Shannan Byrne [facility] Unavailable Shannan Byrne [facility] Unavailable [phone] Shannan Byrne Unavailable Unavailable Mihaela Sylvester MD Unavailable Brittany Huong Aj INFORMATION BROKER TREASURER Unavailable Karma Donnelly INFORMATION BROKER TREASURER Unavailable [phone] Amanda Yang PIECE WORK CHECKER Unavailable Faustina Trujillo MD Unavailable + Macrina Khan PA-C Primary Care Provider Mihaela Gill-C Unavailable Shu Pratt PA-C Unavailable [phone] Sharon Huang DNP Unavailable Venus Abrams PA-C Unavailable [phone] Mana Melgar PIECE WORK CHECKER Unavailable [phone] Reason for Visit * Reason Comments Medication Refill Encounter Details Date Type Department Care Team (Late st Contact Info) Description 07/29/2020 Refill [facility] [address] [place] [address] [place] Elizabeth [place] [address] [place] [address] Medication Refill Social History Tobacco Use [...] and Family Twice a week 07/25/2018 Attends Muslim Services Not on file 07/25 Active Member [...] Assigned at Female 04/20/2020 9:52 AM DIESEL MECHANIC CONSTRUCTION Legal Sex Female 5:13 AM DIESEL MECHANIC CONSTRUCTION Gender Identity Female 04/20/2020 9:52 AM DIESEL MECHANIC CONSTRUCTION Sexual Orientation Not on file documented as of this encounter Miscellaneous Notes * Telephone Encounter - Kerri Alvarenga RN - 07/29/2020 12:30 PM CDT Routing refill request to provider for review/approval because: Labs out of range: TSH Date Value Ref Range Status 02/12/2020 4.36 (H) 0.40 - 4.00 mU/L Final Kerri Alvarenga RN, BSN documented in this encounter Plan of Treatment Upcoming Encounters Date Type Department Care Team (Late st Contact Info) Description 02/06/2024 3:20 PM DIESEL MECHANIC CONSTRUCTION Office Visit [facility] [address] [place] [address] [address] [place] [address] Venus Abrams PA-C [address] [address] documented as of this encounter Visit Diagnoses Diagnosis Acquired hypothyroidism Unspecified hypothyroidism documented in this encounter Additional Health Concerns Infection Onset Date Last Indicated Resolved Time Rule Out COVID-19 11/19/2020 11/19/2020 11/20/2020 12:53 PM CDT COVID-19 11/19/2020 11/19/2020 12/10/2020 11:3 9 PM CDT COVID-19 10/22/2021 11/08/2021 11/08/2021 11:3 9 PM CDT Assessment Noted Time PHQ-9 Depression Total Score: 3 04/06/19 7:02 AM DIESEL MECHANIC CONSTRUCTION documented as of this encounter Care Teams Sheet Metal Shop Supervisor Relationship Specialty [place] [address] [place] [address] PCP - General Family Practice 08/10/17 09/12/23 Macrina Khan PA-C [address] [place] [address] PCP - General Family Medicine 09/13/23 [place] [address] [place] [address] Assigned PCP 07/14/18 Laura Monroe, LETIC[place] Personal Advocate & Liaison (PAL) 11/14/19 02/07/21 Woody Francis MD [address] [place] [address] Assigned Heart and Vascular Provider 12/26/19 10/30/20 Shu Mayfield MD [address] [place] [address] Medical Oncology 02/19/20 [place] [address] [place] [address] [facility] [address] [place] [address] Assigned Cancer Care Provider 04/04/20 11/03/22 Latoya Brice, RN Specialty Gang Drill Operator Oncology 05/06/20 07/19/21 [place] [address] [facility] [address] [place] [address] Assigned Musculoskeletal Provider 05/23/20 12/09/21 Laura Monroe, RN Personal Advocate & Liaison (PAL) 02/08/21 04/07/21 Raeann Maldonado, PANupurC [address] [place], [place] [address] Physician Financial Service Professional Dermatology 04/27/21 Aliya Winn DO [address] [facility] [address] [place], [place] [address] Assigned Heart and Vascular Provider 02/18/22 06/25/23 CainLindy dey, LETICIA Personal Advocate & Liaison (PAL) Family Medicine 06/05/22 07/04/23 Shannan Byrne [facility] [address] [place] [id number] Pharmacist Pharmacist 06/08/22 Shannan Byrne [facility] [address] [place] [address] Assigned MTM Pharmacist 06/17/22 Shannan Byrne Medical Student 12/27/22 Mihaela Sylvester MD [address] [facility] [facility] [facility] [address] [place], [place] [address] audio director 01/01/23 Huong Soto, INFORMATION BROKER TREASURER [facility] [address] [facility] [address] [facility] [place] [address] Nurse Practitioner Psychiatry 01/08/23 Karma Donnelly, INFORMATION BROKER TREASURER [address] [place], [place] [address] Nurse Practitioner Cardiovascular Disease 05/14/23 Amanda Yang, [facility] [address] [place] [address] Assigned Behavioral Health Provider 06/26/23 01/25/24 Faustina Trujillo MD [address] [place] [id number] Assigned Heart and Vascular Provider 06/26/23 09/24/23 Mihaela Gill PA-C [address] [place] [address] Assigned Heart and Vascular Provider 09/25/23 10/25/23 Shu Pratt PA-C [address] [place] [address] Assigned Heart and Vascular Provider 10/26/23 11/25/23 Sharon Huang DNP [address] [place], [place] [address] Assigned Neuroscience Provider 11/26/23 Venus Abrams PA-C [address] [place] [address] Assigned Heart and Vascular Provider 11/26/23 Mana Melgar, PIECE WORK CHECKER [address], [address] [place], [place] [address] Assigned Behavioral Health Provider 01/26/24 documented as of this encounter
--- OUTSIDE RECORDS SUMMARY | 2024-01-29 13:29 | XMS_ITS | Encounter Summary ---
Author Organization [place] Address [address] [facility] [place] [address] Care Team Providers Care Cutting And Creasing Press Operator Name Role Phone Ty Elizabeth MD Primary Care Provider Ty Elizabeth MD Unavailable [phone] Laura Monroe RN Unavailable Unavailable Shu Mayfield MD Unavailable [phone] Shu Mayfield MD Unavailable [phone] Latoya Brice RN Unavailable Unavaila Dmitriy Short MD Unavailable Laura Monroe RN Unavailable Unavailable Raeann Maldonado PA-C Unavailable Aliya Winn DO Unavailable [phone] Lindy Barlow RN Unavailable Unavailable Shannan Byrne [facility] Unavailable Shannan Byrne [facility] Unavailable Shannan Byrne Unavailable Unavailable Mihaela Sylvester MD Unavailable Huong Soto MANAGER ENVIRONMENTAL QUALITY CONTROL DIRECTOR Unavailable [phone] Karma Donnelly MANAGER ENVIRONMENTAL QUALITY CONTROL DIRECTOR Unavailable Amanda Yang DIPPER FISH Unavailable [phone] Faustina Trujillo MD Unavailable + Bill Macrina M PA-C Primary Care Provider [phone] Mihaela Gill PA-C Unavailable [phone] Shu Pratt PA-C Unavailable Sal Sharon Martina DNP Unavailable Venus Abrams PA-C Unavailable [phone] Mana Melgar DIPPER FISH Unavailable Reason for Visit * Reason Onset Date Comments Prior Auth - Medication 02/07/2021 Paroxeti ne 20mg Encounter Details Date Type Department Care Team (Late st Contact Info) Description 02/07/2021 Telephone [facility] [id number] [place] [phone] Ty Elizabeth MD [address] [place] [id number] Prior Auth - Medication (Paroxetine 20mg) Social History Tobacco Use Types Packs/Day Years [...] and Family Twice a week 07/25/2018 Attends [employer] Not on file 07/25 Active Member [...] Sex Assigned at Female 04/20/2020 9:52 AM OPTO MECHANICAL TECHNICIAN Legal Sex Female 5:13 AM OPTO MECHANICAL TECHNICIAN Gender Identity Female 04/20/2020 9:52 AM OPTO MECHANICAL TECHNICIAN Sexual Orientation Not on file COVID-19 Exposure Response Date Recorded In the last month, have you been in contact with someone who was confirmed or suspected to have Coronavirus / COVID-19? No / Unsure 02/07/2021 12:36 PM OPTO MECHANICAL TECHNICIAN documented as of this encounter Miscellaneous Notes * Telephone Encounter - Wali Starr - 02/09/2021 2:22 PM CST Images from the original note were not included. Prior Authorization Approval Authorization Effective Date: Authorization Expiration Date: Medication: Paroxetine 20mg Approved Dose/Quantity: Reference #: Insurance Company: [employer] [place] - Expected CoPay: CoPay Card Available: Foundation Assistance Needed: Which Pharmacy is filling the prescription (Not needed for infusion/clinic administered): [facility] [place] [id number] [facility] Pharmacy Notified: Yes Patient Notified: Yes Instructed pharmacy to notify patient when script is ready to fruit picker machine operator/ship. MECHANICAL TECHNICIAN * Telephone Encounter - Wali Starr - 02/08/2021 9:20 AM CST Images from the original note were not included. Central Prior Authorization Team PA Initiation Medication: Paroxetine 20mg Insurance Company: [employer] [place] - Pharmacy Filling the Rx: [place], [place] - [address] [facility] Filling Pharmacy Filling Pharmacy Fax: Start Date: 02/08/2021 MECHANICAL TECHNICIAN * Telephone Encounter - Yeni Reed - 02/07/2021 2:30 PM CST Hello, A prior authorization is required because it is a high risk in the elderly. Please contact insurance for approval. Thank you, Yeni Reed [facility] Staff Assistant Clinical Director [facility] [email or web address] Ph#: Fax#: MECHANICAL TECHNICIAN documented in this encounter Plan of Treatment Upcoming Encounters Date Type Department Care Team (Late st Contact Info) Description 02/06/2024 3:20 PM OPTO MECHANICAL TECHNICIAN Office Visit [facility] [id number] [place] [address] [address] [place] [address] Venus Abrams PA-C [address] [place] [address] documented as of this encounter Visit Diagnoses Diagnosis Night sweats Generalized hyperhidrosis Other irritable bowel syndrome documented in this encounter Additional Health Concerns Infection Onset Date Last Indicated Resolved Time COVID-19 10/22/2021 11/08/2021 11/08/2021 11:3 9 PM CDT Assessment Noted Time PHQ-9 Depression Total Score: 3 04/06/19 20 7:02 AM OPTO MECHANICAL TECHNICIAN documented as of this encounter Care Teams Cutting And Creasing Press Operator Relationship Specialty [place] [address] [place] [address] PCP - General Family Practice 08/10/17 09/12/23 Macrina Khan PA-C [address] [place] [phone] PCP - General Family Medicine 09/13/23 [place] [address] [place] [address] Assigned PCP 07/14/18 Laura Monroe RN Personal Advocate & Liaison (PAL) 11/14/19 02/07/21 Shu Mayfield MD Medical Oncology 02/19/20 [place] [address] [address] Assigned Cancer Care Provider 04/04/20 11/03/22 Latoya Brice RN Specialty Nail Artist Oncology 05/06/20 07/19/21 [place] [id number] [address] Assigned Musculoskeletal Provider 05/23/20 12/09/21 Laura Monroe, RN Personal Advocate & Liaison (PAL) 02/08/21 04/07/21 Raeann Maldonado PA-C [address] [place], [place] [id number] Physician Counseling Services Manager Dermatology 04/27/21 Aliya Winn DO [address] [place] [address] Assigned Heart and Vascular Provider 02/18/22 06/25/23 Lindy Barlow, RN Personal Advocate & Liaison (PAL) Family Medicine 06/05/22 07/04/23 Shannan Byrne, [facility] [address] [place] [place] [id number] Pharmacist Pharmacist 06/08/22 Shannan Byrne, [facility] [address] [place] [address] Assigned MTM Pharmacist 06/17/22 Shannan Byrne Medical Student 12/27/22 Mihaela Sylvester MD [address] [place] [address] cold type composing machine operator 01/01/23 Huong Soto, MANAGER ENVIRONMENTAL QUALITY CONTROL DIRECTOR [address] [phone] Nurse Practitioner Psychiatry 01/08/23 Karma Donnelly, MANAGER ENVIRONMENTAL QUALITY CONTROL DIRECTOR [address] [place] [address] Nurse Practitioner Cardiovascular Disease 05/14/23 Amanda Yang, [facility] [address] [place] [address] Assigned Behavioral Health Provider 06/26/23 01/25/24 Faustina Trujillo MD [address] [place] [address] Assigned Heart and Vascular Provider 06/26/23 09/24/23 Mihaela Gill PA-C [address] [place] [id number] Assigned Heart and Vascular Provider 09/25/23 10/25/23 Shu Pratt PA-C [address] [place] [id number] Assigned Heart and Vascular Provider 10/26/23 11/25/23 Sharon Huang DNP [address] [place], [place] [address] Assigned Neuroscience Provider 11/26/23 Venus Abrams PA-C [address] [place] [id number] Assigned Heart and Vascular Provider 11/26/23 Mana Melgar DIPPER FISH [address], [address] [place] [address] Assigned Behavioral Health Provider 01/26/24 documented as of this encounter
--- OUTSIDE RECORDS SUMMARY | 2024-01-29 13:29 | XMS_ITS | Data Portability ---
Author Organization [employer] [facility] ClonesRadha brenner Trusted[employer] Address [address] [place] [address] Care Team Providers Care Apparatus Engineering Technologist Name Role Phone [facility] PROVIDER VISIT NOTE OTTAWNY R LIUDMILA ZHANG Primary Care Provider BLAINE SHUKLA OTHER Unavailable Efren Brielle: Son/Theater Technician Patient Designee [phone] Assessment Encounter Date Assessment Date Assessment LastModified by Organization Details LastModified Time 11/01/2023 11/01/2023 4Ms What Matters and Member Story: Jessica Hannah is an 87-year-old female residing at the [facility] since 10/12/2023 she previously resided at [facility]. She lived here with her spouse for 4 to 5 years, her spouse 2 years ago. She has noted some short-term deficits that have come on gradually, especially after her spouse's passing. She has 4 sons who participate in her health care and healthcare related decision making: Souleymane, Jayjay, Perez, and Jono. Souleymane lives in [place] but other sons are local. Medications: Polypharmacy concerns and plan to address high-risk medications: Multiple cardiac and psychotropic medication considerations Mobility: States increased weakness especially towards end of day Uses walker at times for long distances arcade No falls Mentation: Cognition: Cognitively intact, possibly some MCI Complex decision-making capacity: Has sons who assist Recent cognitive testing/scores: Not on file/pending POLST: DNR/DNI selective hawa Not available 11/01/2023 13:49:07 11/02/2023 11/02/2023 Jessica Jose BRIELLE 87yo [id number] #[id number] zurdo 11/01 Consult Request: - Initial [facility] review - Polypharmacy Medications: Psych - Depakote er 500mg bid - Lorazepam 0.5mg po q8h prn - Latuda 20mg po qpm - melatonin 5mg 1-2 tab po qhs prn - famotidine 20mg po bid Afib/htn -amlodipine 5mg po qd -atenolol 25mg po qd -amiodarone 200mg po qd -Eliquis 5mg po bid -losartan 100mg po qd? Pertinent Labs: - n/a Pertinent Diagnoses: - Bipolar 2 disorder - MESFIN Notes: - Psychotropic meds follows w/ psychiatry w/ next appt 11/08/23. PCP recommend trialling SSRI w/ goal to GDR depakote. PT/son does not believe she has previously trialled SSRI or SNRI. - Anxiety is better since starting depakote, but has bilateral hand tremors since up titration of depakote (w/ amiodarone) - History of GERD, currently raspy hoarse voice for last year worsening in afternoon. Prev trialled prilosec, just started famotidine - DDI b/t divalproex and lorazepam causing increased serum concentration of lorazepam. - Valproate may be associated with both tremor and cognitive decline in those w/ bipolar disorder. Recommendations: - Agree w/ trial of SSRI, which would be preferred psychotropic therapy in older adults (+ GDR of divalproex given DDI and possible CHRISTIANO and tremor and cognitive decline). - Clarify frequency of prn lorazepam use, which could indicate level of MESFIN control on current therapy. Note DDI while on divalproex, monitor for MARINE RIGGER depression closely if any prn lorazepam used. Typically recommend 50% dose reduction in typical lorazepam prescribing when divalproex is added. Unclear if this was done (from 1mg--> 0.5mg). Prudent to consider changing to lorazepam 0.25mg po q8h prn. - On amlodipine and noted to have some lower extremity edema +1, which can be CHRISTIANO of amlodipine. Assess and consider alternate antihypertensive therapy if edema continues. - Atenolol directions need to be updated in [facility] list. Appears this should be 25mg po qd (reduced from 50 d/t bradycardia). - Unclear if member is still taking losartan as it is on [facility] list, but not mentioned in most recent chart note. If still taking, consider d/c amlodipine and continue max dose losartan and monitor BP for further titration of other medications. - Check renal function, if Creat >/=1.5 would qualify for reduced Eliquis dose 2.5mg po bid (given age >80years, weight does not meet criteria at this point). [email or web address] Not available 11/02/2023 12:36:52 12/03/2023 12/03/2023 4Ms What Matters and Member Story: Jessica Hannah is an 87-year-old female residing at the [facility] since 10/12/2023 she previously resided at [facility], an independent jail [facility]. She lived here with her spouse for 4 to 5 years, her spouse 2 years ago. She has noted some short-term deficits that have come on gradually, especially after her spouse's passing. She has 4 sons who participate in her health care and healthcare related decision making: Jayjay Comer Eric, and Jono. Souleymane lives in [place] but other sons are local. Medications: Polypharmacy concerns and plan to address high-risk medications: Multiple cardiac and psychotropic medication considerations Mobility: States increased weakness especially towards end of day Uses walker at times for long distances arcade No falls Mentation: Cognition: Cognitively intact, possibly some MCI Complex decision-making capacity: Has sons who assist Recent cognitive testing/scores: 11/27/23 [facility] POLST: DNR/DNI selective Not available 12/03/2023 14:03:02 12/31/2023 12/31/2023 4Ms What Matters and Member Story: Jessica Hannah is an 88-year-old female residing at the [facility] since 10/12/2023 she previously resided at [facility], an independent jail [facility]. She lived here with her spouse for 4 to 5 years, her spouse 2 years ago. She has noted some short-term deficits that have come on gradually, especially after her spouse's passing. She has 4 sons who participate in her health care and healthcare related decision making: Jayjay Comer Eric, and Jono. Souleymane lives in [place] but other sons are local. Medications: Polypharmacy concerns and plan to address high-risk medications: Multiple cardiac and psychotropic medication considerations Mobility: States increased weakness especially towards end of day Uses walker at times for long distances arcade No falls Mentation: Cognition: Cognitively intact, possibly some MCI Complex decision-making capacity: Has sons who assist Recent cognitive testing/scores: 11/27/23 [facility] POLST: DNR/DNI selective Not available 12/31/2023 15:25:26 01/21/2024 01/21/2024 4Ms What Matters and Member Story: Jessica Hannah is an 88-year-old female residing at the [facility] since 10/12/2023 she previously resided at [facility]. She lived here with her spouse for 4 to 5 years, her spouse 2 years ago. She has noted some short-term deficits that have come on gradually, especially after her spouse's passing. She has 4 sons who participate in her health care and healthcare related decision making: Souleymane, Jayjay, Perez, and Jono. Souleymane lives in [place] but other sons are local. Medications: Polypharmacy concerns and plan to address high-risk medications: Multiple cardiac and psychotropic medication considerations Mobility: States increased weakness especially towards end of day Uses walker at times for long distances arcade No falls Mentation: Cognition: Cognitively intact, possibly some MCI Complex decision-making capacity: Has sons who assist Recent cognitive testing/scores: 11/27/23 [facility] POLST: DNR/DNI selective Not available 01/21/2024 15:29:59 Plan of Treatment Reminders Order Date Submit Date Provider Last Modified By Organization Details Last Modified Time Details Appointments None recorded. Lab None recorded. Referral pharmacist referral - initial pharmacist review 2023 024 [facility], [address], [address], [place], [address], 12:50:37 physical therapist referral 2023 024 ATHENAFAX [facility] - Referrals, [address], [facility] [address], [place], [address], 14:00:42 occupation al therapist referral 2023 024 [facility] - Referrals, [address], [place], [address], 14:00:42 otolaryngo logist referral - increasing hoarseness over the past 1 year. Potentiall y silent reflux. Starting famotidine twice daily today, does have some hx of taking this sparingly and taking Prilosec sparingly. Has not been taken either prior to today 11/01/23Ple ase contact son Efren to schedule 2023 024 ATHENAFAX [facility], [address], [place], [address], 14:00:42 Procedures None recorded. Surgeries None recorded. Imaging None recorded. Medication Orders None recorded. Patient TargetsNo targets recorded. Patient Instructions Encounter Date Encounter Id Patient Instructions Last Modified By Organization Details Last Modified Time 11/01/2023 [id number] instructions to assisted living home* - -Start famotidine 20 mg twice daily Dx GERD -Okay to administer levothyroxine with other medications -Next week, check labs: BMP dx: I10 CBC dx D64.9 TSH reflex free T4 E03.9 pro-BNP ATHENAFAX Not available 11/01/2023 15:20:34 12/03/2023 [id number] {{An appropriate screening schedule for this member includes Member has advanced illness/limited time to benefit, and preventative screening schedule is not recommended*}} More details on screening recommendations can be found at: [email or web address] Not available 12/05/2023 20:54:33 A summary of today's recommendations was offered and the member: {{Declined* Accepte d, a copy will be printed and sent in mail.}} Not available 12/05/2023 20:54:42 12/31/2023 [id number] instructions to assisted living home* - okay for biotin supplement- 1 capsule PO daily. Okay to use own supply (she states arrived in mail) ATHENAFAX Not available 12/31/2023 14:10:39 Reason for Referral Pharmacist Referral for Adva nce care planning initial pharmacist review Referring Physician: Liudmila Zhang Nurse Practitioner- Specialist, Encounter Date: 11/01/2023 Track Template Maker Referral fo r Gastroesophageal reflux disease without esophagitis increasing hoarseness over the past 1 year. Potentially silent reflux. Starting famotidine twice daily today, does have some hx of taking this sparingly and taking Prilosec sparingly. Has not been taken either prior to today 11/01/23Please contact samm Schwartz to schedule Referring Physician: Liudmila Zhang Nurse Practitioner- Specialist, Encounter Date: 11/01/2023 Physical Therapist Referral for Muscle weakness Referring Physician: Liudmila Zhang Nurse Practitioner- Specialist, Encounter Date: 11/01/2023 Occupational Therapist Refer ral for Muscle weakness Referring Physician: Liudmila Zhang Nurse Practitioner- Specialist, Encounter Date: 11/01/2023 Results Created Date Observation Date Name Description Value Unit Range Abnormal Flag Note LastModifiedBy Organization Detail LastModifiedTime Result Notes None recorded. Problems Name Problem SNOMED Code Status Onset Date Resolution Date Notes Provider Name and Address Organization Details Recorded Time Gastroesoph ageal reflux disease without esophagitis 788385187 Active 2023 BIANKA Bustos [address] [place] [address], [address], [facility] [place], [address], [place] - [facility] 4 11:53:17 Hypertensiv e heart disease without congestive heart failure 85745079 Active 2023 BIANKA Bustos [address] [place] [address], [address], [facility] [place] [place], [address], [place] - [facility] 4 11:53:27 Bradycardia 73643633 Active 2023 BIANKA Bustos [address] [place] [address], [address], [facility] [place], [address], [place] - [facility] 4 11:53:01 Advance care planning Active 2023 Gaviota Peralta, [facility] [address], [address], [place], [address], [place] - [facility] 4 11:52:36 Recurrent major depressive episodes 183443767 Active 2023 BE ADVISED - this dx cannot be coded with bipolar disorder Tony carpio, [place] - [facility] 4 08:06:44 Generalized anxiety disorder 44251344 Active 2023 Gaviota Peralta, [facility] [address], [address], [place], [address], [place] - [facility] 4 11:53:34 Resting tremor 80402667 Active 2023 Gaviota Peralta [facility] [address], [address], [place], [address], [place] [facility] 4 11:54:29 Paroxysmal atrial fibrillatio n 869441445 Active 2023 Gaviota Peralta [facility] [address], [address], [place], [address], [place] [facility] 4 11:54:01 Muscle weakness 94596009 Active 2023 SERENITY Bustos [address], [address], [place], [address], [place] - [facility] 4 11:53:53 Bipolar II disorder 66159134 Active 2023 BE ADVISED - this dx cannot be coded with the MDD dx Tony Vansaira carpio, [place] - [facility] 4 08:06:25 Minimal cognitive impairment 067637359 Active 2023 Gaviota Peralta [facility] [address], [address], [place], [address], [place] - [facility] 4 11:53:47 Hypothyroid ism 23872103 Active 2023 Gaviota Peralta, [facility] [address], [address], [place], [address], [place] [facility] 4 11:53:30 Loss of hair 041952922 Active 2023 Liudmila Zhang CNP [address], [address], [place], [address], [place] - [facility] 4 14:00:18 Ascending aorta dilatation 037115110 Active 2023 Liudmila Zhang CNP [address], [address], [place], [address], [place] - [facility] 4 15:30:40 Chronic kidney disease stage 3A 780251710 Active 2023 Liudmila Zhang CNP [address], [address], [place], [address], [place] [facility] 4 15:30:45 Lichen sclerosus of vulva 329839708 Active 2023 Liudmila Zhang CNP [address] [place] [address], [address], [place], [address], [place] [facility] 4 15:31:02 Problem Notes None recorded. Procedures Surgical History Date Name Laterality Status Provider Name and Address Organization Details Recorded Time 4 Medications Reviewed completed Liudmila Zhang CNP [address] [place] [address], [address], [place], [address], [place] [facility] 12/30/2023 09:43:00 4 Medication List Present completed Liudmila Zhang CNP [address], [address], [place], [address], [place] [facility] 12/30/2023 09:43:00 4 Medications Reviewed completed Liudmila Zhang CNP [address], [address], [place], [address], [place] [facility] 12/02/2023 23:20:53 4 Medication List Present completed Liudmila Zhang CNP [address], [address], [place], [address], [place] [facility] 12/02/2023 23:20:53 4 Advanced Care Planning completed Liudmila Zhang, HOSPICE CLINICAL MANAGER [address], [address], [place], [address], [place] [facility] 11/01/2023 13:56:33 4 Medications Reviewed completed Liudmila Zhang, HOSPICE CLINICAL MANAGER [address], [address], [place], [address], [place] [facility] 10/31/2023 16:28:35 4 Medication List Present completed Liudmila Zhang, HOSPICE CLINICAL MANAGER [address], [address], [place], [address], [place] [facility] 10/31/2023 16:28:35 Imaging Results None recorded. Procedure Notes None recorded. Medical Equipment None Reported. Allergies Allergen ID Allergen Name Allergen Category Reaction Reaction Severity Criticality Documentation Date Start Date Code Code System Note Provider Name and Address Organization Details Recorded Time 62101 Product containin g angiotens in-conver ting enzyme inhibitor (product) medicatio n cough Not available Not available 10/15/2023 08283 009 SNOMED Jackeline-Rhea Rucker null, [place] - [facility] 16:32:29 19402 bupropion Not available nausea Not available Not available 10/15/2023 71996 RxNorm Emanuel Rucker null, [place] - [facility] 16:32:44 53467 codeine medicatio n nausea Not available Not available 10/15/2023 2670 RxNorm Jackeline-Rhea carpio, [place] - [facility] 16:32:55 19601 Medicinal product containin g penicilli n and acting as antibacte rial agent (product) medicatio n nausea Not available Not available 10/15/2023 23933 05 SNOMED Emanuel Rucker null, [place] - [facility] 16:33:05 00511 shrimp allergeni c extract food itching Not available Not available 10/15/2023 45298 2 RxNorm diffi culty breat rene Emanuel carpio, [place] - [facility] 16:33:33 Medications Name Sig [...] No t Available Vitals Date Recorded Body weight Body mass index (BMI) Body height Heart rate Body temperature Respiratory rate Oxygen saturation Oxygen saturation in Arterial blood by Pulse oximetry Systolic blood pressure Diastolic blood pressure Provider Name and Address Organization Details Last Updated DateTime 4 72125.6 7 g 25.4 kg/m2 162.56 cm 47 /min 97.8 [degF] 18 /min 97 % 97 % 122 mm[Hg] 80 mm[Hg] [facility], [facility] [address] [place] [address], [address], [place], [address], [place] - [facility] 13:06:14 Date Recorded Body height Body mass index (BMI) Body weight Heart rate Body temperature Respiratory rate Oxygen saturation Oxygen saturation in Arterial blood by Pulse oximetry Systolic blood pressure Diastolic blood pressure Provider Name and Address Organization Details Last Updated DateTime 4 162.56 cm 24 kg/m2 91154.9 3 g 43 /min 96.6 [degF] 18 /min 97 % 97 % 118 mm[Hg] 60 mm[Hg] Liudmila Zhang CNP [address] [place] [address], [address], [place], [address], [place] - [facility] 19:22:13 Date Recorded Body height Heart rate Body temperature Respiratory rate Oxygen saturation Oxygen saturation in Arterial blood by Pulse oximetry Systolic blood pressure Diastolic blood pressure Provider Name and Address Organization Details Last Updated DateTime 162.56 cm 65 /min 97.5 [degF] 18 /min 99 % 99 % 122 mm[Hg] 68 mm[Hg] Liudmila Zhang CNP [address] [place] [address], [address], [place], [address], [place] - [facility] 13:58:57 Date Recorded Body height Provider Name an d Address Organization Details Last Updated DateTime 01/21/2024 162.56 cm Liudmila Zhang CNP [address] [place] [address], [facility] [address], [address], [place] - [facility] 01/21/2024 15:27:46 Social History Question Answer Notes LastModified by Organizat ion Details LastModified Time Tobacco Smoking Status Never Smoker Liudmila Zhang CNP [address] [place] [address], [facility] [address], [address], [place] - [facility] 12/31/2023 13:59:48 What Was [...] PF, 30 mcg/0.3 mL dose 04/27/2020 completed Jackeline-Rhea [place] null, [place] - [facility] 10/15/2023 16:41:53 COVID-19, mRNA, LNP-S, PF, 30 mcg/0.3 mL dose 05/18/2020 completed Jackeline-Rhea [place], [place] [facility] 10/15/2023 16:41:55 COVID-19, mRNA, LNP-S, PF, 30 mcg/0.3 mL dose 01/28/2021 completed Jackeline-Rhea [place] null, [place] [facility] 10/15/2023 16:41:58 COVID-19, mRNA, LNP-S, PF, 30 mcg/0.3 mL dose 07/05/2021 completed Jackeline-Rhea [place], [place] [facility] 10/15/2023 16:42:01 COVID-19, mRNA, LNP-S, PF, 30 mcg/0.3 mL dose 12/14/2021 completed Jackeline-Rhea [place], [place] [facility] 10/15/2023 16:42:04 COVID-19, mRNA, LNP-S, PF, 30 mcg/0.3 mL dose 08/09/2022 completed Jackeline-Rhea [place], [place] [facility] 10/15/2023 16:42:08 COVID-19, mRNA, LNP-S, PF, ulises-sucrose, 30 mcg/0.3 mL 12/28/2022 completed Jackeline-Rhea [place], [place] [facility] 10/15/2023 16:42:15 Influenza, adjuvanted, quadrivalent, PF 12/07/2022 completed Jackeline-Rhea [place], [place] [facility] 10/15/2023 16:42:22 Pneumococcal conjugate PCV 13 01/05/2015 completed Jackeline-Rhea [place], [place] [facility] 10/15/2023 16:42:32 Pneumococcal conjugate PCV 13 01/11/2018 completed Jackeline-Rhea [place], [place] [facility] 10/15/2023 16:42:37 Past Encounters Encounter ID Performer Location Encounter Start Date Encounter Closed Date Diagnosis/Indication Diagnosis SNOMED-CT Code Diagnosis ICD10 Code [id number] Liudmila Zhang, [facility] [place] [address] 11/01/2023 13:02:50 11/01/2023 15:04:02 Resting tremor 42547210 G25.2 Bipolar II disorder 8322 5003 F31.81 Generalize d anxiety disorder 50506848 F41.1 Recurrent major depressive episodes 110530643 F33.9 Advance care planning 71 3139615 Z71.89 Minimal co gnitive impairment 196604795 R41.89 Muscle weakness 44338530 M62.81 Gastroesop hageal reflux disease without esophagitis 699034357 K21.9 Hypothyroidism 27419942 E03.9 Hypertensi ve heart disease without congestive heart failure 92612650 I11.9 Bradycardia 50497645 R00 .1 Paroxysmal atrial fibrillation 372356578 I48.0 [id number] [facility] [address] [place] [address] 11/02/2023 12:36:00 11/02/2023 12:36:56 [id number] Liudmila Zhang, [facility] [place] [address] 12/03/2023 11:51:42 12/06/2023 08:08:44 Paroxysmal atrial fibrillation 543143430 I48.0 Bipolar II disorder 8322 5003 F31.81 Generalize d anxiety disorder 76581179 F41.1 Recurrent major depressive episodes 937145321 F33.9 Resting tremor 08866760 G25.2 Minimal co gnitive impairment 455610688 R41.89 Gastroesop hageal reflux disease without esophagitis 335673776 K21.9 Hypothyroidism 77917513 E03.9 Hypertensi ve heart disease without congestive heart failure 20234073 I11.9 Bradycardia 83026661 R00 .1 Adult heal th examination 756154065 Z00.00 [id number] Liudmila Zhang CNP [facility] [place] [address] 12/31/2023 12:33:39 01/01/2024 08:44:16 Paroxysmal atrial fibrillation 152795988 I48.0 Bipolar II disorder 8322 5003 F31.81 Generalize d anxiety disorder 09184294 F41.1 Recurrent major depressive episodes 692299769 F33.9 Resting tremor 01127726 G25.2 Minimal co gnitive impairment 028421389 R41.89 Gastroesop hageal reflux disease without esophagitis 351318074 K21.9 Hypothyroidism 59852453 E03.9 Hypertensi ve heart disease without congestive heart failure 51755261 I11.9 Bradycardia 18838583 R00 .1 Ascending aorta dilatation 995944469 I77.810 Chronic ki dney disease stage 3A 632697520 N18.31 Loss of hair 572976855 L 65.9 [id number] Liudmila Zhang, HOSPICE CLINICAL MANAGER [facility] [address] [place] [address] 01/21/2024 12:02:18 01/21/2024 15:40:31 Lichen sclerosus of vulva 789002226 N90.4 Health Concerns Section Related Observation LastModified by Organization Detai ls LastModified Time None Recorded Concern Status LastModified by Organization Details LastModified Time None Recorded Advance Directives Directive None Recorded Payers Encounter Date Sequence Insurance Name Policy Number Policy Gomez Covered Member ID Gomez Member ID Guarantor Name 11/01/2023 1 [place] [id number] Jessica Hannah [id number] Jessica Hannah 11/02/2023 1 [place] [id number] Jessica Hannah [id number] Jessica Hannah 12/03/2023 1 [place] [id number] Jessica Hannah [id number] Jessica Hannah 12/31/2023 1 [place] [id number] Jessica Hannah [id number] Jessica Hannah 01/21/2024 1 [place] [id number] Jessica Hannah [id number] Jessica Hannah Notes Date Note Type Note Provider Name and Address Organization Details Recorded Time 11/01/2023 text/html Jessica Hannah is an 87-year-old female residing at the [facility] since 10/12/2023 with a PMH of atrial fibrillation, bipolar disorder, hypertension, anxiety, depression, lumbago with sciatica, peripheral vascular disease, insomnia. She is seen today for an initial PCP visit. She is seen in her apartment with her son. Souleymane is visiting from [place]. She is pleasant, cooperative, and in no acute distress. Yesterday she went to a cardiology appointment and her a atenolol was decreased from 50 mg daily to 25 mg daily due to bradycardia in the 60s. Today her heart rate is 47, 48. She denies any dizziness or palpitations does states she may have not drink enough. Has only had coffee and orange juice today. She does have an oximeter that she continues to monitor. She also follows with psychiatry. Has therapy appointment with Amanda Yang, licensed therapist today and sees psychiatrist over televisit on 11/08/2023. Concerns with bilateral upper extremity resting tremor that has been present it is believed to be since has been on Depakote since September. Recently had a [facility] psych stay in September due to anxiety. Son states her anxiety seems to be controlled on current regimen. Does not believe she has ever tried SSRI or SNRI. It is thought that she also could have bipolar disorder versus cyclothymic disorder/depression but official diagnosis seems uncertain from records. Jessica and son also expressed concern with cognitive impairment. States short-term memory impairment has been gradual and includes things such as not being able to find things in a store or miss remembering things. Has not driven in at least a couple of weeks, has not driven since moving to [place], states she has had no with getting lost with driving because she is careful and did not drive far and also did not drive during the night. No concerns with bowel or bladder. States hx of urinary procedure that widened urethra approx 10mo ago d/t pain,done in [facility], states no problems urinating since. Member seen via {{Face to Face for [...] story today with additional information provided by: samm Comer Clinician Located: {{Clinician Home [facility] Member's Home*}}Member physically located at: Member's Home. Time: I spent 75 minutes taking care of this patient with >50% of time spent in counseling and coordination of care. Disclaimer: Voice recognition software was utilized to assist with this documentation. There may be accidental typographical errors. JERI IADL FUNCTIONAL ASSESSMENT Ability to use Telephone:{{(1) Operates telephone on own initiates-looks up and dials numbers etc.* (1) Dials a few well-known numbers (1) Answers telephone but does not dial (0) Does not use telephone at all}}Shopping:{{(1) Takes care of all shopping independently (0) Shops independently for small purchase* (0) Needs to be accompanied on any shopping trip (0) Completely unable to shop}}Food Preparation:{{(1) Plans, prepares and serves adequate meals independently (0) Prepare adequate meals if supplied with ingredients* (0) Heats, serves and prepares meals but does not maintain adequate diet (0) Needs to have meals prepared and served}}Housekeeping :{{(1) Maintains house alone or with occasional assistance (e.g. heavy work domestic help)* (1) Performs light daily tasks such as dis washing, bed making (1) Performs light daily tasks but cannot maintain acceptable level of cleanlimess (1) Needs help with all home maintnance tasks (0)Does not participate in any housekeeping tasks}}Laundry:{{(1) Does personal laundry completely* (1) Launders small items-rinses stocking, etc.) (0) All laundry must be done by others.}}Mode of Transportation:{{(1) Travels independently on public transportation or drives own car (1) Arranges own travel via taxi, but does not otherwise use public transportation (1)Tr avels on public transportation when accompanied by another (0) Travel limited to taxi or automobile with assistance of another* (0) Does not travel at all}}Responsibility for Own Medications:{{(1) Is responsible for taking medication in correct dosages at correct time (0) Takes responsibility if medication is prepared in advance in separate dosage (0) Is not capable of dispensing own medication*}}Ability to Handle Finances:{{(1) Manages financial matters independently (budgets, writes checks, pays rent, bills, goes to bank), collects and keeps track of income (1) Manages day-to-day purchases, but needs help with banking, major purchases, etc. (0) Incapable of handling money* Comments: (Free Text) )}} Liudmila Zhang, SIMEON [address], [address], [place], [address], [facility] - [facility] 11/01/2023 15:17:12 12/03/2023 text/html Annual Wellness *Reported bypatient.Diet and Nutrition:healthy diet Fracture Risk:no history of fractures; no sudden unexplained fractures Physical Activity:exercises on a regular basis;decreased physical activity Additional Lifestyle Factors:no tobacco use; no alcohol intake Depression Risk:never feels sad, empty, or tearful; no loss of interest in activities; no significant changes in weight; no sleep disturbances or insomnia; no feelings of worthlessness or guilt; no thoughts of suicide;loss of energy(feels fatigued) Orientation:no disorientation to time; no disorientation to date; no disorientation to place Concentration and Memory:decreased concentrating ability;memory lapses or loss;forgetting words Speech/Motor Difficultiesno speech difficulties;difficu lty expressing formulated concepts Hearing:no loss of hearing Vision:no vision problems Fall Risk Assessmentno fall since last visit Home Safety:no unsafe yaakov hazards Jessica Hannah is an 87-year-old female residing at the [facility] since 10/12/2023 with a PMH of atrial fibrillation, bipolar disorder, hypertension, anxiety, depression, lumbago with sciatica, peripheral vascular disease, insomnia. She is seen today for an annual wellness visit. She is seen in her apartment. Is pleasant, alert, and in NAD. HR in 40s yet states no dizziness or other feelings of being unwell. No falls. Does state continued fatigue and asks if this could be r/t bradycardia. Has seen psychiatry recently who decreased her depakote, she has continued concerns of tremors in her bilateral hands. Member seen via {{Face to Face for [...] story today with additional information provided by: Clinician Located: {{Clinician Home [facility] Member's Home*}}Member physically located at: Member's Home. Disclaimer: Voice recognition software was utilized to assist with this documentation. There may be accidental typographical errors. JERI IADL FUNCTIONAL ASSESSMENT Ability to use Telephone:{{(1) Operates telephone on own initiates-looks up and dials numbers etc.* (1) Dials a few well-known numbers (1) Answers telephone but does not dial (0) Does not use telephone at all}}Shopping:{{(1) Takes care of all shopping independently (0) Shops independently for small purchase* (0) Needs to be accompanied on any shopping trip (0) Completely unable to shop}}Food Preparation:{{(1) Plans, prepares and serves adequate meals independently (0) Prepare adequate meals if supplied with ingredients* (0) Heats, serves and prepares meals but does not maintain adequate diet (0) Needs to have meals prepared and served}}Housekeeping :{{(1) Maintains house alone or with occasional assistance (e.g. heavy work domestic help)* (1) Performs light daily tasks such as dis washing, bed making (1) Performs light daily tasks but cannot maintain acceptable level of cleanlimess (1) Needs help with all home maintnance tasks (0)Does not participate in any housekeeping tasks}}Laundry:{{(1) Does personal laundry completely* (1) Launders small items-rinses stocking, etc.) (0) All laundry must be done by others.}}Mode of Transportation:{{(1) Travels independently on public transportation or drives own car (1) Arranges own travel via taxi, but does not otherwise use public transportation (1)Tr avels on public transportation when accompanied by another (0) Travel limited to taxi or automobile with assistance of another* (0) Does not travel at all}}Responsibility for Own Medications:{{(1) Is responsible for taking medication in correct dosages at correct time (0) Takes responsibility if medication is prepared in advance in separate dosage (0) Is not capable of dispensing own medication*}}Ability to Handle Finances:{{(1) Manages financial matters independently (budgets, writes checks, pays rent, bills, goes to bank), collects and keeps track of income (1) Manages day-to-day purchases, but needs help with banking, major purchases, etc. (0) Incapable of handling money* Comments: (Free Text) )}} Liudmila Zhang, SIMEON [address], [address], [place], [address], [place] - [facility] 12/05/2023 20:56:46 12/31/2023 text/html Jessica Hannah is an 87-year-old female residing at the [facility] since 10/12/2023 with a PMH of atrial fibrillation, bipolar disorder, hypertension, anxiety, depression, lumbago with sciatica, peripheral vascular disease, insomnia. She is seen today for a f/u PCP visit. She is seen in her apartment. Is pleasant, alert, and in NAD. Recently psychiatry stopped her Depakote due to tremors. She states that tremors have improved but still occur. States another reason that Depakote was stopped was because she was experiencing hair loss. Now wanting to start biotin and has a new shampoo. In place of Depakote now using lorazepam at bedtime and also as needed during the day. Additionally, atenolol was discontinued by cardiology on 12/18/2023 due to continued bradycardia. Denies any shortness of breath, dizziness, palpitations. Is working with [employer] due to hoarse voice, this continues but she states it is improved. Has not made an appointment with ENT. Member seen via {{Face to Face for [...] story today with additional information provided by: samm Efren Clinician Located: {{Clinician Home [facility] Member's Home*}}Member physically located at: Member's Home. Time: I spent 40 minutes taking care of this patient with >50% of time spent in counseling and coordination of care. Disclaimer: Voice recognition software was utilized to assist with this documentation. There may be accidental typographical errors. Liudmila Zhang CNP [address] [place] [address], [address], [address], [place] - [facility] 12/31/2023 15:44:21 01/21/2024 text/html Jessica Hannah is an 87-year-old female residing at the [facility] since 10/12/2023 with a PMH of [...] be accidental typographical errors. Liudmila Zhang CNP [address] [place] [address], [address], [place], [address], [place] - [facility] 01/21/2024 15:38:35 OBGyn Episode No OBEpisode recorded.
--- OUTSIDE RECORDS SUMMARY | 2024-01-29 13:29 | XMS_ITS | Clinical Summary ---
Author Organization [facility] Address [place], [place] [address] Care Team Providers Care Valet Runner Name Role Phone [facility] Allergies Active Allergy Reactions Criticality Noted Date Comments Rodney Inhibitors Cough 11/27/2011 Cough Bupropion *Unknown 03/08/2022 Nausea, constipation Codeine Sulfate Visual Disturbances 08/18/2010 Penicillins Nausea Only 08/18/2010 Shrimp Dyspnea,Itching 08/18/2010 Sulfa (Sulfonamide Antibiotics) Nausea Only,Nausea And Vomiting 04/26/2016 1 hour after taking medication started vomiting, chills, runny nose, diarrhea and stomach upset 1 hour after taking medication started vomiting, chills, runny nose, diarrhea and stomach upset Medications Medication Sig Dispensed Refills Start Date End Date Status ascorbic acid (VITAMIN C ORAL) Take by mouth. Acti ve albuterol (PROVENTIL) 0.083 % neb solution Inhale 2.5 mg by mouth. 06/07/2021 Active atenoloL (TENORMIN) 25 mg tablet Take 25 mg by mouth. 08/12/2020 Active betamethasone valerate (VALISONE) 0.1 % cream Apply topically to affected area(s). 02/12/2020 Active famotidine (PEPCID) 40 mg tablet Take 1 Tablet by mouth once daily. 08/12/2020 Active hydroCHLOROthiazide (HCTZ) 25 mg tablet Take 0.5 Tablets by mouth once daily. 02/07/2021 Active levothyroxine (SYNTHROID) 112 mcg tablet Take 1 Tablet by mouth once daily. 01/24/2021 Active losartan (COZAAR) 100 mg tablet Take 100 mg by mouth. 02/07/2021 Active vitamin E acid succinate (vitamin E succinate) 400 unit tab Take 400 units by mouth. Active ascorbic acid, vitamin C, 550 mg/1.1 gram (scoop) powd Mix 1 Tablet in liquid then take by mouth once daily. Active busPIRone (BUSPAR) 10 mg tablet 03/08/2022 Active busPIRone (BUSPAR) 5 mg tablet TAKE 1 TABLET BY MOUTH 2 TIMES DAILY NEEDED (ANXIETY) 03/01/2022 Active ondansetron (ZOFRAN ODT) 4 mg disintegrating tablet DISSOLVE 1 TABLET BY MOUTH EVERY 8 HOURS NEEDED FOR NAUSEA 03/06/2022 Active ondansetron (ZOFRAN ODT) 4 mg disintegrating tablet Take 4 mg by mouth. Active QUEtiapine (SEROQUEL) 50 mg tablet 07/27/2022 Active QUEtiapine (SEROQUEL) 50 mg tablet Take tablet/50 mg in the morning, 1 tablet/50 mg afternoon and 1 tablets/50 mg at bedtime. 08/10/2022 Active hydroCHLOROthiazide 12.5 mg tablet 06/08/2022 Active atenoloL (TENORMIN) 25 mg tablet Take 25 mg by mouth. 08/10/2022 Active albuterol HFA (PRO-AIR; VENTOLIN; PROVENTIL) 90 mcg/actuation inhaler INHALE 2 PUFFS EVERY 4 TO 6 HOURS NEEDED FOR SHORTNESS OF BREATH OR FOR WHEEZE 02/18/2022 Active losartan (COZAAR) 100 mg tablet Take 1 Tablet by mouth once daily. 01/31/2022 Active sertraline (ZOLOFT) 25 mg tablet 07/13/2022 Active carboxymethylcellulos e 0.5% 0.5 % drop ophthalmic drops Place 1 Drop into the eye(s). Active benzonatate (TESSALON) 200 mg capsuleIndications:Up per respiratory tract infection, unspecified type,Bronchitis Take 1 Capsule (200 mg) by mouth 3 times daily if needed for Cough. 21 Capsule 09/05/2022 Active Active Problems Problem Noted Date Diagnosed Date Ascending aorta dilatation 01/23/2022 Overview (02/11/2022): Last Assessment & Plan: Borderline, on last echo. Follow-up cardiology visit was not completed. Assess information from currently ordered cardiac studies Atypical chest pain 01/23/2022 Overview (02/11/2022): Last Assessment & Plan: Patient awoke with palpitations nausea and diaphoresis. This faded by morning, but a.m. nausea since. She blamed her SSRI and stopped it. EKG today shows development of first-degree AV block since last EKG, otherwise stable with increased baseline wander. On daily famotidine. Pump Audio Grieving 01/23/2022 Overview (02/11/2022): Last Assessment & Plan: of 65 years is passed. She belongs to a grieving support group. She finds it most of her compatriots has had divorces and remarried and she does not feel that her decades long marriage is a good fit. However she declines additional medicines or referral for counseling today. She does vigorously denies suicidality Palpitations 01/23/2022 Overview (02/11/2022): Last Assessment & Plan: Patient awoke with palpitations nausea and diaphoresis. This faded by morning, but a.m. nausea since. She blamed her SSRI and stopped it. EKG today shows development of first-degree AV block since last EKG, otherwise stable with increased baseline wander. [employer] database Peripheral vascular disease 03/21/2021 Overview (02/11/2022): Last Assessment & Plan: Patient reports that her insurance sent a nurse out for home visit who did an CLIFFORD. She reports a mild abnormality. She has no symptoms. She believes we will get a report Post-menopausal bleeding 08/12/2020 Overview (02/11/2022): Last Assessment & Plan: She describes blood as well as yellow staining. Urinary incontinence also possible. [place] database Cervical radiculopathy 05/12/2020 Overview (02/11/2022): Last Assessment & Plan: Symptoms suggest nerve compression. Only 1 month duration, to short for EMG. Discussed evaluation PT surgery injections. She will pursue her hand first Other irritable bowel syndrome 05/12/2020 Overview (02/11/2022): Last Assessment & Plan: Controlled on 20, controlled on 40. Reduce to 20 Monoclonal gammopathy 02/22/2020 Overview (02/11/2022): Last Assessment & Plan: Future lab as well as last spring's lab reviewed. She reports that her oncologist has moved on Onychomycosis 12/29/2019 Overview (02/11/2022): Last Assessment & Plan: Left third nail only. Discussed options. Treat Rosacea 11/17/2019 Overview (02/11/2022): Last Assessment & Plan: Metronidazole expensive. She is trying local skin measures Atrophic vaginitis 04/25/2019 Overview (02/11/2022): Last Assessment & Plan: Friend of hers was given betamethasone for as needed usage and she would like to try this. Bilateral ovarian cysts 04/05/2019 Overview (02/11/2022): Repeat US 06/2019 Last Assessment & Plan: Simple, in [place]. They recommend repeating an ultrasound for stability Fe deficiency anemia 04/05/2019 Overview (02/11/2022): Last Assessment & Plan: Reassess iron stores Lumbar radiculopathy 01/15/2017 Essential hypertension, benign 01/14/2015 Overview (02/11/2022): Last Assessment & Plan: Elevated upon intake, improved upon recheck. Adequate. Monitor Trochanteric bursitis of both hips 01/14/2015 Advanced directives, counseling/discussion 10/17 Overview (02/11/2022): Advance Care Planning: Seasonal allergic rhinitis 07/23/2012 Cervicalgia 08/19/2010 Overview (02/11/2022): Last Assessment & Plan: Pain at the nuchal ridge when she puts her head back. Noted, no radicular symptoms. No further evaluation today GERD (gastroesophageal reflux disease) 1 Overview (02/11/2022): Last Assessment & Plan: Well-controlled with daily Pepcid Hypothyroidism 08/19/2010 Overview (02/11/2022): Last Assessment & Plan: Yearly TSH due TMJ (temporomandibular joint syndrome) 1 Overview (02/11/2022): Last Assessment & Plan: No improvement with increased selective serotonin reuptake inhibitor. Minimal Sx. Reduce to 20 Social History Tobacco Use Types Packs/Day Years Used Date Smoking Tobacco: Never Smokeless Tobacco: Never Alcohol Use Standard Drinks/Week Comments Not Currently 0 (1 standard drink = 0.6 oz pur e alcohol) Sex and Gender Information Value Date Recorded Sex Assigned at Not on file Gender Identity Not on file Sexual Orientation Not on file Obstetrics History Last Filed Vital Signs Vital Sign Reading Time Taken Comments Blood Pressure 154/62 09/05/2022 12:00 PM CDT Pulse 67 09/05/2022 12:00 PM CDT Temperature 36.8 C (98.3 F) 09/05/2022 12:00 PM CDT Respiratory Rate 18 09/05/2022 12:00 PM CDT Oxygen Saturation 96% 09/05/2022 12:00 PM CDT Inhaled Oxygen Concentration - - Weight 70.3 kg (155 lb) 02/11/2022 11:46 AM TANKMAN Height 162.6 cm (5' 4) 06/11/2021 11:05 AM CDT Body Mass Index 26.61 06/11/2021 11:05 AM CDT Plan of Treatment Health Maintenance Due Date Last Done Comments Tdap 1948 Depression screening for age 12+ 1949 Tetanus booster 1957 Zoster (shingles) series for age 50+ (1 of 2) 11/14/1987 DEXA/DXA scan for age 65+ 2002 Medicare Wellness for age 65+ 2002 Pneumococcal series for age 65+ (1 of 1 - PCV) 2002 RSV vaccine for adults or (1 - 1-dose 75+ series) 2012 BMI (ht and wt on same day) for age 18+ 06/11/2022 06/11/2021 COVID-19 vaccine series (2023- season) 2023 12/28/2022, 08/09/2022, 12/14/2021, Additional history exists Influenza for age 65+ 11/04/2023 Care Teams Valet Runner Relationship Specialty Start Date End Date [facility] [place] [address] [place] [address] PCP - General 06/11/21
--- OUTSIDE RECORDS SUMMARY | 2024-01-29 13:29 | XMS_ITS | Encounter Summary ---
Author Organization [facility] Address [address] [place] [address] Care Team Providers Care Applications Analyst Name Role Phone Ty Elizabeth MD Primary Care Provider Ty Elizabeth MD Unavailable [phone] Laura Monroe RN Unavailable Unavailable Woody Francis MD Unavailable Shu Mayfield MD Unavailable Shu Mayfield MD Unavailable Latoya Brice RN Unavailable Unavaila Dmitriy Short MD Unavailable Laura Monroe RN Unavailable Unavailable Raeann Maldonado PA-C Unavailable Aliya Winn DO Unavailable [phone] Lindy Barlow RN Unavailable Unavailable Shannan Byrne [facility] Unavailable Shannan Byrne [facility] Unavailable Shannan Byrne Unavailable Unavailable Mihaela Sylvester MD Unavailable Brittany Huong Aj WINDOWS INFRASTRUCTURE ENGINEER COMMUNICATIONS INSTRUCTOR Unavailable Karma Donnelly WINDOWS INFRASTRUCTURE ENGINEER COMMUNICATIONS INSTRUCTOR Unavailable [phone] Amanda Yang HAM TRIMMER Unavailable [phone] Faustina Trujillo MD Unavailable + Macrina Khan PA-C Primary Care Provider Mihaela Gill-C Unavailable Shu Pratt PA-C Unavailable [phone] Sharon Huang [facility] Unavailable [phone] Venus Abrams PA-C Unavailable [phone] Mana Melgar HAM TRIMMER Unavailable [phone] Reason for Visit * Reason Onset Date Comments Medication Request 08/15/2019 estrace cream - covered Encounter Details Date Type Department Care Team (Late st Contact Info) Description 08/15/2019 Telephone [facility] [address] [place] [address] [place] [id number] [place] [address] Medication Request (estrace cream - covered) Social History Tobacco Use Types Packs/Day Years [...] and Family Twice a week 07/25/2018 Attends [employer] Not on file 07/25 Active Member [...] Sex Assigned at Female 04/20/2020 9:52 AM FIELD AUTOMOBILE ADJUSTER Legal Sex Female 5:13 AM FIELD AUTOMOBILE ADJUSTER Gender Identity Female 04/20/2020 9:52 AM FIELD AUTOMOBILE ADJUSTER Sexual Orientation Not on file COVID-19 Exposure Response Date Recorded In the last month, have you been in contact with someone who was confirmed or suspected to have Coronavirus / COVID-19? No / Unsure 08/15/2019 9:43 AM CDT documented as of this encounter Miscellaneous Notes * Telephone Encounter - Nata Baron - 08/15/2019 11:09 AM CDT Patient's insurance covers the estrace cream for a $47.00 copay. If approved, please send a new prescription for the estrace vaginal cream. Thanks, Nata Baron [facility] documented in this encounter Plan of Treatment Upcoming Encounters Date Type Department Care Team (Late st Contact Info) Description 02/06/2024 3:20 PM FIELD AUTOMOBILE ADJUSTER Office Visit [facility] Heart [address] [place] [address] Venus Abrams PA-C [address] [address] documented as of this encounter Visit Diagnoses Not on filedocumented in this encounter Additional Health Concerns Infection Onset Date Last Indicated Resolved Time Rule Out COVID-19 11/19/2020 11/19/2020 11/20/2020 12:53 PM CDT COVID-19 11/19/2020 11/19/2020 12/10/2020 11:3 9 PM CDT COVID-19 10/22/2021 11/08/2021 11/08/2021 11:3 9 PM CDT Assessment Noted Time PHQ-9 Depression Total Score: 3 04/06/19 7:02 AM FIELD AUTOMOBILE ADJUSTER documented as of this encounter Care Teams Applications Analyst Relationship Specialty [place] [address] [place] [address] PCP - General Family Practice 08/10/17 09/12/23 Macrina Khan PA-C [address] [place] [address] PCP - General Family Medicine 09/13/23 [place] [address] [place], [place] [id number] Assigned PCP 07/14/18 Laura Monroe RN Personal Advocate & Liaison (PAL) 11/14/19 02/07/21 Woody Francis MD [address] [place] [address] 929305 Assigned Heart and Vascular Provider 12/26/19 10/30/20 Shu Mayfield MD [address] [place] [address] [phone] Medical Oncology 02/19/20 [place] [id number] [place] [address] Assigned Cancer Care Provider 04/04/20 11/03/22 Latoya Brice, RN Specialty Chemist Helper Oncology 05/06/20 07/19/21 [place] [address] [address] Assigned Musculoskeletal Provider 05/23/20 12/09/21 Laura Monroe, RN Personal Advocate & Liaison (PAL) 02/08/21 04/07/21 Raeann Maldonado, PA-C [address] [place], [place] [phone] Physician Physical Aerodynamicist Dermatology 04/27/21 Aliya Winn DO [address] [place], [place] [address] Assigned Heart and Vascular Provider 02/18/22 06/25/23 Lindy Barlow RN Personal Advocate & Liaison (PAL) Family Medicine 06/05/22 07/04/23 Shannan Byrne [facility] [address] [place] [phone] Pharmacist Pharmacist 06/08/22 Shannan Byrne [facility] [address] [place] [phone] Assigned MTM Pharmacist 06/17/22 Shannan Byrne Medical Student 12/27/22 Mihaela Sylvester MD [address] [place] [address] flower grader 01/01/23 Huong Soto, WINDOWS INFRASTRUCTURE ENGINEER COMMUNICATIONS INSTRUCTOR [place] 035565 [facility] [address] [place] [phone] Nurse Practitioner Psychiatry 01/08/23 Karma Donnelly, WINDOWS INFRASTRUCTURE ENGINEER COMMUNICATIONS INSTRUCTOR [address] [place] [address] Nurse Practitioner Cardiovascular Disease 05/14/23 Amanda Yang, [facility] [address] [place] [address] Assigned Behavioral Health Provider 06/26/23 01/25/24 Faustina Trujillo MD [address] [place], [place] [address] Assigned Heart and Vascular Provider 06/26/23 09/24/23 Mihaela Gill PA-C [address] [place], [place] [address] Assigned Heart and Vascular Provider 09/25/23 10/25/23 Shu Pratt PA-C [address] [place] 22[address] Assigned Heart and Vascular Provider 10/26/23 11/25/23 Sharon Huang DNP [address] [place], [place] 4899[address] Assigned Neuroscience Provider 11/26/23 Venus Abrams PA-C [address] [address] Assigned Heart and Vascular Provider 11/26/23 Mana Melgar LICSW [address], [address] [place] 595865 Assigned Behavioral Health Provider 01/26/24 documented as of this encounter
--- OUTSIDE RECORDS SUMMARY | 2024-01-29 13:29 | XMS_ITS | Encounter Summary ---
Author Organization [facility] Address [address] [address] Care Team Providers Care Hvac R Tech Name Role Phone Ty Elizabeth MD Primary Care Provider Ty Elizabeth MD Unavailable [phone] Laura Monroe RN Unavailable Unavailable Woody Francis MD Unavailable Shu Mayfield MD Unavailable Shu Mayfield MD Unavailable Latoya Brice RN Unavailable Unavaila Dmitriy Short MD Unavailable Laura Monroe RN Unavailable Unavailable Raeann Maldonado PA-C Unavailable Aliya Winn DO Unavailable [phone] Lindy Barlow RN Unavailable Unavailable [facility]ann[facility] Byrne [facility] Unavailable [phone] Shannan Byrne [facility] Unavailable [phone] Shannan Byrne Unavailable Unavailable Mihaela Sylvester MD Unavailable BrittanyHuong Aj SUPERVISOR SHIP MAINTENANCE SERVICES PANEL CUTTER Unavailable [phone] Karma Donnelly SUPERVISOR SHIP MAINTENANCE SERVICES PANEL CUTTER Unavailable [phone] Amanda Yang BOBBIN SORTER Unavailable [phone] Faustina Trujillo MD Unavailable + Macrina Khan PA-C Primary Care Provider [phone] Mihaela Gill-C Unavailable [phone] Shu Pratt PA-C Unavailable [phone] [facility] Unavailable [phone] Venus Abrams PA-C Unavailable [phone] Mana Melgar BOBBIN SORTER Unavailable [phone] Encounter Details Date Type Department Care Team (Late st Contact Info) Description 05/19/2020 Documentation Only INTERFACED REPORT Unknown, Provider Social History Tobacco Use Types Packs/Day Years [...] and Family Twice a week 07/25/2018 Attends [employer] Not on file 07/25 Active Member [...] Sex Assigned at Female 04/20/2020 9:52 AM BUSINESS RISK ANALYST Legal Sex Female 5:13 AM BUSINESS RISK ANALYST Gender Identity Female 04/20/2020 9:52 AM BUSINESS RISK ANALYST Sexual Orientation Not on file COVID-19 Exposure Response Date Recorded In the last month, have you been in contact with someone who was confirmed or suspected to have Coronavirus / COVID-19? No / Unsure 05/20/2020 10:03 AM CDT documented as of this encounter Plan of Treatment Upcoming Encounters Date Type Department Care Team (Late st Contact Info) Description 02/06/2024 3:20 PM BUSINESS RISK ANALYST Office Visit [facility] [address] [place] [address] [address] [place] [phone] Venus Abrams PA-C [address] [id number] documented as of this encounter Visit Diagnoses Not on filedocumented in this encounter Additional Health Concerns Infection Onset Date Last Indicated Resolved Time Rule Out COVID-19 11/19/2020 11/19/2020 11/20/2020 12:53 PM CDT COVID-19 11/19/2020 11/19/2020 12/10/2020 11:3 9 PM CDT COVID-19 10/22/2021 11/08/2021 11/08/2021 11:3 9 PM CDT Assessment Noted Time PHQ-9 Depression Total Score: 3 04/06/19 7:02 AM BUSINESS RISK ANALYST documented as of this encounter Care Teams Hvac R Tech Relationship Specialty [place] [address] [place] [place] [address] PCP - General Family Practice 08/10/17 09/12/23 Macrina Khan PA-C [address] [place] [address] PCP - General Family Medicine 09/13/23 [place] [address] [place] [address] Assigned PCP 07/14/18 Laura Monroe RN Personal Advocate & Liaison (PAL) 11/14/19 02/07/21 Woody Francis MD [address] [place] [address] [id number] Assigned Heart and Vascular Provider 12/26/19 10/30/20 Shu Mayfield MD [address] [place] [address] 690275 Medical Oncology 02/19/20 [place] [address] [address] [facility] [address]4557 [place] [address] Assigned Cancer Care Provider 04/04/20 11/03/22 Latoya Brice RN Specialty Electronic Assembly Oncology 05/06/20 07/19/21 [place] [address] 208[address] Assigned Musculoskeletal Provider 05/23/20 12/09/21 Laura Monroe RN Personal Advocate & Liaison (PAL) 02/08/21 04/07/21 Raeann Maldonado PA-C [address] [place] [address] Physician Dry Kiln Operator Dermatology 04/27/21 Aliya Winn DO [address] [place] [address] Assigned Heart and Vascular Provider 02/18/22 06/25/23 CainLindy dey, RN Personal Advocate & Liaison (PAL) Family Medicine 06/05/22 07/04/23 Shannan Byrne, [facility] [address] [place] [phone] Pharmacist Pharmacist 06/08/22 [facility] [address] [place] [phone] Assigned MTM Pharmacist 06/17/22 Shannan Byrne Medical Student 12/27/22 Mihaela Sylvester MD [address] [facility] [address] [place] [address] svp of digital 01/01/23 Huong Soto, SUPERVISOR SHIP MAINTENANCE SERVICES PANEL CUTTER [place] [address] [facility] [address] [place] [phone] Nurse Practitioner Psychiatry 01/08/23 Karma Donnelly, SUPERVISOR SHIP MAINTENANCE SERVICES PANEL CUTTER [address] [place] [address] Nurse Practitioner Cardiovascular Disease 05/14/23 Amanda Yang, [facility] [address] [place] [address] Assigned Behavioral Health Provider 06/26/23 01/25/24 Faustina Trujillo MD [address] [place] [address] Assigned Heart and Vascular Provider 06/26/23 09/24/23 Mihaela Gill PA-C [address] [place] [address] Assigned Heart and Vascular Provider 09/25/23 10/25/23 Shu Pratt PA-C [address] [place] [address] Assigned Heart and Vascular Provider 10/26/23 11/25/23 Sharon Huang DNP [address] [place], [place] [address] Assigned Neuroscience Provider 11/26/23 Venus Abrams PA-C [address] [place] [address] Assigned Heart and Vascular Provider 11/26/23 Mana Melgar BOBBIN SORTER [facility] [address] [place] [address], [address] [place] [address] Assigned Behavioral Health Provider 01/26/24 documented as of this encounter
--- OUTSIDE RECORDS SUMMARY | 2024-01-29 13:30 | XMS_ITS | Continuity of Care Document ---
Author Organization [place] - [employer] [facility] Address [address] [facility] [address] [place] [address] Care Team Providers Care Residential Installer Name Role Phone [facility] PROVIDER VISIT NOTE OTHE R LIUDMILA ZHANG Primary Care Provider BLAINE SHUKLA OTHER Unavailable Efren Brielle: Son/Form Setter [employer] Patient Designee [phone] Assessment Encounter Date Assessment Date Assessment LastModified by Organization Details LastModified Time 11/02/2023 11/02/2023 Jessica HANNAH 87yo [id number] #[id number] [facility] Consult Request: - Initial [facility] review - Polypharmacy Medications: Psych - Depakote [...] Note DDI while on divalproex, monitor for CHIPPER depression closely if any prn lorazepam used. [...] Atenolol directions need to be updated in [facility] med list. Appears this should be 25mg po qd (reduced from 50 d/t bradycardia). - Unclear if member is still taking losartan as it is on [place] med list, but not mentioned in most recent chart note. If still taking, consider d/c amlodipine and continue max dose losartan and monitor BP for further titration of other medications. - Check renal function, if Creat >/=1.5 would qualify for reduced Eliquis dose 2.5mg po bid (given age >80years, weight does not meet criteria at this point). [email or web address] Not available 11/02/2023 12:36:52 Plan of Treatment Reminders Order Date Submit [...] Time Gastroesoph ageal reflux disease without esophagitis 214539685 Active 2023 Gaviota Peralta, [facility] [address], [address], [place], [address], [place] [facility] 4 11:53:17 Hypertensiv e heart disease without congestive heart failure 52685068 Active 2023 Gaviota Peralta, [facility] [address], [address], [place], [address], [place] [facility] 4 11:53:27 Bradycardia 31207832 Active 2023 Gaviota Peralta, [facility] [address], [address], [place], [address], [place] [facility] 4 11:53:01 Advance care planning Active 2023 Gaviota Peralta, [facility] [address], [address], [place], [address], [place] [facility] 4 11:52:36 Recurrent major depressive episodes 160515887 Active 2023 BE ADVISED - this dx cannot be coded with bipolar disorder Tony carpio, [place] - [facility] 4 08:06:44 Generalized anxiety disorder 91106812 Active 2023 Gaviota Peralta, [facility] [address], [address], [place], [address], [place] [facility] 4 11:53:34 Resting tremor 24298704 Active 2023 Gaviota Peralta, [facility] [address], [address], [place], [address], [place] [facility] 4 11:54:29 Paroxysmal atrial fibrillatio n 449242052 Active 2023 Gaviota Peralta, [facility] [address], [address], [place], [address], [place] [facility] 4 11:54:01 Muscle weakness 10832829 Active 2023 Gaviota Peralta, [facility] [address], [address], [place], [address], [place] [facility] 4 11:53:53 Bipolar II disorder 78569752 Active 2023 BE ADVISED - this dx cannot be coded with the MDD dx Tony carpio, [place] - [facility] 4 08:06:25 Minimal cognitive impairment 676490486 Active 2023 Gaviota Peralta, [facility] [address], [address], [place], [address], [place] [facility] 4 11:53:47 Hypothyroid ism 59472510 Active 2023 Gaviota Peralta, [facility] [address], [address], [place], [address], [place] [facility] 4 11:53:30 Loss of hair 601121917 Active 2023 Liudmila Zhang, COMMERCIAL ENERGY AUDITOR [address], [address], [place], [address], [place] [facility] 4 14:00:18 Ascending aorta dilatation 194931740 Active 2023 Liudmila Zhang, COMMERCIAL ENERGY AUDITOR [address], [address], [place], [address], [place] [facility] 4 15:30:40 Chronic kidney disease stage 3A 127219119 Active 2023 Liudmila Zhang, COMMERCIAL ENERGY AUDITOR [address], [address], [place], [address], [place] [facility] 4 15:30:45 Lichen sclerosus of vulva 499281587 Active 2023 Liudmila Zhang, COMMERCIAL ENERGY AUDITOR [address], [address], [place], [address], [place] [facility] 4 15:31:02 Problem Notes None recorded. Procedures Surgical History Date Name Laterality Status Provider Name and Address Organization Details Recorded Time 4 Medications Reviewed completed Liudmila Zhang, SIME[facility] [address], [address], [place], [address], [place] [facility] 12/30/2023 09:43:00 4 Medication List Present completed Liudmila Zhang CNP [address], [address], [place], [address], [place] [facility] 12/30/2023 09:43:00 4 Medications Reviewed completed Liudmila Zhang CNP [address], [address], [place], [address], [place] [facility] 12/02/2023 23:20:53 4 Medication List Present completed Liudmila Zhang CNP [address], [address], [place], [address], [place] [facility] 12/02/2023 23:20:53 4 Advanced Care Planning completed Liudmila Zhang CNP [address], [address], [place], [address], [place] [facility] 11/01/2023 13:56:33 4 Medications Reviewed completed Liudmila Zhang CNP [address], [address], [place], [address], [place] [facility] 10/31/2023 16:28:35 4 Medication List Present completed Liudmila Zhang CNP [address], [address], [place], [address], [place] [facility] 10/31/2023 16:28:35 Imaging Results None recorded. Procedure Notes None recorded. Medical Equipment None Reported. Allergies Allergen ID Allergen Name Allergen Category Reaction Reaction Severity Criticality Documentation Date Start Date Code Code System Note Provider Name and Address Organization Details Recorded Time 91909 Product containin g angiotens in-conver ting enzyme inhibitor (product) medicatio n cough Not available Not available 10/15/2023 08956 009 SNOMED Emanuel carpio, [place] - [facility] 4 16:32:29 [address] bupropion Not available nausea Not available Not available 10/15/2023 11300 RxNorm Emanuel carpio, [place] [facility] 16:32:44 44987 codeine medicatio n nausea Not available Not available 10/15/2023 2670 RxNorm Emanuel carpio [place] - [facility] 4 16:32:55 72202 Medicinal product containin g penicilli n and acting as antibacte rial agent (product) medicatio n nausea Not available Not available 10/15/2023 25782 05 SNOMED Emanuel carpio, [place] - [facility] 4 16:33:05 51322 shrimp allergeni c extract food itching Not available Not available 10/15/2023 60929 2 RxNorm diffi culty breat rene Emanuel carpio, [place] - [facility] 16:33:33 Medications Name Sig [...] Available Not Available No t Available Vitals None Recorded Social History Question Answer Notes LastModified by Organizat ion Details LastModified Time Tobacco Smoking Status Never Smoker Liudmila Zhang, COMMERCIAL ENERGY AUDITOR [address], [address], [place], [address], [place] [facility] 12/31/2023 13:59:48 What Was [...] 30 mcg/0.3 mL dose 01/28/2021 completed Jackeline-Rhea Alka null, [place] - [facility] 10/15/2023 16:41:58 COVID-19, mRNA, LNP-S, PF, 30 mcg/0.3 mL dose 07/05/2021 completed Jackeline-Rhea [place], [place] [facility] 10/15/2023 16:42:01 COVID-19, mRNA, LNP-S, PF, 30 mcg/0.3 mL dose 12/14/2021 completed Jackeline-Rhea [place], [place] [facility] 10/15/2023 16:42:04 COVID-19, mRNA, LNP-S, PF, 30 mcg/0.3 mL dose 08/09/2022 completed Jackeline-Rhea [place] [facility] 10/15/2023 16:42:08 COVID-19, mRNA, LNP-S, PF, uliess-sucrose, 30 mcg/0.3 mL 12/28/2022 completed Emanuel Rucker [place], [place] [facility] 10/15/2023 16:42:15 Influenza, adjuvanted, quadrivalent, PF 12/07/2022 completed Emanuel Rucker [place] [facility] 10/15/2023 16:42:22 Pneumococcal conjugate PCV 13 01/05/2015 completed Jackeline-Rhea Rucker [place] [facility] 10/15/2023 16:42:32 Pneumococcal conjugate PCV 13 01/11/2018 completed Jackeline-Rhea Rucker [place], [place] [facility] 10/15/2023 16:42:37 Past Encounters Encounter ID Performer Location Encounter Start Date Encounter Closed Date Diagnosis/Indication Diagnosis SNOMED-CT Code Diagnosis ICD10 Code [id number] Liudmila Carrier, COMMERCIAL ENERGY AUDITOR [facility] [place] [address] [facility] [place] [address] 11/01/2023 13:02:50 11/01/2023 15:04:02 Resting tremor 26243247 G25.2 Bipolar II disorder 8322 5003 F31.81 Generalize d anxiety disorder 02940013 F41.1 Recurrent major depressive episodes 029114551 F33.9 Advance care planning 71 4861159 Z71.89 Minimal co gnitive impairment 152040935 R41.89 Muscle weakness 20965815 M62.81 Gastroesop hageal reflux disease without esophagitis 053253141 K21.9 Hypothyroidism 13101303 E03.9 Hypertensi ve heart disease without congestive heart failure 80042580 I11.9 Bradycardia 60517977 R00 .1 Paroxysmal atrial fibrillation 846907255 I48.0 724900 [facility] [address] [place] [id number] 11/02/2023 12:36:00 11/02/2023 12:36:56 Health Concerns Section Related Observation LastModified by Organization Detai ls LastModified Time None Recorded Concern Status LastModified by Organization Details LastModified Time None Recorded Payers Encounter Date Sequence Insurance Name Policy Number Policy Gomez Covered Member ID Gomez Member ID Guarantor Name 11/02/2023 1 [facility]: (MEDICARE [place]PLACEMENT PPO) [id number] Jessica Hannah [id number] Jessica Hannah OBGyn Episode No OBEpisode recorded.
== END 2024-01-29 13:22 | disposition home or self-care (01) ==
LOC: NFLDREF 13:24
PROVIDERS: Visit Provider Obstetrics & Gynecology
DX: N76.4 Abscess of vulva (principal)
CPT/HCPCS: 87086